=== PATIENT | male | born 1945 | race Caucasian/White ===

== ENCOUNTER 2023-02-21 06:53 | Day surgery (SDC) | payer MEDICARE, BC, SELFPAY ==
[2023-02-21] MEDS: LIDOCAINE 2% JELLY 10 ML UR (07:57)
--- NOTE | 2023-02-21 08:12 | PM.URSON ---
Urology Surgery Operative Note Operative Note Procedure Date: 02/21/23 Time Out Performed: yes Pre-op Diagnosis: history of superficial TCC of the bladder. Post-op Diagnosis: same plus no recurrence Procedures performed: #1. Cystoscopy. Anesthesia: local Primary Surgeon: Ariel Smallwood Complications: none Estimated blood loss (mL): 5 Findings: #1. Trilobar obstruction of the prostate. #2. High-grade bladder damage with deep diverticuli. #3. No evidence of recurrent bladder tumors. Specimens: none Indications for Procedures: this gentleman has a history of noniinvasive low-grade TCC of the bladder which was diagnosed about 3 months ago. He now presents for surveillance cystoscopy. He has signed an informed consent after risks were explained. Detailed description of Procedure: patient was kept on his gurney bed and brought to the endoscopy suite. He was in the supine position. His genitals were sterilely prepped and draped in the usual fashion. 2 percent lidocaine gel was passed per urethra. Time out was done by all parties in the room. We all agreed upon the patient's identification of the planned procedures for this patient. At this time I then passed a flexible cystoscope per urethra and into the bladder. The anterior urethra was normal. The prostatic urethra showed trilobar obstruction. He had fairly capacious lateral lobes and a high median lobe. The median lobe did bleed a little simply from the flexible scope resting upon it. Careful panendoscopy in the bladder showed no evidence of any papillary tumors or mucosal lesions. The previous resection site anteriorly was well-healed. The scope was retroverted upon itself and other than the median lobe protruding into the bladder and no new findings were noted. The scope was then removed. he tolerated it well. He was then discharged to home.
== END 2023-02-21 08:12 | disposition home or self-care (01) ==
PROVIDERS: PCP Internal Medicine; Visit Provider Urology
PROC: (CPT 52000; principal; 2023-02-21 07:45)
DX: Z85.51 Personal history of malignant neoplasm of bladder (principal); N40.0 Benign prostatic hyperplasia without lower urinary tract symptoms; N32.3 Diverticulum of bladder; I48.91 Unspecified atrial fibrillation; I10 Essential (primary) hypertension; E78.5 Hyperlipidemia, unspecified; Z79.01 Long term (current) use of anticoagulants; Z79.899 Other long term (current) drug therapy; Z87.891 Personal history of nicotine dependence
CPT/HCPCS: 52000

== ENCOUNTER 2023-06-27 07:35 | Day surgery (SDC) | payer MEDICARE, BC, SELFPAY ==
[2023-06-27 08:45] VITALS: BP 127/82; PULSE 97; RESP 18; O2SAT 96
[2023-06-27] MEDS: LIDOCAINE 2% JELLY 10 ML UR (08:48)
--- NOTE | 2023-06-27 08:52 | PM.URSON ---
Urology Surgery Operative Note Operative Note Procedure Date: 06/27/23 Time Out Performed: yes Pre-op Diagnosis: History of superficial TCC of the bladder Post-op Diagnosis: same as pre-op Procedures performed: 1. Cystoscopy. Anesthesia: local Primary Surgeon: Ariel Smallwood Complications: None Estimated blood loss (mL): 2 Findings: 1. No bladder tumors. Specimens: None Indications for Procedures: This gentleman has a history of low-grade noninvasive TCC of the bladder. He now presents for surveillance cystoscopy. He has signed an informed consent after risks were explained. Detailed description of Procedure: The patient was kept on the rpall mall bed and brought into the endoscopy suite. He was in the supine position. Timeout was done by all parties in the room. We all agreed upon the patient's identification and the planned procedures for this patient. The genitalia was sterilely prepped and draped in the usual fashion. 2% Xylocaine jelly was passed per urethra. I started by passing a flexible cystoscope per urethra and into the bladder. The anterior urethra was normal. The prostatic urethra showed by lobar obstruction with fairly long lateral lobes. There was a enlarged median lobe which did protrude into the bladder somewhat. Careful panendoscopy in the bladder showed thick trabeculation and multiple open diverticuli diffusely. No evidence of bladder tumors were noted. The scope was retroverted upon itself and no new findings were noted. The scope was then removed. He then was discharged to home.
[2023-06-27 08:57] VITALS: BP 140/90; PULSE 108; RESP 18; O2SAT 96
== END 2023-06-27 09:02 | disposition home or self-care (01) ==
PROVIDERS: PCP Internal Medicine; Visit Provider Urology
PROC: (CPT 52000; principal; 2023-06-27 08:15)
DX: Z85.51 Personal history of malignant neoplasm of bladder (principal); I10 Essential (primary) hypertension; E78.5 Hyperlipidemia, unspecified; I48.91 Unspecified atrial fibrillation; Z79.01 Long term (current) use of anticoagulants; N32.89 Other specified disorders of bladder; N32.3 Diverticulum of bladder; Z87.891 Personal history of nicotine dependence; N40.1 Benign prostatic hyperplasia with lower urinary tract symptoms; Z87.440 Personal history of urinary (tract) infections; R35.1 Nocturia; R39.12 Poor urinary stream; R31.0 Gross hematuria; R39.15 Urgency of urination
CPT/HCPCS: 52000

== ENCOUNTER 2023-06-30 07:03 | Outpatient (OUT) | payer MEDICARE, BC, SELFPAY | END 2023-06-30 07:04 | disposition home or self-care (01) | LOC: PST 07:03 | PROVIDERS: PCP Internal Medicine; Visit Provider Urology | DX: Z01.818 Encounter for other preprocedural examination (principal); Z85.51 Personal history of malignant neoplasm of bladder; I10 Essential (primary) hypertension; E78.5 Hyperlipidemia, unspecified; I48.91 Unspecified atrial fibrillation; Z79.01 Long term (current) use of anticoagulants ==

== ENCOUNTER 2023-09-26 07:10 | Day surgery (SDC) | payer MEDICARE, BC, SELFPAY ==
--- OUTSIDE RECORDS SUMMARY | 2023-09-26 07:13 | XMS_ITS | CCD ---
Author Name Unknown Address [address] [place] [address] Organization [facility] Care Team Providers Care Supervisor Hand Workers Name Role Phone SONJA EASTON Primary Care Physician Unavailab Surya Monae Unavailable Yumi Matute Unavailable DO Wilver Easton Primary Care Provider JAYDEN Tatum Attending Provider [phone] SMALLWOOD ., DR NOLASCO Consulting Unavailable SMALLWOOD ., DR NOLASCO Attending Unavailable SMALLWOOD ., DR NOLASCO Admitting Unavailable YUALICIA, DR PETTIT Primary Care Unavailable LIZABETH, DR JUDITH Villanueva Consulting Unavailable ZOEY GUERRA Consulting Unavailable SMALLWOOD ., DR NOLASCO Consulting Unavailable SMALLWOOD ., DR NOLASCO Attending Unavailable SMALLWOOD ., DR NOLASCO Admitting Unavailable JEMMA, DR PETTIT Primary Care Unavailable PRASANNA MACKEY Consulting Unavailable ADAMARIS BARAJAS Consulting Unavailable SMALLWOOD ., DR NOLASCO Consulting Unavailable SMALLWOOD ., DR NOLASCO Attending Unavailable YUALICIA, DR PETTIT Primary Care Unavailable SMALLWOOD ., DR NOLASCO Admitting Unavailable LIZABETH, DR JUDITH Villanueva Consulting Unavailable DO Wilver Easton Primary Care Provider JAYDEN Tatum Attending Provider [phone] Lex Tatumidi Unavailable Yessica Tatum Attending Unavailable Lex Tatumidi Admitting Unavailable Wilver Easton Primary Care Unavailable Wilver Easton DO Primary Care Provider [phone] LATESHA SANDRA Attending Unavailable WILVER EASTON Referring Unavailable WILVER EASTON Primary Care Unavailable Constance SMALLWOOD Attending Unavailable TRACI QUINTERO Admitting Unavailable TRACI QUINTERO Attending Unavailable SMALLWOOD, Constance R Attending Unavailable SMALLWOOD, Constance R Admitting Unavailable SMALLWOOD, Constance R Attending Unavailable SMALLWOOD, Constance R Attending Unavailable SMALLWOOD, Constance R Admitting Unavailable SMALLWOOD, Constance R Attending Unavailable SMALLWOOD, Constance R Attending Unavailable SMALLWOOD, Constance R Admitting Unavailable SMALLWOOD, Constance R Referring Unavailable SMALLWOOD, Constance R Attending Unavailable SMALLWOOD, Constance R Admitting Unavailable SMALLWOOD, Constance R Attending Unavailable SMALLWOOD, Constance R Attending Unavailable SMALLWOOD, Constance R Admitting Unavailable JEMMASONJA Attending Unavailable SMALLWOOD, Constance R Attending Unavailable SMALLWOOD, Constance R Referring Unavailable SMALLWOOD, Constance R Attending Unavailable SMALLWOOD, Constance R Attending Unavailable SMALLWOOD, Constance R Attending Unavailable SMALLWOOD, Constance R Attending Unavailable SMALLWOOD, Constance R Attending Unavailable SMALLWOOD, Constance R Attending Unavailable SMALLWOOD, Constance R Attending Unavailable INGRID, TRACI Alberts Attending Unavailable SMALLWOOD, Constance R Attending Unavailable Allergies Allergy Classification Reported Allergen(s) Allergy Type Date of Onset Reaction(s) Facility (1 source) No Known Medication Allergies; Translations: [No Known Medication Allergies] Propensity to adverse reactions (disorder) [facility] Repository Medications Current Medications Medication Drug Class(es) Dates Sig (Normalized) Sig (Original) apixaban 5 mg oral tablet (20 sources) Factor Xa Inhibitor Start: 05-03-2023 take 1 tablet by mouth twice daily ELIQUIS 5 mg tablet Indications: Paroxysmal atrial fibrillation ([facility]) TAKE 1 TABLET BY MOUTH TWICE DAILY 180 tablet 1 05/03/2023 Active Start: 01-05-2022 take 1 tablet by steve th twice daily Eliquis 2.5 mg oral tablet 2.5 mg = 1 tab(s), Oral, BID, Refills(s) 0 Start Date: 01/05/22 Status: Ordered aspirin 81 mg oral tablet (1 source) Platelet Aggregation Inhibitor, Nonsteroidal Anti-inflammatory Drug Start: 12-31-2019 aspirin 81 mg oral tablet Refills(s) 0 Start Date: 12/31/19 Status: Ordered atorvastatin 40 mg oral tablet (20 sources) HMG-CoA Reductase Inhibitor Start: 12-31-2019 atorvastatin 40 mg Tab Refills(s) 0 Start Date: 12/31/19 Status: Ordered cephalexin 500 mg oral capsule (2 sources) Cephalosporin Antibacterial Start: 05-20-2022 take 1 capsule by mouth twice daily Keflex 500 mg Cap 500 mg = 1 cap(s), Oral, BID, # 14 cap(s), Refills(s) 0, Pharmacy: [facility], 180, cm, 05/20/22 11:15:00 EDT, Height/Length Dosing, 109, kg, 05/20/22 11:15:00 EDT, Weight Dosing Start Date: 05/20/22 Status: Ordered cholecalciferol 0.025 mg oral tablet (3 sources) Vitamin D take 1 tablet by mouth in the morning cholecalciferol (VITAMIN D3) 1,000 units tablet Take 1 tablet (1,000 Units total) by mouth in the morning. 0 Active doxycycline hyclate 100 mg oral capsule (1 source) Tetracycline-class Drug Start: 01-05-2022 take 1 capsule by mouth once daily doxycycline hyclate 100 mg Cap 100 mg = 1 cap(s), Oral, Daily, Take 1 day before procedure and after procedure, # 2 cap(s), Refills(s) 0, Pharmacy: [facility], 180, cm, 01/05/22 8:41:00 EDT, Height/Length Dosing, 109, kg, 01/05/22 8:41:00 EDT, Weight Dosing Start Date: 01/05/22 Status: Ordered dutasteride 0.5 mg oral capsule (12 sources) 5-alpha Reductase Inhibitor Start: 11-05-2022 take 1 capsule by mouth once daily dutasteride 0.5 mg Cap 0.5 mg = 1 cap(s), Oral, Daily, # 90 cap(s), Refills(s) 3, Pharmacy: [facility], 180, cm, 11/01/22 9:50:00 EDT, Height/Length Dosing, 103, kg, 11/01/22 9:50:00 EDT, Weight Dosing Start Date: 11/05/22 Status: Ordered ezetimibe 10 mg oral tablet (20 sources) Dietary Cholesterol Absorption Inhibitor Start: 08-19-2022 End: 07-10-2023 ezetimibe 10 mg Tab Refills(s) 0 Start Date: 08/19/22 Status: Ordered Magnesium Aspartate (5 sources) Start: 12-31-2019 magnesium aspartate Refills(s) 0 Start Date: 12/31/19 Status: Ordered 24 hr metoprolol succinate 50 mg extended release oral tablet (20 sources) beta-Adrenergic Deven Start: 02-22-2023 take 0.5 tablet by mouth once daily in the morning metoprolol succinate XL (TOPROL XL) 50 mg 24 hr tablet Indications: Paroxysmal atrial fibrillation (CMS-HCC) TAKE 1/2 (ONE-HALF) OF A TABLET BY MOUTH EVERY MORNING 90 tablet 1 02/22/2023 Active Start: 08-19-2022 metoprolol suc cinate ER 50 mg tablet,extended release 24 hr metoprolol succinate ER 50 mg tablet,extended release 24 hr Start Date: 08/19/22 Status: Ordered Start: 12-31-2019 metoprolol 50 mg ER Tab Refills(s) 0 Start Date: 12/31/19 Status: Ordered Metoprolol Tartr ate Active min oil-w.ckh-duqmgwxvfr-hdrd ointment (2 sources) Start: 09-05-2023 min oil-w.gez-eqwyamvspm-ptjy ointment Apply to affected area as directed 28 g 0 09/05/2023 Active rivaroxaban 20 mg oral tablet (3 sources) Factor Xa Inhibitor Start: 12-31-2019 Xarelto 20 mg oral tablet Refills(s) 0 Start Date: 12/31/19 Status: Ordered tamsulosin hydrochloride 0.4 mg oral capsule (20 sources) alpha-Adren ergic Deven Start: 08-01-2023 take 1 capsule by mouth twice daily tamsulosin 0.4 mg Cap 0.4 mg = 1 cap(s), Oral, BID, # 180 cap(s), Refills(s) 3, Pharmacy: [facility], 180, cm, 11/29/22 11:36:00 EDT, Height/Length Dosing, 103, kg, 11/29/22 11:36:00 EDT, Weight Dosing Start Date: 08/01/23 Status: Ordered Start: 05-20-2022 End: 02-14-2023 take 1 capsule by mouth at bedtime tamsulosin (FLOMAX) 0.4 mg capsule Indications: Benign prostatic hyperplasia with urinary frequency Take 1 capsule (0.4 mg total) by mouth in the morning and at bedtime. 180 capsule 0 12/28/2022 Active Start: 01-05-2022 take 1 capsule by mo uth twice daily tamsulosin 0.4 mg Cap 0.4 mg = 1 cap(s), Oral, BID, # 60 cap(s), Refills(s) 2, Pharmacy: [facility], 180, cm, 01/05/22 8:41:00 EDT, Height/Length Dosing, 109, kg, 01/05/22 8:41:00 EDT, Weight Dosing Start Date: 01/05/22 Status: Ordered Completed/Discontinued Medications Medication Drug Class(es) Dates Sig (Normalized) Sig (Original) ciprofloxacin 500 mg oral tablet (10 sources) Quinolone Antimicrobial Start: 01-31-2023 take 1 tablet by mouth once daily Cipro 500 mg Tab 500 mg = 1 tab(s), Oral, Daily, Take 1 tablet the day before the procedure and 1 tablet after the procedure, # 6 tab(s), Refills(s) 0, Pharmacy: [facility], 180, cm, 11/29/22 11:36:00 EDT, Height/Length Dosing, 103, kg, 11/29/22 11:36:00 EDT, Weight Dosing Start Date: 01/31/23 Status: Ordered Start: 11-05-2022 take 1 tablet by steve th once daily Cipro 500 mg Tab 500 mg = 1 tab(s), Oral, Daily, Take 1 tablet the day before the procedure and 1 tablet after the procedure, # 2 tab(s), Refills(s) 0, Pharmacy: [facility], 180, cm, 11/01/22 9:50:00 EDT, Height/Length Dosing, 103, kg, 11/01/22 9:50:00... Start Date: 11/05/22 Status: Ordered Start: 02-22-2022 take 1 tablet by steve th every twelve hours Cipro 500 mg Tab 500 mg = 1 tab(s), Oral, q12hr, # 14 tab(s), Refills(s) 0, Pharmacy: [facility], 180, cm, 02/22/22 8:31:00 EDT, Height/Length Dosing, 109, kg, 02/22/22 8:31:00 EDT, Weight Dosing Start Date: 02/22/22 Status: Ordered Problems Active Problems Problem Classification Problem Date Documented Date Episodic/Chronic Cancer of bladder (13 sources) Malignant neoplasm of bladder, unspecified; Translations: [Malignant tumor of urinary bladder] Onset: 11-25-2022 Chronic Cardiac dysrhythmias (20 sources) Atrial fibrillation; Translations: [Paroxysmal atrial fibrillation] Onset: 07-18-2012 12-31-2019 Chronic Disorders of lipid metabolism (20 sources) Hyperlipidemia; Translations: [Hyperlipidemia, unspecified] Onset: 05-26-2022 12-31-2019 Chronic Essential hypertension (20 sources) Hypertensive disorder; Translations: [Essential (primary) hypertension] Onset: 05-26-2022 12-31-2019 Chronic Genitourinary symptoms and ill-defined conditions (20 sources) Poor stream of urine; Translations: [Poor urinary stream] Onset: 01-05-2022 Episodic Hyperplasia of prostate (20 sources) Benign prostatic hypertrophy with outflow obstruction; Translations: [Benign prostatic hyperplasia with lower urinary tract symptoms] Onset: 01-05-2022 Chronic Neoplasms of unspecified nature or uncertain behavior (4 sources) Neoplasm of unspecified behavior of bladder; Translations: [Neoplasm of uncertain behavior of bladder] Onset: 11-15-2022 Episodic Osteoarthritis (6 sources) Arthropathy of right hip joint; Translations: [Unilateral primary osteoarthritis, right hip] Onset: 04-09-2021 Resolved: 06-02-2021 Chronic Other aftercare (4 sources) Long-term current use of anticoagulant; 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] Onset: 02-22-2022 Episodic Other aftercare (1 source) [facility] (current) use of anticoagulants; 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] Onset: 11-25-2022 Episodic Other diseases of bladder and urethra (1 source) Other specified disorders of bladder; Translations: [OTHER SPECIFIED DISORDERS BLADDER] Onset: 11-25-2022 Chronic Other diseases of kidney and ureters (3 sources) Urinary tract obstruction; Translations: [Other obstructive and reflux uropathy] Onset: 01-25-2022 Episodic Other nutritional; endocrine; and metabolic disorders (5 sources) Obese class I; Translations: [Body mass index (BMI) 33.0-33.9, adult] Onset: 01-25-2022 Chronic Other nutritional; endocrine; and metabolic disorders (20 sources) Body mass index 30+ - obesity; Translations: [Body mass index (BMI) 32.0-32.9, adult] 01-25-2022 Chronic Other nutritional; endocrine; and metabolic disorders (1 source) Body mass index (BMI) 32.0-32.9, adult Onset: 05-19-2021 Resolved: 05-19-2021 Chronic Other nutritional; endocrine; and metabolic disorders (3 sources) Obesity; Translations: [Obesity, unspecified] Onset: 06-02-2022 06-02-2022 Chronic Residual codes; unclassified (11 sources) Obstructive sleep apnea syndrome; Translations: [Obstructive sleep apnea (adult) (pediatric)] Onset: 06-02-2022 06-02-2022 Chronic Residual codes; unclassified (2 sources) Obstructive sleep apnea (adult) (pediatric) Onset: 05-19-2021 Resolved: 05-19-2021 Chronic Residual codes; unclassified (1 source) Obstructive sleep apnea (adult)(pediatric); Translations: [Obstructive sleep apnea (adult) (pediatric)] Onset: 06-15-2023 Chronic Screening and history of mental health and substance abuse codes (12 sources) H/O: Disorder; Translations: [Personal history of nicotine dependence] Onset: 11-01-2022 Episodic Skin and subcutaneous tissue infections (2 sources) Pilonidal cyst; Translations: [Pilonidal cyst without abscess] Onset: 09-05-2023 09-05-2023 Episodic Spondylosis; intervertebral disc disorders; other back problems (9 sources) Herniation of nucleus pulposus of lumbar intervertebral disc; Translations: [Other intervertebral disc displacement, lumbar region] Onset: 06-18-2021 08-27-2021 Chronic Unclassified (17 sources) Asymptomatic microscopic hematuria 01-05-2022 Unclassified (15 sources) Drug therapy finding 02-22-2022 Unclassified (1 source) Cyst Onset: 09-05-2023 Urinary tract infections (20 sources) Acute cystitis; Translations: [Acute cystitis without hematuria] Onset: 02-22-2022 Episodic Past or Other Problems Problem Classification Problem Date Documented Date Episodic/Chronic Mood disorders (3 sources) Mood disorders Onset: 06-29-2023 Resolved: 09-05-2023 06-29-2023 Other and unspecified benign neoplasm (3 sources) History of polyp of colon; Translations: [Personal history of colonic polyps] Onset: 09-02-2017 09-02-2017 Episodic Other and unspecified benign neoplasm (3 sources) Polyp of transverse colon; Translations: [Polyp of colon] Onset: 09-14-2017 09-14-2017 Episodic Peripheral and visceral atherosclerosis (3 sources) 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, left leg; Translations: [Atherosclerosis of cantwell arteries of the extremities with intermittent claudication] Onset: 11-16-2022 Resolved: 11-16-2022 11-16-2022 Chronic Spondylosis; intervertebral disc disorders; other back problems (14 sources) Lumbar radiculopathy; Translations: [Radiculopathy, lumbar region] Onset: 05-23-2020 Resolved: 06-02-2021 Episodic Results Test Name Value Interpretation Reference Range Facil ity Reminderson 09-23-2023 Reminders - From: Saida Rodriguez To: EU - Recalls [facility]; Sent: 09/23/2023 15:04:59 EST Show up: 11/16/2023 15:04:00 EDT Subject: cysto/fish/cytol (bt ck) Due Date/Time: 12/05/2023 15:04:00 EDT Reminder/Recall Patient is due in December for 3 month cysto/fish/cytol (bt ck) [facility] Reminders - From: Saida Rodriguez To: EU - Recalls [facility]; Cc: Saida Rodriguez; Sent: 01/31/2023 14:13:50 EDT Show up: 04/17/2023 14:13:00 EDT Subject: Cysto/FISH/cytol Due Date/Time: 05/09/2023 14:13:00 EDT Reminder/Recall Patient is due in May 2023 for 3 month cysto/fish/cytol (bt ck) Patient sched for 05/30/23 at [facility]. patient will be due in October 2023.LG Patient had Cysto 06/27/23. He will be due in September 2023.LG Patient sched for 09/26/23. He will be due in December 2023.[facility] Consent for Procedure/Surger yon 09-08-2023 Consent for Procedure/Surgery [id number]. 00TIFF Normal [facility] Reminderson 08-19-2023 Reminders - From: Saida Rodriguez To: EU - Recalls [facility]; Cc: Saida Rodriguez; Sent: 07/01/2023 10:36:17 EST Show up: 08/18/2023 10:36:00 EST Subject: Cysto/FISH/cytol Due Date/Time: 09/05/2023 10:36:00 EST Reminder/Recall Patient is due in september 2023 for 3 month cysto/fish/cytol (bt ck) Patient sched for 09/26/23. He will be due in December 2023. Normal [facility] Operative Reporton Operative Report [id number] 0TIFF Normal [facility] Urine Cytology ([facility])on 08-23-2022 Urine Cytology Revision Information Invalid Interpretation Code [facility] Comment on above: Result Comment: Enrique ection Reason -[ Saurabh Greene, 06/22/23 - 14:47 ] Corrected report issued to update PMS/PWS. The diagnosis remains unchanged. Correction Notes - Performed By: #### 1 [id number] ####[facility] [id number] [place], [place] [id number] Urine Cytology ([facility])on 07-23-2022 Method of Extraction Voided Normal [facility] Comment on above: Performed By: #### 1 [id number] ####[facility] [address] [place] [address] Number of Jars 1 Invalid Interpretation Code [facility] Comment on above: Performed By: #### 1 [id number] ####[facility] [address] [place] [address] Specimen Urine Normal [facility] Comment on above: Performed By: #### 1 [id number] ####[facility] [address] [place] [address] Type of Service Technical Only Normal [facility] Comment on above: Performed By: #### 1 [id number] ####[facility] [address] [place] [address] Consent for Procedure/Surger yon 05-05-2023 Consent for Procedure/Surgery 104... 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 Adequate cellularity for evaluation. Diagnosis Summary - The UroVysion FISH study detected normal copy numbers for chromosomes 3, 7, 17, and 9p21. 66 cells were analyzed in this evaluation. No evidence of aneuploidy for chromosomes 3, 7, or 17 or deletion of the 9p21 locus was found in cells present in this specimen. This test does not rule out the possibility of a low grade non-invasive papillary urothelial carcinoma. These findings should be correlated with cytology and cystoscopy results.* CPT 55363, 26752 Microscopic Notes - Microscopic Notes - Abnormal cells 9p21 deletions: Abnormal cells aneploid events: Total cells analyzed: 66 Hematuria: Gross Description Site ID:A color Pramod fixative Alcohol Received 80 mls of clear pramod fluid with the patient's name and, Urine on the vial. Electronically signed by : on: 02/23/2023 00:10:34 Performed By: #### 1 [id number] #### [facility] [address] [place] [address] Operative Reporton Operative Report [id number] 0CD:127 Normal [facility] UroVysion Fish and Urine Cyt o ([facility])on 02-14-2023 [facility] Method of Extraction Voided Normal [facility] Comment on above: Performed By: #### 1 [id number] #### [facility] [address] [place] [address] [facility] Number of Jars 1 Invalid Interpretation Code [facility] Comment on above: Performed By: #### 1 [id number] #### [facility] [address] [place] [address] [facility] Specimen Urine Normal [facility] Comment on above: Performed By: #### 1 [id number] #### [facility] [address] [place] [address] [facility] Type of Service Technical Only Normal [facility] Comment on above: Performed By: #### 1 [id number] #### [facility] [address] [place] [address] Consent for Procedure/Surger yon 01-31-2023 Consent for Procedure/Surgery [id number] 0CD:127 Normal [facility] C Urineon 12-11-2022 Bacteria identified Cx Nom (U) Microbiology PROCEDURE: Urine Culture [R1] SOURCE: U Random BODY SITE: COLLECTED DATE/TIME: 12/09/2022 13:38 EDT RECEIVED DATE/TIME: 12/09/2022 18:13 EDT START DATE/TIME: 12/09/2022 18:13 EDT FREE TEXT SOURCE: SANTY LYLES, Constance SMALLWOOD MD, Constance Villanueva FINAL REPORTS Final Report [] Verified Date/Time: 12/11/2022 06:44 EDT No growth at 2 days. Performing Locations R1: This test was performed at: [facility], [address] [place] [address], [id number] , , [facility] Comment on above: Performed By: #### 2 [id number] ####[facility] [address] [place] [address] Ambulatory Visit Summaryon 0 12-09-2022 Ambulatory Visit Summary WILVER BLUE :1945 Visit Date:12/09/2022 Ambulatory Visit Instructions Your Diagnosis Asymptomatic microscopic hematuria Gross hematuria Tests Performed Urnls Dip Stick Auto w/o Microscopy POC 89504 Your Care Team Attending Physician - SANTY LYLES, Constance Villanueva Primary Care Physician - SONJA EASTON DO This Is Your Medications List Misc Prescription (metoprolol succinate ER 50 mg tablet,extended release 24 hr) apixaban (Eliquis 2.5 mg oral tablet) atorvastatin (atorvastatin 40 mg Tab) ciprofloxacin (Cipro 500 mg Tab) dutasteride (dutasteride 0.5 mg Cap) ezetimibe (ezetimibe 10 mg Tab) sulfamethoxazole-trime thoprim (Bactrim D.S. 800 mg-160 mg Tab) tamsulosin (tamsulosin 0.4 mg Cap) Procedures Performed TURBT - Transurethral resection of bladder tumor (11/18/2022), Cystoscopy (11/09/2022), Cystoscopy (01/25/2022), Cystoscopy (06/09/2015), Operative procedure on shoulder, Procedure on back, Tonsillectomy. What to do next Scheduled Follow-Up Appointments Tuesday 8:00 AM EDT With: SANTY LYLES, Constance Villanueva Where: [facility] Patient Educationon 11-30-19 Patient Education Oncology Bladder Cancer Bladder cancer is a condition where abnormal tissue (a tumor) grows in the bladder. The bladder is the organ that holds urine. Two tubes (ureters) carry urine from the kidneys to the bladder. The bladder wall is made of layers of tissue. Cancer that spreads through these layers of the bladder wall becomes more difficult to treat. What increases the risk? The following factors may make you more likely to develop this condition: ? Smoking. ? Working where there are risks (occupational exposures), such as working with rubber, leather, clothing fabric, dyes, chemicals, or paint. ? Being 55 years of age or older. ? Being male. ? Having long-term bladder inflammation. ? Having a history of cancer. This includes: ? A family history of bladder cancer. ? Having had bladder cancer before. ? Having had certain treatments for cancer before, such as: ? Medicines to kill cancer cells (chemotherapy). ? Strong X-ray beams or high-energy capsules to kill cancer cells and shrink tumors (radiation therapy). ? Having been exposed to arsenic. This is a poisonous substance. What are the signs or symptoms? Early symptoms of this condition include: ? Blood in your urine. ? Pain when urinating. ? Infections of your urinary system (urinary tract infections or UTIs) that happen often. ? Having to urinate sooner or more often than normal. Late symptoms of this condition include: ? Not being able to urinate. ? Pain on one side of your lower back. ? Loss of appetite. ? Weight loss. ? Tiredness (fatigue). ? Swelling in your feet. ? Bone pain. How is this diagnosed? This condition is diagnosed based on: ? Your medical history. ? A physical exam. ? Lab tests, such as urine tests. ? Imaging tests. ? Your symptoms. You may also have other tests or procedures, such as: ? A cystoscopy. This involves putting a narrow tube into your urethra. The urethra is the organ that carries urine from your bladder to the outside of your body. This procedure is done to view the lining of your bladder for tumors. ? A biopsy. This involves removing a tissue sample to look at under a microscope to check for cancer. Blood tests or imaging tests may be needed. These show how far into the bladder wall cancer has grown, and if cancer has spread to any other parts of your body. Tests may include: ? CT scan. ? MRI. ? Bone scan. ? X-ray. How is this treated? Your health care provider may recommend one or more types of treatment based on the stage of your cancer. The most common treatments are: ? Surgery to remove the cancer. Types of surgeries include: ? Removing a tumor on the inside wall of the bladder (transurethral resection). ? Removing the bladder (cystectomy). ? Radiation therapy. This is often combined with chemotherapy. ? Chemotherapy. ? Immunotherapy. This uses medicines to help your body's disease-fighting system (immune system) destroy cancer cells. Follow these instructions at home: ? Take igok-dkc-xvkpyvb and prescription medicines only as told by your health care provider. ? If you were prescribed an antibiotic medicine, take it as told by your health care provider. Do not stop using the antibiotic even if you start to feel better. ? Eat a healthy diet. Some treatments might affect your appetite. ? Do not use any products that contain nicotine or tobacco. These products include cigarettes, chewing tobacco, and vaping devices, such as e-cigarettes. If you need help quitting, ask your health care provider. ? Consider joining a support group. This may help you learn to deal with the stress of having bladder cancer. ? Tell your cancer care team if you develop side effects. Your team may be able to recommend ways to get relief. ? Keep all follow-up visits. This is important. Where to find more information ? [place] [employer] (ACS): cancer.org ? [employer] [place] (NCI): cancer.gov Contact a health care provider if: ? You have symptoms of a UTI. These include: ? Fever. ? Chills. ? Weakness. ? Muscle aches. ? Pain in your abdomen. ? Urge to urinate that is stronger and happens more often than normal. ? Burning in the bladder or urethra when you urinate. Get help right away if: ? There is blood in your urine. ? You cannot urinate. ? You have severe pain or other symptoms that do not go away. Summary ? Bladder cancer is a condition where tumors grow in the bladder. ? Diagnosis is based on your medical history, a physical exam, lab tests, imaging tests, and your symptoms. ? Your health care provider may recommend one or more types of treatment based on the stage of your cancer. ? Consider joining a support group. This may help you learn to deal with the stress of having bladder cancer. This information is not intended to replace advice given to you by your health care provider. Make sure you discuss any questions you have wi (more content not included)... Normal [facility] Urology Office/Clinic Noteon 11-29-2022 Urology Office/Clinic Note Chief Complaint PO TURBT HPI Staff S/P TURBT done 11/18/22 due to Bladder Tumor that was found during Cysto done 11/09/22. Cysto had been scheduled due to results of Renal US done 11/03/22. Pt is here today to review pathology report. Post Op catheter was removed in our office on 11/24/22. Additional DX: BPH *Flomax 0.4mg BID therapy. Started on Dutasteride 0.5mg QD therapy at last encounter. Dysuria: mild burning at the start of urination Incomplete bladder emptying:no Hematuria: mild red blood when he starts urinating Frequency: no Urgency: severe Nocturia: 3x Stream: weak stream Leaking: mild dribbling if he holds to long Post void dripping: no Wearing pads/ Depends: no Urge incontinence: mild Stress incontinence: no Incontinence without Sensory Awareness: no Abdominal pain: no Flank pain: no Sexual complaints: no History of Present Illness Tests Reviewed: Reviewed Pathology report I have reviewed and verified the staff HPI to be accurate for this encounter. I have reviewed the previous health record information and history for this patient from Dr. Smallwood There have been no associated fever, chills, flank pain, or blood in the urine. Denies any urinary infections since last encounter. Review of Systems PHQ Score Initial Depression Screen Score: 0 ROS - Provider Constitutional: denies weight loss, denies hot flashes. Eyes: denies eye problems. Gastrointestinal: denies nausea, denies vomiting. Cardiovascular: denies chest pain or angina. Integumentary: no dryness Musculoskeletal: denies musculoskeletal symptoms. ENMT: denies otolaryngeal symptoms. Respiratory: no shortness of breath. Heme/Lymph: denies easy bleeding tendency, denies easy bruising tendency. Psychiatric: no confusion, no anxiety. Genitourinary: denies dysuria, denies hematuria, denies discharge, denies urinary frequency, denies urinary hesitancy, denies nocturia, denies incontinence, denies genital sores, denies decreased libido, and denies erectile dysfunction. Physical Exam Vitals & Measurements HR: 96(Peripheral) BP: 134/93 HT: 71 in HT: 180 cm WT: 103 kg WT: 226.6 lb BMI: 31.79 General Appearance: alert, no distress, well nourished, well developed male. Flank Pain: none. Bladder: nonpalpable. Assessment/Plan 1. BPH with urinary obstruction (N40.1: Benign prostatic hyperplasia with lower urinary tract symptoms) UA done today shows LARGE blood, small leuks, and protein 30mg/dl. PSA 11/25/21- 3.06. Taking Flomax 0.4 mg bid, and Dutasteride 0.5mg therapy. Doing well on this med. Decent stream. No start/stop. Feels he empties completely, gets up 3 times per night, having urgency. Not currently interested in outlet obstruction procedures. 2. 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 The pathology report was reviewed with the patient in detail today. The report confirms evidence of malignancy. This was discussed with the patient and all questions were answered in terms the patient could understand completely, along with the implications. We will be making plans for further treatment and evaluation as the results demand. The patient understands and agrees with this plan. Plan Cystoscopy q 3 months for 2 years. I have reviewed the previous health history and record for this patient with Dr. Smallwood. Plan q 3 month cystos Follow-up With When Contact Information SANTY LYLES, Constance Villanueva, URL [facility] [address], [place] [address] [phone] Additional Instructions: Patient Education Bladder Cancer ISaida, personally scribed for Dr. Smallwood on 11/29/2022 13:03:07. . Documentation recorded by the scribegunner, accurately reflects the services(s) I performed and decisions made by me. Authenticated by Dr. Smallwood on 11/29/2022 13:04:17. Problem List/Past Medical History Ongoing Anticoagulated Asymptomatic microscopic hematuria Atrial fibrillation BMI 33.0-33.9,adult BPH with urinary obstruction Former smoker Gross hematuria Hyperlipidemia Hypertension Nocturia Urinary tract infection Urinary tract infection Weak urinary stream Historical No qualifying data Procedure/Surgical History TURBT - Transurethral resection of bladder tumor (11/18/2022), Cystoscopy (11/09/2022), Cystoscopy (01/25/2022), Cystoscopy (06/09/2015), Operative procedure on shoulder, Procedure on back, Tonsillectomy. Medications atorvastatin 40 mg Tab Cipro 500 mg Tab, 500 mg= 1 tab(s), Oral, Daily, Not taking dutasteride 0.5 mg Cap, 0.5 mg= 1 cap(s), Oral, Daily, 3 refills Eliquis 2.5 mg oral tablet, 2.5 mg= 1 tab(s), Oral, BID ezetimibe 10 mg Tab metoprolol succinate ER 50 mg tablet,extended release 24 hr, 0 tamsulosin 0.4 mg Cap, 0.4 mg= 1 c (more content not included)... Normal [facility] Comment on above: Result Comment: Elec tronically Signed By: Constance SMALLWOOD MD\.br\Date and Time Signed: 11/29/22 13:04 EDT\.br\Electronically Co-Signed By: Saida Rodriguez\.br\Date and Time Co-Signed: 11/29/22 13:03 EDT Pathology Noteon 11-28-2022 Pathology Note [id number] 0CD:127 Normal [facility] Ambulatory Visit Summaryon 0 11-24-2022 Ambulatory Visit Summary WILVER BLUE :1945 Visit Date:11/24/2022 Ambulatory Visit Instructions Your Diagnosis Gross hematuria Your Care Team Attending Physician - Constance SMALLWOOD MD Primary Care Physician - SONJA EASTON DO This Is Your Medications List [facility] [place] (metoprolol succinate ER 50 mg tablet,extended release 24 hr) apixaban (Eliquis 2.5 mg oral tablet) atorvastatin (atorvastatin 40 mg Tab) ciprofloxacin (Cipro 500 mg Tab) dutasteride (dutasteride 0.5 mg Cap) ezetimibe (ezetimibe 10 mg Tab) tamsulosin (tamsulosin 0.4 mg Cap) Procedures Performed TURBT - Transurethral resection of bladder tumor (11/18/2022), Cystoscopy (01/25/2022), Cystoscopy (06/09/2015), Operative procedure on shoulder, Procedure on back, Tonsillectomy. What to do next Scheduled Follow-Up Appointments Tuesday 9:30 AM EDT With: Constance SMALLWOOD MD Where: [facility] Normal [address] [place] [address] [place] [address]- \.br\ Medications\.br \ What How Much When Instructions\.b r\ Unchanged apixaban (Eliquis 2.5 mg oral tablet) 1 Tablets By Mouth 2 times a day\.br\ Unchanged atorvastatin (atorvastatin 40 mg Tab)\.br\ Unchanged ciprofloxacin (Cipro 500 mg Tab) 1 Tablets By Mouth Every day Take 1 tablet the day before the procedure and 1 tablet after the procedure \.br\ Unchanged dutasteride (dutasteride 0.5 mg Cap) 1 Capsules By Mouth Every day\.br\ Unchanged ezetimibe (ezetimibe 10 mg Tab)\.br\ Unchanged Misc Prescription (metoprolol succinate ER 50 mg tablet,extended release 24 hr) 0\.br\ Unchanged tamsulosin (tamsulosin 0.4 mg Cap) 1 Capsules By Mouth Every day Duration: 90 Days\.br\ Allergies\.br\ No Known Allergies\.br\ No Known Medication Allergies\.br\ Problems\.br\ Ongoing - Any problem that you are currently receiving treatment for.\.br\ Anticoagulated\ .br\ Asymptomatic microscopic hematuria\.br\ Atrial fibrillation\.b r\ BMI 33.0-33.9,adult \.br\ BPH with urinary obstruction\.br \ Former smoker\.br\ Gross hematuria\.br\ Hyperlipidemia\ .br\ Hypertension\.b r\ Nocturia\.br\ Urinary tract infection\.br\ Urinary tract infection\.br\ Weak urinary stream\.br\ \.br\ [facility] Nurse Consultation Noteon Nurse Consultation Note Reason for Visit Post Op Catheter Removal Assessment/Plan 1. Gross hematuria (R31.0: Gross hematuria) S/P Cysto/TURBT done 11/18/22 Pt?s catheter has been removed in office today with no complications. They have been advised to drink plenty of fluids. Pt has been instructed to call the office in the event that they are not able to void in the next 4-6 hours, or go the ER. Advised Pt if they experience any severe bleeding, fever over 101 and/ or shaking chills to go to the ER. Normal [facility] Consultation Noteon 11-20-19 Consultation Note [id number] 0CD:127 Normal [facility] Operative Reporton Operative Report [id number] 0CD:127 Normal [facility] RAD - MISCon 11-16-2022 RAD - MISC [id number] 0CD:127 Normal [facility] ECG 12-Leadon 11-15-2022 ECG 12-Lead [id number] 0CD:127 Normal [facility] Lab Reportson 11-15-2022 Lab Reports [id number] 0CD:127 Normal [facility] CBC AUTO DIFFon 11-11-2022 BASO # 0.1 103/ul Normal 0.0-0.1 [facility] Comment on above: Performed By: #### C BC #### [facility] [address] [place] [address] Dr. Valencia Lucas Basophils/100 WBC (Bld) 0.7 % Normal 0.2-2.0 [facility] Comment on above: Performed By: #### C BC #### [facility] [address] [place] [address] Dr. Valencia Lucas EO # 0.2 103/ul Normal 0.0-0.7 [facility] Comment on above: Performed By: #### C BC #### [facility] [address] [place] [address] Dr. Valencia Lucas Eosinophils/100 WBC (Bld) 3.1 % Normal 0.9-7.0 [facility] Comment on above: Performed By: #### C BC #### [facility] [address] [place] [address] Dr. Valencia Lucas Erythrocyte distribution width (RBC) [Ratio] 13.7 % Normal 11.0-15.0 [facility] Comment on above: Performed By: #### C BC #### [facility] [address] [place] [address] Dr. Valencia Lucas Hematocrit (Bld) [Volume fraction] 46.6 % Normal 42.0-54.0 [facility] Comment on above: Performed By: #### C BC #### [facility] [address] [address] [address] Valencia Lucas Hemoglobin (Bld) [Mass/Vol] 15.0 g/dL Normal 14.0-18.0 [facility] Comment on above: Performed By: #### C BC #### [facility] [address] [address] [address] Valencia Lucas IG # 0.02 10e3/ul Normal 0.00-0.03 [facility] Comment on above: Performed By: #### C BC #### [facility] [address] [place] [address] Dr. Valencia Lucas IG % 0.3 % Normal 0.0-0.5 [facility] Comment on above: Performed By: #### C BC #### [facility] [address] [place] [address] Dr. Valencia Lucas LYMPH # 1.5 103/ul Normal 1.2-3.8 [facility] Comment on above: Performed By: #### C BC #### [facility] [address] [place] [address] Dr. Valencia Lucas Lymphocytes/100 WBC (Bld) 20.6 % Normal 20.5-60.0 [facility] Comment on above: Performed By: #### C BC #### [facility] [address] [place] [address] Dr. Valencia Lucas MANUAL DIFF REQ NO Normal [facility] Comment on above: Performed By: #### C BC #### [facility] [address] [place] [address] Dr. Valencia Lucas MCH (RBC) [Entitic mass] 29.5 pg Normal 25.9-34.0 [facility] Comment on above: Performed By: #### C BC #### [facility] [address] [place] [address] Dr. Valencia Lucas MCHC (RBC) [Mass/Vol] 32.2 g/dL Normal 29.9-35.2 [facility] Comment on above: Performed By: #### C BC #### [facility] [address] [address] [address] Valencia Lucas MCV (RBC) [Entitic vol] 91.6 fL Normal 80.0-94.0 [facility] Comment on above: Performed By: #### C BC #### [facility] [address] [address] [address] Valencia Lucas MONO # 0.6 103/ul Normal 0.3-0.8 [facility] Comment on above: Performed By: #### C BC #### [facility] [address] [address] [address] Valencia Lucas Monocytes/100 WBC (Bld) 8.1 % Normal 1.7-12.0 [facility] Comment on above: Performed By: #### C BC #### [facility] [address] [place] [address] Dr. Valencia Lucas NEUT # 4.8 103/ul Normal 1.4-6.5 [facility] Comment on above: Performed By: #### C BC #### [facility] [address] [place] [address] Dr. Valencia Lucas Neutrophils/100 WBC (Bld) 67.2 % Normal 43.0-75.0 [facility] Comment on above: Performed By: #### C BC #### [facility] [address] [place] [address] Dr. Valencia Lucas Platelet mean volume (Bld) [Entitic vol] 10.2 fL Normal 9.5-13.5 [facility] Comment on above: Performed By: #### C BC #### [facility] [address] [place] [address] Dr. Valencia Lucas PLT 196 103/ul Normal 150-450 [facility] Comment on above: Performed By: #### C BC #### [facility] [address] [place] [address] Dr. Valencia Lucas RBC 5.09 106/ul Normal 4.70-6.10 [facility] Comment on above: Performed By: #### C BC #### [facility] [address] [place] [address] Dr. Valencia Lucas WBC 7.1 103/ul Normal 4.0-11.0 [facility] Comment on above: Performed By: #### C BC #### [facility] [address] [place] [address] Dr. Valencia Lucas Formsnadira 11-11-2022 Forms [id number] CD:127 Normal [facility] PROF CHEM 8 (BAS METB)on Anion gap [Moles/Vol] 10.8 mmol/L Normal [facility] Comment on above: Performed By: #### B MP #### [facility] [address] [place] [address] Dr. Valencia Lucas Calcium [Mass/Vol] 9.6 mg/dL Normal 8.5-10.1 [facility] Comment on above: Performed By: #### B MP #### [facility] [address] [place] [address] Dr. Valencia Lucas Chloride [Moles/Vol] 105 mmol/L Normal 98-107 [facility] Comment on above: Performed By: #### B MP #### [facility] [address] [place] [address] Dr. Valencia Lucas CO2 [Moles/Vol] 29.4 mmol/L Normal 21.0-32.0 [facility] Comment on above: Performed By: #### B MP #### [facility] [address] [place] [address] Dr. Valencia Lucas Creatinine [Mass/Vol] 1.29 mg/dL Normal 0.70-1.30 [facility] Comment on above: Performed By: #### B MP #### [facility] [address] [place] [address] Dr. Valencia Lucas EGFR-AF [place] >60 Normal >=60 [facility] Comment on above: Performed By: #### B MP #### [facility] [address] [place] [address] Dr. Valencia Lucas EGFR-NON AF [place] 54 mL/min/1.73m2 Critically low >=60 [facility] Comment on above: Performed By: #### B MP #### [facility] [address] [address] [address] Valencia Lucas Glucose [Mass/Vol] 97 mg/dL Normal 74-106 [facility] Comment on above: Performed By: #### B MP #### [facility] [address] [address] [address] Valencia Lucas Potassium [Moles/Vol] 5.2 mmol/L Critically high 3.5-5.1 [facility] Comment on above: Performed By: #### B MP #### [facility] [address] [address] [address] Valencia Lucas Sodium [Moles/Vol] 140 mmol/L Normal 136-145 [facility] Comment on above: Performed By: #### B MP #### [facility] [address] [address] [address] Valencia Lucas Urea nitrogen [Mass/Vol] 16.0 mg/dL Normal 7.0-18.0 [facility] Comment on above: Performed By: #### B MP #### [facility] [address] [address] [address] Valencia Lucas Urea nitrogen/Creatinin e [Mass ratio] 12.4 mg/mg Normal [facility] Comment on above: Performed By: #### B MP #### [facility] [address] [address] [address] Valencia Lucas PROTIMEon 11-11-2022 INR Coag (PPP) [Relative time] 1.05 {INR} Normal [facility] Comment on above: Performed By: #### P TT, PT #### [facility] [address] [address] [address] Valencia Lucas INR GUIDELINES SEE BELOW Normal [facility] Comment on above: Result Comment: ARLEEN RED INR: 2.0 - 3.0 CONDITIONS NOT LISTED BELOW 2.5 - 3.5 FOR PROSTHETIC HEART VALVE REPLACEMENT 2.5 - 3.5 RECURRENT THROMBOSIS Performed By: #### P TT, PT #### [facility] [address] [place], [place] [address] Dr. Valencia Lucas PT Coag (PPP) [Time] 11.1 s Normal 9.0-11.6 [facility] Comment on above: Performed By: #### P TT, PT #### [facility] [address] [place], [place] [address] Dr. Valencia Lucas PTTon 11-11-2022 aPTT Coag (Bld) [Time] 33.0 s Normal 22.3-36.2 [facility] Comment on above: Performed By: #### P TT, PT #### [facility] [address] [place], [place] [address] Dr. Valencia Lucas Coding Summary.on 11-10-2022 Coding Summary. CD:[id number] Ww +PGhlYWQ+XG4VTEMgN97wk VJrbP7tO2IIPUrJUqliUSG FFNgJOdOdtpKdMG7qfFGaK XJu IC8+LW6yZXQuLzkusVBlo9 V4wHS3V80uhr4jCMpovAM8 MJAlWnQgvmnow1accAv0XC cuNmluOyBt MNAtsM41YCH3mM97Ih96wF QlyFSkw7msyIk8LyDwFUIs QTM7eRanMIccm9BfLEYbB8 6muBNod9L2 MDSznEinfRSbLoGiaPS1wW 4fUOshnfagr3tdbaovPic5 qo60iLWth6Q1qHG7X8Qkmm K8SSTadWFc EekuvYKKlB6xdmrro9zfej ubBbYsREOzFNv0PBt5VOFj xRxrOnRkWT50ETG7EAHuqu FnJ9RnWFYq kFcvOhV6f3I7Zo2LI6DWYq uiP4KKKDSMRFwawTJ+PC90 mm44X2HnSepmAgl2HYJgUY V6dQG3nY9v OMYmVHatd8H9hVX5U3Fmdr Uggp2jn2qjJHWaGScuL36w jTSjq2A6RHLonHL6FSQqoB tnSbTuxD46 Oyc+RSFgyEhbh5ItKhltp9 xhj6cmiDs7SotdMITtalZo nAaaRET0b3SbVt2pCGBjkH T8vXH7aM4e ZeJpVaY1EDzgD410NaKxeM VhYubsO59kB9SuyGR+PHRy Vsv1SIAllRcrCO5wE5LbKA RpbmctbGVm zIytOO5kWZDxrxtnKAFpsM 7xEIGsZ9d4BmOgVcR2FDyl V5UkFHGlunweRc18oA4fIk OjEzQ5YSmk Q7SmnkC5ZXRgqSZtZOfdKE D1T55ru8S6TJZbMZBtOHO9 hOG4cS5ubHgdibqloYRvpO sgdmVydGlj NJabLDwfY222PBTvoRfuGn NvZGluZyBEYXRlOiAgMDQv MjYvMjAyMzwvdGQ+PHRkIH D6yNbjGUKo sKPfNDblFi0uaMidwZomSU 0mWBOlftakYEFonN5kROYk dIGvaEkeRR4nPGFigpopu2 37WgNdVVI6 HALejKSzH0YhuH7yJqMxLS HyGUGcA8ZchNVyQKznV487 LUtxPaI8NVDsqjBhY6MiYV FsaWduOiB0 f9A4Bg6Lj6ClhvvwT2FlfX DhQgXbTwvfJXd0K7NbHnrg dHI+PK21VDFsNA37ZUo0AN R0nMovGMmg TOSiX4JkxQ2gIlIkPBHcSC RkOyc+PHRhYmxlIHdpZHRo BIfaNFUjZrKpbXfsEM7tRk 9yZGVyLWNv lDdsvUIxZiEgq4ufSGYqPD fiVR8jmXxtZ8CulMH8KXMu f7n3Ur23O37qQ4FfbUK+PG UppWK8kOX9 hF4sFaXlZhW7XXlhO140Jy ArkZJkNxhez3dtt2sflCl6 DnQ4YYZaxzUqyFppFVE0p8 DiJc21D65m IHdpZHRoPSIxNSUiIHZhbG imko0oxN3nQv4+PGNvbCB3 dSY3lO0vLaJvWkW9SApmW7 49InRvcCIv Myhzd5cmv2ezxHd3HaVmMN DfexPpwBkgGVL1a2XgXl76 Z3WhvIptz3ZmTok1ao62qB Jod1N5tHV2 F1HtBWBqegcyjJDzkBxrKY 3yPYXzslckCWQqvH7tJNYi U1y3OzHaZhM1LVftA7Nlns J0SXSamMCg DEZywOKVmF1kudpqs4achp nfKrZuVZOdBZo2FLt3UIGg nTkfCwVeEMQ7PaS1FMN0pC KydA1tkQee ulvaxJ8hYrl+OZU3aIMlaB GWHO2eUbrrkGL+PHRkIHN0 sHahLDepBFJkjT5sQHBeJ4 c7LxPuUjM4 DRwfT4SxcrY3MHVvnVFsSC KffANOrF6olpgca6pcmnri EiKaPLMiLSh7DDf8CHQpiG duOiBsZWZ0 ZdO8IVK9nILmiT8svJvrdy ixxN4rNgm+QmlydGggRGF0 ZIt4D9ZeKgk7UXDxgMukXQ 0ncGFkZGlu Pr7saCjrxNdgCN4aGFCfaw cem471OlBfs8neBGJgqTEe UKgxAPZ2U15ai6T4UCQaCK ZqGJH2mFP4 gQ8ciEpcwpgroWXznKilnq UrfWnzHDnuATcrX191YPLb mAraYdAvRBv4D1HfTxv2MC JzcVfhGJ8n jAOhJLgmKf9fkRrohOmeXO 8fLHNyixucd668AeWug2do GMElsTVyAVcnSOO2C27qy6 B3NJLkLUKl VQH0xAX4oT9tdLbbnhurgP VmdDsgdmVydGljYWwtYWxp I632WBGfuEnlVbNalNd8N3 FzZqy1MKGh hZuuIL7nmWBvZPgiNs3vrV puvRxgNY0aBIJyhvuko570 BvCzl4jhOSRceOTzDGqbKC H7M07hm3V1 SMUkBIEvZXB5dJV7eF3jdL lnbjogbGVmdDsgdmVydGlj LQggXCipH612MBZtuMpjQp BhdGllbnQg PVqqJKl3H9NcNjmufZD+PC 84RKFpWI14bJIryIHdn9jp yEz7FjGyXZRwXFT9xLlyXT nly1HqRRQn Z73yiLYfd7Y1EIUisDsfzG MeFiFdrCS7xJ7uGAtccooo k9xyqtejLvtvd7isea57mL 77G80zMQfo ZHRoPSIzMCUiIHZhbGlnbj 1hbO5hEt3+XEVcuIH7cDL5 iQ1sEMAoYlZ9XPxhY489Hd RvcCIvPjxj b9epq8swnCu0JcW7NDNcaz KnhElrROF1e5JuIo38Z90q IHdpZHRoPSIyMCUiIHZhbG pnkk5eqN1f Ii8+LSZskKW3fEH6cG8hNs OyLeA4GVelX339RfBzfWAu OlkqL34sA4LwgQX+PHRyPj u9ZUHfsOmg YS0zuYLiBGiwTy3bVWV7Sm JyTaEgNVpnB8RfXEBlgyei nybqsWW8OTTeIKHlaD99Ma 9udDogMTBw tUFWfG8bvxsds0qsajqiYd HxKANyWKp6NHg4NYVbzJgr JeByBSD9IyU2EYR0wUPhtN 1hbGlnbjog lA9aF0BbKUNhecmhUb69eP 3mYkIkZzH4UFqbPgd+Qk9X JEDgZHhODK38Y2SsHkc8BX LioYhaVA5g cNYdZBpsBz9uuOkxsLksMZ 3oIAYgvmivRLChsU3wVBQq bJHfiQczOD6pRIThwevvm4 15WjIgAOJ3 ZSEbfUEdL2DobJ3yPfGaSL GbAWIuK0XrpBLcXIikT808 UNwdAoT0SRCjceYmZ4QfZR FsaWduOiB0 v9N4Id5cJm5wQG9fGBQ7AS 66MN31yMZzw9P7jJV4Y3Bj OIFvqjswcgvsrUS1PCFlRL TsdD40eVWd TFdrGs4dy8H1w809MROnYY XxxE20Xi6izRepDSWprTZZ bN5jbbmlj3bycneaBvKaOB GmVNo0BCn8 EMIjwIkfLqBfXUT6UqH6DY G7dEUavK5zdFfdfcolaX9q Oyc+IafuLCTywuR4Y1LmRl c5HUApfJus JB2dbXEqAKxdAv3omHjraG jbVQ6xOPSxxqxnBVSmiY8s SVSkyUHrrKjfVX8pSKOtfk wgd399WmQo OLG6SFLooNEpZ7TsoR6qYl PlVTMgHQMiY5FzxFStFZha X928JLedIdU3CLPblhXaF7 FsLWFsaWdu ZdO5j2H2Zn4ATQxjLI96AN 86lDLlz1F3yQC9H4AqVPWz bopcicanmZD7OEJtIBAnmD 47cGFkZGlu Mm3rd1P8j338PLNoBAJmeP 65Bv7qdWorWBKdgHOVmH2w kifzt5lpypzdCgQnRLIwZT u2ZLn3TDPr lLrfPbKxOKH7NbH4WUE5pL QlpL8cvHalddvfyK1lEay+ E0M9uPQ1hMQlaMmdmXL+PC 67bw31K7Ym VzhhZgm0MAOfTCB2qCT0aY 8mBQPtCByda8T9iBX0U6Bv xxNtbx4oj6pfMGGxYLppM0 8olLIpb9C2 TWItrVA3NGFujUboToZokT 93Oyc+JKPpcQaxt0TlSsvl u5bhz4czyIk4FpTqXNCngj FsaWduPSJ0 q2FhRi28P37hZQhjLCXbUR PfSABeLWVvhHgofp5uyX2u Ii8+DDNzdSR9tCL8sP2wXb UwLsM8AFlt U161DyBpuHCcFmbmr8koa1 ylqWs1LeVvSUKohkZkuLhm ROL0y0DlOz88L1SeeTasw7 HuRmj0cp89 cAEws5G5mKB6K1CuQAXmop bwyFQuoJopBU4eHVNjjpoh JJFpkL8qLGEqD3p2PnQuNv X0BOyyI9Al fwY3UXLxxNWvPNRueAYDbM 9kxvwmj4bgnlygAnVkEVYm DNh6NDg1TOQjmPawRdBpEW P4UeR4OOT9 yNVrbC0mmWewjzdocE6yZs c+KSr8h1dqsOVgYZ3nyJX9 YT09WJ05zQLfn5C7eLF4Z1 BhZGRpbmct glpldSJ7DVYfUEHfkP27Bz 7tcXkrKl0xMLAiDUR0BXBe oEXvI0GbcL4sPeKjMLKzJN QdU0NuwCPr PPpbL655CDikOdT1AJAhyw IqZ0NkEEZycXrfXfZ1p5A2 Ra4SCH94BO13HS70gNGni8 F0uRZ6H2Mu IQRzijqgeiwocQL7IUSyGC KkoF33Vd3fdQfsBi1sRGHn LLU8OHGmsQGbB3MnjJ3mIe AjMDAwMDAw A1QyhMWhZPynN167WHpsQt J1LUMxgoJhW1ZkZLHnhFaq NmC7m3L6Am7VIi97YY79ID 40fFAhp3E3 sIA8S2TuUJZcvfrpbrckzY M7SCDtEKXcmE07Uw2qbRji Am5bXPIxBHW4BBLvoCNhA8 JxhM5iChWr DEOrLUJmL9OpfSKuZEvmK4 78KRoaPpU2UDOlogPxC4Rg XPNlrGfeQuE3g2E3Iq4GEM [id number] [id number] (more content not included)... [facility] Consent for Procedure/Surger yon 11-09-2022 Consent for Procedure/Surgery [id number] 0CD:127 [facility] Consent for Procedure/Surgery [id number] 0CD:127 [facility] Consent for Treatmenton -2 Consent for Treatment [id number] 0CD:127 [facility] IntraOperative Documentson 0 11-09-2022 IntraOperative Documents [id number] 0CD:127 [facility] Main OR Intraoperative Recor don 11-09-2022 Main OR Intraoperative Record IntraOp Document Type FTURO Summary Primary Physician: Constance SMALLWOOD MD Finalized Date/Time: 11/09/22 09:01:48 Pt. Name: WILVER BLUE.O.B./Sex: 1945 Male Med Rec #: [id number] Physician: Constance SMALLWOOD MD Financial #: [id number] Pt. Type: O Room/Bed: / Admit/Disch: 11/09/22 07:36:25 - Institution: Case Times FTURO Entry 1 Patient Times In Room 11/09/22 08:46:00 Out Room 11/09/22 09:00:00 Procedure Times Start 11/09/22 08:50:00 Stop 11/09/22 08:56:00 Anesthesia Times Last Modified By: Johnson LUCAS, DEVINOR, Lauren 11/09/22 09:01:11 Case Attendance FTURO Entry 1 Entry 2 Entry 3 Case Attendee SANTY LYLES, Constance Ornelas RN, CNOR, Scott VÁSQUEZ, Ronda Aguilar Role Performed Surgeon - Primary [employer] Teller - Primary Scrub - Primary Time In 11/09/22 08:46:00 11/09/22 08:46:00 11/09/22 08:46:00 Time Out 11/09/22 09:00:00 11/09/22 09:00:00 11/09/22 09:00:00 Procedure CYSTOSCOPY LOCAL(.) CYSTOSCOPY LOCAL(.) CYSTOSCOPY LOCAL(.) Payam murray rn orienting Last Modified By: Johnson RN, CNOR, Johnson RN, CNOR, Johnson RN, DEVINOR, Lauren 11/09/22 Lauren 11/09/22 Lauren 11/09/22 09:01:14 09:01:14 09:01:14 Surgical Procedures FTURO Entry 1 Procedure Description Procedure CYSTOSCOPY LOCAL Modifiers . Surgeon Description CYSTOSCOPY Primary Procedure Yes Primary Surgeon Constance SMALLWOOD MD Start 11/09/22 08:50:00 Stop 11/09/22 08:56:00 Anesthesia Type Local Surgical Service Urology Wound Class 2 - Clean-Contaminated Last Modified By: Johnson LUCAS, DEVINOR, Lauren 11/09/22 09:01:15 General Case Data FTURO Pre-Care Text: Classifies surgical wound, implements aseptic technique, initiates traffic control Entry 1 Case Information OR URO 1 FT Case Level None Wound Class 2 - Clean-Contaminated Specialty Urology Preop Diagnosis BLADDER MASS BPH WITH Postop Same As Preop Yes OBSTRUCTION Postop Diagnosis BLADDER MASS BPH WITH Outcomes Met? Yes OBSTRUCTION Last Modified By: YULI Ornelas RN, Ruthann 11/09/22 08:54:56 Post-Care Text: The patient is free from signs and symptoms of infection EU IntraOp - FTURO Pre-Care Text: Implements protective measures prior to operative or invasive procedure, confirms identity before the operative or invasive procedure, verifies operative procedure, surgical site, and laterality Entry 1 EU Perioperative Protocols Procedure(s) CYSTOSCOPY LOCAL(.) Patient Identity Birthday, ID Band Verified (select at Check, Patient least 2): Participation Consents / H and P HandP Operative Site N/A Verified Marking Verified Surgical Site Yes Laterality Verified n/a Verified Procedure Verified Yes Correct Patient Yes Position Verified Availability Equipment, Medication Time Out SANTY LYLES, Constance Villanueva, Verified (If Participants YULI Ornelas RN, Applicable) Scott Aguilar CST, Kimberly A Time Out Complete 11/09/22 08:51:00 Allergies Reviewed? Yes Allergies Reviewed Self/Patient With Body Position Supine Prep Area penis Prep Agents Betadine Solution Skin. Condition Unable to Visualize Additional None Specimens Collected Vitals - EU Blood Pressure Pulse Respirations SPO2 EBL 0 IandO - EU Total Intake 0 mL Total Output 0 mL Outcomes Met? Yes Last Modified By: YULI Ornelas RN, Ruthann 11/09/22 08:55:38 Post-Care Text: The patient is free from signs and symptoms of injury caused by extraneous objects Sign Out FTURO Entry 1 Before Patient Leaves OR Nurse verbally Yes Nurse verbally n/a confirms with the confirms with the team the name of team that the procedure(s) instrument, sponge, recorded and needle counts are correct (or N/A) Nurse verbally n/a Nurse verbally n/a confirms with the confirms with the team how the team whether there specimen is labeled are any equipment (including patient problems to be name), if applicable addressed Sign Out Complete 11/09/22 08:58:00 Last Modified By: YULI Ornelas RN, Ruthann 11/09/22 09:01:22 Case Comments Finalized By: YULI Ornelas RN, Ruthann Document Signatures Signed By: YULI Ornelas RN, Ruthann 11/09/22 09:01 YULI Ornelas RN, Ruthann 11/09/22 09:01 Normal [facility] Main OR Preoperative Recordo n 11-09-2022 Main OR Preoperative Record Holding Area Document Type FTURO Summary Primary Physician: Constance SMALLWOOD MD Finalized Date/Time: 11/09/22 08:53:33 Pt. Name: WILVER BLUE /Sex: 1945 Male Med Rec #: [id number] Physician: Constance SMALLWOOD MD Financial #: [id number] Pt. Type: O Room/Bed: / Admit/Disch: 11/09/22 07:36:25 - Institution: Case Times Holding FTURO Pre-Care Text: Verifies consent for planned procedure, identifies individual values and wishes concerning care, includes family members in perioperative teaching Secures patient's records' belongings, and valuables, maintains patient's dignity and privacy, and maintains patient confidentiality Entry 1 In Holding 11/09/22 07:43:00 Outcomes Met? Yes Last Modified By: Hilary Hager LPN 11/09/22 07:43:39 Post-Care Text: The patient participates in decisions affecting his or her perioperative plan of care The patient's right to privacy is maintained Surgery Checklist FTURO Entry 1 Patient Patient Participation Procedure Surgical Consent, With Identification: Verification: Patient NPO after Midnight: No Date/Time: 11/09/22 07:43:00 Personal Items: Cataract Lens Implant, Personal Items clothes,hat,coat Dentures, Jewelry Comment: Limitations: na Complaints of Pain: No Pain Comment: na Skin Integrity Intact, [place], Warm, & Dry Vitals - EU Blood Pressure 123/89 Pulse 98 bpm Respirations 18 br/min SPO2 94 % RN Reviewed Yes Last Modified By: YULI Ornelas RN, Ruthann 11/09/22 08:53:30 Finalized By: YULI Ornelas RN, Ruthann Document Signatures Signed By: Hilary Hager LPN 11/09/22 07:50 YULI Ornelas RN, Ruthann 11/09/22 08:53 Normal [facility] Operative Reporton Operative Report Patient: WILVER BLUE Age: 77 years Sex: Male : 1945 Associated Diagnoses: None Author: Constance SMALLWOOD MD Procedure Operative Information Details: Date/ Time: 11/09/2022 08:58:00. Pre-Op Dx: Bladder Mass - D41.4, Micro Hematuria - Asymptomatic - R31.21, BPH w/ LUTS - N40.1. Post-Op Dx: Same. Anesthesia Type: Local. Procedure: Local Cystoscopy. Complications: None. Risks/Benefits/Informe d Consent: Surgical risks, benefits, details of the procedure have been explained to the patient, Full informed consent has been obtained. Intraoperative Information Prepped: Patient is brought back to the endoscopy suite, Patient is placed in supine position, Patient prepped in the usual fashion with Betadine solution, 2% Xylocaine Jelly is placed per Urethra, After waiting several minutes the Cystoscope is introduced. The Urethra is: Normal. The Prostatic Urethra is: Obstructed, Median Lobe, Long lateral lobes obstructing. Moderate median lobe.. 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 There is a satellite lesion approximately 1 cm just adjacent to it on the anterior surface.. The ureteral orifices: Show efflux of clear urine. Devices Implanted: None. Removal: Cystoscope is removed, The patient tolerated it well. Postoperative Information Discharge: Patient is discharged home with antibiotic coverage, Follow up arranged. We will get him scheduled for TURBT under anesthesia.. Normal [facility] Comment on above: Result Comment: Elec tronically Signed By: Constance SMALLWOOD MD\.br\Date and Time Signed: 11/09/22 09:01 EDT Outpatient Surgery Discharge Instructionon 11-09-2022 Outpatient Surgery Discharge Instruction [id number] 0CD:127 Normal [facility] Progress Note-Physicianon Progress Note-Physician Patient: WILVER BLUE Age: 77 years Sex: Male : 1945 Associated Diagnoses: None Author: SMALLWOOD MD, Constance Moya X this gentleman has bladder outlet obstructive symptoms. He was recently started on dutasteride. He was found to have microhematuria. Cystoscopy and renal ultrasound were ordered. A bladder mass was found on renal ultrasound. Cystoscopy today confirmed that the bladder mass and showed long obstructing lateral lobes and high-grade bladder damage. Review of Systems ROS reviewed as documented in chart Health Status Allergies: Allergic Reactions (Selected) No Known Allergies No Known Medication Allergies Current medications: Home Medications (7) Active atorvastatin 40 mg Tab Cipro 500 mg Tab 500 mg = 1 tab(s), Oral, Daily dutasteride 0.5 mg Cap 0.5 mg = 1 cap(s), Oral, Daily Eliquis 2.5 mg oral tablet 2.5 mg = 1 tab(s), Oral, BID ezetimibe 10 mg Tab metoprolol succinate ER 50 mg tablet,extended release 24 hr 0 tamsulosin 0.4 mg Cap 0.4 mg = 1 cap(s), Oral, Daily Problem list: All Problems Atrial fibrillation / SNOMED CT 40316806 / Confirmed BPH with urinary obstruction / SNOMED CT 4524565563 / Confirmed Hypertension / SNOMED CT 1334965446 / Confirmed Hyperlipidemia / SNOMED CT 80632389 / Confirmed Nocturia / SNOMED CT 098424498 / Confirmed Weak urinary stream / SNOMED CT 234553991 / Confirmed Asymptomatic microscopic hematuria / SNOMED CT 8013112916 / Confirmed BMI 33.0-33.9,adult / SNOMED CT 190930582 / Confirmed Anticoagulated / SNOMED CT 092873874 / Confirmed Urinary tract infection / SNOMED CT 152031045 / Confirmed Gross hematuria / SNOMED CT 433931036 / Confirmed Urinary tract infection / SNOMED CT 031062158 / Confirmed Former smoker / SNOMED CT 50725339 / Confirmed Histories Past Medical History: No active or resolved past medical history items have been selected or recorded. Family History: Heart disease Father Mother Procedure history: Cystoscopy ([id number]) on 01/25/2022 at 76 Years. Cystoscopy ([id number]) on 06/09/2015 at 69 Years. Procedure on back ([id number]). Operative procedure on shoulder (539358848). Tonsillectomy (684743913). Social History Social & Psychosocial Habits Tobacco 11/01/2022 Tobacco Use: Former smoker, quit more Smokeless tobacco use: Never Stopped at age: 52 Years Comment: Quit smoking in 1997 - 12/31/2019 08:16 - Danielito Mcpherson MA Objective He is resting comfortably in bed. He is in no acute distress. Abdomen is soft and nontender. External genitalia are normal. Impression and Plan Impression: #1. His microhematuria seems to be from a bladder tumor. This needs to get resected. 2. BPH with LUTS; he is on Flomax and recently started on dutasteride. He seems to be happy with this regimen. Plan: #1. He will continue his prostate meds. 2. We are getting him scheduled for cystoscopy and transurethral resection of bladder tumor under anesthesia. Normal [facility] Comment on above: Result Comment: Elec tronically Signed By: SANTY LYLES, Constance Beck\Date and Time Signed: 11/09/22 09:05 EDT RAD - Ultrasound Reporton RAD - Ultrasound Report [id number] 0CD:127 Normal [facility] US KIDNEYSon 11-03-2022 US KIDNEYS EXAMINATION: US KIDNEYS HISTORY: Microscopic hematuria COMPARISON: No relevant comparison available. TECHNIQUE: Ultrasound examination was performed of the kidneys and urinary bladder. FINDINGS: RIGHT KIDNEY: No evidence of pelvocaliectasis, mass, or calculi. Normal renal cortical parenchymal echogenicity. Color Doppler demonstrates blood flow within the kidney. Kidney: 11.0 x 5.9 x 5.1 cm LEFT KIDNEY: Contain several benign-appearing cysts, largest is 3.0 cm. Kidney: 10.4 x 4.7 x 5.1 cm BLADDER: Round vascular mass projecting from right wall into the bladder, 1.5 x 1.5 x 1.3 cm. Prominent prostate protruding into base of bladder. IMPRESSION: 1. Suspicious appearing nodule/mass protruding into bladder from right wall, 1.5 cm in diameter. Cystoscopy and tissue sampling should be considered. 2. No suspicious abnormality of the kidneys. Electronically authenticated by: JUDITH BARONE Date: 2022-11-03 11:18 Normal [facility] Ambulatory Visit Summaryon 0 11-01-2022 Ambulatory Visit Summary WILVER BLUE :1945 Visit Date:11/01/2022 Ambulatory Visit Instructions Your Diagnosis BPH with urinary obstruction Asymptomatic microscopic hematuria Former smoker Anticoagulated Tests Performed Urnls Dip Stick Auto w/o Microscopy POC 98276 Renal -- Results Pending -- Please visit your patient portal for your results or contact your primary care physician. Your Care Team Attending Physician - Constance SMALLWOOD MD Primary Care Physician - SONJA EASTON DO This Is Your Medications List Misc Prescription (metoprolol succinate ER 50 mg tablet,extended release 24 hr) apixaban (Eliquis 2.5 mg oral tablet) atorvastatin (atorvastatin 40 mg Tab) ezetimibe (ezetimibe 10 mg Tab) tamsulosin (tamsulosin 0.4 mg Cap) Procedures Performed Cystoscopy (01/25/2022), Cystoscopy (06/09/2015), Operative procedure on shoulder, Procedure on back, Tonsillectomy. Discharge Vitals Heart Rate (Peripheral) 95 Respiratory Rate 16 Blood Pressure 115/75 Height 180 cm Height 71 in Weight 103 kg Weight 226.6 lb BMI 31.79 What to do next You Need to Schedule the Following Appointments Follow Up with SANTY LYLES, Constance Villanueva, EDDIE When: Where: [facility] [address] , [place] [address]- Medications What How Much When Instructions Unchanged apixaban (Eliquis 2.5 mg oral tablet) 1 Tablets By Mouth 2 times a day Unchanged atorvastatin (atorvastatin 40 mg Tab) Unchanged ezetimibe (ezetimibe 10 mg Tab) Unchanged Misc Prescription (metoprolol succinate ER 50 mg tablet,extended release 24 hr) 0 Unchanged tamsulosin (tamsulosin 0.4 mg Cap) 1 Capsules By Mouth Every day Duration: 90 Days Test Results Urnls Dip Stick Auto w/o Microscopy POC 84429 (11/01/2022) Bilirubin Urine Dipstick - Negative Blood Urine Dipstick - 3+ Large Glucose Urine Dipstick - Negative Ketones Urine Dipstick - Negative Leukocytes Urine Dipstick - Negative Nitrite Urine Dipstick - Negative Protein Urine Dipstick - 1+ (30 mg/dl) Specific Supai Urine Dipstick - 1.025 Urine Appearance Urine Dipstick - Clear Urine Color Urine Dipstick - Yellow Urobilinogen Urine Dipstick - Normal 0.2-1 EU/dl pH Urine Dipstick - 5.5 Allergies No Known Allergies No Known Medication Allergies Problems Ongoing - Any problem that you are currently receiving treatment for. Anticoagulated Asymptomatic microscopic hematuria Atrial fibrillation BMI 33.0-33.9,adult BPH with urinary obstruction Former smoker Gross hematuria Hyperlipidemia Hypertension Nocturia Urinary tract infection Urinary tract infection Weak urinary stream [employer] Benign Prostatic Hyperplasia Benign prostatic hyperplasia (BPH) is an enlarged prostate gland that is caused by the normal aging process and not by cancer. The prostate is a walnut-sized gland that is involved in the production of semen. It is located in front of the rectum and below the bladder. The bladder stores urine and the urethra is the tube that carries the urine out of the body. The prostate may get bigger as a man gets older. An enlarged prostate can press on the urethra. This can make it harder to pass urine. The build-up of urine in the bladder can cause infection. Back pressure and infection may progress to bladder damage and kidney (renal) failure. What are the causes? This condition is part of a normal aging process. However, not all men develop problems from this condition. If the prostate enlarges away from the urethra, urine flow will not be blocked. If it enlarges toward the urethra and compresses it, there will be problems passing urine. What increases the risk? This condition is more likely to develop in men over the age of 50 years. What are the signs or symptoms? Symptoms of this condition include: ? Getting up often during the night to urinate. ? Needing to urinate frequently during the day. ? Difficulty starting urine flow. ? Decrease in size and strength of your urine stream. ? Leaking (dribbling) after urinating. ? Inability to pass urine. This needs immediate treatment. ? Inability to completely empty your bladder. ? Pain when you pass urine. This is more common if there is also an infection. ? Urinary tract infection (UTI). How is this diagnosed? This condition is diagnosed based on your medical history, a physical exam, and your symptoms. Tests will also be done, such as: ? A post-void bladder scan. This measures any amount of urine that may remain in your bladder after you finish urinating. ? A digital rectal exam. In a rectal exam, your health care provider checks your prostate by putting a lubricated, gloved finger into your rectum to feel the back of your prostate gland. This exam detects the size of your gland and any abnormal lumps or growths. ? An exam of your urine (urinalysis). ? A prostate specific antigen (P (more content not included)... Normal [facility] Patient Educationon 11-02-19 Patient Education Urology Benign Prostatic Hyperplasia Benign prostatic hyperplasia (BPH) is an enlarged prostate gland that is caused by the normal aging process and not by cancer. The prostate is a walnut-sized gland that is involved in the production of semen. It is located in front of the rectum and below the bladder. The bladder stores urine and the urethra is the tube that carries the urine out of the body. The prostate may get bigger as a man gets older. An enlarged prostate can press on the urethra. This can make it harder to pass urine. The build-up of urine in the bladder can cause infection. Back pressure and infection may progress to bladder damage and kidney (renal) failure. What are the causes? This condition is part of a normal aging process. However, not all men develop problems from this condition. If the prostate enlarges away from the urethra, urine flow will not be blocked. If it enlarges toward the urethra and compresses it, there will be problems passing urine. What increases the risk? This condition is more likely to develop in men over the age of 50 years. What are the signs or symptoms? Symptoms of this condition include: ? Getting up often during the night to urinate. ? Needing to urinate frequently during the day. ? Difficulty starting urine flow. ? Decrease in size and strength of your urine stream. ? Leaking (dribbling) after urinating. ? Inability to pass urine. This needs immediate treatment. ? Inability to completely empty your bladder. ? Pain when you pass urine. This is more common if there is also an infection. ? Urinary tract infection (UTI). How is this diagnosed? This condition is diagnosed based on your medical history, a physical exam, and your symptoms. Tests will also be done, such as: ? A post-void bladder scan. This measures any amount of urine that may remain in your bladder after you finish urinating. ? A digital rectal exam. In a rectal exam, your health care provider checks your prostate by putting a lubricated, gloved finger into your rectum to feel the back of your prostate gland. This exam detects the size of your gland and any abnormal lumps or growths. ? An exam of your urine (urinalysis). ? A prostate specific antigen (PSA) screening. This is a blood test used to screen for prostate cancer. ? An ultrasound. This test uses sound waves to electronically produce a picture of your prostate gland. Your health care provider may refer you to a specialist in kidney and prostate diseases (urologist). How is this treated? Once symptoms begin, your health care provider will monitor your condition (active surveillance or watchful waiting). Treatment for this condition will depend on the severity of your condition. Treatment may include: ? Observation and yearly exams. This may be the only treatment needed if your condition and symptoms are mild. ? Medicines to relieve your symptoms, including: ? Medicines to shrink the prostate. ? Medicines to relax the muscle of the prostate. ? Surgery in severe cases. Surgery may include: ? Prostatectomy. In this procedure, the prostate tissue is removed completely through an open incision or with a laparoscope or robotics. ? Transurethral resection of the prostate (TURP). In this procedure, a tool is inserted through the opening at the tip of the penis (urethra). It is used to cut away tissue of the inner core of the prostate. The pieces are removed through the same opening of the penis. This removes the blockage. ? Transurethral incision (TUIP). In this procedure, small cuts are made in the prostate. This lessens the prostate's pressure on the urethra. ? Transurethral microwave thermotherapy (TUMT). This procedure uses microwaves to create heat. The heat destroys and removes a small amount of prostate tissue. ? Transurethral needle ablation (TUNA). This procedure uses radio frequencies to destroy and remove a small amount of prostate tissue. ? Interstitial laser coagulation (ILC). This procedure uses a laser to destroy and remove a small amount of prostate tissue. ? Transurethral electrovaporization (TUVP). This procedure uses electrodes to destroy and remove a small amount of prostate tissue. ? Prostatic urethral lift. This procedure inserts an implant to push the lobes of the prostate away from the urethra. Follow these instructions at home: ? Take sprb-htg-hzwbkos and prescription medicines only as told by your health care provider. ? Monitor your symptoms for any changes. Contact your health care provider with any changes. ? Avoid drinking large amounts of liquid before going to bed or out in public. ? Avoid or reduce how much caffeine or alcohol you drink. ? Give yourself time when you urinate. ? Keep all follow-up visits as told by your health care provider. This is important. Contact a health care provider if: ? You have unexplained back pain. ? Your symptoms do not get better with treatment. ? You d (more content not included)... 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 Last seen in our office by Yvette Quintero on 10/19/22 due to BPH, gross hematuria & UTI. Treated for UTI at that time. *Tamsulosin 0.4mg QD therapy. Per last encounter, pt taking QD due to dizziness with BID. Per pt, taking the Tamsulosin BID, the dizziness is caused from another medication. S/P Cysto by [facility] 01/25/22. Last FISH/Cytology done 05/21/15. Denies Hx of Bladder Cancer. UA today shows LARGE blood. PT does take Eliquis therapy. Former Smoker. Quit in 1997. Last PSA done 11/25/21- 3.060 Pt was given booklets on Rezum & Urolift at last encounter. Pt did not look through them. Prefers the quicker recovery. Biggest concerns urinating: Weak Stream. Ongoing for yrs. Denies pain/burning and visible blood. Getting up 1x/night. Denies leaking. History of Present Illness Tests reviewed: reviewed UA. I have reviewed the previous health record information and history for this patient from Dr. Smallwood. I have reviewed and verified the staff HPI to be accurate for this encounter. There have been no associated fever, chills, flank pain, or blood in the urine. Denies any urinary infections since last encounter. Review of Systems PHQ Score Initial Depression Screen Score: 0 ROS - Provider Constitutional: denies weight loss, denies hot flashes. Eyes: denies eye problems. Gastrointestinal: denies nausea, denies vomiting. Cardiovascular: denies chest pain or angina. Integumentary: no dryness Musculoskeletal: denies musculoskeletal symptoms. ENMT: denies otolaryngeal symptoms. Respiratory: no shortness of breath. Heme/Lymph: denies easy bleeding tendency, denies easy bruising tendency. Psychiatric: no confusion, no anxiety. Genitourinary: See HPI. Physical Exam Vitals & Measurements HR: 95(Peripheral) RR: 16 BP: 115/75 HT: 71 in HT: 180 cm WT: 103 kg WT: 226.6 lb BMI: 31.79 General Appearance: alert, no distress, well nourished, well developed male. Genitourinary: normal scrotum, normal testes, normal urethra, normal epididymis, normal vas deferens/spermatic cord. Flank Pain: none. Bladder: nonpalpable. 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 1. BPH with urinary obstruction (N40.1: Benign prostatic hyperplasia with lower urinary tract symptoms) Cysto 01/25/22 by DLS - Obstructed prostate, marked enlargement of the lateral lobes and some enlargement of the middle lobe of the prostate. Mild trabec. PSA 11/25/21- 3.06. Taking Flomax 0.4 mg bid. Doing well on this med. Decent stream. No start/stop. Feels he empties completely. Not currently interested in outlet obstruction procedures. Discussed adding different prostate med class instead. Does not have accidents. Follow up 6 mos with LAINEY or sooner if needed. Pt understands and agrees with plan. -Start Dutasteride 0.5 mg qd. SEs discussed. Rx sent to [facility]. 2. Asymptomatic microscopic hematuria (R31.21: Asymptomatic microscopic hematuria) FISH /cytol 05/21/15 - Cytol atypical urothelial cells. FISH neg. UA today shows large blood. Denies gross blood. Explained LAINEY to eval upper urinary tract since cysto by DLS was neg for bts. -LAINEY 3. Former smoker (Z87.891: Personal history of nicotine dependence) Quit in 1997. 4. Anticoagulated (Z79.01: MCFP (current) use of anticoagulants) Eliquis. Follow-up With When Contact Information SANTY LYLES, Constance Villanueva, URL [facility] [address], [place] [address]- Additional Instructions: 6 mos with LAINEY Patient Education Benign Prostatic Hyperplasia I, Leeanna Ramirez, personally scribed for Dr. Smallwood on 11/01/2022 10:31:12. . Documentation recorded by the bayleeibban, Leeanna Ramirez, accurately reflects the services(s) I performed and decisions made by me. Authenticated by Dr. Smallwood on 11/01/2022 10:33:16. Problem List/Past Medical History Ongoing Anticoagulated Asymptomatic microscopic hematuria Atrial fibrillation BMI 33.0-33.9,adult BPH with urinary obstruction Former smoker Gross hematuria Hyperlipidemia Hypertension Nocturia Urinary tract infection Urinary tract infection Weak urinary stream Historical No qualifying data Procedure/Surgical History Cystoscopy (01/25/2022), Cystoscopy (06/09/2015), Operative procedure on shoulder, Procedure on back, Tonsillectomy. Medications atorvastatin 40 mg Tab Eliquis 2.5 mg oral tablet, 2.5 mg= 1 tab(s), Oral, BID ezetimibe 10 mg Tab metoprolol succinate ER 50 mg tablet,extended release 24 hr, 0 tamsulosin 0.4 mg Cap, 0.4 mg= 1 cap(s), Oral, Daily, 3 refills, Still taking, not as prescribed: Taking BID Allergies No Known Allergies No Known Medication Allergies Social History Tobacco Former smoker, quit more than 30 days ago Tobacco Use:. Never Smokeless Tobacco Use:. Stopped age (more content not included)... Normal [facility] Comment on above: Result Comment: Elec tronically Signed By: Constance SMALLWOOD MD\.br\Date and Time Signed: 11/01/22 10:33 EDT\.br\Electronically Co-Signed By: Leeanna Ramirez\.br\Date and Time Co-Signed: 11/01/22 10:32 EDT Coding Summary.on 10-28-2022 Coding Summary. CD:[id number] Ww +PGhlYWQ+VC3UCYVlZ17wi VTidB7mL3CZXLfRAcdcWHC YXVuVZrFwpfFlEQ5fnBReF XJu IC8+NP2lUZLoTrhueLCnk5 J9wWA1G27jwz1eXImvrKX4 INIiPlJhgpqom6cohZc2UE cuNmluOyBt RAObmV42NAE9zT84Zx41bY EzrYSko4jfmAj3DbPiCDWo EHK3kWtlSXtxq2BpIJOgE7 8aqZLsr7I9 JCEvzDvlzZQoXwApkGO4wS 5uFStpyteox0zupnrkSft7 vn86bGKvz0K8lLE3W3Tcgk B6ZIMvvPZk AyzjpMVAxF1xqxhwo0bnck ikMhJmDXRrZZs7HUq4HQIm eJgtDlGlBI93VRD7VYFxtc CxE6CoVDTz iKuqDsS7t1S9Li9JF1LUIh qmU5ECQWLYVVgkrPK+PC90 ip07X1ZbRhbuExm5VUMhED W8pPN2eC6s HTNgYVpva5S2xGE3D6Zdwv Bohs2cp9daTQTmEPekD24j hTPwi1U1TZCsiHM3XPOiyW tyZrFnsM10 Oyc+LFRhuOfze2WwWaneh8 kph9lphAm2FzrrQIZoddGk wImvFKZ0j8QhDn9vIAIrxG N7uXZ1oW6o WsGiPaB4TSynE235QyTcsL SsQkcbK11aP0IhhZU+PHRy Iyy8FLHhyIvjYI0dS7YwIM RpbmctbGVm cWvuZF2vSQXmivpaRQFfeP 4kJTJjQ7z6UuHcRiL0GArv N7YwFAOzqqskWc03xA9tDa PjDlN2WPec K8AacaX0EAZruWTzORsdQU N8Y05ti8W3YWQaVIVjQAY4 cON8zW7lkXbzkbcydMGhyD sgdmVydGlj CHayGCefM422ETBzhTtrVr NvZGluZyBEYXRlOiAgMDQv MTMvMjAyMzwvdGQ+PHRkIH B3cUknKEAz tMDpCGzdDe5emQhhcNodDI 3dYLTosgmuLISezY2pEOIa fAVpyVhnZP2uPWDddbrzq0 95NgZcKJX1 WNAbcHNpU6LfkR7hCqWpFH HeUIQxF0LixYVuCKiaI056 RJdvYeQ4IUXbvsXnZ9HrFE FsaWduOiB0 b4G8Uk1Ov8SszmxcS4VhnA HnVpBzSjkaTAl9U5FkPtgg dHI+IX67ATJtWE78HYq4SH F6wExnXLuv LKPoS1UnwO8iSbIeBGAbGV RkOyc+PHRhYmxlIHdpZHRo FMtkNIAwZjHomNqlLB2pGp 9yZGVyLWNv oHnpkGWiLpRkm8liUZRiPG cpCK1xjSnmI9LjbRA0ORMu h9g6Og52E33fP2ByoVB+PG YnsVW4yCO0 eJ1lUsRcPwO0TIphY091Fo CybHYhCpsqe5uuv8ulgQf0 MeB6AIJatxPknTqaYAK5m5 GrPd79G23t IHdpZHRoPSIxNSUiIHZhbG kvya8nrP3qWc8+PGNvbCB3 pJL3hK9uOsWmBnN7GMyvL4 49InRvcCIv Chxmc1nyv6snrQp9DdKyEJ BmthGjvQtkJIV1o6PjDt87 V7XuwWcxo6FsYko9cr93oW Ghw7X1rZU5 K1YnDLZqihlpkEZsxBatRO 9dDINizbbsTSXslM6yUHEb Z7d5GlCsBbY5CHttV4Dorg Z2QICifXKj KLPglEUEbT7ehbaue5zaqd bjSkDvXTQiTCt1AWq1JDXw cVjsCkQjZAQ3FcI0MVC9tF DbfK8poAgy icuxqT9vFhm+HMK1oJYacG AHJW2bKdkipAL+PHRkIHN0 yDcpADuiZBXjcM6qNZZxR4 l3QtItIeG2 GSnwI8WhboG3AKUqaCYjGZ WmzJADpT8gnobgq8jnfjha WoFpDVBxXIv3GDo3GFUdvR duOiBsZWZ0 FeM6MHO7yFUujA2efMovrx uoyC4jJov+QmlydGggRGF0 GKf9E3YkUeo3EVQmfErxVO 0ncGFkZGlu Ja0atNjwhRjtBR3sPMPdzo jex752JdJeu5yyPNNodPLz HMwxDQW2K12yz4G5WFOcNZ HgXDO0iVF4 jH0gtAjiowdrpKYhdYvgrw YyuBikPOtxFQfxG264UKEa lYdhKyPyKGa0T7AnGuo6KX ZtoAsmVQ7u fAHvOKznGb9cjKhneMenWQ 6bUXUdcrtwj482CbHjp5ip UXHavMSbJLsvXIY3Y74xo1 C9DNIqSYWw CEC0dWL2eN3odHelnebqiN VmdDsgdmVydGljYWwtYWxp T438UAAplRvlArOjnCh8E9 WnEtv8MLRv vAfiLS4qdYCoPEsaVa2kmZ crkZoaSP2lYIIcanytv274 TyVkj0acOIBiiWFjYQzeUN H8T43zv2F4 VQUuFVWiZWM0fIC0hK3duE lnbjogbGVmdDsgdmVydGlj XTyoTTlgN930RPOosUrmBs BhdGllbnQg HRewRIc5I1XzMcjywBZ+PC 99CDQqSZ61aRSpnMXiq0dq oTn8ZjYrAIHyAJN2nYzmBI ule2IuCUPf K14hgVSdh4R2VIHxyDqljH WwKvAsaPN0yU5wOVhtxous c2zwlwynEicar6sfzf07tV 01Z29vGUvk ZHRoPSIzMCUiIHZhbGlnbj 8ndA4iHe2+XIScuLH5vYV5 eO6fTCAfIhO0QDpqO573Ru RvcCIvPjxj j2xjf5dlkWz4YpN7ALRcei DcsKjdNJZ6s6YeXa48X45h IHdpZHRoPSIyMCUiIHZhbG qxct0lzB2d Ii8+KZGhmPC1mJM8pI3uOy MpHdT9WRpiN902CcXxpLRs LkecV98jI7DehQP+PHRyPj w2YDUpwTzr EV8hjLYeSNydMx4jBOG4Fo GtCyPzBKnbL8FnMVFirecl hmmjuEN8WMWeBAUuaU89Ki 9udDogMTBw nIATlA3gqjdna7vruefaQf MtVLBlEKq0IYh3MOOhsSov HkJcTOK6PzG2RXE4iBTiyA 1hbGlnbjog sA8lL2AtLPTolkxgNz56tA 4pJmSkIhN2SPczZmv+Qk9X OKCoRUiFQN64Q7YuIhj3MW QvvHaiYU8a bQEoOMaaCv1iqWpllZclUR 7wLWHertiyGGUvaC7uGBAv mQSzlWfxJP1tCEUggqkfn9 99EaOvHRC6 VMBclSStB6SddH7nYlSfFL ElIRXlP3RrjBBqPDzfE651 ZRlaGwX5QVPgfkCfR0PhKJ FsaWduOiB0 h2O0Tf9jBf4kDC6vFLV2WR 97OR58yFVru5C4xSJ8C6Tj SOCtcladnwnmcCW9QCGoDX YyvF08hFTs NHgbZw1hi3F7c383FWCjHF MsbZ21Qz7rmCslYCJjqEPD mI4jwjjtz8juhivcYfYpKB ZlEVz9LYy4 KBMyiObdHmTkPLZ7NcO2CQ F9cBNviP9syTuiucwacV6v Oyc+AncmBCPfrgZ8F3DcAy q6GTTttCas GW9mrDRhSBvmDm1grAxfpE rsDB8sUEOyomraKDQcbH8x IMNxeXSnxDdyBT0lMMEnee bbx138IsOh FTH9XWDrwIQeI0HjjI2fXz JlMLHnDXPqJ2BytLYsEPhf K287SJdpSjF0CLYcvgKzC5 FsLWFsaWdu UiX5h3J8To2XMGhrHC56ZP 86hJNlh6U0wDE2N1OiGNPs qmkctudcpJU2BYZjNIWufV 47cGFkZGlu Nw7qx7W7t530FFLdPGYcbV 90Gw1uqEjqEMWyfYYOiX9m xyswm2zctdbzSjXdODXcVJ u2JYu1OUHk jSlaYcEdWLW7JeN0LKM4cQ BwlP5xoVlomyfikP0rFoh+ EPTaWOZds6Ost4BpFW13IN 43F1SpNxzb dGFibGU+PHRhYmxlIHdpZH CtRHnxDRRhJyVwgGegVV0i Ai6dSWPdYIFcrRqxhWNvBk Bxu0hsMKMf XMplGX4onHjlO3CwpSZ0PX Vdr0d0Is73I97yI7SohIF+ RGJcxFT0sIZ5iF5qJjTcBa O3RYefN768 DgSwoRTgVxwfq9hph2xekL k3TgCiHPIegcWsbAgqSVN1 q4NsJu84X14rPQteOCYgCR IyMCUiIHZh jCbovc3zbZ0lDl6+PGNvbC L5rYB3sT3pRjJaQeH1MQbo W168HdNtgEMqBvazX35pB3 JvdXA+PHRy Zzf2IHCmnRnrFG4gwDEqIR ajKx2rZKA3VcErRuIvVNrc K5HyKRMcjosbynzaxXT0ZZ YpRBYvxI97 Sg9tiSthEd6eJWRwRDK5DC JfoXGwQ6UipL5qQyLnYGWj DJJsS8BeeCKtXFvlF907RU siBoJ0NGRk keStM8HrPLKpyWlrMyO2k2 S6Cm8ItJwhgJZkWK7nFvGg VNo7J5MmKmo7GRRfhIluPV 0ncGFkZGlu Xc4fdEuxiWajAQ0gRSNeld cga870HbBcj2hlFDRorIOb IAmuOIE0Z85ph7X7NWStUJ NmXMB8bNU9 kV0vuPyyfjfwuCUyrPezvc OfvEqnZYloNQonT517DIZa sAbmEjLENmz1F3XdRus3OJ SeoDxkJU5t sDJrPWhgMg3bdNuppJcsXP 2bYSRquqggf075WiFaw9ud JGQxoTUlCPmoXYT5C52na4 C9WTNhJDPq KJH9xVH8hV6ohOtyhyshuO VmdDsgdmVydGljYWwtYWxp V230PMAofRiiLs3WRlw5E7 SsPwl3YYTs uCpqBD2bgXYmWFyfLt7spT kjpFobAM1pEYKlngmej197 NbWnx7apCSTccSEoGZqyFY D1M40sh2I0 KJGpVTFgDXO7fWW5oG1ilL lnbjogbGVmdDsgdmVydGlj UNwcDBddL706PBAqiUosYo BheWVyOjwv dGQ+RD12es16A3ZcDcqsTo d0NBJhQMM5hUM4fD6fYXMe TYysx9X0zHH8F5UfqdIdak 2cx0qvYTOk WCvcU95v (more content not included)... Normal [facility] C Urineon 10-22-2022 Bacteria identified Cx Nom (U) Microbiology PROCEDURE: Urine Culture [R1] SOURCE: U Random BODY SITE: COLLECTED DATE/TIME: 10/19/2022 14:13 EDT RECEIVED DATE/TIME: 10/19/2022 17:59 EDT START DATE/TIME: 10/19/2022 17:59 EDT FREE TEXT SOURCE: INGRID GONZALEZ, TRACI QUINTERO PA-C, TRACI Alberts FINAL REPORTS Final Report [] Verified Date/Time: 10/22/2022 11:54 EDT 75,000 cfu/ml Staphylococcus epidermidis SUSCEPTIBILITY RESULTS __ LEGEND: S=Susceptible, N/R=Not Reported, Blank=Data not available, or drug not advisable or tested, I=Intermediate, ESBL=Extended spectrum beta-lactamase, R=Resistant, TFG=Thymidine-dependen t strain, CLARISSA=Beta-lactamase positive, JOHN=mcg/m;(mg/L), S*=Predicted susceptible interp, R*=Predicted resistant interp Staepi Antibiotic JOHN Dilutn JOHN Interp Amoxicillin/ <=4/2 S Clavulanate Ampicillin <=2 N/R Ampicillin/ <=8/4 S Sulbactam Cefazolin <=8 S Ciprofloxacin <=1 S Daptomycin <=1 S Gentamicin <=4 S Levofloxacin <=1 S Linezolid <=2 S Nitrofurantoin <=32 S Oxacillin <=0.25 S Penicillin <=0.03 S Rifampin <=1 S Tetracycline <=4 S Trimethoprim/ <=0.5/9.5 S Sulfa Vancomycin <=0.5 S Performing Locations R1: This test was performed at: [facility], [address] [place] [address], [id number]- , [place], Normal [facility] Comment on above: Performed By: #### [id number] #### [facility] [address] [place] [id number] [place] 10-22-2022 Screens [id number] 0CD:127 Normal [facility] Patient Educationon 10-20-19 23 Patient Education Urology Benign Prostatic Hyperplasia Benign prostatic hyperplasia (BPH) is an enlarged prostate gland that is caused by the normal aging process and not by cancer. The prostate is a walnut-sized gland that is involved in the production of semen. It is located in front of the rectum and below the bladder. The bladder stores urine and the urethra is the tube that carries the urine out of the body. The prostate may get bigger as a man gets older. An enlarged prostate can press on the urethra. This can make it harder to pass urine. The build-up of urine in the bladder can cause infection. Back pressure and infection may progress to bladder damage and kidney (renal) failure. What are the causes? This condition is part of a normal aging process. However, not all men develop problems from this condition. If the prostate enlarges away from the urethra, urine flow will not be blocked. If it enlarges toward the urethra and compresses it, there will be problems passing urine. What increases the risk? This condition is more likely to develop in men over the age of 50 years. What are the signs or symptoms? Symptoms of this condition include: ? Getting up often during the night to urinate. ? Needing to urinate frequently during the day. ? Difficulty starting urine flow. ? Decrease in size and strength of your urine stream. ? Leaking (dribbling) after urinating. ? Inability to pass urine. This needs immediate treatment. ? Inability to completely empty your bladder. ? Pain when you pass urine. This is more common if there is also an infection. ? Urinary tract infection (UTI). How is this diagnosed? This condition is diagnosed based on your medical history, a physical exam, and your symptoms. Tests will also be done, such as: ? A post-void bladder scan. This measures any amount of urine that may remain in your bladder after you finish urinating. ? A digital rectal exam. In a rectal exam, your health care provider checks your prostate by putting a lubricated, gloved finger into your rectum to feel the back of your prostate gland. This exam detects the size of your gland and any abnormal lumps or growths. ? An exam of your urine (urinalysis). ? A prostate specific antigen (PSA) screening. This is a blood test used to screen for prostate cancer. ? An ultrasound. This test uses sound waves to electronically produce a picture of your prostate gland. Your health care provider may refer you to a specialist in kidney and prostate diseases (urologist). How is this treated? Once symptoms begin, your health care provider will monitor your condition (active surveillance or watchful waiting). Treatment for this condition will depend on the severity of your condition. Treatment may include: ? Observation and yearly exams. This may be the only treatment needed if your condition and symptoms are mild. ? Medicines to relieve your symptoms, including: ? Medicines to shrink the prostate. ? Medicines to relax the muscle of the prostate. ? Surgery in severe cases. Surgery may include: ? Prostatectomy. In this procedure, the prostate tissue is removed completely through an open incision or with a laparoscope or robotics. ? Transurethral resection of the prostate (TURP). In this procedure, a tool is inserted through the opening at the tip of the penis (urethra). It is used to cut away tissue of the inner core of the prostate. The pieces are removed through the same opening of the penis. This removes the blockage. ? Transurethral incision (TUIP). In this procedure, small cuts are made in the prostate. This lessens the prostate's pressure on the urethra. ? Transurethral microwave thermotherapy (TUMT). This procedure uses microwaves to create heat. The heat destroys and removes a small amount of prostate tissue. ? Transurethral needle ablation (TUNA). This procedure uses radio frequencies to destroy and remove a small amount of prostate tissue. ? Interstitial laser coagulation (ILC). This procedure uses a laser to destroy and remove a small amount of prostate tissue. ? Transurethral electrovaporization (TUVP). This procedure uses electrodes to destroy and remove a small amount of prostate tissue. ? Prostatic urethral lift. This procedure inserts an implant to push the lobes of the prostate away from the urethra. Follow these instructions at home: ? Take kjer-vnr-hnvutzq and prescription medicines only as told by your health care provider. ? Monitor your symptoms for any changes. Contact your health care provider with any changes. ? Avoid drinking large amounts of liquid before going to bed or out in public. ? Avoid or reduce how much caffeine or alcohol you drink. ? Give yourself time when you urinate. ? Keep all follow-up visits as told by your health care provider. This is important. Contact a health care provider if: ? You have unexplained back pain. ? Your symptoms do not get better with treatment. ? You d (more content not included)... Normal [facility] Urology Office/Clinic Noteon 10-19-2022 Urology Office/Clinic Note Chief Complaint 3m PVR HPI Staff DLS pt 3m to Gross hematuria & BPH. + C&S 05/20/22- Tx'd w/Keflex *Flomax 0.4mg QD therapy On Eliquis therapy. Last PSA done 11/25/21- 3.06 Last seen by DLS on 02/22/22 due to Cystitis, BPH & Microscopic Hematuria. PVR 12ml Denies pain/burning and visible blood since last encounter. Stream starts good, then slows down towards the end. 1x/night, Occasional frequency in the morning only, attributes to coffee intake. IPSS 7 History of Present Illness staff HPI reviewed and agree. Review of Systems PHQ Score Initial Depression Screen Score: 0 no fever, chills, malaise, myalgia. no rash/lesions. no chest pain, palpitations, or SOB. no abdominal pain, nausea, vomiting. no unilateral calf swelling, redness, pain Physical Exam Vitals & Measurements HR: 72(Peripheral) RR: 16 BP: 132/76 HT: 71 in HT: 180 cm WT: 103 kg WT: 226.6 lb BMI: 31.79 General: nontoxic, NAD Mouth: moist mucosa Lungs: normal respiratory effort Cardio: regular rate, good distal perfusion Abdomen: nondistended, no suprapubic distention or tenderness, no CVA tenderness Neurologic: Grossly normal Skin: No rashes or suspicious lesions Assessment/Plan former DLS pt. PSA 11/25/21 - 3.06 1. BPH with urinary obstruction (N40.1: Benign prostatic hyperplasia with lower urinary tract symptoms) S/p Cysto 01/25/22 w DLS - prostate obstructed, marked enlargement of the lateral lobes and some enlargement of the middle lobe of the prostate. IPSS 7, QOL 1. PVR 12 cc Continues Tamsulosin daily. Has trialed BID but went back to QD due to dizzy spells & low BP. Explained to patient that even though his sx are mild/he's satisfied, his bladder is showing damage (mild trabec) and he's had at least 1 (likely 2) UTIs in the past 6 mos - therefore he will most likely need outlet procedure sooner rather than later. The UroLift and REZUM procedures have been discussed in detail, including the risks and benefits of both procedures. We have compared these procedures to the more invasive TURP procedure. 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 Pt was given brochures on Urolift/Rezum to review at home. Pt understands he will have to be seen by a physician prior to choosing outlet procedure. He understands further testing may be require (cysto, TRUS, uros). Pt prefers Dr. Smallwood. Pt to be called w/ appointment. 2. Gross hematuria (R31.0: Gross hematuria) Cysto due to microscopic hematuria 01/25/22 neg for b.t. or lesions. Initial episode of gross blood 05/20/22, painless, but urine cx+, tx w keflex. UA today shows moderate blood. See #3. 3. Urinary tract infection (N39.0: Urinary tract infection, site not specified) gross hematuria. culture 05/20/22, 50k Staphylococcus epidermidis. Tx'd w/ Keflex. UA today moderate blood and positive nitrites. Asx but will send for culture, pt to be called w/ results. will hold off on empiric abx since he's asx at this time. 4. Anticoagulated (Z79.01: MCFP (current) use of anticoagulants) Eliquis Follow-up With When Contact Information INGRID GONZALEZ, TRACI Alberts, URL [address] [place] [address] Additional Instructions: call w/ C&S results and appointment Patient Education Benign Prostatic Hyperplasia Documentation recorded by the asher Parra accurately reflects the services(s) I performed and decisions made by me. Authenticated by Traci Quintero PA-C on 10/19/2022 13:20:51. ICindi, personally scribed for Traci Quintero PA-C on 10/19/2022 13:07:00. . Problem List/Past Medical History Ongoing Anticoagulated Asymptomatic microscopic hematuria Atrial fibrillation BMI 33.0-33.9,adult BPH with urinary obstruction Gross hematuria Hyperlipidemia Hypertension Nocturia Urinary tract infection Urinary tract infection Weak urinary stream Historical No qualifying data Procedure/Surgical History Cystoscopy (01/25/2022), Cystoscopy (06/09/2015), Operative procedure on shoulder, Procedure on back, Tonsillectomy. Medications atorvastatin 40 mg Tab Eliquis 2.5 mg oral tablet, 2.5 mg= 1 tab(s), Oral, BID ezetimibe 10 mg Tab metoprolol succinate ER 50 mg tablet,extended release 24 hr, 0 tamsulosin 0.4 mg Cap, 0.4 mg= 1 cap(s), Oral, Daily, 3 refills Allergies No Known Allergies No Known Medication Allergies Social History Tobacco Former smoker, quit more than 30 days ago Tobacco Use:. Never Smokeless Tobacco Use:., 10/19/2022 Family History Heart disease: Mother and Father. Immunizations Vaccine Date Status influenza virus vaccine, inactivated 06/15/2022 Recorded influenza virus vaccine, inactivated 05/13/2021 Recorded SARS-CoV-2 (COVID-19) mRNA BNT-162b2 vax 05/13/2021 Recorded influenza virus vaccine, inactivated 05/04/2021 Recorded SARS-CoV-2 (COVID-19) mRNA BNT-162b2 vax 05/04/2021 Johnathan (more content not included)... Normal [facility] Comment on above: Result Comment: Elec tronically Signed By: TRACI QUINTERO PA-C\.br\Date and Time Signed: 10/19/22 13:21 EDT\.br\Electronically Co-Signed By: Cindi Parra\.br\Date and Time Co-Signed: 10/19/22 13:08 EDT BASIC METABOLIC PANELon 11-15 BUN/CREATININE RATIO NOT APPLICABLE Normal 6-22 [facility] Comment on above: Performed By: #### 1 005, 5363, 75969, 905 #### [facility] [address], [address] [place] [address] [employer] Cutter: Alejandro Washburn MD Calcium [Mass/Vol] 10.0 mg/dL Normal 8.6-10.3 [facility] Comment on above: Result Comment: NO C OLLECTION DATE RECEIVED. WE HAVE USED THE DATE THE SPECIMEN WAS RECEIVED BY THIS LABORATORY THE COLLECTION DATE. IF THIS IS INCORRECT, PLEASE CONTACT CLIENT SERVICES. PHONE NUMBER: [phone] Performed By: #### 1 005, 5363, 00492, 905 #### [facility] [place] [address] [employer]: Alejandro Washburn MD Chloride [Moles/Vol] 105 mmol/L Normal 98-110 [facility] Comment on above: Performed By: #### 1 005, 5363, 44181, 905 #### [facility] [address], [address] [place] [address] [employer]: Alejandro Washburn MD CO2 [Moles/Vol] 26 mmol/L Normal 20-32 [facility] Comment on above: Performed By: #### 1 005, 5363, 18862, 905 #### [facility] [place] [address] [employer]: Alejandro Washburn MD Creatinine [Mass/Vol] 1.12 mg/dL Normal 0.70-1.18 [facility] Comment on above: Result Comment: For patients >49 years of age, the reference limit for Creatinine is approximately 13% higher for people identified as -[place]. Performed By: #### 1 005, 5363, 19409, 905 #### [facility] [place] [address] [employer]: Alejandro Washburn MD eGFR NON-AFR. [place] 63 mL/min/1.73m2 Normal > OR = 60 [facility] Comment on above: Performed By: #### 1 005, 5363, 18520, 905 #### [facility] [place] [address] [employer]: Alejandro Washburn MD GFR/1.73 sq M.predicted among blacks MDRD (S/P/Bld) [Vol rate/Area] 73 mL/min/{1.73_m2} Normal > OR = 60 [facility] Comment on above: Performed By: #### 1 005, 5363, 44390, 905 #### [facility] [place] [address] [employer]: Alejandro Washburn MD Glucose [Mass/Vol] 82 mg/dL Normal 65-99 [facility] Comment on above: Result Comment: Fasting reference interval Performed By: #### 1 005, 5363, 66429, 905 #### [facility] [place] [address] [employer]: Alejandro Washburn MD Potassium [Moles/Vol] 4.9 mmol/L Normal 3.5-5.3 [facility] Comment on above: Performed By: #### 1 005, 5363, 78648, 905 #### [facility] [place] [address] [employer]: Alejandro Washburn MD Sodium [Moles/Vol] 140 mmol/L Normal 135-146 [facility] Comment on above: Performed By: #### 1 005, 5363, 24377, 905 #### [facility] [place] [address] [employer]: Alejandro Washburn MD Urea nitrogen [Mass/Vol] 16 mg/dL Normal 7-25 [facility] Comment on above: Performed By: #### 1 005, 5363, 11865, 905 #### [facility] [address], [address] [place] [address] [employer]: Alejandro Washburn MD PSA, TOTALon 11-25-2021 PSA, TOTAL 3.06 ng/mL Normal < OR = 4.00 [facility] Comment on above: Result Comment: The total PSA value from this assay system is standardized against the WHO standard. The test result will be approximately 20% lower when compared to the equimolar-standardized total PSA (Rufus Metaline). Comparison of serial PSA results should be interpreted with this fact in mind. This test was performed using the Siemens chemiluminescent method. Values obtained from different assay methods cannot be used interchangeably. PSA levels, regardless of value, should not be interpreted as absolute evidence of the presence or absence of disease. NO COLLECTION DATE RECEIVED. WE HAVE USED THE DATE THE SPECIMEN WAS RECEIVED BY THIS LABORATORY THE COLLECTION DATE. IF THIS IS INCORRECT, PLEASE CONTACT CLIENT SERVICES. PHONE NUMBER: [phone] Performed By: #### 1 005, 5363, 58756, 905 #### [facility] [address], [address] [place] [address] Firebreak Cutter: Alejandro Washburn MD TEST AUTHORIZATIONon CLIENT CONTACT: KASEY Luna Normal [facility] Comment on above: Performed By: #### 1 005, 5363, 24193, 905 #### [facility] [place] [address] Firebreak Cutter: Alejandro Washburn MD COMMENT Normal [facility] Comment on above: Result Comment: Plea se have the ordering physician or his or her authorized service liaison representative sign a copy of this report and promptly return it by faxing it to: [phone] or by returning the form to your certified nuclear medicine technologist. Performed By: #### 1 005, 5363, 71603, 905 #### [facility] [address], [address] [place] [address] Firebreak Cutter: Alejandro Washburn MD REPORT ALWAYS MESSAGE SIGNATURE Normal [facility] Comment on above: Result Comment: The laboratory testing on this patient was verbally requested or confirmed by the ordering physician or his or her authorized service liaison representative after contact with an employee of [employer]. Federal regulations require that we maintain on file written authorization for all laboratory testing. Accordingly we are asking that the ordering physician or his or her authorized service liaison representative sign a copy of this report and promptly return it to the customer success representative. Signature: Performed By: #### 1 005, 5363, 10404, 905 #### [facility] [place] [address] Firebreak Cutter: Alejandro Washburn MD TEST CODE: [id number] Normal [facility] Comment on above: Performed By: #### 1 005, 5363, 27067, 905 #### [facility] [place] [address] Firebreak Cutter: Alejandro Washburn MD TEST NAME: PSA, TOTAL Normal [facility] Comment on above: Performed By: #### 1 005, 5363, 27627, 905 #### [facility] [place] [address] Firebreak Cutter: Alejandro Washburn MD URIC ACIDon 11-25-2021 Urate [Mass/Vol] 6.6 mg/dL Normal 4.0-8.0 [facility] Comment on above: Result Comment: Ther apeutic target for gout patients: <6.0 mg/dL Performed By: #### 1 005, 5363, 20983, 905 #### [facility] [place] [address] Firebreak Cutter: Alejandro Washburn MD COMPREHENSIVE METABOLIC PANE [facility] 05-19-2021 Albumin [Mass/Vol] 4.2 g/dL Normal 3.6-5.1 [facility] Comment on above: Performed By: #### 7 600, 79646 #### [facility] [place] [address] Firebreak Cutter: Alejandro Washburn MD Albumin/Globulin [Mass ratio] 1.5 {ratio} Normal 1.0-2.5 [facility] Comment on above: Performed By: #### 7 600, 36383 #### [facility] [place] [address] Firebreak Cutter: Alejandro Washburn MD ALP [Catalytic activity/Vol] 124 U/L Normal 35-144 [facility] Comment on above: Performed By: #### 7 600, 54711 #### [facility] [place] [address] Firebreak Cutter: Alejandro Washburn MD ALT [Catalytic activity/Vol] 25 U/L Normal 9-46 [facility] Comment on above: Performed By: #### 7 600, 12308 #### [facility] [place] [address] Firebreak Cutter: Alejandro Washburn MD AST [Catalytic activity/Vol] 21 U/L Normal 10-35 [facility] Comment on above: Performed By: #### 7 600, 65740 #### [facility] [place] [address] Firebreak Cutter: Alejandro Washburn MD Bilirubin [Mass/Vol] 1.3 mg/dL High 0.2-1.2 [facility] Comment on above: Performed By: #### 7 600, 16131 #### [facility] [place] [address] Firebreak Cutter: Alejandro Washburn MD Calcium [Mass/Vol] 9.6 mg/dL Normal 8.6-10.3 [facility] Comment on above: Performed By: #### 7 600, 31481 #### [facility] [place] [address] Firebreak Cutter: Alejandro Washburn MD Chloride [Moles/Vol] 102 mmol/L Normal 98-110 [facility] Comment on above: Performed By: #### 7 600, 23493 #### [facility] [address], [address] [place] [address] Firebreak Cutter: Alejandro Washburn MD CO2 [Moles/Vol] 29 mmol/L Normal 20-32 [facility] Comment on above: Performed By: #### 7 600, 34017 #### [facility] [place] [address] Firebreak Cutter: Alejandro Washburn MD Creatinine [Mass/Vol] 1.26 mg/dL High 0.70-1.18 [facility] Comment on above: Result Comment: For patients >49 years of age, the reference limit for Creatinine is approximately 13% higher for people identified as -Bahamian. Performed By: #### 7 600, 11499 #### [facility] [address], [address] [place] [address] Firebreak Cutter: Alejandro Washburn MD eGFR NON-AFR. [place] 55 mL/min/1.73m2 Low > OR = 60 [facility] Comment on above: Performed By: #### 7 600, 83742 #### [facility] [place] [address] Firebreak Cutter: Alejandro Washburn MD GFR/1.73 sq M.predicted among blacks MDRD (S/P/Bld) [Vol rate/Area] 63 mL/min/{1.73_m2} Normal > OR = 60 [facility] Comment on above: Performed By: #### 7 600, 04391 #### [facility] [place] [address] Firebreak Cutter: Alejandro Washburn MD Globulin (S) [Mass/Vol] 2.8 g/dL Normal 1.9-3.7 [facility] Comment on above: Performed By: #### 7 600, 25884 #### [facility] [place] [address] Firebreak Cutter: Alejandro Washburn MD Glucose [Mass/Vol] 85 mg/dL Normal 65-99 [facility] Comment on above: Result Comment: Fasting reference interval Performed By: #### 7 600, 13197 #### [facility] of [address], [address] [place] [address] Firebreak Cutter: Alejandro Washburn MD Potassium [Moles/Vol] 5.1 mmol/L Normal 3.5-5.3 [facility] Comment on above: Performed By: #### 7 600, 91035 #### [facility] of [address], [address] [place] [address] Firebreak Cutter: Alejandro Washburn MD Protein [Mass/Vol] 7.0 g/dL Normal 6.1-8.1 [facility] Comment on above: Performed By: #### 7 600, 02725 #### [facility] of [address], [address] [place] [address] Firebreak Cutter: Alejandro Washburn MD Sodium [Moles/Vol] 138 mmol/L Normal 135-146 [facility] Comment on above: Performed By: #### 7 600, 36329 #### [facility] of [address], [address] [place] [address] Firebreak Cutter: Alejandro Washburn MD Urea nitrogen [Mass/Vol] 20 mg/dL Normal 7-25 [facility] Comment on above: Performed By: #### 7 600, 92678 #### [facility] of [address], [address] [place] [address] Firebreak Cutter: Alejandro Washburn MD Urea nitrogen/Creatinin e [Mass ratio] 16 mg/mg Normal 6-22 [facility] Comment on above: Performed By: #### 7 600, 65199 #### [facility] of [address], [address] [place] [address] Firebreak Cutter: Alejandro Washburn MD LIPID PANEL, [facility] 11-0 Cholesterol [Mass/Vol] 155 mg/dL Normal <200 [facility] Comment on above: Order Comment: FASTI NG:YES FASTING: YES Performed By: #### 7 600, 33651 #### [facility] of [address], [address] [place] [address] Firebreak Cutter: Alejandro Washburn MD Cholesterol in HDL [Mass/Vol] 46 mg/dL Normal > OR = 40 [facility] Comment on above: Order Comment: FASTI NG:YES FASTING: YES Performed By: #### 7 600, 77329 #### [facility] [address], [address] [place] [address] Firebreak Cutter: Alejandro Washburn MD Cholesterol in LDL [Mass/Vol] 90 mg/dL Normal [facility] Comment on above: Order Comment: FASTI NG:YES FASTING: YES Result Comment: Refe rence range: <100 Desirable range <100 mg/dL for primary prevention; <70 mg/dL for patients with CHD or diabetic patients with > or = 2 CHD risk factors. LDL-C is now calculated using the Nan calculation, which is a validated novel method providing better accuracy than the Friedewald equation in the estimation of LDL-C. Yusef ARMENTA et al. GEOVANNI. 2013;310(19): 4745-7140 (http://education.Netskope.EditGrid/faq/QDY007) Performed By: #### 7 600, 70754 #### [facility] [address], [address] [place] [address] Firebreak Cutter: Alejandro Washburn MD Cholesterol.total/ Cholesterol in HDL [Mass ratio] 3.4 {ratio} Normal <5.0 [facility] Comment on above: Order Comment: FASTI NG:YES FASTING: YES Performed By: #### 7 600, 12822 #### [facility] [address], [address] [place] [address] Firebreak Cutter: Alejandro Washburn MD NON HDL CHOLESTEROL 109 mg/dL (calc) Normal <130 [facility] Comment on above: Order Comment: FASTI NG:YES FASTING: YES Result Comment: For patients with diabetes plus 1 major ASCVD risk factor, treating to a non-HDL-C goal of <100 mg/dL (LDL-C of <70 mg/dL) is considered a therapeutic option. Performed By: #### 7 600, 62525 #### [facility] [address], [address] [place] [address] Firebreak Cutter: Alejandro Washburn MD Triglyceride [Mass/Vol] 92 mg/dL Normal <150 [facility] Comment on above: Order Comment: FASTI NG:YES FASTING: YES Performed By: #### 7 558, 19501 #### [facility] [address], [address] [place] [address] Firebreak Cutter: Alejandro Washburn MD Vital Signs Date Time Vital Sign Value Performing Clinician Facility 09-05-2023 14:50-0500 Body height 180.3 cm Latesha Sandra APRN-PRESSURE SUPERVISOR Work Phone: [facility] 09-05-2023 14:50-0500 Body mass index (BMI) [Ratio] 32.52 kg/m2 Latesha Sandra APRN-PRESSURE SUPERVISOR Work Phone: [facility] 09-05-2023 14:50-0500 Body temperature 98.1 [degF] Latesha Sandra APRN-PRESSURE SUPERVISOR Work Phone: [facility] 09-05-2023 14:50-0500 Body weight 105.78 kg Latesha Sandra APRN-PRESSURE SUPERVISOR Work Phone: [facility] 09-05-2023 14:50-0500 Diastolic blood pressure 70 mm[Hg] Latesha Sandra APRN-PRESSURE SUPERVISOR Work Phone: [facility] 09-05-2023 14:50-0500 Heart rate 96 /min Latesha MONTELONGOPRESSURE SUPERVISOR Work Phone: [facility] 09-05-2023 14:50-0500 SaO2% (BldA) [Mass fraction] 95 % Latesha Sandra APRN-PRESSURE SUPERVISOR Work Phone: [facility] 09-05-2023 14:50-0500 Systolic blood pressure 112 mm[Hg] Latesha Sandra APRN-PRESSURE SUPERVISOR Work Phone: [facility] [employer] [facility] 06-15-2023 14:15-0500 Body height 180.[address] [facility] Other [employer] Other 06-15-2023 14:15-0500 Body mass index (BMI) [Ratio] 32.91 kg/m2 Yessica Deepti Other [employer] Other 06-15-2023 14:15-0500 Body weight 107.05 kg Yessica Deepti Other [employer] Other 06-15-2023 14:15-0500 Diastolic blood pressure 89 mm[Hg] Yessica Deepti Other [employer] Other 06-15-2023 14:15-0500 SaO2% (BldA) [Mass fraction] 95 % Yessica Deepti Other [employer] Other 06-15-2023 14:15-0500 Systolic blood pressure 132 mm[Hg] Yessica Deepti Other [employer] Other 11-29-2022 11:36-0400 Diastolic blood pressure 93 mm[Hg] Constance SMALLWOOD [facility] 11-29-2022 11:36-0400 Mean blood pressure 107 mm[Hg] Constance SMALLWOOD [facility] 11-29-2022 11:36-0400 Systolic blood pressure 134 mm[Hg] Constance SMALLWOOD [facility] 11-29-2022 11:35-0400 Blood Pressure Location Constance SMALLWOOD [facility] 11-29-2022 11:35-0400 Diastolic blood pressure 113 mm[Hg] Constance SMALLWOOD [facility] 11-29-2022 11:35-0400 Heart rate 96 /min Constance SMALLWOOD [facility] 11-29-2022 11:35-0400 Systolic blood pressure 140 mm[Hg] Constance SMALLWOOD [facility] 11-01-2022 09:48-0400 Blood Pressure Location Constance SMALLWOOD [facility] 11-01-2022 09:48-0400 Diastolic blood pressure 75 mm[Hg] Constance SMALLWOOD [facility] 11-01-2022 09:48-0400 Heart rate 95 /min Constance SMALLWOOD [facility] 11-01-2022 09:48-0400 Respiratory rate 16 /min Constance SMALLWOOD [facility] 11-01-2022 09:48-0400 Systolic blood pressure 115 mm[Hg] Constance SMALLWOOD [facility] 10-19-2022 12:38-0400 Blood Pressure Location TRACI INGRID [facility] 10-19-2022 12:38-0400 Diastolic blood pressure 76 mm[Hg] TRACI INGRID [facility] 10-19-2022 12:38-0400 Heart rate 72 /min TRACI INGRID [facility] 10-19-2022 12:38-0400 Respiratory rate 16 /min TRACI INGRID [facility] 10-19-2022 12:38-0400 Systolic blood pressure 132 mm[Hg] TRACI INGRID [facility] 05-20-2022 11:12-0400 Blood Pressure Location TRACI INGRID [facility] 05-20-2022 11:12-0400 Diastolic blood pressure 86 mm[Hg] TRACI INGRID [facility] 05-20-2022 11:12-0400 Heart rate 71 /min TRACI INGRID [facility] 05-20-2022 11:12-0400 Respiratory rate 16 /min TRACI INGRID [facility] 05-20-2022 11:12-0400 Systolic blood pressure 127 mm[Hg] TRACI INGRID [facility] 02-22-2022 08:23-0400 Blood Pressure Location Justin Piña Jr. [facility] 02-22-2022 08:23-0400 Diastolic blood pressure 75 mm[Hg] Justin Piña Jr. [facility] 02-22-2022 08:23-0400 Heart rate 68 /min Justin Piña Jr. [facility] 02-22-2022 08:23-0400 Systolic blood pressure 128 mm[Hg] Justin Piña Jr. [facility] 01-25-2022 14:52-0400 Blood Pressure Location Justin Piña Jr. [facility] 01-25-2022 14:52-0400 Diastolic blood pressure 95 mm[Hg] Justin Piña Jr. [facility] 01-25-2022 14:52-0400 Heart rate 100 /min Justin Piña Jr. [facility] 01-25-2022 14:52-0400 Systolic blood pressure 113 mm[Hg] Justin Piña Jr. [facility] 01-05-2022 08:26-0400 Blood Pressure Location Justin Piña Jr. [facility] 01-05-2022 08:26-0400 Diastolic blood pressure 85 mm[Hg] Justin Piña Jr. [facility] 01-05-2022 08:26-0400 Heart rate 87 /min Justin Piña Jr. [facility] 01-05-2022 08:26-0400 Systolic blood pressure 122 mm[Hg] Justin Piña Jr. [facility] 06-02-2021 10:00-0500 Body height 180.34 cm Surya Rodríguez Other [employer] Other 06-02-2021 10:00-0500 Body mass index (BMI) [Ratio] 32.77 kg/m2 Surya Rodríguez Other [employer] Other 06-02-2021 10:00-0500 Body weight 106.6 kg Surya Rodríguez Other [employer] Other 06-02-2021 10:00-0500 Diastolic blood pressure 75 mm[Hg] Surya Rodríguez Other [employer] Other 06-02-2021 10:00-0500 Systolic blood pressure 116 mm[Hg] Surya Rodríguez Other [employer] Other 05-19-2021 12:45-0400 Body height 180.34 cm Yumi Juju Other [employer] Other 05-19-2021 12:45-0400 Body mass index (BMI) [Ratio] 32.77 kg/m2 Yumi Juju Other [employer] Other 05-19-2021 12:45-0400 Body temperature 98.9 [degF] Yumi Juju Other [employer] Other 05-19-2021 12:45-0400 Body weight 106.6 kg Yumi Juju Other [employer] Other 05-19-2021 12:45-0400 Diastolic blood pressure 46 mm[Hg] Yumi Juju Other [employer] Other 05-19-2021 12:45-0400 SaO2% (BldA) [Mass fraction] 93 % Yumi Juju Other [employer] Other 05-19-2021 12:45-0400 Systolic blood pressure 98 mm[Hg] Yumi Matute Other [employer] Other 04-09-2021 17:00-0400 Body height 180.34 cm Surya Rodríguez Other [employer] Other 04-09-2021 17:00-0400 Body mass index (BMI) [Ratio] 32.49 kg/m2 Surya Rodríguez Other [employer] Other 04-09-2021 17:00-0400 Body weight 105.69 kg Surya Rodríguez Other [employer] Other 04-09-2021 17:00-0400 Diastolic blood pressure 75 mm[Hg] Suryaban Rodríguez Other [employer] Other 04-09-2021 17:00-0400 Systolic blood pressure 128 mm[Hg] Surya Rodríguez Other [employer] Other Encounters Encounter Date Encounter Type Care Provider Facility Start: 09-26-2023 ambulatory Constance Christiansoni ty:CD:[id number] Start: 09-19-2023 End: 2023 ambulatory Constance SMALLWOOD Facility:[facility] Start: 09-19-2023 End: 2023 ambulatory Constance SMALLWOOD Facility:[facility] Start: 09-19-2023 End: 09-19-2023 Lab Drop off Constance SMALLWOOD [facility] Start: 09-19-2023 End: 09-19-2023 Patient encounter procedure Constance SMALLWOOD [facility] Start: 09-05-2023 End: 09-05-2023 ambulatory LATESHA SANDRA [facility] Start: 09-05-2023 End: 09-05-2023 Office outpatient visit 15 minutes Latesha Sandra BRIDGE PAINTER HELPER-PRESSURE SUPERVISOR Work Phone: [facility] - [facility] Comment on above: Pilonidal cyst witho ut infection (Primary Dx) Start: 09-05-2023 Telephone encounter Latesha Sandra BRIDGE PAINTER HELPER-PRESSURE SUPERVISOR Work Phone: [facility] Start: 07-10-2023 Refill Wilver Cuellar O Work Phone: [facility] - [facility] Comment on above: Hyperlipidemia, unsp ecified Start: 06-27-2023 End: 06-28-2023 ambulatory Constance SMALLWOOD Facility:CD:[id number] Start: 06-15-2023 End: 06-15-2023 ambulatory Yessica Deepti Facility:[facility] Start: 06-15-2023 Office outpatient vi sit 10 minutes Yessica Deepti [facility] Start: 06-15-2023 End: 06-15-2023 ambulatory DO Wilver Easton Work Phone: [facility] Work Phone: Start: 06-15-2023 End: 06-15-2023 Patient encounter procedure DO Wilver Easton Work Phone: [facility] Work Phone: Start: 05-30-2023 ambulatory Constance Finley ty:CD:[id number] Start: 05-23-2023 End: 05-24-2023 ambulatory Constance SMALLWOOD Facility:[facility] Start: 05-23-2023 End: 05-23-2023 Patient encounter procedure Constance SMALLWOOD [facility] Start: 04-29-2023 ambulatory Constance Christiansoni ty: [facility] Start: 02-21-2023 End: 02-22-2023 ambulatory Constance R SMALLWOOD Facility:CD:[id number] Start: 02-14-2023 End: 02-15-2023 ambulatory Constance R SANTY Facility:[facility] Start: 02-14-2023 End: 02-14-2023 Lab Drop off Constance SMALLWOOD [facility] Start: 02-14-2023 End: 02-14-2023 Patient encounter procedure Constance Villanueva SANTY [facility] Start: 12-09-2022 End: 12-10-2022 ambulatory Constance Kay SANTY Facility:[facility] Start: 12-09-2022 End: 12-10-2022 ambulatory Constance SMALLWOOD Facility:[facility] Start: 11-29-2022 End: 11-30-2022 ambulatory Constance Kay SANTY Facility:[facility] Start: 11-29-2022 End: 11-29-2022 Patient encounter procedure Constance R SANTY [facility] Start: 11-24-2022 End: 11-25-2022 ambulatory Constance R SANTY Facility:[facility] Start: 11-24-2022 End: 11-24-2022 Patient encounter procedure Constance Kay SMALLWOOD [facility] Start: 11-22-2022 End: 11-23-2022 ambulatory SONJA EASTON Facility:[facility] Start: 11-22-2022 End: 11-22-2022 Patient encounter procedure SONJA EASTON [facility] Start: 11-18-2022 End: 11-19-[address] CONSTANCE SMALLWOOD . Facility: Start: 11-15-2022 Encounter for preprocedural cardiovascular examination DR CONSTANCE SMALLWOOD . [facility] Start: 11-15-2022 Encounter for preprocedural laboratory examination DR CONSTANCE SMALLWOOD . [facility] Start: 11-15-2022 Encounter for preprocedural respiratory examination DR CONSTANCE SMALLWOOD . [facility] Start: 11-11-2022 End: 11-12-[address] CONSTANCE SMALLWOOD . Facility: Start: 11-11-2022 End: 11-12-2022 Encounter for preprocedural laboratory examination DR CONSTANCE SMALLWOOD . Facility: Start: 11-09-2022 End: 11-10-2022 ambulatory Constance SMALLWOOD Facility:[facility] Start: 11-09-2022 End: 11-09-2022 Patient encounter procedure Constance SMALLWOOD [facility] Start: 11-03-2022 End: 11-04-[address] CONSTANCE SMALLWOOD . Facility: Start: 11-01-2022 End: 11-02-2022 ambulatory Constance SMALLWOOD Facility:[facility] Start: 11-01-2022 End: 11-01-2022 Patient encounter procedure Constance SMALLWOOD [facility] Start: 10-19-2022 End: 10-20-2022 ambulatory TRACI QUINTERO Facility:[facility] Start: 10-19-2022 End: 10-20-2022 ambulatory TRACI QUINTERO Facility:[facility] Start: 10-19-2022 End: 10-19-2022 Lab Drop off TRACI QUINTERO [facility] Start: 10-19-2022 End: 10-19-2022 Patient encounter procedure TRACI QUINTERO [facility] Start: 06-16-2022 End: 06-16-2022 ambulatory DO Wilver Easton Work Phone: [facility] Work Phone: Start: 06-16-2022 End: 06-16-2022 Patient encounter procedure DO Wilver Easton Work Phone: [facility] Start: 05-20-2022 End: 05-20-2022 Lab Drop off TRACI QUINTERO [facility] Start: 05-20-2022 End: 05-20-2022 Patient encounter procedure TRACI QUINTERO [facility] Start: 02-22-2022 End: 02-22-2022 Patient encounter procedure Justin Piña Jr. [facility] Start: 01-25-2022 End: 01-25-2022 Patient encounter procedure Justin Piña Jr. [facility] Start: 01-05-2022 End: 01-05-2022 Patient encounter procedure Justin Piña Jr. [facility] Start: 06-02-2021 End: 06-02-2021 ambulatory Surya Rodríguez Other [facility] [employer] Other Start: 06-02-2021 Office outpatient vi sit 15 minutes Surya Rodríguez [facility] Start: 05-19-2021 End: 05-19-2021 ambulatory Yumi Matute Other [facility] [employer] Other Start: 05-19-2021 Office outpatient vi sit 15 minutes Yumi Matute [facility] Start: 04-09-2021 Office outpatient ne w 30 minutes Surya Rodríguez [facility] Procedures Date Procedure Procedure Detail Performing Clinician Start: 09-05-2023 Adult depression scr eening assessment Latesha Sandra BRIDGE PAINTER HELPER-PRESSURE SUPERVISOR Work Phone: Start: 06-29-2023 Adult depression scr eening assessment Wilver Easton DO Work Phone: Start: 11-18-2022 Transurethral resect ion of bladder neoplasm Constance SMALLWOOD Start: 11-09-2022 Cystoscopy Constance AGUILAR Start: 01-25-2022 Cystoscopy Justin tavarez JrJoseluis Start: 06-09-2015 Cystoscopy Justin tavarez Jr. Operative procedure on shoulder Justin Wang Barney Procedure on back Justin tavarez JrJoseluis Tonsillectomy Justin owusu Plan of Treatment Date Care Activity Detail Author Start: 01-05-2026 DTaP,Tdap and Td Vaccines (2 - Td or Tdap) DTaP,Tdap and Td Vaccines (2 - Td or Tdap) [facility] Start: 09-05-2024 Tobacco Screening Tobacco Screening [facility] Start: 06-29-2024 Adult BMI Screening Adult BMI Screening [facility] Start: 06-29-2024 Depression Screening Depression Screening [facility] Start: 06-29-2024 Fall Risk Screening Fall Risk Screening [facility] Start: 06-29-2024 Tobacco Screening Tobacco Screening [facility] Start: 01-10-2024 End: 01-10-2024 Patient encounter procedure 01/10/2024 10:50 AM EDT Office Visit [facility] - [facility] [address] [place] [address] [facility] Start: 12-29-2023 Medicare Annual Wellness Visit Medicare Annual Wellness Visit [facility] Start: 02-06-2024 Administration of varicella zoster vaccine Zoster (Shingles) Vaccine (2 of 2) [facility] Start: 03-18-2023 COVID-19 Vaccine ( season) COVID-19 Vaccine ( season) [facility] Start: [birth year]-19-1963 Adult BMI Follow Up Plan Adult BMI Follow Up Plan [facility] Immunizations Immunization Date Immunization Notes Care Provider Fa cili 06-28-2023 zoster vaccine, unspecified formulation Wilver Maddens DO Work Phone: [facility] 04-09-2023 Influenza Vaccine, Quadrivalent, Adjuvanted Wilver Méndezhas DO Work Phone: [facility] 06-15-2022 influenza virus vacc ine, unspecified formulation TRACI INGRID [facility] 06-15-2022 Influenza, High-dose , Quadrivalent Wilver Yuhas DO Work Phone: [facility] 05-13-2021 influenza virus vacc ine, unspecified formulation TARCI INGRID [facility] 05-13-2021 influenza, injectabl e, quadrivalent, contains preservative Wilver Maryannes DO Work Phone: [facility] 05-13-2021 SARS-CoV-2 (COVID-19 ) mRNA BNT-162b2 vax TRACI INGRID [facility] 05-04-2021 influenza virus vacc ine, unspecified formulation TRACI INGRID [facility] 05-04-2021 Influenza, High-dose , Quadrivalent Wilver Yuhas DO Work Phone: [facility] 05-04-2021 SARS-CoV-2 (COVID-19 ) mRNA BNT-162b2 vax TRACI INGRID [facility] 11-06-2020 SARS-CoV-2 (COVID-19 ) mRNA-1273 vaccine Justin Piña Jr. [facility] 10-09-2020 SARS-CoV-2 (COVID-19 ) mRNA-1273 vaccine Justin Piña Jr. [facility] 10-08-2020 SARS-CoV-2 (COVID-19 ) mRNA BNT-162b2 vax TRACI QUINTERO [facility] 09-19-2020 SARS-CoV-2 (COVID-19 ) mRNA BNT-162k1 vax TRACI QUINTERO [facility] 05-18-2020 influenza virus vacc ine, unspecified formulation Justin Wang Barney [facility] 05-17-2020 influenza virus vacc ine, unspecified formulation TRACI INGRID [facility] 05-17-2020 influenza, high dose seasonal, preservative-free Wilver Easton DO Work Phone: [facility] [employer] 05-08-2019 influenza virus vacc ine, unspecified formulation TRACI QUINTERO [facility] 05-08-2019 influenza, injectabl e, quadrivalent, contains preservative Wilver Yuhas DO Work Phone: [facility] 04-24-2018 influenza virus vacc ine, unspecified formulation TRACITAWANNA QUINTERO [facility] 04-24-2018 influenza, high dose seasonal, preservative-free Wilver Easton DO Work Phone: [facility] 06-01-2017 influenza virus vacc ine, unspecified formulation TRACI QUINTERO [facility] 06-01-2017 influenza, injectabl e, quadrivalent, contains preservative Wilver Maddens DO Work Phone: [facility] 07-18-2016 influenza virus vacc ine, unspecified formulation TRACI QUINTERO [facility] 07-18-2016 influenza, injectabl e, quadrivalent, contains preservative Wilver Maddens DO Work Phone: [facility] 01-06-2016 tetanus toxoid, redu romy diphtheria toxoid, and acellular pertussis vaccine, adsorbed Wilver Maddens DO Work Phone: [facility] 07-03-2015 pneumococcal conjuga te vaccine, 13 valent Wilver Maddens DO Work Phone: [facility] 05-08-2015 influenza, seasonal, injectable, preservative free Wilver Easton DO Work Phone: [facility] 04-20-2010 pneumococcal polysaccharide vaccine, 23 valent Wilver Maddens DO Work Phone: [facility] Payers Date Payer Category Payer Self-pay [id number] 2016 Unknown [employer] [id number] 2016-Present [phone] [address] [place] [address] [id number] 2008 Medicare MEDICARE MEDICAR E PART A & B [id number] 2008-Present [phone] [address] [place] [address] [id number] [id number] 1959 Blue Cross Blue Shield [id number] [id number] 1959 Medicare [id number] 2.16.840.1.264811.19 1943 Unknown [id number] 2.16.840.1.773659.3.579. 2.593 1943 Unknown [id number] 2.16.840.1.208651.3.579. 2.593 1943 Unknown [id number] 2.16.840.1.093262.3.579. 2.593 1943 Unknown [id number] 2.16.840.1.645211.3.579. 2.1286 1943 Unknown [id number] 2.16.840.1.939750.3.579. 2.727 1943 Unknown [id number] 2.16.840.1.170722.3.579. 2.727 1943 Unknown [id number] 2.16.840.1.169126.3.579. 2.727 1943 Unknown [id number] 2.16.840.1.484484.3.579. 2.727 1943 Unknown [id number] 2.16.840.1.938092.3.579. 2.727 1943 Unknown [id number] 2.16.840.1.804776.3.579. 2.727 1943 Unknown [id number] 2.16.840.1.891657.3.579. 2.727 1943 Unknown [id number] 2.16.840.1.886602.3.579. 2.727 1943 Unknown [id number] 2.16.840.1.543328.3.579. 2.727 1943 Unknown [id number] 2.16.840.1.906495.3.579. 2.727 1943 Unknown [id number] 2.16.840.1.932058.3.579. 2.727 1943 Unknown [id number] 2.16.840.1.822961.3.579. 2.727 1943 Unknown [id number] 2.16.840.1.885691.3.579. 2.727 1943 Unknown [id number] 2.16.840.1.468580.3.579. 2.727 1943 Unknown [id number] 2.16.840.1.003874.3.579. 2.727 1943 Unknown [id number] 2.16.840.1.455394.3.579. 2.727 1943 Unknown [id number] 2.16.840.1.941713.3.579. 2.727 1943 Unknown [id number] 2.16.840.1.186063.3.579. 2.727 1943 Unknown [id number] 2.16.840.1.901975.3.579. 2.727 1943 Unknown [id number] 2.16.840.1.808679.3.579. 2.72 Unknown [id number] 2.16.840.1.744730.3.579. 2.531 Social History Date Type Detail Facility Start: 01-05-2022 End: 11-29-2022 Tobacco smoking status Ex-smoker (finding) [facility] Other Comment on above: Quit smoking in 1997 Tobacco smoking status Never [facility] Comment on above: Quit smoking in 1997 Start: 12-28-2022 End: 09-05-2023 Sex Assigned At Male [facility] [employer] Other Start: 1945 Sex Assigned At Male [facility] End: 07-04-1998 History of tobacco use Current smoker [facility] End: 07-04-1998 History of tobacco use Cigarette Smoker [facility] [employer] [facility] Start: 06-02-2022 End: 12-28-2022 Cigarettes smoked current (pack per day) - Reported 1 [facility] [employer] [facility] Start: 06-02-2022 Tobacco use and exposure Smoke less tobacco non-user [facility] Start: 06-29-2023 End: 09-05-2023 Alcohol intake Current drinker of alcohol (finding) [facility] Do you belong to any clubs or organizations such as taoist groups, unions, fraternal or athletic groups, or school groups? No [facility] Are you now , , , , never or living with a partner? [facility] How often to you hav e a drink containing alcohol? 2-3 time sa week [facility] How many standard dr inks containing alcohol do you have on a typical day? 1 or 2 [facility] How often do you hav e 6 or more drinks on 1 occasion? Never [facility] Do you feel stress - tense, restless, nervous, or anxious, or unable to sleep at night because your mind is troubled all the time - these days [OSQ] Not at all [facility] Start: 1945 Sex Assigned At Not on file [facility] Functional Status Date Assessment Result Facility 11-29-2022 Functional Status N/A [facility] 11-01-2022 Functional Status N/A [facility] 10-19-2022 Functional Status N/A [facility] 05-20-2022 Functional Status N/A [facility] 02-22-2022 Functional Status N/A [facility] 01-25-2022 Functional Status N/A [facility] 01-05-2022 Functional Status N/A [facility] Clinical Notes 04-09-2021 to 09-19-2023 Telephone Encounter - Zahida Hill - 09/05/2023 4:08 PM ESTTelephone Encounter - LARY rAgueta - 09/05/2023 4:08 PM ESTTelephone Encounter - Zahida Hill - 09/05/2023 4:08 PM EST Note Date & Type Note Facility 09-19-2023 Evaluation + Plan note Diagnostic Tests [facility] 09/19/23 [facility] 09-05-2023 Miscellaneous Notes Pharmacy called to share they are unable to fill the following: min oil-w.cze-wbpmrwnpff-sqxp ointment 28 g They were unaware of any substitutions. Please advise. It is an otc drawing moriah, I was hoping they could point the patient in the right direction documented in this encounter [facility] 09-05-2023 Telephone encounter Note Pharmacy called to share they are unable to fill the following: min oil-w.zaz-tfftlxnlya-ufxe ointment 28 g They were unaware of any substitutions. Please advise. [facility] 09-05-2023 Telephone encounter Note It is an otc drawing moriah, I was hoping they could point the patient in the right direction [facility] 09-05-2023 History of Presen t illness Narrative Images from the original note were not included. Subjective Patient ID: Wilver Blue is a 77 y.o. male. When he woke up on Tuesday morning he noted pain at the base of his tail bone and then bleeding and drainage It has alternately been draining and bleeding since He does at times strain to have a bowel movement It does feel much better today than it has in the past several days He has been treating it with warm compresses No fever or chills The following portions of the patient's history were reviewed and updated as appropriate: allergies, current medications, past family history, past medical history, past social history, past surgical history, problem list, and medication reconciliation was completed including current medication and post discharge medication. Review of Systems Constitutional: Negative for chills and fever. HENT: Negative. Eyes: Negative. Respiratory: Negative. Cardiovascular: Negative. Gastrointestinal: Negative. Endocrine: Negative. Genitourinary: Negative. Musculoskeletal: Negative. Skin: Positive for wound. Allergic/Immunologic: Negative. Neurological: Negative. Hematological: Negative. Psychiatric/Behavioral: Negative. Objective Physical Exam Vitals and nursing note reviewed. HENT: Head: Normocephalic. Pulmonary: Effort: Pulmonary effort is normal. Genitourinary: Comments: The area just superior to the rectum is not erythematous but remains somewhat firm and to the touch and the right side is somewhat indurated and tender, there is a 2-3 mm opening just above the rectum that is gently massaged but is no longer draining - there are no other signs of inflammation or swelling Skin: General: Skin is warm and dry. Neurological: Mental Status: He is alert. Psychiatric: Thought Content: Thought content normal. Judgment: Judgment normal. Assessment/Plan Wilver was seen today for cyst. Diagnoses and all orders for this visit: Pilonidal cyst without infection Other orders - min oil-w.pmy-djzxtgsufk-dqcl ointment; Apply to affected area as directed Wilver has a healing pilonidal cyst I has almost completely drained Recommended he try a drawing salve to see if he can completely express the indurated area on the right side but also he should continue to use warm compresses until completely healed, there are no signs of secondary infection and no other treatment is recommended at this time LARY Argueta 09/05/23 1804 documented in this encounter [employer] 06-15-2023 Evaluation note Encounter Date Diagnosis Assessment Notes May, Obstructive sleep apnea (ICD-10 - G47.33) [facility] Other 05-15-2023 Hospital Discharge instructions Patient Education 11/29/2022 13:02:51 Bladder Cancer Bladder Cancer Bladder cancer is a condition where abnormal tissue (a tumor) grows in the bladder. The bladder is the organ that holds urine. Two tubes (ureters) carry urine from the kidneys to the bladder. The bladder wall is made of layers of tissue. Cancer that spreads through these layers of the bladder wall becomes more difficult to treat. What increases the risk? The following factors may make you more likely to develop this condition: Smoking. Working where there are risks (occupational exposures), such as working with rubber, leather, clothing fabric, dyes, chemicals, or paint. Being 55 years of age or older. Being male. Having long-term bladder inflammation. Having a history of cancer. This includes: ?A family history of bladder cancer. ?Having had bladder cancer before. ?Having had certain treatments for cancer before, such as: ?Medicines to kill cancer cells (chemotherapy). ?Strong X-ray beams or high-energy capsules to kill cancer cells and shrink tumors (radiation therapy). Having been exposed to arsenic. This is a poisonous substance. What are the signs or symptoms? Early symptoms of this condition include: Blood in your urine. Pain when urinating. Infections of your urinary system (urinary tract infections or UTIs) that happen often. Having to urinate sooner or more often than normal. Late symptoms of this condition include: Not being able to urinate. Pain on one side of your lower back. Loss of appetite. Weight loss. Tiredness (fatigue). Swelling in your feet. Bone pain. How is this diagnosed? This condition is diagnosed based on: Your medical history. A physical exam. Lab tests, such as urine tests. Imaging tests. Your symptoms. You may also have other tests or procedures, such as: A cystoscopy. This involves putting a narrow tube into your urethra. The urethra is the organ that carries urine from your bladder to the outside of your body. This procedure is done to view the lining of your bladder for tumors. A biopsy. This involves removing a tissue sample to look at under a microscope to check for cancer. Blood tests or imaging tests may be needed. These show how far into the bladder wall cancer has grown, and if cancer has spread to any other parts of your body. Tests may include: CT scan. MRI. Bone scan. X-ray. How is this treated? Your health care provider may recommend one or more types of treatment based on the stage of your cancer. The most common treatments are: Surgery to remove the cancer. Types of surgeries include: ?Removing a tumor on the inside wall of the bladder (transurethral resection). ?Removing the bladder (cystectomy). Radiation therapy. This is often combined with chemotherapy. Chemotherapy. Immunotherapy. This uses medicines to help your body's disease-fighting system (immune system) destroy cancer cells. Follow these instructions at home: Take gtfj-fol-doyuljq and prescription medicines only as told by your health care provider. If you were prescribed an antibiotic medicine, take it as told by your health care provider. Do notstop using the antibiotic even if you start to feel better. Eat a healthy diet. Some treatments might affect your appetite. Do not use any products that contain nicotine or tobacco. These products include cigarettes, chewing tobacco, and vaping devices, such as e-cigarettes. If you need help quitting, ask your health careprovider. Consider joining a support group. This may help you learn to deal with the stress of having bladdercancer. Tell your cancer care team if you develop side effects. Your team may be able to recommend ways to get relief. Keep all follow-up visits. This is important. Where to find more information [place] [employer] (ACS): cancer.org National Cancer [place] (NCI): cancer.gov Contact a health care provider if: You have symptoms of a UTI. These include: ?Fever. ?Chills. ?Weakness. ?Muscle aches. ?Pain in your abdomen. ?Urge to urinate that is stronger and happens more often than normal. ?Burning in the bladder or urethra when you urinate. Get help right away if: There is blood in your urine. You cannot urinate. You have severe pain or other symptoms that do not go away. Summary Bladder cancer is a condition where tumors grow in the bladder. Diagnosis is based on your medical history, a physical exam, lab tests, imaging tests, and your symptoms. Your health care provider may recommend one or more types of treatment based on the stage of your cancer. Consider joining a support group. This may help you learn to deal with the stress of having bladdercancer. This information is not intended to replace advice given to you by your health care provider. Make sure you discuss any questions you have with your health care provider. Document Revised: 06/14/2022 Document Reviewed: 06/14/2022 [employer] Patient Education 2022 [place]. Follow Up Care 11/09/2022 09:22:18 With:SANTY LYLES, Constance Villanueva, URL Address: [facility] [address], [place] [address]- [phone] When: Unknown [facility] 04-27-2023 NoteEXAMINATION: XR CHEST 2 V HISTORY: Pre-surgery evaluation COMPARISON: XR chest 06/20/2013 FINDINGS: LUNGS: No significant pulmonary parenchymal abnormalities. VASCULATURE: No increased pulmonary vasculature. PLEURA: No pneumothorax, effusion, or pleural thickening. CARDIAC: No cardiomegaly or cardiac silhouette abnormality. MEDIASTINUM: No visible mass or adenopathy. BONES: No fracture or visible bone lesion. Prior left rotator cuff repair. OTHER: Negative. IMPRESSION: 1. No acute cardiopulmonary process. 2. Slightly hyperexpanded lungs suggestive of COPD. Electronically authenticated by: JUDITH BARONE Date: 2022-11-11 11:30[facility]04-25-2023 Evaluation + Plan noteExtracted from: Title:Urology Progress Note Author:Bebeto SMALLWOOD MD Date:11/09/22 Impression and Plan Impression: #1. His microhematuria seems to be from a bladder tumor. This needs to get resected. 2. BPH with LUTS; he is on Flomax and recently started on dutasteride. He seems to be happy with this regimen. Plan: #1. He will continue his prostate meds. 2. We are getting him scheduled for cystoscopy and transurethral resection of bladder tumor under anesthesia. Future Appointments Appointment Date:11/24/2022 08:00:00 AM Scheduled Provider: Location:[facility] Appointment Type:URO Nurse Visit Appointment Date:11/29/2022 09:30:00 AM Scheduled Provider:Constance SMALLWOOD MD [facility] Office Visit Appointment Date:04/29/2023 08:00:00 AM Scheduled Provider:Constance SMALLWOOD MD Location:[facility] Appointment Type:URO Office Visit [facility]04-25-2023 Note [id number]:[id number] 11-09-2022 Hospital Discharge instructions Patient Education 11/09/2022 08:57:31 [facility] - Cystoscopy Discharge Instructions (CUSTOM) Cystoscopy Voiding after the procedure: there may be some pain, burning, urgency, frequency and blood tinged urine following the procedure. These symptoms usually resolve within 2-5 days. Drink the amount of fluid it takes to keep the urine pink to yellow or clear in color. Drinking enough water and fluids will help to ease any discomfort after your procedure. If you are having problems that seem out of the ordinary, please call. If unable to contact your physician and you feel it is an emergency, go to the nearest emergency room or call 911 Diet you may resume your normal diet. Activity you may resume your normal activities Call if you have a fever over 100 degrees. Follow Up Care 11/05/2022 15:49:25 With:Constance SMALLWOOD Address: [facility] [address] [place] [address]- [facility] (1) When: Unknown Comments:Office will call to schedule follow up [facility]04-25-2023 NoteCustom Cystoscopy ? Voiding after the procedure: there may be some pain, burning, urgency, frequency and blood tingedurine following the procedure. These symptoms usually resolve within 2-5 days. Drink the amount of fluid it takes to keep the urine pink to yellow or clear in color. Drinking enough water and fluids will help to ease any discomfort after your procedure. ? If you are having problems that seem out of the ordinary, please call. ? If unable to contact your physician and you feel it is an emergency, go to the nearest emergency room or call 911 ? Diet ? you may resume your normal diet. ? Activity ? you may resume your normal activities ? Call if you have a fever over 100 degrees.[facility] 11-01-2022 Hospital Discharge instructions Patient Education 11/01/2022 08:17:55 Benign Prostatic Hyperplasia Benign Prostatic Hyperplasia Benign prostatic hyperplasia (BPH) is an enlarged prostate gland that is caused by the normal agingprocess and not by cancer. The prostate is a walnut-sized gland that is involved in the production of semen. It is located in front of the rectum and below the bladder. The bladder stores urine and the urethra is the tube that carries the urine out of the body. The prostate may get bigger as a man gets older. An enlarged prostate can press on the urethra. This can make it harder to pass urine. The build-up of urine in the bladder can cause infection. Back pressure and infection may progress to bladder damage and kidney (renal) failure. What are the causes? This condition is part of a normal aging process. However, not all men develop problems from this condition. If the prostate enlarges away from the urethra, urine flow will not be blocked. If it enlarges toward the urethra and compresses it, there will be problems passing urine. What increases the risk? This condition is more likely to develop in men over the age of 50 years. What are the signs or symptoms? Symptoms of this condition include: Getting up often during the night to urinate. Needing to urinate frequently during the day. Difficulty starting urine flow. Decrease in size and strength of your urine stream. Leaking (dribbling) after urinating. Inability to pass urine. This needs immediate treatment. Inability to completely empty your bladder. Pain when you pass urine. This is more common if there is also an infection. Urinary tract infection (UTI). How is this diagnosed? This condition is diagnosed based on your medical history, a physical exam, and your symptoms. Tests will also be done, such as: A post-void bladder scan. This measures any amount of urine that may remain in your bladder after you finish urinating. A digital rectal exam. In a rectal exam, your health care provider checks your prostate by putting a lubricated, gloved finger into your rectum to feel the back of your prostate gland. This exam detects the size of your gland and any abnormal lumps or growths. An exam of your urine (urinalysis). A prostate specific antigen (PSA) screening. This is a blood test used to screen for prostate cancer. An ultrasound. This test uses sound waves to electronically produce a picture of your prostate gland. Your health care provider may refer you to a specialist in kidney and prostate diseases (urologist). How is this treated? Once symptoms begin, your health care provider will monitor your condition (active surveillance or watchful waiting). Treatment for this condition will depend on the severity of your condition. Treatment may include: Observation and yearly exams. This may be the only treatment needed if your condition and symptoms are mild. Medicines to relieve your symptoms, including: ?Medicines to shrink the prostate. ?Medicines to relax the muscle of the prostate. Surgery in severe cases. Surgery may include: ?Prostatectomy. In this procedure, the prostate tissue is removed completely through an open incision or with a laparoscope or robotics. ?Transurethral resection of the prostate (TURP). In this procedure, a tool is inserted through the opening at the tip of the penis (urethra). It is used to cut away tissue of the inner core of the prostate. The pieces are removed through the same opening of the penis. This removes the blockage. ?Transurethral incision (TUIP). In this procedure, small cuts are made in the prostate. This lessens the prostate's pressure on the urethra. ?Transurethral microwave thermotherapy (TUMT). This procedure uses microwaves to create heat. The heat destroys and removes a small amount of prostate tissue. ?Transurethral needle ablation (TUNA). This procedure uses radio frequencies to destroy and remove a small amount of prostate tissue. ?Interstitial laser coagulation (ILC). This procedure uses a laser to destroy and remove a small amount of prostate tissue. ?Transurethral electrovaporization (TUVP). This procedure uses electrodes to destroy and remove a small amount of prostate tissue. ?Prostatic urethral lift. This procedure inserts an implant to push the lobes of the prostate away from the urethra. Follow these instructions at home: Take stwg-lgx-binkhii and prescription medicines only as told by your health care provider. Monitor your symptoms for any changes. Contact your health care provider with any changes. Avoid drinking large amounts of liquid before going to bed or out in public. Avoid or reduce how much caffeine or alcohol you drink. Give yourself time when you urinate. Keep all follow-up visits as told by your health care provider. This is important. Contact a health care provider if: You have unexplained back pain. Your symptoms do not get better with treatment. You develop side effects from the medicine you are taking. Your urine becomes very dark or has a bad smell. Your lower abdomen becomes distended and you have trouble passing your urine. Get help right away if: You have a fever or chills. You suddenly cannot urinate. You feel lightheaded, or very dizzy, or you faint. There are large amounts of blood or clots in the urine. Your urinary problems become hard to manage. You develop moderate to severe low back or flank pain. The flank is the side of your body between the ribs and the hip. These symptoms may represent a serious problem that is an emergency. Do not wait to see if the symptoms will go away. Get medical help right away. Call your local emergency services (911 in the [place] Do not drive yourself to the hospital. Summary Benign prostatic hyperplasia (BPH) is an enlarged prostate that is caused by the normal aging process and not by cancer. An enlarged prostate can press on the urethra. This can make it hard to pass urine. This condition is part of a normal aging process and is more likely to develop in men over the age of 50 years. Get help right away if you suddenly cannot urinate. This information is not intended to replace advice given to you by your health care provider. Make sure you discuss any questions you have with your health care provider. Document Released: 07/04/2006 Document Revised: 05/29/2019 Document Reviewed: 08/08/2017 [employer] Patient Education 2020 [employer]. Follow Up Care 10/22/2022 12:18:44 With:SANTY LYLES, Constance Villanueva, URL Address: [facility] [address] , [place] [address]- When: Unknown [facility] 04-04-2023 Hospital Discharge instructions Patient Education 10/19/2022 13:02:57 Benign Prostatic Hyperplasia Benign Prostatic Hyperplasia Benign prostatic hyperplasia (BPH) is an enlarged prostate gland that is caused by the normal agingprocess and not by cancer. The prostate is a walnut-sized gland that is involved in the production of semen. It is located in front of the rectum and below the bladder. The bladder stores urine and the urethra is the tube that carries the urine out of the body. The prostate may get bigger as a man gets older. An enlarged prostate can press on the urethra. This can make it harder to pass urine. The build-up of urine in the bladder can cause infection. Back pressure and infection may progress to bladder damage and kidney (renal) failure. What are the causes? This condition is part of a normal aging process. However, not all men develop problems from this condition. If the prostate enlarges away from the urethra, urine flow will not be blocked. If it enlarges toward the urethra and compresses it, there will be problems passing urine. What increases the risk? This condition is more likely to develop in men over the age of 50 years. What are the signs or symptoms? Symptoms of this condition include: Getting up often during the night to urinate. Needing to urinate frequently during the day. Difficulty starting urine flow. Decrease in size and strength of your urine stream. Leaking (dribbling) after urinating. Inability to pass urine. This needs immediate treatment. Inability to completely empty your bladder. Pain when you pass urine. This is more common if there is also an infection. Urinary tract infection (UTI). How is this diagnosed? This condition is diagnosed based on your medical history, a physical exam, and your symptoms. Tests will also be done, such as: A post-void bladder scan. This measures any amount of urine that may remain in your bladder after you finish urinating. A digital rectal exam. In a rectal exam, your health care provider checks your prostate by putting a lubricated, gloved finger into your rectum to feel the back of your prostate gland. This exam detects the size of your gland and any abnormal lumps or growths. An exam of your urine (urinalysis). A prostate specific antigen (PSA) screening. This is a blood test used to screen for prostate cancer. An ultrasound. This test uses sound waves to electronically produce a picture of your prostate gland. Your health care provider may refer you to a specialist in kidney and prostate diseases (urologist). How is this treated? Once symptoms begin, your health care provider will monitor your condition (active surveillance or watchful waiting). Treatment for this condition will depend on the severity of your condition. Treatment may include: Observation and yearly exams. This may be the only treatment needed if your condition and symptoms are mild. Medicines to relieve your symptoms, including: ?Medicines to shrink the prostate. ?Medicines to relax the muscle of the prostate. Surgery in severe cases. Surgery may include: ?Prostatectomy. In this procedure, the prostate tissue is removed completely through an open incision or with a laparoscope or robotics. ?Transurethral resection of the prostate (TURP). In this procedure, a tool is inserted through the opening at the tip of the penis (urethra). It is used to cut away tissue of the inner core of the prostate. The pieces are removed through the same opening of the penis. This removes the blockage. ?Transurethral incision (TUIP). In this procedure, small cuts are made in the prostate. This lessens the prostate's pressure on the urethra. ?Transurethral microwave thermotherapy (TUMT). This procedure uses microwaves to create heat. The heat destroys and removes a small amount of prostate tissue. ?Transurethral needle ablation (TUNA). This procedure uses radio frequencies to destroy and remove a small amount of prostate tissue. ?Interstitial laser coagulation (ILC). This procedure uses a laser to destroy and remove a small amount of prostate tissue. ?Transurethral electrovaporization (TUVP). This procedure uses electrodes to destroy and remove a small amount of prostate tissue. ?Prostatic urethral lift. This procedure inserts an implant to push the lobes of the prostate away from the urethra. Follow these instructions at home: Take nqgm-wqs-fhgqocg and prescription medicines only as told by your health care provider. Monitor your symptoms for any changes. Contact your health care provider with any changes. Avoid drinking large amounts of liquid before going to bed or out in public. Avoid or reduce how much caffeine or alcohol you drink. Give yourself time when you urinate. Keep all follow-up visits as told by your health care provider. This is important. Contact a health care provider if: You have unexplained back pain. Your symptoms do not get better with treatment. You develop side effects from the medicine you are taking. Your urine becomes very dark or has a bad smell. Your lower abdomen becomes distended and you have trouble passing your urine. Get help right away if: You have a fever or chills. You suddenly cannot urinate. You feel lightheaded, or very dizzy, or you faint. There are large amounts of blood or clots in the urine. Your urinary problems become hard to manage. You develop moderate to severe low back or flank pain. The flank is the side of your body between the ribs and the hip. These symptoms may represent a serious problem that is an emergency. Do not wait to see if the symptoms will go away. Get medical help right away. Call your local emergency services (911 in the [place] Do not drive yourself to the hospital. Summary Benign prostatic hyperplasia (BPH) is an enlarged prostate that is caused by the normal aging process and not by cancer. An enlarged prostate can press on the urethra. This can make it hard to pass urine. This condition is part of a normal aging process and is more likely to develop in men over the age of 50 years. Get help right away if you suddenly cannot urinate. This information is not intended to replace advice given to you by your health care provider. Make sure you discuss any questions you have with your health care provider. Document Released: 07/04/2006 Document Revised: 05/29/2019 Document Reviewed: 08/08/2017 [employer] Patient Education 2020 [employer]. Follow Up Care 05/17/2022 11:04:11 With:TRACI QUINTERO PA-C, URL Address: [address] [facility] [place] [address] When: Unknown [facility] 04-04-2023 Evaluation + Plan note Diagnostic Tests Pending * Urine Culture 10/19/22 [facility]11-[facility]2022 Hospital Discharge instructions Patient Education 05/20/2022 11:50:20 Hematuria, Adult Hematuria, Adult Hematuria is blood in the urine. Blood may be visible in the urine, or it may be identified with a test. This condition can be caused by infections of the bladder, urethra, kidney, or prostate. Otherpossible causes include: Kidney stones. Cancer of the urinary tract. Too much calcium in the urine. Conditions that are passed from parent to child (inherited conditions). Exercise that requires a lot of energy. Infections can usually be treated with medicine, and a kidney stone usually will pass through your urine. If neither of these is the cause of your hematuria, more tests may be needed to identify the cause of your symptoms. It is very important to tell your health care provider about any blood in your urine, even if it ispainless or the blood stops without treatment. Blood in the urine, when it happens and then stops and then happens again, can be a symptom of a very serious condition, including cancer. There is no pain in the initial stages of many urinary cancers. Follow these instructions at home: Medicines Take rjyz-zhz-tjxbvfz and prescription medicines only as told by your health care provider. If you were prescribed an antibiotic medicine, take it as told by your health care provider. Do notstop taking the antibiotic even if you start to feel better. Eating and drinking Drink enough fluid to keep your urine clear or pale yellow. It is recommended that you drink 3 4 quarts (2.8 3.8 L) a day. If you have been diagnosed with an infection, it is recommended that you drink cranberry juice in addition to large amounts of water. Avoid caffeine, tea, and carbonated beverages. These tend to irritate the bladder. Avoid alcohol because it may irritate the prostate (men). General instructions If you have been diagnosed with a kidney stone, follow your health care provider's instructions about straining your urine to catch the stone. Empty your bladder often. Avoid holding urine for long periods of time. If you are female: ?After a bowel movement, wipe from front to back and use each piece of toilet paper only once. ?Empty your bladder before and after sex. Pay attention to any changes in your symptoms. Tell your health care provider about any changes or any new symptoms. It is your responsibility to get your test results. Ask your health care provider, or the department performing the test, when your results will be ready. Keep all follow-up visits as told by your health care provider. This is important. Contact a health care provider if: You develop back pain. You have a fever. You have nausea or vomiting. Your symptoms do not improve after 3 days. Your symptoms get worse. Get help right away if: You develop severe vomiting and are unable take medicine without vomiting. You develop severe pain in your back or abdomen even though you are taking medicine. You pass a large amount of blood in your urine. You pass blood clots in your urine. You feel very weak or like you might faint. You faint. Summary Hematuria is blood in the urine. It has many possible causes. It is very important that you tell your health care provider about any blood in your urine, even ifit is painless or the blood stops without treatment. Take nukb-uxl-uhgkcxy and prescription medicines only as told by your health care provider. Drink enough fluid to keep your urine clear or pale yellow. This information is not intended to replace advice given to you by your health care provider. Make sure you discuss any questions you have with your health care provider. Document Released: 07/04/2006 Document Revised: 11/28/2019 Document Reviewed: 08/06/2017 [employer] Patient Education 2019 [employer]. Follow Up Care 05/20/2022 08:09:37 With:TRACI QUINTERO PA-C, EDDIE Address: [address] [place] [address] When: Unknown [facility] 08-08-2022 Hospital Discharge instructions Patient Education 02/22/2022 08:53:34 Benign Prostatic Hyperplasia Benign Prostatic Hyperplasia Benign prostatic hyperplasia (BPH) is an enlarged prostate gland that is caused by the normal agingprocess and not by cancer. The prostate is a walnut-sized gland that is involved in the production of semen. It is located in front of the rectum and below the bladder. The bladder stores urine and the urethra is the tube that carries the urine out of the body. The prostate may get bigger as a man gets older. An enlarged prostate can press on the urethra. This can make it harder to pass urine. The build-up of urine in the bladder can cause infection. Back pressure and infection may progress to bladder damage and kidney (renal) failure. What are the causes? This condition is part of a normal aging process. However, not all men develop problems from this condition. If the prostate enlarges away from the urethra, urine flow will not be blocked. If it enlarges toward the urethra and compresses it, there will be problems passing urine. What increases the risk? This condition is more likely to develop in men over the age of 50 years. What are the signs or symptoms? Symptoms of this condition include: Getting up often during the night to urinate. Needing to urinate frequently during the day. Difficulty starting urine flow. Decrease in size and strength of your urine stream. Leaking (dribbling) after urinating. Inability to pass urine. This needs immediate treatment. Inability to completely empty your bladder. Pain when you pass urine. This is more common if there is also an infection. Urinary tract infection (UTI). How is this diagnosed? This condition is diagnosed based on your medical history, a physical exam, and your symptoms. Tests will also be done, such as: A post-void bladder scan. This measures any amount of urine that may remain in your bladder after you finish urinating. A digital rectal exam. In a rectal exam, your health care provider checks your prostate by putting a lubricated, gloved finger into your rectum to feel the back of your prostate gland. This exam detects the size of your gland and any abnormal lumps or growths. An exam of your urine (urinalysis). A prostate specific antigen (PSA) screening. This is a blood test used to screen for prostate cancer. An ultrasound. This test uses sound waves to electronically produce a picture of your prostate gland. Your health care provider may refer you to a specialist in kidney and prostate diseases (urologist). How is this treated? Once symptoms begin, your health care provider will monitor your condition (active surveillance or watchful waiting). Treatment for this condition will depend on the severity of your condition. Treatment may include: Observation and yearly exams. This may be the only treatment needed if your condition and symptoms are mild. Medicines to relieve your symptoms, including: ?Medicines to shrink the prostate. ?Medicines to relax the muscle of the prostate. Surgery in severe cases. Surgery may include: ?Prostatectomy. In this procedure, the prostate tissue is removed completely through an open incision or with a laparoscope or robotics. ?Transurethral resection of the prostate (TURP). In this procedure, a tool is inserted through the opening at the tip of the penis (urethra). It is used to cut away tissue of the inner core of the prostate. The pieces are removed through the same opening of the penis. This removes the blockage. ?Transurethral incision (TUIP). In this procedure, small cuts are made in the prostate. This lessens the prostate's pressure on the urethra. ?Transurethral microwave thermotherapy (TUMT). This procedure uses microwaves to create heat. The heat destroys and removes a small amount of prostate tissue. ?Transurethral needle ablation (TUNA). This procedure uses radio frequencies to destroy and remove a small amount of prostate tissue. ?Interstitial laser coagulation (ILC). This procedure uses a laser to destroy and remove a small amount of prostate tissue. ?Transurethral electrovaporization (TUVP). This procedure uses electrodes to destroy and remove a small amount of prostate tissue. ?Prostatic urethral lift. This procedure inserts an implant to push the lobes of the prostate away from the urethra. Follow these instructions at home: Take ugyl-bhs-pkszkzg and prescription medicines only as told by your health care provider. Monitor your symptoms for any changes. Contact your health care provider with any changes. Avoid drinking large amounts of liquid before going to bed or out in public. Avoid or reduce how much caffeine or alcohol you drink. Give yourself time when you urinate. Keep all follow-up visits as told by your health care provider. This is important. Contact a health care provider if: You have unexplained back pain. Your symptoms do not get better with treatment. You develop side effects from the medicine you are taking. Your urine becomes very dark or has a bad smell. Your lower abdomen becomes distended and you have trouble passing your urine. Get help right away if: You have a fever or chills. You suddenly cannot urinate. You feel lightheaded, or very dizzy, or you faint. There are large amounts of blood or clots in the urine. Your urinary problems become hard to manage. You develop moderate to severe low back or flank pain. The flank is the side of your body between the ribs and the hip. These symptoms may represent a serious problem that is an emergency. Do not wait to see if the symptoms will go away. Get medical help right away. Call your local emergency services (911 in the [place] Do not drive yourself to the hospital. Summary Benign prostatic hyperplasia (BPH) is an enlarged prostate that is caused by the normal aging process and not by cancer. An enlarged prostate can press on the urethra. This can make it hard to pass urine. This condition is part of a normal aging process and is more likely to develop in men over the age of 50 years. Get help right away if you suddenly cannot urinate. This information is not intended to replace advice given to you by your health care provider. Make sure you discuss any questions you have with your health care provider. Document Released: 07/04/2006 Document Revised: 05/29/2019 Document Reviewed: 08/08/2017 [employer] Patient Education 2020 [employer]. Follow Up Care 01/25/2022 15:19:30 With:Wang Barney MD, Justin Elizondo, URO Address: [facility] [address] [place] [address]- When:Within 3 Month(s) Comments:w/ PVR [facility] 07-11-2022 Hospital Discharge instructions Patient Education 01/25/2022 15:02:40 Calorie Counting for Weight Loss Calorie Counting for Weight Loss Calories are units of energy. Your body needs a certain amount of calories from food to keep you going throughout the day. When you eat more calories than your body needs, your body stores the extra calories as fat. When you eat fewer calories than your body needs, your body jones fat to get the energy it needs. Calorie counting means keeping track of how many calories you eat and drink each day. Calorie counting can be helpful if you need to lose weight. If you make sure to eat fewer calories than your bodyneeds, you should lose weight. Ask your health care provider what a healthy weight is for you. For calorie counting to work, you will need to eat the right number of calories in a day in order to lose a healthy amount of weight per week. A dietitian can help you determine how many calories youneed in a day and will give you suggestions on how to reach your calorie goal. A healthy amount of weight to lose per week is usually 1 2 lb (0.5 0.9 kg). This usually means thatyour daily calorie intake should be reduced by 500 750 calories. Eating 1,200 1,500 calories per day can help most women lose weight. Eating 1,500 1,800 calories per day can help most men lose weight. What is my plan? My goal is to have calories per day. If I have this many calories per day, I should lose around pounds per week. What do I need to know about calorie counting? In order to meet your daily calorie goal, you will need to: Find out how many calories are in each food you would like to eat. Try to do this before you eat. Decide how much of the food you plan to eat. Write down what you ate and how many calories it had. Doing this is called keeping a food log. To successfully lose weight, it is important to balance calorie counting with a healthy lifestyle that includes regular activity. Aim for 150 minutes of moderate exercise (such as walking) or 75 minutes of vigorous exercise (such as running) each week. Where do I find calorie information? The number of calories in a food can be found on a Nutrition Facts label. If a food does not have aNutrition Facts label, try to look up the calories online or ask your dietitian for help. Remember that calories are listed per serving. If you choose to have more than one serving of a food, you will have to multiply the calories per serving by the amount of servings you plan to eat. Forexample, the label on a package of bread might say that a serving size is 1 slice and that there are 90 calories in a serving. If you eat 1 slice, you will have eaten 90 calories. If you eat 2 slices, you will have eaten 180 calories. How do I keep a food log? Immediately after each meal, record the following information in your food log: What you ate. Don't forget to include toppings, sauces, and other extras on the food. How much you ate. This can be measured in cups, ounces, or number of items. How many calories each food and drink had. The total number of calories in the meal. Keep your food log near you, such as in a small notebook in your pocket, or use a mobile dipika or website. Some programs will calculate calories for you and show you how many calories you have left forthe day to meet your goal. What are some calorie counting tips? Use your calories on foods and drinks that will fill you up and not leave you hungry: ?Some examples of foods that fill you up are nuts and nut butters, vegetables, lean proteins, and high-fiber foods like whole grains. High-fiber foods are foods with more than 5 g fiber per serving. ?Drinks such as sodas, specialty coffee drinks, alcohol, and juices have a lot of calories, yet do not fill you up. Eat nutritious foods and avoid empty calories. Empty calories are calories you get from foods or beverages that do not have many vitamins or protein, such as candy, sweets, and soda. It is better to have a nutritious high-calorie food (such as an avocado) than a food with few nutrients (such as a bag of chips). Know how many calories are in the foods you eat most often. This will help you calculate calorie counts faster. Pay attention to calories in drinks. Low-calorie drinks include water and unsweetened drinks. Pay attention to nutrition labels for low fat or fat free foods. These foods sometimes have thesame amount of calories or more calories than the full fat versions. They also often have added sugar, starch, or salt, to make up for flavor that was removed with the fat. Find a way of tracking calories that works for you. Get creative. Try different apps or programs ifwriting down calories does not work for you. What are some portion control tips? Know how many calories are in a serving. This will help you know how many servings of a certain food you can have. Use a measuring cup to measure serving sizes. You could also try weighing out portions on a kitchenscale. With time, you will be able to estimate serving sizes for some foods. Take some time to put servings of different foods on your favorite plates, bowls, and cups so you know what a serving looks like. Try not to eat straight from a bag or box. Doing this can lead to overeating. Put the amount you would like to eat in a cup or on a plate to make sure you are eating the right portion. Use smaller plates, glasses, and bowls to prevent overeating. Try not to multitask (for example, watch TV or use your computer) while eating. If it is time to eat, sit down at a table and enjoy your food. This will help you to know when you are full. It will also help you to be aware of what you are eating and how much you are eating. What are tips for following this plan? Reading food labels Check the calorie count compared to the serving size. The serving size may be smaller than what youare used to eating. Check the source of the calories. Make sure the food you are eating is high in vitamins and proteinand low in saturated and trans fats. Shopping Read nutrition labels while you shop. This will help you make healthy decisions before you decide to purchase your food. Make a grocery list and stick to it. Cooking Try to cook your favorite foods in a healthier way. For example, try baking instead of frying. Use low-fat dairy products. Meal planning Use more fruits and vegetables. Half of your plate should be fruits and vegetables. Include lean proteins like poultry and fish. How do I count calories when eating out? Ask for smaller portion sizes. Consider sharing an entree and sides instead of getting your own entree. If you get your own entree, eat only half. Ask for a box at the beginning of your meal and put the rest of your entree in it so you are not tempted to eat it. If calories are listed on the menu, choose the lower calorie options. Choose dishes that include vegetables, fruits, whole grains, low-fat dairy products, and lean protein. Choose items that are boiled, broiled, grilled, or steamed. Stay away from items that are buttered,battered, fried, or served with cream sauce. Items labeled crispy are usually fried, unless stated otherwise. Choose water, low-fat milk, unsweetened iced tea, or other drinks without added sugar. If you want an alcoholic beverage, choose a lower calorie option such as a glass of wine or light beer. Ask for dressings, sauces, and syrups on the side. These are usually high in calories, so you should limit the amount you eat. If you want a salad, choose a garden salad and ask for grilled meats. Avoid extra toppings like amador, cheese, or fried items. Ask for the dressing on the side, or ask for olive oil and vinegar or lemon to use as dressing. Estimate how many servings of a food you are given. For example, a serving of cooked rice is cup orabout the size of half a baseball. Knowing serving sizes will help you be aware of how much food you are eating at restaurants. The list below tells you how big or small some common portion sizes arebased on everyday objects: ?1 oz 4 stacked dice. ?3 oz 1 deck of cards. ?1 tsp 1 . ?1 Tbsp a ping-pong ball. ?2 Tbsp 1 ping-pong ball. ? cup baseball. ?1 cup 1 baseball. Summary Calorie counting means keeping track of how many calories you eat and drink each day. If you eat fewer calories than your body needs, you should lose weight. A healthy amount of weight to lose per week is usually 1 2 lb (0.5 0.9 kg). This usually means reducing your daily calorie intake by 500 750 calories. The number of calories in a food can be found on a Nutrition Facts label. If a food does not have aNutrition Facts label, try to look up the calories online or ask your dietitian for help. Use your calories on foods and drinks that will fill you up, and not on foods and drinks that will leave you hungry. Use smaller plates, glasses, and bowls to prevent overeating. This information is not intended to replace advice given to you by your health care provider. Make sure you discuss any questions you have with your health care provider. Document Released: 07/04/2006 Document Revised: 03/23/2019 Document Reviewed: 06/03/2017 [employer] Patient Education 2020 [employer]. 01/25/2022 15:02:39 Benign Prostatic Hyperplasia Benign Prostatic Hyperplasia Benign prostatic hyperplasia (BPH) is an enlarged prostate gland that is caused by the normal agingprocess and not by cancer. The prostate is a walnut-sized gland that is involved in the production of semen. It is located in front of the rectum and below the bladder. The bladder stores urine and the urethra is the tube that carries the urine out of the body. The prostate may get bigger as a man gets older. An enlarged prostate can press on the urethra. This can make it harder to pass urine. The build-up of urine in the bladder can cause infection. Back pressure and infection may progress to bladder damage and kidney (renal) failure. What are the causes? This condition is part of a normal aging process. However, not all men develop problems from this condition. If the prostate enlarges away from the urethra, urine flow will not be blocked. If it enlarges toward the urethra and compresses it, there will be problems passing urine. What increases the risk? This condition is more likely to develop in men over the age of 50 years. What are the signs or symptoms? Symptoms of this condition include: Getting up often during the night to urinate. Needing to urinate frequently during the day. Difficulty starting urine flow. Decrease in size and strength of your urine stream. Leaking (dribbling) after urinating. Inability to pass urine. This needs immediate treatment. Inability to completely empty your bladder. Pain when you pass urine. This is more common if there is also an infection. Urinary tract infection (UTI). How is this diagnosed? This condition is diagnosed based on your medical history, a physical exam, and your symptoms. Tests will also be done, such as: A post-void bladder scan. This measures any amount of urine that may remain in your bladder after you finish urinating. A digital rectal exam. In a rectal exam, your health care provider checks your prostate by putting a lubricated, gloved finger into your rectum to feel the back of your prostate gland. This exam detects the size of your gland and any abnormal lumps or growths. An exam of your urine (urinalysis). A prostate specific antigen (PSA) screening. This is a blood test used to screen for prostate cancer. An ultrasound. This test uses sound waves to electronically produce a picture of your prostate gland. Your health care provider may refer you to a specialist in kidney and prostate diseases (urologist). How is this treated? Once symptoms begin, your health care provider will monitor your condition (active surveillance or watchful waiting). Treatment for this condition will depend on the severity of your condition. Treatment may include: Observation and yearly exams. This may be the only treatment needed if your condition and symptoms are mild. Medicines to relieve your symptoms, including: ?Medicines to shrink the prostate. ?Medicines to relax the muscle of the prostate. Surgery in severe cases. Surgery may include: ?Prostatectomy. In this procedure, the prostate tissue is removed completely through an open incision or with a laparoscope or robotics. ?Transurethral resection of the prostate (TURP). In this procedure, a tool is inserted through the opening at the tip of the penis (urethra). It is used to cut away tissue of the inner core of the prostate. The pieces are removed through the same opening of the penis. This removes the blockage. ?Transurethral incision (TUIP). In this procedure, small cuts are made in the prostate. This lessens the prostate's pressure on the urethra. ?Transurethral microwave thermotherapy (TUMT). This procedure uses microwaves to create heat. The heat destroys and removes a small amount of prostate tissue. ?Transurethral needle ablation (TUNA). This procedure uses radio frequencies to destroy and remove a small amount of prostate tissue. ?Interstitial laser coagulation (ILC). This procedure uses a laser to destroy and remove a small amount of prostate tissue. ?Transurethral electrovaporization (TUVP). This procedure uses electrodes to destroy and remove a small amount of prostate tissue. ?Prostatic urethral lift. This procedure inserts an implant to push the lobes of the prostate away from the urethra. Follow these instructions at home: Take ihri-viv-lihlrkc and prescription medicines only as told by your health care provider. Monitor your symptoms for any changes. Contact your health care provider with any changes. Avoid drinking large amounts of liquid before going to bed or out in public. Avoid or reduce how much caffeine or alcohol you drink. Give yourself time when you urinate. Keep all follow-up visits as told by your health care provider. This is important. Contact a health care provider if: You have unexplained back pain. Your symptoms do not get better with treatment. You develop side effects from the medicine you are taking. Your urine becomes very dark or has a bad smell. Your lower abdomen becomes distended and you have trouble passing your urine. Get help right away if: You have a fever or chills. You suddenly cannot urinate. You feel lightheaded, or very dizzy, or you faint. There are large amounts of blood or clots in the urine. Your urinary problems become hard to manage. You develop moderate to severe low back or flank pain. The flank is the side of your body between the ribs and the hip. These symptoms may represent a serious problem that is an emergency. Do not wait to see if the symptoms will go away. Get medical help right away. Call your local emergency services (911 in the [place] Do not drive yourself to the hospital. Summary Benign prostatic hyperplasia (BPH) is an enlarged prostate that is caused by the normal aging process and not by cancer. An enlarged prostate can press on the urethra. This can make it hard to pass urine. This condition is part of a normal aging process and is more likely to develop in men over the age of 50 years. Get help right away if you suddenly cannot urinate. This information is not intended to replace advice given to you by your health care provider. Make sure you discuss any questions you have with your health care provider. Document Released: 07/04/2006 Document Revised: 05/29/2019 Document Reviewed: 08/08/2017 [employer] Patient Education 2020 [employer]. Follow Up Care 01/06/2022 13:38:25 With:Wang Barney MD, Justin Elizondo, URO Address: [phone] When:Within 3 Week(s) Comments:w/JOVANNA [facility] 06-21-2022 Hospital Discharge instructions Patient Education 01/05/2022 09:30:02 Benign Prostatic Hyperplasia Benign Prostatic Hyperplasia Benign prostatic hyperplasia (BPH) is an enlarged prostate gland that is caused by the normal agingprocess and not by cancer. The prostate is a walnut-sized gland that is involved in the production of semen. It is located in front of the rectum and below the bladder. The bladder stores urine and the urethra is the tube that carries the urine out of the body. The prostate may get bigger as a man gets older. An enlarged prostate can press on the urethra. This can make it harder to pass urine. The build-up of urine in the bladder can cause infection. Back pressure and infection may progress to bladder damage and kidney (renal) failure. What are the causes? This condition is part of a normal aging process. However, not all men develop problems from this condition. If the prostate enlarges away from the urethra, urine flow will not be blocked. If it enlarges toward the urethra and compresses it, there will be problems passing urine. What increases the risk? This condition is more likely to develop in men over the age of 50 years. What are the signs or symptoms? Symptoms of this condition include: Getting up often during the night to urinate. Needing to urinate frequently during the day. Difficulty starting urine flow. Decrease in size and strength of your urine stream. Leaking (dribbling) after urinating. Inability to pass urine. This needs immediate treatment. Inability to completely empty your bladder. Pain when you pass urine. This is more common if there is also an infection. Urinary tract infection (UTI). How is this diagnosed? This condition is diagnosed based on your medical history, a physical exam, and your symptoms. Tests will also be done, such as: A post-void bladder scan. This measures any amount of urine that may remain in your bladder after you finish urinating. A digital rectal exam. In a rectal exam, your health care provider checks your prostate by putting a lubricated, gloved finger into your rectum to feel the back of your prostate gland. This exam detects the size of your gland and any abnormal lumps or growths. An exam of your urine (urinalysis). A prostate specific antigen (PSA) screening. This is a blood test used to screen for prostate cancer. An ultrasound. This test uses sound waves to electronically produce a picture of your prostate gland. Your health care provider may refer you to a specialist in kidney and prostate diseases (urologist). How is this treated? Once symptoms begin, your health care provider will monitor your condition (active surveillance or watchful waiting). Treatment for this condition will depend on the severity of your condition. Treatment may include: Observation and yearly exams. This may be the only treatment needed if your condition and symptoms are mild. Medicines to relieve your symptoms, including: ?Medicines to shrink the prostate. ?Medicines to relax the muscle of the prostate. Surgery in severe cases. Surgery may include: ?Prostatectomy. In this procedure, the prostate tissue is removed completely through an open incision or with a laparoscope or robotics. ?Transurethral resection of the prostate (TURP). In this procedure, a tool is inserted through the opening at the tip of the penis (urethra). It is used to cut away tissue of the inner core of the prostate. The pieces are removed through the same opening of the penis. This removes the blockage. ?Transurethral incision (TUIP). In this procedure, small cuts are made in the prostate. This lessens the prostate's pressure on the urethra. ?Transurethral microwave thermotherapy (TUMT). This procedure uses microwaves to create heat. The heat destroys and removes a small amount of prostate tissue. ?Transurethral needle ablation (TUNA). This procedure uses radio frequencies to destroy and remove a small amount of prostate tissue. ?Interstitial laser coagulation (ILC). This procedure uses a laser to destroy and remove a small amount of prostate tissue. ?Transurethral electrovaporization (TUVP). This procedure uses electrodes to destroy and remove a small amount of prostate tissue. ?Prostatic urethral lift. This procedure inserts an implant to push the lobes of the prostate away from the urethra. Follow these instructions at home: Take aosq-uap-[id number] and prescription medicines only as told by your health care provider. Monitor your symptoms for any changes. Contact your health care provider with any changes. Avoid drinking large amounts of liquid before going to bed or out in public. Avoid or reduce how much caffeine or alcohol you drink. Give yourself time when you urinate. Keep all follow-up visits as told by your health care provider. This is important. Contact a health care provider if: You have unexplained back pain. Your symptoms do not get better with treatment. You develop side effects from the medicine you are taking. Your urine becomes very dark or has a bad smell. Your lower abdomen becomes distended and you have trouble passing your urine. Get help right away if: You have a fever or chills. You suddenly cannot urinate. You feel lightheaded, or very dizzy, or you faint. There are large amounts of blood or clots in the urine. Your urinary problems become hard to manage. You develop moderate to severe low back or flank pain. The flank is the side of your body between the ribs and the hip. These symptoms may represent a serious problem that is an emergency. Do not wait to see if the symptoms will go away. Get medical help right away. Call your local emergency services (911 in the [place] Do not drive yourself to the hospital. Summary Benign prostatic hyperplasia (BPH) is an enlarged prostate that is caused by the normal aging process and not by cancer. An enlarged prostate can press on the urethra. This can make it hard to pass urine. This condition is part of a normal aging process and is more likely to develop in men over the age of 50 years. Get help right away if you suddenly cannot urinate. This information is not intended to replace advice given to you by your health care provider. Make sure you discuss any questions you have with your health care provider. Document Released: 07/04/2006 Document Revised: 05/29/2019 Document Reviewed: 08/08/2017 [employer] Patient Education 2020 [employer]. Follow Up Care 01/01/2021 08:41:05 With:Wang Barney MD, Justin Elizondo, URO Address: [facility] [address] , [place] [phone] When: Unknown [facility] 11-16-2021 Evaluation note* Encounter Date Diagnosis Assessment Notes Treatment Notes Treatment Clinical Notes May, Radiculopathy, lumbar region (ICD-10 - M54.16) This patient's pain does not extend beyond the left hip region. This to me is not radicular pain. I independently evaluated the plain x-ray of the lumbar spine which shows a malalignment of L5-S1, L4-5, no malalignment of L3-4 or L2-3. There is no instability on flexion-extension views. Patient's bone quality appears overall acceptable. If surgery is needed he would need fusion from L2-S1. Given his present symptoms not certain if this is appropriate. I will await for pain management evaluation and probable injection. I gave the patient some maneuvers to try to see if his hip pain is relieved when standing. 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 He is due to see pain management in the near future. May, Spinal stenosis, lumbar region without neurogenic claudication (ICD-10 - M48.061) I see no obvious signs of neurogenic claudication at present [facility] Other 11-02-2021 Evaluation note* Encounter Date Diagnosis Assessment Notes Treatment Notes Treatment Clinical Notes May, Obstructive sleep apnea (ICD-10 - G47.33) Download was reviewed with patient, current pressures are controlling apnea well and we will make no change at this time. He was encouraged to continue to use his machine nightly throughout the entire night as this does provide clinical benefit. A prescription was sent to the [employer] [facility] for new supplies throughout the year. He will follow-up in 1 year or sooner if problems. May, BMI 32.0-32.9,adult (ICD-10 - Z68.32) Patient is obese, positive effects of weight loss on ZANE were reviewed. It was advised to follow diet modification and increase activity Patient is obese, positive effects of weight loss on ZANE were reviewed. It was advised to follow diet modification and increase activity May, Other Call if any questions or problems. For Sleep Apnea: Patient is advised to work on healthy diet choices and appropriate servings, weight control, regular exercise as directed, and reduce fat intake. Use machine regularly, and keep up with mask changes as needed. Call if problems with mask toleration, increased sleepiness, or poor response to treatment. Take medication as prescribed, keep follow up appointments, get any testing that's been ordered in a timely fashion. Do not smoke [facility] Other 09-23-2021 Evaluation note* Encounter Date Diagnosis Assessment Notes Treatment Notes Treatment Clinical Notes Mar, Spinal stenosis, lumbar region without neurogenic claudication (ICD-10 - M48.061) This patient only has pain in the posterior portion of his hip that does not particularly radiate down the leg as a normal radicular pattern would. During the examination he had a positive Constance sign indicating this may be hip pathology but I am just not certain. His MRI was reviewed independently as well as the plain x-ray and reports. He has significant pathology at multiple levels L2-5. At this point I do not think he is in good candidate for surgical intervention. Age, potential hip problems, multiple back problems where only a small area is involved with pain make it difficult to proceed with surgical intervention. I would recommend the patient see pain management for evaluation and treatment.We will send a referral. I would also like a 6 view back to be done and see him back in follow-up in the office in about 2 months. 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) [facility] Other evaluation + Plan note No data available for this section [facility] evaluation + Plan note Future Appointments Appointment Date:02/22/2022 08:00:00 AM Scheduled Provider:Justin Piña Jr., MD Location[facility] hospital Appointment Type:URO Office Visit [facility] Evaluation + Plan note Future Appointments Appointment Date:06/07/2022 08:45:00 AM Scheduled Provider:Justin Piña Jr., MD Location:Critical access hospital Appointment Type:URO Office Visit [facility] Evaluation + Plan note Future Appointments Appointment Date:08/24/2022 08:30:00 AM Scheduled Provider:TRACI QUINTERO PA-C Location:[facility] Appointment Type:URO Office Visit [facility] Evaluation + Plan note Future Appointments Appointment Date:08/24/2022 08:30:00 AM Scheduled Provider:TRACI QUINTERO PA-C Location:[facility] Appointment Type:URO Office Visit Diagnostic Tests Pending * [facility] Future Appointments Appointment Date:04/29/2023 08:00:00 AM Scheduled Provider:Constance SMALLWOOD MD Location:[facility] Appointment Type:URO Office Visit [facility] evaluation + Plan note Future Appointments Appointment Date:11/24/2022 08:00:00 AM Scheduled Provider: Location:[facility] Appointment Type:URO Nurse Visit Appointment Date:11/29/2022 09:30:00 AM Scheduled Provider:Constance [facility]WOOD MD [facility] App[facility] Type:URO Office Visit Appointment Date:04/29/2023 08:00:00 AM Scheduled Provider:Constance SMALLWOOD MD [facility] Type:[facility]O Office Visit [facility] Evaluation + Plan note Future Appointments Appointment Date:11/29/2022 09:30:00 AM Scheduled Provider:Constance SMALLWOOD MD [facility] Appointment Type:URO Office Visit Appointment Date:04/29/2023 08:00:00 AM Scheduled Provider:Constance SMALLWOOD MD [facility] Appointment Type:URO Office Visit [facility] evaluation + Plan note Future Appointments Appointment Date:04/29/2023 08:00:00 AM Scheduled Provider:Constance SMALLWOOD MD Location:[facility] Appointment Type:URO Office Visit Diagnostic Tests Pending * [facility]ro[facility] Fish and Urine Cyto ([facility]) [facility]14/23 [facility] information [facility] Work Phone: Evaluation note* Diagnosis Hyperlipidemia, unspecified [facility] Pilonidal cyst without infection- Primary [facility] - Reported* Type Description Date Medical History ZANE (obstructive sleep apnea) Medical History Afib Medical History Hyperlipemia Medical History BPH (benign prostatic hyperplasi a) Surgical History shoulder surgery Surgical History back surgery Hospitalization History See Above [facility] Discharge instructions No data available for this section [facility] filedocumented in this [facility] filedocumented in this encounter [facility] filedocumented in this [facility] No data available for this section [facility] Summary Purpose Family History No Family History Records FoundNo Family History Records Found No data available for this section No Family History Records FoundNo Family History Records Found No data available for this section No data available for this section No Family History Records Found Advance Directives No Advanced Directives Records Found Advance Directive Response Recorded Date/ Time Advance Directives No February 06 7:06am Reason for Referral Reason Evaluate and Tr eat Diagnosis 1 Radiculopathy, lumba r region (M54.16) Referral Organization [facility] Referring Provider First Name Surya Referring Provider Last Name Marcos Referring Provider Specialty Neurologica l Surgery Referred Organization [facility] Referred Provider Jr. Frankel William Referred Address [address],[place], [place],[address] Referred Provider Specialty Pain Medicin e Referral Priority Routine General Notes Fany Bryant 021 11:43:37 AM >Received today and waiting for office notes to be locked before sending referral Chief Complaint and Reason for Visit Chief Complaint Sleep apnea annual f ollow up Additional Source Comments (unrecognized sect ion and content) No Status Records FoundNo Status Records FoundNo Status Records FoundNo Status Records FoundNo Status Records Found INFORMATION SOURCE (unrecogn ized section and content) DATE CREATED AUTHOR 11/25/2021 [facility] DATE CREATED AUTHOR AUTHOR'S ORGANIZ ATION 11/26/2022 [facility] DATE CREATED AUTHOR AUTHOR'S ORGANIZ ATION 06/18/2023 [facility] DATE CREATED AUTHOR AUTHOR'S ORGANIZ ATION 09/07/2023 [facility] DATE CREATED AUTHOR AUTHOR'S ORGANIZ ATION 09/25/2023 [facility] Care Team (unrecognized sect ion and content) Team Status: Active Member Role Status Dates Wilver Easton DO Primary Care Provider Active Team Status: Inactive Member Role Status Dates Wilver Easton DO Primary Care Provider Active Yessica Tatum APRN [facility] Attending Provider Active Supervisor [employer] Workers Relationship Specialty Start Date End Date Wilver Easton DO [address] [place] [address] PCP - General Internal Medicine 09/14/17 [employer] Relationship Specialty Start Date End Date Wilver Easton DO [address] [place] [address] PCP - General Internal Medicine 09/14/17 REASON FOR VISIT (unrecogniz ed section and content) Reason Comments Med Refill Reason Comments Cyst Possibly a cyst on t ailbone Goals (unrecognized section and content) Goals may be documented in a n alternate section FOR RECORDS PERTAINING TO PATIENTS WHO ARE OR HAVE BEEN ENROLLED IN A CHEMICAL DEPENDENCY/SUBSTANCEABUSE PROGRAM, SOME INFORMATION MAY BE OMITTED. This clinical summary was aggregated from multiple sources. Caution should be exercised in using it in the provision of clinical care. This summary normalizes information from multiple sources, and as a consequence, information in this document may materially change the coding, format and clinical context of patient data. In addition, data may be omitted in some cases. CLINICAL DECISIONS SHOULD BE BASED ON THE PRIMARY CLINICAL RECORDS. [employer] [facility]. provides no warranty or guarantee of the accuracy or completeness of information in this document.
--- NOTE | 2023-09-26 08:44 | PM.URSON ---
Urology Surgery Operative Note Operative Note Procedure Date: 09/26/23 Time Out Performed: yes Pre-op Diagnosis: History of TCC of the bladder Post-op Diagnosis: same as pre-op Procedures performed: 1. Cystoscopy. Anesthesia: local Primary Surgeon: Ariel Smallwood Complications: None Estimated blood loss (mL): 0 Findings: 1. Trilobar obstruction of the prostate. 2. High-grade bladder damage with multiple deep thick diverticuli. 3. 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 He now presents for 3-month surveillance cystoscopy. He has signed an informed consent after risks were explained. Detailed description of Procedure: The patient was kept on his gurney bed and brought into the endoscopy suite in the supine position. Genitalia were sterilely prepped and draped in the usual fashion. 2% lidocaine gel was passed per urethra. Timeout was done by all parties in the room. We all agreed upon the patient's identification and the planned procedure for this patient. I started by passing a flexible cystoscope per urethra and into the bladder. The prostate was large with long lateral lobes which were friable. He also had a large median lobe which protruded into the bladder somewhat. Careful panendoscopy in the bladder showed that he had very thick high-grade trabeculation with open deep diverticuli diffusely. No evidence of any bladder tumors was noted. The scope was retroverted upon itself and no new findings were noted. The scope was then removed. He was then discharged to home. The plan is that we will now do a surveillance cystoscopy in 6 months.
[2023-09-26 08:46] VITALS: BP 124/80; PULSE 109; RESP 16; O2SAT 93
[2023-09-26 08:51] VITALS: BP 123/85; PULSE 92; RESP 20; O2SAT 92
[2023-09-26] MEDS: LIDOCAINE 2% JELLY 10 ML UR (08:55)
== END 2023-09-26 08:52 | disposition home or self-care (01) ==
PROVIDERS: PCP Internal Medicine; Visit Provider Urology
PROC: (CPT 52000; principal; 2023-09-26 08:00)
DX: Z85.51 Personal history of malignant neoplasm of bladder (principal); I48.91 Unspecified atrial fibrillation; I10 Essential (primary) hypertension; E78.5 Hyperlipidemia, unspecified; N40.1 Benign prostatic hyperplasia with lower urinary tract symptoms; N32.3 Diverticulum of bladder; N32.89 Other specified disorders of bladder; R31.9 Hematuria, unspecified; Z87.891 Personal history of nicotine dependence; Z79.01 Long term (current) use of anticoagulants
CPT/HCPCS: 52000

== ENCOUNTER 2024-03-26 07:23 | Day surgery (SDC) | payer MEDICARE, BC, SELFPAY ==
--- OUTSIDE RECORDS SUMMARY | 2024-03-26 07:29 | XMS_ITS | CCD ---
Author Organization [facility] Care Team Providers Care Bell Spinner Name Role Phone SONJA EASTON Primary Care Physician Unavailab Surya Monae Unavailable Juju Yumi Unavailable DO Wilver Easton Primary Care Provider JAYDEN Tatum Attending Provider SMALLWOOD ., DR NOLASCO Consulting Unavailable SMALLWOOD ., DR NOLASCO Attending Unavailable SMALLWOOD ., DR NOLASCO Admitting Unavailable YUHAS, DR PETTIT Primary Care Unavailable LIZABETH, DR JUDITH Villanueva Consulting Unavailable ZOEY GUERRA Consulting Unavailable SMALLWOOD ., DR NOLASCO Consulting Unavailable SMALLWOOD ., DR NOLASCO Attending Unavailable SMALLWOOD ., DR NOLASCO Admitting Unavailable YUROGERIOS, DR PETTIT Primary Care Unavailable PRASANNA MACKEY Consulting Unavailable ADAMARIS BARAJAS Consulting Unavailable SMALLWOOD ., DR NOLASCO Consulting Unavailable SMALLWOOD ., DR NOLASCO Attending Unavailable YUHAS, DR PETTIT Primary Care Unavailable SMALLWOOD ., DR NOLASCO Admitting Unavailable LIZABETH, DR JUDITH Villanueva Consulting Unavailable DO Wilver Easton Primary Care Provider JAYDEN Tatum Attending Provider [phone] Lex Tatumidi Unavailable Yessica Tatum Attending Unavailable Yessica Tatum Admitting Unavailable Wilver Easton Primary Care Unavailable Wilver Easton DO Primary Care Provider WILVER EASTON Referring Unavailable WILVER EASTON Primary Care Unavailable LATESHA SANDRA Attending Unavailable WILVER EASTON Referring Unavailable WILVER EASTON Primary Care Unavailable Ariel SAMLLWOOD Attending Unavailable Ariel SMALLWOOD Attending Unavailable Ariel SMALLWOOD Attending Unavailable Ariel SMALLWOOD Attending Unavailable SMALLWOOD, Ariel R Admitting Unavailable SMALLWOOD, Ariel R Admitting Unavailable SMALLWOOD, Airel R Attending Unavailable SMALLWOOD, Ariel R Admitting Unavailable SMALLWOOD, Ariel R Attending Unavailable SMALLWOOD, Ariel R Attending Unavailable SMALLWOOD, Ariel R Attending Unavailable SMALLWOOD, Ariel R Referring Unavailable SMALLWOOD, Ariel R Attending Unavailable SMALLWOOD, Ariel R Attending Unavailable SMALLWOOD, Ariel R Attending Unavailable Allergies Allergy Classification Reported Allergen(s) Allergy Type Date of Onset Reaction(s) Facility (1 source) No Known Medication Allergies; Translations: [No Known Medication Allergies] Propensity to adverse reactions (disorder) [facility] Repository Medications Current Medications Medication Drug Class(es) Dates Sig (Normalized) Sig (Original) apixaban 5 mg oral tablet (20 sources) Factor Xa Inhibitor Start: 05-03-2023 take 1 tablet by mouth twice daily ELIQUIS 5 mg tablet Indications: Paroxysmal atrial fibrillation ([facility]) TAKE 1 TABLET BY MOUTH TWICE DAILY [...] BID, # 14 cap(s), Refills(s) 0, Pharmacy: [facility], 180, cm, 05/20/22 11:15:00 EDT, Height/Length [...] procedure, # 2 cap(s), Refills(s) 0, Pharmacy: [facility], 180, cm, 01/05/22 8:41:00 EDT, Height/Length Dosing, 109, kg, 01/05/22 8:41:00 EDT, Weight Dosing Start Date: 01/05/22 Status: Ordered dutasteride 0.5 mg oral capsule (14 sources) 5-alpha Reductase Inhibitor Start: 11-04-2023 take 1 capsule by mouth once daily dutasteride 0.5 mg Cap 0.5 mg = 1 cap(s), Oral, Daily, # 90 cap(s), Refills(s) 3, Pharmacy: [facility], 180, cm, 11/29/22 11:36:00 EDT, Height/Length Dosing, 103, kg, 11/29/22 11:36:00 EDT, Weight Dosing Start Date: 11/04/23 Status: Ordered Start: 11-05-2022 take 1 capsule by [facility] once daily dutasteride 0.5 mg Cap 0.5 mg = 1 cap(s), Oral, Daily, # 90 cap(s), Refills(s) 3, Pharmacy: [facility], 180, cm, 11/01/22 9:50:00 EDT, Height/Length Dosing, 103, kg, 11/01/22 9:50:00 EDT, Weight Dosing Start Date: 11/05/22 Status: Ordered ezetimibe 10 mg oral tablet (20 sources) Dietary Cholesterol Absorption Inhibitor Start: 08-19-2022 End: 07-10-2023 ezetimibe 10 mg Tab Refills(s) 0 Start Date: 08/19/22 Status: Ordered Magnesium Aspartate (5 sources) Start: 12-31-2019 magnesium aspa rtate Refills(s) 0 Start Date: 12/31/19 Status: Ordered [...] Status: Ordered Metoprolol Tartr ate Active min oil-w.ugk-dqcvhblujd-bnth ointment (2 sources) Start: 09-05-2023 min oil-w.kwa-ninswqwtnc-ufvf ointment Apply to affected area as directed [...] BID, # 180 cap(s), Refills(s) 3, Pharmacy: [facility], 180, cm, 11/29/22 11:36:00 EDT, Height/Length [...] Start: 01-05-2022 take 1 capsule by mo [facility] twice daily tamsulosin 0.4 mg Cap 0.4 mg = 1 cap(s), Oral, BID, # 60 cap(s), Refills(s) 2, Pharmacy: [facility], 180, cm, 01/05/22 8:41:00 EDT, Height/Length Dosing, 109, kg, 01/05/22 8:41:00 EDT, Weight Dosing Start Date: 01/05/22 Status: Ordered Completed/Discontinued Medications Medication Drug Class(es) Dates Sig (Normalized) Sig (Original) ciprofloxacin 500 mg oral tablet (12 sources) Quinolone Antimicrobial Start: 01-31-2023 take 1 tablet by mouth once daily Cipro 500 mg Tab 500 mg = 1 tab(s), Oral, Daily, Take 1 tablet the day before the procedure and 1 tablet after the procedure, # 6 tab(s), Refills(s) 0, Pharmacy: [facility], 180, cm, 11/29/22 11:36:00 EDT, Height/Length Dosing, 103, kg, 11/29/22 11:36:00 EDT, Weight Dosing Start Date: 01/31/23 Status: Ordered Start: 11-05-2022 [facility] tablet [facility] Cipro 500 mg Tab 500 mg = 1 tab(s), Oral, Daily, Take 1 tablet the day before the procedure and 1 tablet after the procedure, # 2 tab(s), Refills(s) 0, Pharmacy: [facility], 180, cm, 11/01/22 9:50:00 EDT, Height/Length Dosing, 103, kg, 11/01/22 9:50:00... Start Date: 11/05/22 Status: Ordered Start: 02-22-2022 take 1 tablet by steve every twelve hours Cipro 500 mg Tab 500 mg = 1 tab(s), Oral, q12hr, # 14 tab(s), Refills(s) 0, Pharmacy: [facility], 180, cm, 02/22/22 8:31:00 EDT, Height/Length Dosing, 109, kg, 02/22/22 8:31:00 EDT, Weight Dosing Start Date: 02/22/22 Status: Ordered Problems Active Problems Problem Classification Problem Date Documented Date Episodic/Chronic Cancer of bladder (16 sources) Malignant neoplasm of bladder, unspecified; Translations: [...] sources) Long-term current use of anticoagulant; Translations: [assisted (current) use of anticoagulants] Onset: 02-22-2022 Episodic Other aftercare (1 source) medical terminologist (current) use of anticoagulants; Translations: [SNF CURRNT USE ANTICOAGULANTS] Onset: 11-25-2022 Episodic Other diseases of bladder and urethra (1 source) Other specified disorders of bladder; Translations: [OTHER SPECIFIED DISORDERS BLADDER] Onset: 11-25-2022 Chronic Other diseases of kidney and ureters (4 sources) Urinary tract obstruction; Translations: [Other obstructive [...] of mental health and substance abuse codes (14 sources) H/O: Disorder; Translations: [Personal history of nicotine dependence] Onset: 11-01-2022 Episodic Spondylosis; intervertebral disc disorders; other back problems (9 sources) Herniation of nucleus pulposus of lumbar intervertebral disc; Translations: [Other intervertebral disc displacement, lumbar region] Onset: 06-18-2021 08-27-2021 Chronic Unclassified (19 sources) Asymptomatic microscopic hematuria 01-05-2022 Unclassified (17 sources) Drug therapy finding 02-22-2022 Unclassified (1 source) MAW Onset: 01-10-2024 Unclassified (1 source) Cyst Onset: 09-05-2023 Urinary [...] and visceral atherosclerosis (3 sources) Atherosclerosis of [place] arteries of extremities with intermittent claudication, left leg; Translations: [Atherosclerosis of [place] arteries of the extremities with intermittent claudication] Onset: 11-16-2022 Resolved: 11-16-2022 11-16-2022 Chronic Skin and subcutaneous tissue infections (2 sources) Pilonidal cyst; Translations: [Pilonidal cyst without abscess] Onset: 09-05-2023 09-05-2023 Episodic Spondylosis; intervertebral disc disorders; other back problems (14 sources) Lumbar radiculopathy; Translations: [Radiculopathy, lumbar region] Onset: 05-23-2020 Resolved: 06-02-2021 Episodic Results Test Name Value Interpretation Reference Range Facility Reminderson 01-31-2024 Reminders Reminders -- From: Saida Rodriguez To: [facility] - Recalls [facility]; Sent: 01/31/2024 12:43:15 EDT Show up: 07/18/2024 12:43:00 EST Subject: cysto/fish/cytol Due Date/Time: 08/06/2024 12:43:00 EST Reminder/Recall Patient si due in september 2024 for 6 month cysto/fish/cytol (bt ck) [facility] Reminders Reminders -- From: Saida Rodriguez To: EU - Recalls [place]; Sent: 09/23/2023 15:04:59 EST Show up: 11/16/2023 15:04:00 EDT Subject: cysto/fish/cytol (bt ck) Due Date/Time: 12/05/2023 15:04:00 EDT Reminder/Recall Patient is due in December for 3 month cysto/fish/cytol (bt ck) Patient is due in Mar 2024 for 6 month cysto/fish/cytol Spoke to pttriston for 03/26/24. He will be due in September 2024.LG [facility] Reminderson 11-23-2023 Reminders -- From: Saida Rodriguez To: EU - Recallleena [facility]; Cc: Saida Rodriguez; Sent: 07/01/2023 10:36:17 EST Show up: 08/18/2023 10:36:00 EST Subject: Cysto/FISH/cytol Due Date/Time: 09/05/2023 10:36:00 EST Reminder/Recall Patient is due in september 2023 for 3 month cysto/fish/cytol (bt ck) Patient sched for 09/26/23. He will be due in December 2023.LG Patient now at 6 months. Due in Mar.LG Normal [facility] Patient Educationon 10-31-19 Patient Education Urology Transurethral Resection of the Prostate Transurethral resection of the prostate (TURP) is the removal, or resection, of part of the prostate tissue. This procedure is done to treat an enlarged prostate gland (benign prostatic hyperplasia). The goal of TURP is to remove enough prostate tissue to allow for a normal flow of urine. The procedure will allow you to empty your bladder more completely when you urinate so that you can urinate less often. In a transurethral resection, a thin telescope with a light, a camera, and an electric cutting edge (resectoscope) is passed through the urethra and into the prostate. The opening of the urethra is at the end of the penis. Tell a health care provider about: ? Any allergies you have. ? All medicines you are taking, including vitamins, herbs, eye drops, creams, and amme-jgt-gjadpjv medicines. ? Any problems you or family members have had with anesthetic medicines. ? Any bleeding problems you have. ? Any surgeries you have had. ? Any medical conditions you have. ? Any prostate infections you have had. What are the risks? Generally, this is a safe procedure. However, problems may occur, including: ? Infection. ? Bleeding. ? Allergic reactions to medicines. ? Blood in the urine (hematuria). ? Damage to nearby structures or organs. Other problems may occur, but they are rare. They include: ? Dry ejaculation, or having no semen come out during orgasm. ? Erectile dysfunction, or being unable to have or keep an erection. ? Scarring that leads to narrowing of the urethra. This narrowing may block the flow of urine. ? Inability to control when you urinate (incontinence). ? Deep vein thrombosis. This is a blood clot that can develop in your leg. ? TURP syndrome. This can happen when you lose too much sodium during or after the procedure. Some signs and symptoms of this condition include: ? Weakness. ? Headaches. ? Nausea or vomiting. ? Muscle cramping. What happens before the procedure? When to stop eating and drinking Follow instructions from your health care provider about what you may eat and drink before your procedure. These may include: ? 8 hours before your procedure ? Stop eating most foods. Do not eat meat, fried foods, or fatty foods. ? Eat only light foods, such as toast or crackers. ? All liquids are okay except energy drinks and alcohol. ? 6 hours before your procedure ? Stop eating. ? Drink only clear liquids, such as water, clear fruit juice, black coffee, plain tea, and sports drinks. ? Do not drink energy drinks or alcohol. ? 2 hours before your procedure ? Stop drinking all liquids. ? You may be allowed to take medicines with small sips of water. If you do not follow your health care provider's instructions, your procedure may be delayed or canceled. Medicines Ask your health care provider about: ? Changing or stopping your regular medicines. This is especially important if you are taking diabetes medicines or blood thinners. ? Taking medicines such as aspirin and ibuprofen. These medicines can thin your blood. Do not take these medicines unless your health care provider tells you to take them. ? Taking waqm-umh-vksivac medicines, vitamins, herbs, and supplements. Surgery safety Ask your health care provider what steps will be taken to help prevent infection. These steps may include: ? Removing hair at the surgery site. ? Washing skin with a germ-killing soap. ? Taking antibiotic medicine. General instructions ? Do not use any products that contain nicotine or tobacco for at least 4 weeks before the procedure. These products include cigarettes, chewing tobacco, and vaping devices, such as e-cigarettes. If you need help quitting, ask your health care provider. ? If you will be going home right after the procedure, plan to have a responsible adult: ? Take you home from the hospital or clinic. You will not be allowed to drive. ? Care for you for the time you are told. What happens during the procedure? ? An IV will be inserted into one of your veins. ? You will be given one or more of the following: ? A medicine to help you relax (sedative). ? A medicine to make you fall asleep (general anesthetic). ? A medicine that is injected into your spine to numb the area below and slightly above the injection site (spinal anesthetic). ? Your legs will be placed in foot rests (stirrups) so that your legs are apart and your knees are bent. ? The resectoscope will be passed through your urethra to your prostate. ? Parts of your prostate will be resected using the cutting edge of the resectoscope. ? Fluid will be passed to rinse out the cut tissues (irrigation). ? The resectoscope will be removed. ? A small, thin tube (catheter) will be passed through your urethra and into your bladder. The catheter will drain urine into a bag outside of your body. The procedure may vary among health care (more content not included)... Normal [facility] Operative Reporton Operative Report [id number] Normal [facility] UroVysion Fish and Urine Cyt o ([facility])on 09-26-2023 UVFISH & UC Diagnosis Info Invalid Interpretation Code [facility] Comment on above: Result Comment: A:Ur ine,Urine:Voided Diagnosis Summary - Rare singled atypical urothelial cells with degenerative changes, favor reactive changes. Adequate cellularity for evaluation. Diagnosis Summary - The Uro[facility]ion FISH study detected normal copy numbers for chromosomes 3, 7, 17, and 9p21. 62 cells were analyzed in this evaluation. No evidence of aneuploidy for chromosomes 3, 7, or 17 or deletion of the 9p21 locus was found in cells present in this specimen. This test does not rule out the possibility of a low grade non-invasive papillary urothelial carcinoma. These findings should be correlated with cytology and cystoscopy results.* CPT 73314, 40521 Microscopic Notes - Microscopic Notes - Abnormal cells 9p21 deletions: Abnormal cells aneploid events: Total cells analyzed: 62 Hematuria: Gross Description Site ID:A color Dark Yellow fixative Alcohol Received 50 mls of slightly cloudy dark yellow fluid with the patient's name and, Urine on the vial. Electronically signed by : on: 09/26/2023 08:16:06 Performed By: #### 1 [id number] #### [facility] [address] [place] [id number] UroVysion Fish and Urine Cyt o ([facility])on 09-19-2023 [facility] Method of Extraction Voided Normal [facility] Comment on above: Performed By: #### 1 [id number] #### [facility] [address] [place] [address] [facility] Number of Jars 1 Invalid Interpretation Code [facility] Comment on above: Performed By: #### 1 [id number] #### [facility] [address] [place] [id number] [facility] Specimen Urine Normal [facility] Comment on above: Performed By: #### 1 [id number] #### [facility] [address] [place] [address] [facility] Type of Service Technical Only Normal [facility] Comment on above: Performed By: #### 1 [id number] #### [facility] [address] [place], [place] [id number] Consent for Procedure/Surger yon 09-08-2023 Consent for Procedure/Surgery [id number] Normal [facility] Operative Reporton Operative Report [id number] Normal [facility] Urine Cytology ([facility])on 08-23-2022 Urine Cytology Revision Information Invalid Interpretation Code [facility] Comment on above: Result Comment: Enrique ection Reason -[ Saurabh Greene, 06/22/23 - 14:47 ] Corrected report issued to update PMS/PWS. The diagnosis remains unchanged. Correction Notes - Performed By: #### 1 [id number] #### [facility] [address] [place] [address] Urine Cytology ([facility])on 07-23-2022 Method of Extraction Voided Normal [facility] Comment on above: Performed By: #### 1 [id number] #### [facility] [address] [place] [address] Number of Jars 1 Invalid Interpretation Code [facility] Comment on above: Performed By: #### 1 [id number] #### [facility] [address] [id number] Specimen Urine Normal [facility] Comment on above: Performed By: #### 1 [id number] #### [facility] [address] [place] [address] Type of Service Technical Only Normal [facility] Comment on above: Performed By: #### 1 [id number] #### [facility] [address] [place] [address] Consent for Procedure/Surger yon 05-05-2023 Consent for Procedure/Surgery [id number] Normal [facility] CBC AUTO DIFFon 11-11-2022 BASO # 0.1 103/ul Normal 0.0-0.1 [facility] Comment on above: Performed By: #### C BC #### [facility] [address] [place] [address] Dr. Valencia Lucas Basophils/100 WBC (Bld) 0.7 % Normal 0.2-2.0 [facility] Comment on above: Performed By: #### C BC #### [facility] [address] [address] [address] Valencia Lucas EO # 0.2 103/ul Normal 0.0-0.7 [facility] Comment on above: Performed By: #### C BC #### [facility] [address] [place] [address] Dr. Valencia Lucas Eosinophils/100 WBC (Bld) 3.1 % Normal 0.9-7.0 [facility] Comment on above: Performed By: #### C BC #### [facility] [address] [place] [address] Dr. Valencia Lucas Erythrocyte distribution width (RBC) [Ratio] 13.7 % Normal 11.0-15.0 [facility] Comment on above: Performed By: #### C BC #### [facility] [address] [place] [address] Dr. Valencia Lucas Hematocrit (Bld) [Volume fraction] 46.6 % Normal 42.0-54.0 [facility] Comment on above: Performed By: #### C BC #### [facility] [address] [place] [address] Dr. Valencia Lucas Hemoglobin (Bld) [Mass/Vol] 15.0 g/dL Normal 14.0-18.0 [facility] Comment on above: Performed By: #### C BC #### [facility] [address] [place] [address] Dr. Valencia Lucas IG # 0.02 10e3/ul Normal 0.00-0.03 [facility] Comment on above: Performed By: #### C BC #### [facility] [address] [place] [address] Dr. Valencia Lucas IG % 0.3 % Normal 0.0-0.5 [facility] Comment on above: Performed By: #### C BC #### [facility] [address] [place] [address] Dr. Valencia Lucas LYMPH # 1.5 103/ul Normal 1.2-3.8 [facility] Comment on above: Performed By: #### C BC #### [facility] [address] [place] [address] Dr. Valencia Lucas Lymphocytes/100 WBC (Bld) 20.6 % Normal 20.5-60.0 [facility] Comment on above: Performed By: #### C BC #### [facility] [address] [place] [address] Dr. Valencia Lucas MANUAL DIFF REQ NO Normal [facility] Comment on above: Performed By: #### C BC #### [facility] [address] [place] [address] Dr. Valencia Lucas MCH (RBC) [Entitic mass] 29.5 pg Normal 25.9-34.0 [facility] Comment on above: Performed By: #### C BC #### [facility] [address] [place] [address] Dr. Valencia Lucas MCHC (RBC) [Mass/Vol] 32.2 g/dL Normal 29.9-35.2 [facility] Comment on above: Performed By: #### C BC #### [facility] [address] [place] [address] Dr. Valencia Lucas MCV (RBC) [Entitic vol] 91.6 fL Normal 80.0-94.0 [facility] Comment on above: Performed By: #### C BC #### [facility] [address] [place] [address] Dr. Valencia Lucas MONO # 0.6 103/ul Normal 0.3-0.8 [facility] Comment on above: Performed By: #### C BC #### [facility] [address] [place] [address] Dr. Valencia Lucas Monocytes/100 WBC (Bld) 8.1 % Normal 1.7-12.0 [facility] Comment on above: Performed By: #### C BC #### [facility] [address] [place] [address] Dr. Valencia Lucas NEUT # 4.8 103/ul Normal 1.4-6.5 [facility] Comment on above: Performed By: #### C BC #### [facility] [address] [place] [address] Dr. Valencia Lucas Neutrophils/100 WBC (Bld) 67.2 % Normal 43.0-75.0 [facility] Comment on above: Performed By: #### C BC #### [facility] [address] [place] [address] Dr. Valencia Lucas Platelet mean volume (Bld) [Entitic vol] 10.2 fL Normal 9.5-13.5 [facility] Comment on above: Performed By: #### C BC #### [facility] [address] [address] [address] Valencia Lucas PLT 196 103/ul Normal 150-450 [facility] Comment on above: Performed By: #### C BC #### [facility] [address] [place] [address] Dr. Valencia Lucas RBC 5.09 106/ul Normal 4.70-6.10 [facility] Comment on above: Performed By: #### C BC #### [facility] [address] [place] [address] Dr. Valencia Lucas WBC 7.1 103/ul Normal 4.0-11.0 [facility] Comment on above: Performed By: #### C BC #### [facility] [address] [place] [address] Dr. Valencia Lucas PROF CHEM 8 (BAS METB)on Anion gap [Moles/Vol] 10.8 mmol/L Normal [facility] Comment on above: Performed By: #### B MP #### [facility] [address] [place] [address] Dr. Valencia Lucas Calcium [Mass/Vol] 9.6 mg/dL Normal 8.5-10.1 [facility] Comment on above: Performed By: #### B MP #### [facility] [address] [place] [address] Dr. Valencia Lucas Chloride [Moles/Vol] 105 mmol/L Normal 98-107 [facility] Comment on above: Performed By: #### B MP #### [facility] [address] [place] [address] Dr. Valencia Lucas CO2 [Moles/Vol] 29.4 mmol/L Normal 21.0-32.0 [facility] Comment on above: Performed By: #### B MP #### [facility] [address] [place] [address] Dr. Valencia Lucas Creatinine [Mass/Vol] 1.29 mg/dL Normal 0.70-1.30 [facility] Comment on above: Performed By: #### B MP #### [facility] [address] [place] [address] Dr. Valencia Lucas EGFR-AF IRISH >60 Normal >=60 [facility] Comment on above: Performed By: #### B MP #### [facility] [address] [address] [address] Valencia Lucas EGFR-NON AF IRISH 54 mL/min/1.73m2 Critically low >=60 [facility] Comment on above: Performed By: #### B MP #### [facility] [address] [address] [address] Valencia Lucas Glucose [Mass/Vol] 97 mg/dL Normal 74-106 [facility] Comment on above: Performed By: #### B MP #### [facility] [address] [address] [address] Valencia Lucas Potassium [Moles/Vol] 5.2 mmol/L Critically high 3.5-5.1 [facility] Comment on above: Performed By: #### B MP #### [facility] [address] [address] [address] Valencia Lcuas Sodium [Moles/Vol] 140 mmol/L Normal 136-145 [facility] Comment on above: Performed By: #### B MP #### [facility] [address] [address] [address] Valencia Lucas Urea nitrogen [Mass/Vol] 16.0 mg/dL Normal 7.0-18.0 [facility] Comment on above: Performed By: #### B MP #### [facility] [address] [address] [address] Valencia Lucas Urea nitrogen/Creatinine [Mass ratio] 12.4 mg/mg Normal [facility] Comment on above: Performed By: #### B MP #### [facility] [address] [address] [address] Valencia Lucas PROTIMEon 11-11-2022 INR Coag (PPP) [Relative time] 1.05 {INR} Normal [facility] Comment on above: Performed By: #### P TT, PT #### [facility] [address] [address] [address] Valencia Lucas INR GUIDELINES SEE BELOW Normal [facility] Comment on above: Result Comment: ARLEEN RED INR: 2.0 - 3.0 CONDITIONS NOT LISTED BELOW 2.5 - 3.5 FOR PROSTHETIC HEART VALVE REPLACEMENT 2.5 - 3.5 RECURRENT THROMBOSIS Performed By: #### P TT, PT #### [facility] [address] [address] [address] Valencia Lucas PT Coag (PPP) [Time] 11.1 s Normal 9.0-11.6 [facility] Comment on above: Performed By: #### P TT, PT #### [facility] [address], [place] [address] Dr. Valencia Lucas PTTon 11-11-2022 aPTT Coag (Bld) [Time] 33.0 s Normal 22.3-36.2 [facility] Comment on above: Performed By: #### P TT, PT #### [facility] [address], [place] [address] Dr. Valencia Lucas US KIDNEYSon 11-03-2022 US KIDNEYS EXAMINATION: US [...] by: JUDITH BARONE Date: 2022-11-03 11:18 Normal [facility] BASIC METABOLIC PANELon 05-1 BUN/CREATININE RATIO NOT APPLICABLE Normal 6-22 [facility] Comment on above: Performed By: #### 1 005, 5363, 63966, 905 #### [facility] [address], [address] [place] [address] Service Administrator: Alejandro Washburn MD Calcium [Mass/Vol] 10.0 mg/dL Normal 8.6-10.3 [facility] Comment on above: Result Comment: NO C OLLECTION DATE RECEIVED. WE HAVE USED THE DATE THE SPECIMEN WAS RECEIVED BY THIS LABORATORY THE COLLECTION DATE. IF THIS IS INCORRECT, PLEASE CONTACT CLIENT SERVICES. PHONE NUMBER: [phone] Performed By: #### 1 005, 5363, 60800, 905 #### [facility] [address], [address] [place] [address] Service Administrator: Alejandro Washburn MD Chloride [Moles/Vol] 105 mmol/L Normal 98-110 [facility] Comment on above: Performed By: #### 1 005, 5363, 87767, 905 #### [facility] [place] [address] Service Administrator: Alejandro Washburn MD CO2 [Moles/Vol] 26 mmol/L Normal 20-32 [facility] Comment on above: Performed By: #### 1 005, 5363, 71812, 905 #### [facility] [place] [address] Service Administrator: Alejandro Washburn MD Creatinine [Mass/Vol] 1.12 mg/dL Normal 0.70-1.18 [facility] Comment on above: Result Comment: For patients >49 years of age, the reference limit for Creatinine is approximately 13% higher for people identified as -Malagasy. Performed By: #### 1 005, 5363, 63889, 905 #### [facility] [place] [address] Service Administrator: Alejandro Washburn MD eGFR NON-AFR. IRISH 63 mL/min/1.73m2 Normal > OR = 60 [facility] Comment on above: Performed By: #### 1 005, 5363, 41389, 905 #### [facility] [address], [address] [place], [place] [address] Service Administrator: Alejandro Washburn MD GFR/1.73 sq M.predicted among blacks MDRD (S/P/Bld) [Vol rate/Area] 73 mL/min/{1.73_m2} Normal > OR = 60 [facility] Comment on above: Performed By: #### 1 005, 5363, 04123, 905 #### [facility] [place] [address] Service Administrator: Alejandro Washburn MD Glucose [Mass/Vol] 82 mg/dL Normal 65-99 [facility] Comment on above: Result Comment: Fasting reference interval Performed By: #### 1 005, 5363, 40789, 905 #### [facility] [place] [address] Service Administrator: Alejandro Washburn MD Potassium [Moles/Vol] 4.9 mmol/L Normal 3.5-5.3 [facility] Comment on above: Performed By: #### 1 005, 5363, 65618, 905 #### [facility] [place] [address] Service Administrator: Alejandro Washburn MD Sodium [Moles/Vol] 140 mmol/L Normal 135-146 [facility] Comment on above: Performed By: #### 1 005, 5363, 31273, 905 #### [facility] [place] [address] Service Administrator: Alejandro Washburn MD Urea nitrogen [Mass/Vol] 16 mg/dL Normal 7-25 [facility] Comment on above: Performed By: #### 1 005, 5363, 48958, 905 #### [facility] [place] [address] Service Administrator: lAejandro Washburn MD PSA, TOTALon 11-25-2021 PSA, TOTAL 3.06 ng/mL Normal < OR = 4.00 [facility] Comment on above: Result Comment: The total PSA value from this assay system is standardized against the WHO standard. The test result will be approximately 20% lower when compared to the equimolar-standardized total PSA (Rufus Francisco). Comparison of serial PSA results should be [...] INCORRECT, PLEASE CONTACT CLIENT SERVICES. PHONE NUMBER: [phone] Performed By: #### 1 005, 5363, 74423, 905 #### [facility] [address], [address] [place] [address] Service Administrator: Alejandro Washburn MD TEST AUTHORIZATIONon CLIENT CONTACT: KASEY Ballard [email or web address] Comment on above: Performed By: #### 1 005, 5363, 54460, 905 #### [facility] [address], [address] [place] [address] Service Administrator: Alejandro Washburn MD COMMENT Normal [email or web address] Comment on above: Result Comment: Plea se have the ordering physician or his or her authorized technical services representative sign a copy of this report and promptly return it by faxing it to: [phone] or by returning the form to your wood pile driver operator. Performed By: #### 1 005, 5363, 95540, 905 #### [facility] [address], [address] [place] [address] Service Administrator: Alejandro Washburn MD REPORT ALWAYS MESSAGE SIGNATURE Normal [facility] Comment on above: Result Comment: The laboratory testing on this patient was verbally requested or confirmed by the ordering physician or his or her authorized technical services representative after contact with an employee of [email or web address]. Federal regulations require that we maintain on file written authorization for all laboratory testing. Accordingly we are asking that the ordering physician or his or her authorized technical services representative sign a copy of this report and promptly return it to the client service supervisor. Signature: Performed By: #### 1 005, 5363, 24167, 905 #### [facility] [place] [address] Service Administrator: Alejandro Washburn MD TEST CODE: [id number] Normal [facility] Comment on above: Performed By: #### 1 005, 5363, 67497, 905 #### [facility] [place] [address] Service Administrator: Alejandro Washburn MD TEST NAME: PSA, TOTAL Normal [facility] Comment on above: Performed By: #### 1 005, 5363, 45333, 905 #### [facility] [place] [address] Service Administrator: Alejandro Washburn MD URIC ACIDon 11-25-2021 Urate [Mass/Vol] 6.6 mg/dL Normal 4.0-8.0 [facility] Comment on above: Result Comment: Ther apeutic target for gout patients: <6.0 mg/dL Performed By: #### 1 005, 5363, 01297, 905 #### [facility] [place] [address] Service Administrator: Alejandro Washburn MD [facility]OL[facility] 05-19-2021 Albumin [Mass/Vol] 4.2 g/dL Normal 3.6-5.1 [facility] Comment on above: Performed By: #### 7 600, 33153 #### [facility] [place] [address] Service Administrator: Alejandro Washburn MD Albumin/Globulin [Mass ratio] 1.5 {ratio} Normal 1.0-2.5 [facility] Comment on above: Performed By: #### 7 600, 76757 #### [facility] [place] [address] Service Administrator: Alejandro Washburn MD ALP [Catalytic activity/Vol] 124 U/L Normal 35-144 [facility] Comment on above: Performed By: #### 7 600, 65463 #### [facility] of [address], [address] [place] [address] Service Administrator: Alejandro Washburn MD ALT [Catalytic activity/Vol] 25 U/L Normal 9-46 [facility] Comment on above: Performed By: #### 7 600, 95280 #### [facility] of [address], [address] [place] [address] Service Administrator: Alejandro Washbunr MD AST [Catalytic activity/Vol] 21 U/L Normal 10-35 [facility] Comment on above: Performed By: #### 7 600, 03196 #### [facility] [place] [address] Service Administrator: Alejandro Washburn MD Bilirubin [Mass/Vol] 1.3 mg/dL High 0.2-1.2 [facility] Comment on above: Performed By: #### 7 600, 26923 #### [facility] of [address], [address] [place] [address] Service Administrator: Alejandro Washburn MD Calcium [Mass/Vol] 9.6 mg/dL Normal 8.6-10.3 [facility] Comment on above: Performed By: #### 7 600, 46268 #### [facility] [place] [address] Service Administrator: Alejandro Washburn MD Chloride [Moles/Vol] 102 mmol/L Normal 98-110 [facility] Comment on above: Performed By: #### 7 600, 48673 #### [facility] of [address], [address] [place] [address] Service Administrator: Alejandro Washburn MD CO2 [Moles/Vol] 29 mmol/L Normal 20-32 [facility] Comment on above: Performed By: #### 7 600, 92304 #### [facility] of [address], [address] [place] [address] Service Administrator: Alejandro Washburn MD Creatinine [Mass/Vol] 1.26 mg/dL High 0.70-1.18 [facility] Comment on above: Result Comment: For patients >49 years of age, the reference limit for Creatinine is approximately 13% higher for people identified as -Malagasy. Performed By: #### 7 600, 04397 #### [facility] [address], [address] [place] [address] Service Administrator: Alejandro Washburn MD eGFR NON-AFR. IRISH 55 mL/min/1.73m2 Low > OR = 60 [facility] Comment on above: Performed By: #### 7 600, 76271 #### [facility] of [address], [address] [place] [address] Service Administrator: Alejandro Washburn MD GFR/1.73 sq M.predicted among blacks MDRD (S/P/Bld) [Vol rate/Area] 63 mL/min/{1.73_m2} Normal > OR = 60 [facility] Comment on above: Performed By: #### 7 600, 52987 #### [facility] of [address], [address] [place] [address] Service Administrator: Alejandro Washburn MD Globulin (S) [Mass/Vol] 2.8 g/dL Normal 1.9-3.7 [facility] Comment on above: Performed By: #### 7 600, 32441 #### [facility] [place] [address] Service Administrator: Alejandro Washburn MD Glucose [Mass/Vol] 85 mg/dL Normal 65-99 [facility] Comment on above: Result Comment: Fasting reference interval Performed By: #### 7 600, 07062 #### [facility] of [address], [address] [place] [address] Service Administrator: Alejandro Washburn MD Potassium [Moles/Vol] 5.1 mmol/L Normal 3.5-5.3 [facility] Comment on above: Performed By: #### 7 600, 72065 #### [facility] [address], [address] [place] [address] Service Administrator: Alejandro Washburn MD Protein [Mass/Vol] 7.0 g/dL Normal 6.1-8.1 [facility] Comment on above: Performed By: #### 7 600, 95095 #### [facility] [place] [address] Service Administrator: Alejandro Washburn MD Sodium [Moles/Vol] 138 mmol/L Normal 135-146 [facility] Comment on above: Performed By: #### 7 600, 83572 #### [facility] of [address], [address] [place] [address] Service Administrator: Alejandro Washburn MD Urea nitrogen [Mass/Vol] 20 mg/dL Normal 7-25 [facility] Comment on above: Performed By: #### 7 600, 41669 #### [facility] [place] [address] Service Administrator: Alejandro Washburn MD Urea nitrogen/Creatinine [Mass ratio] 16 mg/mg Normal 6-22 [facility] Comment on above: Performed By: #### 7 600, 33600 #### [facility] [place] [address] Service Administrator: Alejandro Washburn MD LIPID PANEL, [facility] 11-0 Cholesterol [Mass/Vol] 155 mg/dL Normal <200 [facility] Comment on above: Order Comment: FASTI NG:YES FASTING: YES Performed By: #### 7 600, 64972 #### [facility] [place] [address] Service Administrator: Alejandro Washburn MD Cholesterol in HDL [Mass/Vol] 46 mg/dL Normal > OR = 40 [facility] Comment on above: Order Comment: FASTI NG:YES FASTING: YES Performed By: #### 7 600, 79419 #### [facility] [place] [address] Service Administrator: Alejandro Washburn MD Cholesterol in LDL [Mass/Vol] [...] of LDL-C. Yusef ARMENTA et al. GEOVANNI. 2013;310(71): 4109-0649 (http://education.WomStreet/faq/CVE972) Performed By: #### 7 600, 84093 #### [facility] [address], [address] [place] [address] Service Administrator: Alejandro Washburn MD Cholesterol.total/Ch olesterol in HDL [Mass ratio] 3.4 {ratio} Normal <5.0 [facility] Comment on above: Order Comment: FASTI NG:YES FASTING: YES Performed By: #### 7 600, 90302 #### [facility] [address], [address] [place] [address] Service Administrator: Alejandro Washburn MD NON HDL CHOLESTEROL 109 mg/dL (calc) Normal <130 [facility] Comment on above: Order Comment: FASTI NG:YES FASTING: YES Result Comment: For patients with diabetes plus 1 major ASCVD risk factor, treating to a non-HDL-C goal of <100 mg/dL (LDL-C of <70 mg/dL) is considered a therapeutic option. Performed By: #### 7 600, 27149 #### [facility] [address], [address] [place] [address] Service Administrator: Alejandro Washburn MD Triglyceride [Mass/Vol] 92 mg/dL Normal <150 [facility] Comment on above: Order Comment: FASTI NG:YES FASTING: YES Performed By: #### 7 600, 12397 #### [facility] [address], [address] [place] [address] Service Administrator: Alejandro Washburn MD Vital Signs Date Time Vital Sign Value Performing Clinician Facility 09-05-2023 14:50-0500 Body height 180.3 cm Latesha Sandra APRN-ZIPPER TRIMMER HAND [facility] 09-05-2023 14:50-0500 Body mass index (BMI) [Ratio] 32.52 kg/m2 Latesha MONTELONGOZIPPER TRIMMER HAND [facility] 09-05-2023 14:50-0500 Body temperature 98.1 [degF] Latesha MONTELONGOZIPPER TRIMMER HAND [facility] 09-05-2023 14:50-0500 Body weight 105.78 kg Latesha MONTELONGOZIPPER TRIMMER HAND [facility] 09-05-2023 14:50-0500 Diastolic blood pressure 70 mm[Hg] Latesha MONTELONGOZIPPER TRIMMER HAND [facility] 09-05-2023 14:50-0500 Heart rate 96 /min Latesha BARTH [facility] 09-05-2023 14:50-0500 SaO2% (BldA) [Mass fraction] 95 % Latesha BARTH [facility] 09-05-2023 14:50-0500 Systolic blood pressure 112 mm[Hg] Latesha MONTELONGOZIPPER TRIMMER HAND [facility] 06-15-2023 14:15-0500 Body height 180.34 cm Yessica Deepti Other [facility] Other 06-15-2023 14:15-0500 Body mass index (BMI) [Ratio] 32.91 kg/m2 Yessica Deepti Other [facility] Other 06-15-2023 14:15-0500 Body weight 107.05 kg Yessica Deepti Other [facility] Other 06-15-2023 14:15-0500 Diastolic blood pressure 89 mm[Hg] Yessica Deepti Other [facility] Other 06-15-2023 14:15-0500 SaO2% (BldA) [Mass fraction] 95 % Yessica Deepti Other [facility] Other 06-15-2023 14:15-0500 Systolic blood pressure 132 mm[Hg] Yessica Deepti Other [facility] Other 11-29-2022 11:36-0400 Diastolic blood pressure 93 mm[Hg] Ariel SMALLWOOD [facility] 11-29-2022 11:36-0400 Mean blood pressure 107 mm[Hg] Ariel SMALLWOOD [facility] 11-29-2022 11:36-0400 Systolic blood pressure 134 mm[Hg] Ariel SMALLWOOD [facility] 11-29-2022 11:35-0400 Blood Pressure Location Ariel SMALLWOOD [facility] 11-29-2022 11:35-0400 Diastolic blood pressure 113 mm[Hg] Ariel SMALLWOOD [facility] 11-29-2022 11:35-0400 Heart rate 96 /min Ariel SMALLWOOD [facility] 11-29-2022 11:35-0400 Systolic blood pressure 140 mm[Hg] Ariel SMALLWOOD [facility] 11-01-2022 09:48-0400 Blood Pressure Location Areil SMALLWOOD [facility] 11-01-2022 09:48-0400 Diastolic blood pressure 75 mm[Hg] Ariel SMALLWOOD [facility] 11-01-2022 09:48-0400 Heart rate 95 /min Ariel SMALLWOOD [facility] 11-01-2022 09:48-0400 Respiratory rate 16 /min Ariel SMALLWOOD [facility] 11-01-2022 09:48-0400 Systolic blood pressure 115 mm[Hg] Ariel SMALLWOOD [facility] 10-19-2022 12:38-0400 Blood Pressure Location SHANEL INGRID [facility] 10-19-2022 12:38-0400 Diastolic blood pressure 76 mm[Hg] SHANEL INGRID [facility] 10-19-2022 12:38-0400 Heart rate 72 /min SHANEL INGRID [facility] 10-19-2022 12:38-0400 Respiratory rate 16 /min SHANEL INGRID [facility] 10-19-2022 12:38-0400 Systolic blood pressure 132 mm[Hg] SHANEL INGRID [facility] 05-20-2022 11:12-0400 Blood Pressure Location SHANEL INGRID [facility] 05-20-2022 11:12-0400 Diastolic blood pressure 86 mm[Hg] SHANEL INGRID [facility] 05-20-2022 11:12-0400 Heart rate 71 /min SHANEL QUINTERO [facility] 05-20-2022 11:12-0400 Respiratory rate 16 /min SHANEL QUINTERO [facility] 05-20-2022 11:12-0400 Systolic blood pressure 127 mm[Hg] SHANEL QUINTERO [facility] 02-22-2022 08:23-0400 Blood Pressure Location Justin Piña Jr. [facility] 02-22-2022 08:23-0400 Diastolic blood pressure 75 mm[Hg] Justin Piña Jr. [facility] 02-22-2022 08:23-0400 Heart rate 68 /min Justin Piña Jr. [facility] 02-22-2022 08:23-0400 Systolic blood pressure 128 mm[Hg] Justin Piña Jr. [facility] 01-25-2022 14:52-0400 Blood Pressure Location Justin Piña Jr. [facility] 01-25-2022 14:52-0400 Diastolic blood pressure 95 mm[Hg] Justin Piña Jr. [facility] 01-25-2022 14:52-0400 Heart rate 100 /min Justin Piña Jr. [facility] 01-25-2022 14:52-0400 Systolic blood pressure 113 mm[Hg] Justin Piña Jr. [facility] 01-05-2022 08:26-0400 Blood Pressure Location Justin Piña Jr. [facility] [place] [facility] 01-05-2022 08:26-0400 Diastolic blood pressure 85 mm[Hg] Justin Piña Jr. [facility] [place] [facility] 01-05-2022 08:26-0400 Heart rate 87 /min Justin Piña Jr. [facility] [place] [facility] 01-05-2022 08:26-0400 Systolic blood pressure 122 mm[Hg] Justin Piña Jr. [facility] [place] [facility] 06-02-2021 10:00-0500 Body height 180.34 cm Surya Rodríguez Other [facility] Other 06-02-2021 10:00-0500 Body mass index (BMI) [Ratio] 32.77 kg/m2 Surya Rodríguez Other [facility] Other 06-02-2021 10:00-0500 Body weight 106.6 kg Surya Rodríguez Other [facility] Other 06-02-2021 10:00-0500 Diastolic blood pressure 75 mm[Hg] Surya Rodríguez Other [facility] Other 06-02-2021 10:00-0500 Systolic blood pressure 116 mm[Hg] Surya Rodríguez Other [facility] Other 05-19-2021 12:45-0400 Body height 180.34 cm Yumi Juju Other [facility] Other 05-19-2021 12:45-0400 Body mass index (BMI) [Ratio] 32.77 kg/m2 Yumi Juju Other [facility] Other 05-19-2021 12:45-0400 Body temperature 98.9 [degF] Yumi Juju Other [facility] Other 05-19-2021 12:45-0400 Body weight 106.6 kg Yumi Juju Other [facility] Other 05-19-2021 12:45-0400 Diastolic blood pressure 46 mm[Hg] Yumi Juju Other [facility] Other 05-19-2021 12:45-0400 SaO2% (BldA) [Mass fraction] 93 % Yumi Juju Other [facility] Other 05-19-2021 12:45-0400 Systolic blood pressure 98 mm[Hg] Yumi Juju Other [facility] Other 04-09-2021 17:00-0400 Body height 180.34 cm Surya Rodríguez Other [facility] Other 04-09-2021 17:00-0400 Body mass index (BMI) [Ratio] 32.49 kg/m2 Surya Rodríguez Other [facility] Other 04-09-2021 17:00-0400 Body weight 105.69 kg Surya Rodríguez Other [facility] Other 04-09-2021 17:00-0400 Diastolic blood pressure 75 mm[Hg] Surya Rodríguez Other [facility] Other 04-09-2021 17:00-0400 Systolic blood pressure 128 mm[Hg] Surya Rodríguez Other [facility] Other Encounters Encounter Date Encounter Type Care Provider Facility Start: 03-26-2024 ambulatory Ariel Christiansoni ty:CD:[id number] Start: 03-20-2024 End: 03-20-2024 ambulatory Ariel SMALLWOOD Facility[facility] Start: 03-20-2024 End: 03-20-2024 Lab Drop off Ariel SMALLWOOD [facility] Start: 03-20-2024 End: 03-20-2024 ambulatory Ariel SMALLWOOD Facility:[facility] Start: 03-20-2024 End: 03-20-2024 Patient encounter procedure Ariel SMALLWOOD [facility] Start: 01-10-2024 End: 01-10-2024 ambulatory [facility] Start: 09-26-2023 End: 09-26-2023 ambulatory Ariel SMALLWOOD Facility:[id number] Start: 09-19-2023 End: 09-19-2023 ambulatory Ariel SMALLWOOD Facility:[facility] Start: 09-19-2023 End: 09-19-2023 Lab Drop off Ariel SMALLWOOD [facility] Start: 09-19-2023 End: 09-19-2023 ambulatory Ariel SMALLWOOD Facility:[facility] Start: 09-19-2023 End: 09-19-2023 Patient encounter procedure Ariel SMALLWOOD [facility] Start: 09-05-2023 End: 09-05-2023 Office outpatient visit 15 minutes Latesha Sandra BROWNFIELD REDEVELOPMENT SPECIALIST-ZIPPER TRIMMER HAND Work Phone: [facility] Comment on above: Pilonidal cyst witho ut infection (Primary Dx) Start: 09-05-2023 End: 09-05-2023 ambulatory [facility] Start: 09-05-2023 Telephone encounter Latesha Sandra BROWNFIELD REDEVELOPMENT SPECIALIST-ZIPPER TRIMMER HAND Work Phone: [facility] Start: 07-10-2023 Refill Wilver Cuellar O Work Phone: [facility] Comment on above: Hyperlipidemia, unsp ecified Start: 06-27-2023 End: 06-27-2023 ambulatory Ariel SMALLWOOD Facility:CD:[id number] Start: 06-15-2023 End: 06-15-2023 ambulatory Yessica Deepti Facility: Start: 06-15-2023 Office outpatient vi sit 10 minutes Yessica Deepti [facility] Start: 06-15-2023 End: 06-15-2023 ambulatory DO Wilver Easton Work Phone: [facility] Work Phone: Start: 06-15-2023 End: 06-15-2023 Patient encounter procedure DO Wilver Easton Work Phone: [facility] Work Phone: Start: 05-30-2023 ambulatory Ariel SMALLWOOD Facili ty:[id number] Start: 05-23-2023 End: 05-23-2023 ambulatory Ariel SMALLWOOD Facility[facility] Start: 05-23-2023 End: 05-23-2023 Patient encounter procedure Ariel SMALLWOOD [facility] Start: 04-29-2023 ambulatory Ariel SMALLWOOD Facili ty:[facility] Start: 02-14-2023 End: 02-14-2023 Lab Drop off Ariel SMALLWOOD [facility] Start: 02-14-2023 End: 02-14-2023 Patient encounter procedure Ariel SMALLWOOD [facility] Start: 11-29-2022 End: 11-29-2022 Patient encounter procedure Ariel SMALLWOOD [facility] Start: 11-24-2022 End: 11-24-2022 Patient encounter procedure Ariel SMALLWOOD [facility] Start: 11-22-2022 End: 11-22-2022 Patient encounter procedure SONJA EASTON [facility] [place] Start: 11-18-2022 End: 11-18-[address] ARIEL SMALLWOOD . Facility:[facility] Start: 11-15-2022 Encounter for preprocedural cardiovascular examination DR ARIEL SMALLWOOD . [facility] Start: 11-15-2022 Encounter for preprocedural laboratory examination DR ARIEL SMALLWOOD . [facility] Start: 11-15-2022 Encounter for preprocedural respiratory examination DR ARIEL SMALLWOOD . [facility] Start: 11-11-2022 End: 11-12-[address] ARIEL SMALLWOOD . Facility:[facility] Start: 11-11-2022 End: 11-12-2022 Encounter for preprocedural laboratory examination DR ARIEL SMALLWOOD . Facility:[facility] Start: 11-09-2022 End: 11-09-2022 Patient encounter procedure Ariel SMALLWOOD [facility] Start: 11-03-2022 End: 11-04-[address] ARIEL SMALLWOOD . Facility:[facility] Start: 11-01-2022 End: 11-01-2022 Patient encounter procedure Ariel SMALLWOOD [facility] Start: 10-19-2022 End: 10-19-2022 Lab Drop off SHANEL QUINTERO [facility] Start: 10-19-2022 End: 10-19-2022 Patient encounter procedure SHANEL QUINTERO [facility] Start: 06-16-2022 End: 06-16-2022 ambulatory DO Wilver Easton Work Phone: [facility] Work Phone: Start: 06-16-2022 End: 06-16-2022 Patient encounter procedure DO Wilver Easton Work Phone: [facility] Start: 05-20-2022 End: 05-20-2022 Lab Drop off SHANEL QUINTERO [facility] Start: 05-20-2022 End: 05-20-2022 Patient encounter procedure SHANEL QUINTERO [facility] Start: 02-22-2022 End: 02-22-2022 Patient encounter procedure Justin Piña Jr. [facility] [place] Start: 01-25-2022 End: 01-25-2022 Patient encounter procedure Justin Piña Jr. [facility] [place] Start: 01-05-2022 End: 01-05-2022 Patient encounter procedure Justin Piña Jr. [facility] [place] Start: 06-02-2021 End: 06-02-2021 ambulatory Surya Rodríguez Other [facility] Other Start: 06-02-2021 Office outpatient vi sit 15 minutes Surya Rodríguez [facility] Start: 05-19-2021 End: 05-19-2021 ambulatory Yumi Matute Other [facility] Other Start: 05-19-2021 Office outpatient vi sit [address] [facility] Start: 04-09-2021 Office outpatient ne w 30 minutes Surya Rodríguez [facility] Procedures Date Procedure Procedure Detail Performing Clinician Start: 09-05-2023 Adult depression scr eening assessment Latesha Sandra BROWNFIELD REDEVELOPMENT SPECIALIST-[employer] TR[employer]MER [employer] Work Phone: Start: 06-29-2023 Adult depression scr eening assessment Wilver Easton Work Phone: Start: 11-18-2022 Transurethral resect ion of bladder neoplasm Ariel SMALLWOOD Start: 11-09-2022 Cystoscopy Ariel AGUILAR Start: 01-25-2022 Cystoscopy Justin tavarez Jr. Start: 06-09-2015 Cystoscopy Justin tavarez Jr. Operative procedure on shoulder Justin Piña Jr. Procedure on back Justin tavarez JrJoseluis Tonsillectomy Justin Piña Gideon owusu Plan of Treatment Date Care Activity Detail Author Start: 01-05-2026 DTaP,Tdap and Td Vaccines (2 - Td or Tdap) DTaP,Tdap and Td Vaccines (2 - Td or Tdap) [facility] Start: 09-05-2024 Tobacco Screening Tobacco Screening [facility] Start: 06-29-2024 Adult BMI Screening Adult BMI Screening [facility] Start: 06-29-2024 Depression Screening Depression Screening [facility] Start: 06-29-2024 Fall Risk Screening Fall Risk Screening [facility] Start: 06-29-2024 Tobacco Screening Tobacco Screening [facility] Start: 01-10-2024 End: 01-10-2024 Patient encounter procedure 01/10/2024 10:50 AM EDT Office Visit [facility] [address] [place] [address] [facility] Start: 12-29-2023 Medicare Annual Wellness Visit Medicare Annual Wellness Visit [facility] Start: 08-23-2023 Administration of varicella zoster vaccine Zoster (Shingles) Vaccine (2 of 2) [facility] Start: 03-18-2023 COVID-19 Vaccine ( season) COVID-19 Vaccine ( season) [facility] Start: [birth year]-19-1961 Adult BMI Follow Up Plan Adult BMI Follow Up Plan [facility] Immunizations Immunization Date Immunization Notes Care Provider Cally post 06-28-2023 zoster vaccine, unspecified formulation Wilver Easton DO Work Phone: [facility] 04-09-2023 Influenza Vaccine, Quadrivalent, Adjuvanted Wilver Easton DO Work Phone: [facility] 06-15-2022 influenza virus vacc ine, unspecified formulation SHANEL QUINTERO [facility] [place] [address]-29-2022 Influenza, High-dose , Quadrivalent Wilver Easton DO Work Phone: [facility] 05-13-2021 influenza virus vacc ine, unspecified formulation SHANEL QUINTERO [facility] 05-13-2021 influenza, injectabl e, quadrivalent, contains preservative Wilver Easton DO Work Phone: [facility] 05-13-2021 SARS-CoV-2 (COVID-19 ) mRNA BNT-162b2 vax SHANEL QUINTERO [facility] 05-04-2021 influenza virus vacc ine, unspecified formulation SHANEL QUINTERO [facility] 05-04-2021 Influenza, High-dose , Quadrivalent Wilver Easton DO Work Phone: [facility] 05-04-2021 SARS-CoV-2 (COVID-19 ) mRNA BNT-162b2 vax SHANELGENARO QUINTERO [facility] 11-06-2020 SARS-CoV-2 (COVID-19 ) mRNA-1273 vaccine Justin Wang Weston. [facility] 10-09-2020 SARS-CoV-2 (COVID-19 ) mRNA-1273 vaccine Justin Piña Jr. [facility] 10-08-2020 SARS-CoV-2 (COVID-19 ) mRNA BNT-162b2 vax SHANEL INGRID [facility] 09-19-2020 SARS-CoV-2 (COVID-19 ) mRNA BNT-162b2 vax SHANEL QUINTERO [facility] 05-18-2020 influenza virus vacc ine, unspecified formulation Justin Piña Jr. [facility] 05-17-2020 influenza virus vacc ine, unspecified formulation SHANEL INGRID [facility] 05-17-2020 influenza, high dose seasonal, preservative-free Wilver Yuhas DO Work Phone: [facility] 05-08-2019 influenza virus vacc ine, unspecified formulation SHANEL INGRID [facility] 05-08-2019 influenza, injectabl e, quadrivalent, contains preservative Wilver Yuhas DO Work Phone: [facility] 04-24-2018 influenza virus vacc ine, unspecified formulation SHANEL INGRID [facility] 04-24-2018 influenza, high dose seasonal, preservative-free Wilver Yuhas DO Work Phone: [facility] 06-01-2017 influenza virus vacc ine, unspecified formulation SHANEL INGRID [facility] 06-01-2017 influenza, injectabl e, quadrivalent, contains preservative Wilver Yuhas DO Work Phone: [facility] 07-18-2016 influenza virus vacc ine, unspecified formulation SHANEL INGRID [facility] 07-18-2016 influenza, injectabl e, quadrivalent, contains preservative Wilver Yuhas DO Work Phone: [facility] 06-21-2016 tetanus toxoid, redu romy diphtheria toxoid, and acellular pertussis vaccine, adsorbed Wilver Easton DO Work Phone: [facility] 07-03-2015 pneumococcal conjuga te vaccine, 13 valent Wilver Easton DO Work Phone: [facility] 05-08-2015 influenza, seasonal, injectable, preservative free Wilver Easton DO Work Phone: [facility] 04-20-2010 pneumococcal polysaccharide vaccine, 23 valent Wilver Easton DO Work Phone: [facility] Payers Date Payer Category Payer Self-pay [id number] 2016 Unknown ALEX ANDERSEN [id number] 2016-Present [phone] [address] [place] [address] [id number] 2008 Medicare MEDICARE MEDICAR E PART A & B [id number] 2008-Present [phone] [address] [place] [address] [id number] 1959 Blue Cross Blue Shield [id number] 1959 Medicare [id number] 1943 Unknown [id number] [id number]. 2.593 1943 Unknown [id number] 2.840.1.456780.3.579. 2.593 1943 Unknown [id number] 2.16840.1.366185.3.579. 2.593 1943 Unknown [id number] 2.16.840.1.980298.3.579. 2.1286 1943 Unknown [id number] 2.16.840.1.920091.3.579. 2.1286 1943 Unknown [id number] 2.16.840.1.169722.3.579. 2.727 1943 Unknown [id number] 2.16.840.1.654674.3.579. 2.727 1943 Unknown [id number] 2.16.840.1.751860.3.579. 2.727 1943 Unknown [id number] 2.16.840.1.125864.3.579. 2.727 1943 Unknown [id number] 2.16.840.1.297903.3.579. 2.727 1943 Unknown [id number] 2.16.840.1.111629.3.579. 2.727 1943 Unknown [id number] 2.16.840.1.450397.3.579. 2.727 1943 Unknown [id number] 2.16.840.1.769761.3.579. 2.727 1943 Unknown [id number] 2.16.840.1.371958.3.579. 2.727 Unknown [id number] 2.16.840.1.252585.3.579. 2.531 Social History Date Type Detail Facility Start: 01-05-2022 End: 11-29-2022 Tobacco smoking status Ex-smoker (finding) [facility] Other Comment on above: Quit smoking in 1997 Tobacco smoking status Never [facility] Comment on above: Quit smoking in 1997 Start: 12-28-2022 End: 09-05-2023 Sex Assigned At Male [facility] Other Start: 1945 Sex Assigned At Male F [facility] End: 07-04-1998 History of tobacco use Current smoker [facility] End: 07-04-1998 History of tobacco use [facility] Start: 06-02-2022 End: 12-28-2022 Cigarettes smoked current (pack per day) - Reported 1 [facility] Start: 06-02-2022 Tobacco use and exposure Smoke less tobacco non-user [facility] Start: 06-29-2023 End: 09-05-2023 Alcohol intake Current drinker of alcohol (finding) [facility] Do you belong to any clubs or organizations such as episcopal groups, unions, fraternal or athletic groups, or school groups? No [facility] Are you now , , , , never or living with a partner? [facility] How often to you hav e a drink containing alcohol? 2-3 time sa week [facility] How many standard dr inks containing alcohol do you have on a typical day? 1 or [address] [facility] How often do you hav e 6 or more drinks on 1 occasion? Never [facility] Do you feel stress - tense, restless, nervous, or anxious, or unable to sleep at night because your mind is troubled all the time - these days [OSQ] Not at all [facility] Start: 1945 Sex Assigned At Not on file P [facility] Functional Status Date Assessment Result Facility 11-29-2022 Functional Status N/A [facility] 11-01-2022 Functional Status N/A [facility] 10-19-2022 Functional Status N/A [facility] 05-20-2022 Functional Status N/A [facility] 02-22-2022 Functional Status N/A [facility] 01-25-2022 Functional Status N/A [facility] 01-05-2022 Functional Status N/A [facility] [place] Clinical Notes 04-09-2021 to 03-20-2024 Telephone Encounter - Zahida Hill - 09/05/2023 4:08 PM ESTTelephone Encounter - LARY Argueta - 09/05/2023 4:08 PM ESTTelephone Encounter - Zahida Hill - 09/05/2023 4:08 PM EST Note Date & Type Note Facility 03-20-2024 Evaluation + Plan note Diagnostic Tests [facility]) 03/20/24 [facility] 09-19-2023 Evaluation + Plan note Diagnostic Tests PendingUroVysion Fish and Urine Cyto ([facility]) 09/19/23 [facility] 09-05-2023 Miscellaneous Notes Pharmacy called to share they are unable to fill the following: min oil-w.shn-mscdxgvmbp-djoi ointment 28 g They were unaware of any substitutions. Please advise. It is an otc drawing moriah, I was hoping they could point the patient in the right direction documented in this encounter [facility] 09-05-2023 Telephone encounter Note Pharmacy called to share they are unable to fill the following: min oil-w.dtp-fapcgflugz-stkp ointment 28 g They were unaware of any substitutions. Please advise. [facility] 09-05-2023 Telephone encounter Note It is an otc drawing moriah, I was hoping they could point the patient in the right direction [facility] 09-05-2023 History of Presen t illness Narrative [...] cyst without infection Other orders - min oil-w.izr-txnbtatpuk-mrny ointment; Apply to affected area as directed [...] recommended at this time LARY Argueta 09/05/23 1805 documented in this encounter [facility] 06-15-2023 Evaluation note Encounter Date Diagnosis Assessment Notes May, Obstructive sleep apnea (ICD-10 - G47.33) [facility] Other 05-15-2023 Hospital Discharge instructions Patient Education [...] cells. Follow these instructions at home: Take vney-kus-hjcmndu and prescription medicines only as told by [...] is important. Where to find more information [employer] [employer] (ACS): cancer.org National Cancer [place] (NCI): cancer.gov Contact a health care provider [...] provider. Document Revised: 06/14/2022 Document Reviewed: 06/14/2022 [employer] Patient Education 2022 Cardiovascular Systems. Follow Up Care 11/09/2022 09:22:18 With:SANTY LYLES, Ariel Villanueva, URL Address: [facility] [address], [place] [address]- [phone] When: Unknown [facility] 04-27-2023 NoteEXAMINATION: XR CHEST 2 V HISTORY: [...] Electronically authenticated by: JUDITH BARONE Date: 2022-11-11 11:30[facility]04-25-2023 Evaluation + Plan noteExtracted from: Title:Urology Progress [...] Appointments Appointment Date:11/24/2022 08:00:00 AM Scheduled Provider: Location:[facility] [place] Appointment Type:URO Nurse Visit Appointment Date:11/29/2022 09:30:00 AM Scheduled Provider:[facility]riel SMALLWOOD MD [facility] Office Visit Appointment Date:04/29/2023 08:00:00 AM Scheduled Provider:Ariel SMALLWOOD MD [facility] Office Visit [facility]04-25-2023 Hospital Discharge instructions Patient Education 11/09/2022 08:57:31 [...] 100 degrees. Follow Up Care 11/05/2022 15:49:25 With:Ariel SMALLWOOD Address: [facility] [address] [place] [address]- Business (1) When: Unknown Comments:Office will call to schedule follow up [facility]04-17-2023 Hospital Discharge instructions Patient Education 11/01/2022 08:17:55 [...] urethra. Follow these instructions at home: Take jyqn-fal-kuljinv and prescription medicines only as told by [...] 07/04/2006 Document Revised: 05/29/2019 Document Reviewed: 08/08/2017 [employer] Patient Education 2020 Cardiovascular Systems. Follow Up Care 10/22/2022 12:18:44 With:SANTY LYLES, Ariel Villanueva, URL Address: [facility] [address] [place] [address]- When: Unknown [facility] 04-04-2023 Hospital Discharge instructions Patient Education 10/19/2022 [...] urethra. Follow these instructions at home: Take ujho-fyt-tdzefxh and prescription medicines only as told by [...] 07/04/2006 Document Revised: 05/29/2019 Document Reviewed: 08/08/2017 [employer] Patient Education 2020 Cardiovascular Systems. Follow Up Care 05/17/2022 11:04:11 With:SHANEL QUINTERO PA-C, URL Address: [address] [place] [address] When: Unknown [facility] 04-04-2023 Evaluation + Plan note Diagnostic Tests Pending * Urine Culture 10/19/22 [facility]11-03-2022 Hospital Discharge instructions Patient Education 05/20/2022 11:50:20 [...] Follow these instructions at home: Medicines Take wlam-vjg-zrsxyyc and prescription medicines only as told by [...] or the blood stops without treatment. Take jyrn-kuq-uusdpgr and prescription medicines only as told by your health care provider. Drink enough fluid to keep your urine clear or pale yellow. This information is not intended to replace advice given to you by your health care provider. Make sure you discuss any questions you have with your health care provider. Document Released: 07/04/2006 Document Revised: 11/28/2019 Document Reviewed: 08/06/2017 [employer] Patient Education 2019 Cardiovascular Systems. Follow Up Care 05/20/2022 08:09:37 With:INGRID GONZALEZ, SHANEL Alberts, URL Address: [address] [place] [address] When: Unknown [facility] [place] 08-08-2022 Hospital Discharge instructions Patient Education 02/22/2022 [...] urethra. Follow these instructions at home: Take sujb-iha-biolwkt and prescription medicines only as told by [...] 07/04/2006 Document Revised: 05/29/2019 Document Reviewed: 08/08/2017 [employer] Patient Education 2020 Cardiovascular Systems. Follow Up Care 01/25/2022 15:19:30 With:Wang Barney MD, Justin Elizondo URO Address: [facility] [address], [place] [address]- When:Within 3 Month(s) Comments:w/ JOVANNA [facility] 07-11-2022 Hospital Discharge instructions Patient Education 01/25/2022 [...] 07/04/2006 Document Revised: 03/23/2019 Document Reviewed: 06/03/2017 [employer] Patient Education 2020 Cardiovascular Systems. 01/25/2022 15:02:39 Benign Prostatic Hyperplasia Benign Prostatic [...] urethra. Follow these instructions at home: Take abwd-rsm-ihokseu and prescription medicines only as told by [...] 07/04/2006 Document Revised: 05/29/2019 Document Reviewed: 08/08/2017 [employer] Patient Education 2019 Cardiovascular Systems. Follow Up Care 01/06/2022 13:38:25 With:Wang Barney MD, Justin Elizondo, URO Address: [phone] When:Within 3 Week(s) Comments:w/JOVANNA [facility] 06-21-2022 Hospital Discharge instructions Patient Education 01/05/2022 [...] urethra. Follow these instructions at home: Take wcak-nsz-rhzxidd and prescription medicines only as told by [...] 07/04/2006 Document Revised: 05/29/2019 Document Reviewed: 08/08/2017 [employer] Patient Education [facility] Follow Up Care 01/01/2021 08:41:05 With:Wang Barney MD, Justin Elizondo URO Address: [facility] [address], [place] [phone] When: Unknown [facility] 11-16-2021 Evaluation note* Encounter Date Diagnosis Assessment [...] obvious signs of neurogenic claudication at present [facility] Other 11-02-2021 Evaluation note* Encounter Date Diagnosis [...] benefit. A prescription was sent to the [employer] for new supplies throughout the year. He [...] in a timely fashion. Do not smoke Cards [facility] Other 09-23-2021 Evaluation note* Encounter Date Diagnosis Assessment Notes Treatment Notes Treatment Clinical Notes Mar, Spinal stenosis, lumbar region without neurogenic claudication (ICD-10 - M48.061) This patient only has pain in the posterior portion of his hip that does not particularly radiate down the leg as a normal radicular pattern would. 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) Cards Off Other evaluation + Plan note No data available for this section [facility] evaluation + Plan note Future Appointments Appointment Date:02/22/2022 08:00:00 AM Scheduled Provider:Justin Piña Jr., MD Location:[facility] Appointment Type:URO Office Visit [facility] Evaluation + Plan note Future Appointments Appointment Date:06/07/2022 08:45:00 AM Scheduled Provider:Justin Piña Jr., MD Location:[facility] Appointment Type:URO Office Visit [facility] Evaluation + Plan note Future Appointments Appointment Date:08/24/2022 08:30:00 AM Scheduled Provider:SHANEL QUINTERO PA-C Location:[facility] Appointment Type:URO Office Visit [facility] evaluation + Plan note Future Appointments Appointment Date:08/24/2022 08:30:00 AM Scheduled Provider:SHANEL QUINTERO PA-C Location:[facility] Appointment Type:URO Office Visit Diagnostic Tests Pending * Urine Culture [facility] Future Appointments Appointment Date:04/29/2023 08:00:00 AM Scheduled Provider:Ariel SMALLWOOD MD Location:[facility] Appointment Type:URO Office Visit [facility] evaluation + Plan note Future Appointments Appointment Date:11/24/2022 08:00:00 AM Scheduled Provider: Location:[facility] Appointment Type:URO Nurse Visit Appointment Date:11/29/2022 09:30:00 AM Scheduled Provider:Ariel SMALLWOOD MD Location:[facility] Appointment Type:URO Office Visit Appointment Date:04/29/2023 08:00:00 AM Scheduled Provider:Ariel SMALLWOOD MD Location:[facility] Appointment Type:URO Office Visit [facility] Evaluation + Plan note Future Appointments Appointment Date:11/29/2022 09:30:00 AM Scheduled Provider:Ariel SMALLWOOD MD Location:[facility] Appointment Type:URO Office Visit Appointment Date:04/29/2023 08:00:00 AM Scheduled Provider:Ariel SMALLWOOD MD Location:[facility] Appointment Type:URO Office Visit [facility] evaluation + Plan note Future Appointments Appointment Date:04/29/2023 08:00:00 AM Scheduled Provider:Ariel SMALLWOOD MD Location:[facility] Appointment Type:URO Office Visit Diagnostic Tests Pending * [facility] Work Phone: evaluation note* Diagnosis Hyperlipidemia, unspecified [facility] Pilonidal [facility] without infection- Primary [facility] - Reported* Type Description Date Medical History ZANE (obstructive sleep apnea) Medical History Afib Medical History Hyperlipemia Medical History BPH (benign prostatic hyperplasi a) Surgical History shoulder surgery Surgical History back surgery Hospitalization History See Above [facility] Other Hospital Discharge instructions No data available for this section [facility] filedocumented in [facility] encounter [facility] filedocumented in this [facility] filedocumented in this [facility] No data available for this section [facility] Summary Purpose Family History No Family History Records FoundNo Family History Records Found No data available for this section No Family History Records Found No data available for this section No data available for this section No Family History Records Found No data available for this section No data available for this section No Family History Records Found Advance Directives No Advanced Directives Records Found Advance Directive Response Recorded Date/ Time Advance Directives No February 06 7:06am Reason for Referral Reason Evaluate and Tr eat Diagnosis 1 Radiculopathy, lumba r region (M54.16) Referral Organization [facility] Referring Provider First Name Surya Referring Provider Last Name Marcos Referring Provider Specialty Neurologica l Surgery Referred Organization [facility] Referred Provider Jr. Frankel William Referred Address [address],[place], [place],[address] Referred Provider Specialty Pain Medicin e Referral Priority Routine General Notes Fore, Fany M 021 11:43:37 AM >Received today and waiting [...] CREATED AUTHOR AUTHOR'S ORGANIZ ATION 11/26/2022 [facility] DATE CREATED AUTHOR AUTHOR'S ORGANIZ ATION 06/18/2023 [facility] DATE CREATED AUTHOR AUTHOR'S ORGANIZ ATION 01/12/2024 [facility] DATE CREATED AUTHOR AUTHOR'S ORGANIZ ATION 03/26/2024 [facility] (unrecognized sect ion and content) Team Status: Active Member Role Status Dates Wilver Easton DO Primary Care Provider Active Team Status: Inactive Member Role Status Dates Wilver Easton DO Primary Care Provider Active [facility]atum [facility]N [facility] Attending Provider Active Bell Spinner Relationship Specialty Start Date End Date Wilver Easton DO [address] [place] [address] PCP - General Internal Medicine 09/14/17 Bell Spinner Relationship Specialty Start Date End Date Ezra Wilver Elizondo DO [address] [place] [address] PCP - General Internal Medicine 09/14/17 REASON [...] BE BASED ON THE PRIMARY CLINICAL RECORDS. [facility]. provides no warranty or guarantee of the accuracy or completeness of information in this document.
[2024-03-26 07:30] VITALS: BP 136/98; PULSE 105; O2SAT 96
[2024-03-26] MEDS: LIDOCAINE 2% JELLY 10 ML UR (08:45)
--- NOTE | 2024-03-26 08:58 | PM.URSON ---
Urology Surgery Operative Note Operative Note Procedure Date: 03/26/24 Time Out Performed: yes Pre-op Diagnosis: History of low-grade TCC of the bladder Post-op Diagnosis: same as pre-op Procedures performed: 1. Cystoscopy. Anesthesia: local Primary Surgeon: Ariel Smallwood Complications: None Estimated blood loss (mL): 5 Findings: 1. Long bilobar obstruction of the prostate. 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 He now presents for a 6-month surveillance cystoscopy. He has signed an informed consent. Detailed description of Procedure: The patient was kept on the rslaughter bed and brought into the endoscopy suite. He was in the supine position. Timeout was done by all parties in the room. We all agreed upon the patient's identification and the planned procedures for this patient. 2% lidocaine gel was passed per urethra after the genitalia were sterilely prepped and draped in the usual fashion. I started by passing a flexible cystoscope per urethra and into the bladder. The anterior urethra was normal. Prostatic urethra revealed long obstructing lateral lobes. They were somewhat friable. Part of the median lobe protruded into the bladder. Panendoscopy in the bladder showed high-grade trabeculation with some open diverticuli. No evidence of tumors were noted. The scope was retroverted upon itself and no new findings were noted. The scope was then removed. The prostate was oozing. He was then discharged to home. Plan. We discussed proceeding with a TURP and he will think about this. We will plan to do another surveillance cystoscopy in 6 months.
[2024-03-26 09:10] VITALS: BP 133/78; BP 142/92; PULSE 106; PULSE 94; O2SAT 95
== END 2024-03-26 09:10 | disposition home or self-care (01) ==
PROVIDERS: PCP Internal Medicine; Visit Provider Urology
PROC: (CPT 52000; principal; 2024-03-26 08:15)
DX: Z85.51 Personal history of malignant neoplasm of bladder (principal); I48.91 Unspecified atrial fibrillation; I10 Essential (primary) hypertension; E78.5 Hyperlipidemia, unspecified; N40.0 Benign prostatic hyperplasia without lower urinary tract symptoms; N32.89 Other specified disorders of bladder; R31.9 Hematuria, unspecified; Z79.01 Long term (current) use of anticoagulants; Z87.891 Personal history of nicotine dependence
CPT/HCPCS: 52000

== ENCOUNTER 2024-03-26 07:33 | Outpatient (OUT) | payer MEDICARE, BC, SELFPAY ==
--- OUTSIDE RECORDS SUMMARY | 2024-03-26 07:36 | XMS_ITS | CCD ---
Author Organization [facility] Care Team Providers Care Orthotic Fitter Name Role Phone SONJA EASTON Primary Care Physician Unavailab Surya Monae Unavailable Juju Yumi Unavailable DO Wilver Easton Primary Care Provider JAYDEN Tatum Attending Provider SMALLWOOD ., DR NOLASCO Consulting Unavailable SMALLWOOD ., DR NOLASCO Attending Unavailable SMALLWOOD ., DR NOLASCO Admitting Unavailable YUHAS, DR PETTIT Primary Care Unavailable LIZABETH, DR JUDITH Villanueva Consulting Unavailable ZOEY GUERRA Consulting Unavailable SAMLLWOOD ., DR NOLASCO Consulting Unavailable SMALLWOOD ., [...] Primary Care Provider JAYDEN Tatum Attending Provider [phone] Lex Tatumidi Unavailable Yessica Tatum Attending Unavailable Yessica Tatum Admitting Unavailable Wilver Easton Primary Care Unavailable Wilver Easton DO Primary Care Provider WILVER EASTON Referring Unavailable WILVER EASTON Primary Care Unavailable LATESHA SANDRA Attending Unavailable WILVER EASTON Referring Unavailable WILVER EASTON Primary Care Unavailable Ariel SMALLWOOD Attending Unavailable Ariel SMALLWOOD Attending Unavailable Ariel SMALLWOOD Attending Unavailable Ariel SMALLWOOD Attending Unavailable SMALLWOOD, Ariel R Admitting Unavailable SMALLWOOD, Ariel R Admitting Unavailable SMALLWOOD, Ariel R Attending Unavailable SMALLWOOD, Ariel R Admitting [...] Medication Allergies] Propensity to adverse reactions (disorder) [facility] Repository Medications Current Medications Medication Drug Class(es) Dates Sig (Normalized) Sig (Original) apixaban 5 mg oral tablet (20 sources) Factor Xa Inhibitor Start: 05-03-2023 take 1 tablet by mouth twice daily ELIQUIS 5 mg tablet Indications: Paroxysmal atrial fibrillation ([facility]) TAKE 1 TABLET BY MOUTH TWICE DAILY 180 tablet 1 05/03/2023 Active Start: 01-05-2022 take 1 tablet by setve th twice daily Eliquis 2.5 mg oral [...] BID, # 14 cap(s), Refills(s) 0, Pharmacy: [facility], 180, cm, 05/20/22 11:15:00 EDT, Height/Length [...] procedure, # 2 cap(s), Refills(s) 0, Pharmacy: [facility], 180, cm, 01/05/22 8:41:00 EDT, Height/Length Dosing, 109, kg, 01/05/22 8:41:00 EDT, Weight Dosing Start Date: 01/05/22 Status: Ordered dutasteride 0.5 mg oral capsule (14 sources) 5-alpha Reductase Inhibitor Start: 11-04-2023 take 1 capsule by mouth once daily dutasteride 0.5 mg Cap 0.5 mg = 1 cap(s), Oral, Daily, # 90 cap(s), Refills(s) 3, Pharmacy: [facility], 180, cm, 11/29/22 11:36:00 EDT, Height/Length Dosing, 103, kg, 11/29/22 11:36:00 EDT, Weight Dosing Start Date: 11/04/23 Status: Ordered Start: 11-05-2022 take 1 capsule by [facility] once daily dutasteride 0.5 mg Cap 0.5 mg = 1 cap(s), Oral, Daily, # 90 cap(s), Refills(s) 3, Pharmacy: [facility], 180, cm, 11/01/22 9:50:00 EDT, Height/Length [...] Status: Ordered Metoprolol Tartr ate Active min oil-w.jco-opopalbtma-xgdj ointment (2 sources) Start: 09-05-2023 min oil-w.nyf-ixttyxusdw-ogku ointment Apply to affected area as directed [...] BID, # 180 cap(s), Refills(s) 3, Pharmacy: [facility], 180, cm, 11/29/22 11:36:00 EDT, Height/Length [...] Start: 01-05-2022 take 1 capsule by [facility] twice daily tamsulosin 0.4 mg Cap 0.4 mg = 1 cap(s), Oral, BID, # 60 cap(s), Refills(s) 2, Pharmacy: [facility], 180, cm, 01/05/22 8:41:00 EDT, Height/Length [...] procedure, # 6 tab(s), Refills(s) 0, Pharmacy: [facility], 180, cm, 11/29/22 11:36:00 EDT, Height/Length Dosing, 103, kg, 11/29/22 11:36:00 EDT, Weight Dosing Start Date: 01/31/23 Status: Ordered Start: 11-05-2022 [facility] Cipro 500 mg Tab 500 mg = 1 tab(s), Oral, Daily, Take 1 tablet the day before the procedure and 1 tablet after the procedure, # 2 tab(s), Refills(s) 0, Pharmacy: [facility], 180, cm, 11/01/22 9:50:00 EDT, Height/Length Dosing, 103, kg, 11/01/22 9:50:00... 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; Translations: [LONGTERM CURRNT USE ANTICOAGULANTS] Onset: 11-25-2022 Episodic Other [...] and visceral atherosclerosis (3 sources) Atherosclerosis of [place] arteries of extremities with intermittent claudication, left leg; Translations: [Atherosclerosis of [place] arteries of the extremities with intermittent claudication] [...] 2024 for 6 month cysto/fish/cytol (bt ck) [facility] Reminders Reminders -- From: Saida [...] He will be due in September 2024.LG [facility] Reminderson 11-23-2023 Reminders -- From: Siada Rodriguez To: EU - Recallleena Smallwood; Cc: Saida Rodriguez; Sent: 07/01/2023 10:36:17 EST Show up: 08/18/2023 10:36:00 EST Subject: Cysto/FISH/cytol Due Date/Time: 09/05/2023 10:36:00 EST Reminder/Recall Patient is due in september 2023 for 3 month cysto/fish/cytol (bt ck) Patient sched for 09/26/23. He will be due in December 2023.LG Patient now at 6 months. Due in Mar.LG Normal [facility] Patient Educationon 10-31-19 Patient Education Urology Transurethral [...] including vitamins, herbs, eye drops, creams, and pfyb-nlr-uxnfply medicines. ? Any problems you or family [...] tells you to take them. ? Taking eahs-ipl-hesdwjm medicines, vitamins, herbs, and supplements. Surgery safety [...] health care (more content not included)... Normal [facility] Operative Reporton Operative Report [id number] Normal [facility] UroVysion Fish and Urine Cyt o ([facility])on 09-26-2023 UVFISH & UC Diagnosis Info Invalid Interpretation Code [facility] Comment on above: Result Comment: A:Ur ine,Urine:Voided [...] correlated with cytology and cystoscopy results.* CPT 08944, 08863 Microscopic Notes - Microscopic Notes - Abnormal cells 9p21 deletions: Abnormal cells aneploid events: Total cells analyzed: 62 Hematuria: Gross Description Site ID:A color Dark Yellow fixative Alcohol Received 50 mls of slightly cloudy dark yellow fluid with the patient's name and, Urine on the vial. Electronically signed by : on: 09/26/2023 08:16:06 Performed By: #### 1 [id number] #### [facility] [address] [place] [address] UroVysion Fish and Urine Cyt o ([facility])on 09-19-2023 UVUC Method of Extraction Voided Normal [facility] Comment on above: Performed By: #### 1 [id number] #### [facility] [address] [place] [address] [facility] Number of Jars 1 Invalid Interpretation Code [facility] Comment on above: Performed By: #### 1 [id number] #### [facility] [address] [place] [address] [facility] Specimen Urine Normal [facility] Comment on above: Performed By: #### 1 [id number] #### [facility] [address] [place] [address] [facility] Type of Service Technical Only Normal [facility] Comment on above: Performed By: #### 1 [id number] #### [facility] [address] [place], [place] [id number] Consent for Procedure/Surger yon 09-08-2023 Consent for Procedure/Surgery [id number] 172#1.00TIFF Normal [facility] Operative Reporton Operative Report [id number]#1.00TIFF Normal [facility] Urine Cytology ([facility])on 08-23-2022 Urine Cytology Revision Information Invalid Interpretation Code [facility] Comment on above: Result Comment: Enrique ection Reason -[ Saurabh Greene, 06/22/23 - 14:47 ] Corrected report issued to update PMS/PWS. The diagnosis remains unchanged. Correction Notes - Performed By: #### 1 [id number] #### [facility] [address] [place] [address] Urine Cytology ([facility])on 07-23-2022 Method of Extraction Voided Normal [facility] Comment on above: Performed By: #### 1 [id number] #### [facility] [address] [place] [address] Number of Jars 1 Invalid Interpretation Code [facility] Comment on above: Performed By: #### 1 [id number] #### [facility] [address] [id number] Specimen Urine Normal [facility] Comment on above: Performed By: #### 1 [id number] #### [facility] [address] [place] [address] Type of Service Technical Only Normal [facility] Comment on above: Performed By: #### 1 [id number] #### [facility] [address] [place] [address] Consent for Procedure/Surger yon 05-05-2023 Consent for Procedure/Surgery [id number]#1.00TIFF Normal [facility] CBC AUTO DIFFon 11-11-2022 BASO # 0.1 103/ul Normal 0.0-0.1 [facility] Comment on above: Performed By: #### C BC #### [facility] [address] [place] [address] Dr. Valencia Lucas Basophils/100 WBC (Bld) 0.7 % Normal 0.2-2.0 [facility] Comment on above: Performed By: #### C BC #### [facility] [address] [address] [address] Valencia Lucas EO # 0.2 103/ul Normal 0.0-0.7 [facility] Comment on above: Performed By: #### C BC #### [facility] [address] [place] [address] Dr. Valencia Lucas Eosinophils/100 WBC (Bld) 3.1 % Normal 0.9-7.0 [facility] Comment on above: Performed By: #### C BC #### [facility] [address] [place] [address] Dr. Valencia Lucas Erythrocyte distribution width (RBC) [Ratio] 13.7 % Normal 11.0-15.0 [facility] Comment on above: Performed By: #### C BC #### [facility] [address] [place] [address] Dr. Valencia Lucas Hematocrit (Bld) [Volume fraction] 46.6 % Normal 42.0-54.0 [facility] Comment on above: Performed By: #### C BC #### [facility] [address] [place] [address] Dr. Valencia Lucas Hemoglobin (Bld) [Mass/Vol] 15.0 g/dL Normal 14.0-18.0 [facility] Comment on above: Performed By: #### C BC #### [facility] [address] [place] [address] Dr. Valencia Lucas IG # 0.02 10e3/ul Normal 0.00-0.03 [facility] Comment on above: Performed By: #### C BC #### [facility] [address] [place] [address] Dr. Valencia Lucas IG % 0.3 % Normal 0.0-0.5 [facility] Comment on above: Performed By: #### C BC #### [facility] [address] [place] [address] Dr. Valencia Lucas LYMPH # 1.5 103/ul Normal 1.2-3.8 [facility] Comment on above: Performed By: #### C BC #### [facility] [address] [place] [address] Dr. Valencia Lucas Lymphocytes/100 WBC (Bld) 20.6 % Normal 20.5-60.0 [facility] Comment on above: Performed By: #### C BC #### [facility] [address] [place] [address] Dr. Valencia Lucas MANUAL DIFF REQ NO Normal [facility] Comment on above: Performed By: #### C BC #### [facility] [address] [place] [address] Dr. Valencia Lucas MCH (RBC) [Entitic mass] 29.5 pg Normal 25.9-34.0 [facility] Comment on above: Performed By: #### C BC #### [facility] [address] [place] [address] Dr. Valencia Lucas MCHC (RBC) [Mass/Vol] 32.2 g/dL Normal 29.9-35.2 [facility] Comment on above: Performed By: #### C BC #### [facility] [address] [place] [address] Dr. Valencia Lucas MCV (RBC) [Entitic vol] 91.6 fL Normal 80.0-94.0 [facility] Comment on above: Performed By: #### C BC #### [facility] [address] [place] [address] Dr. Valencia Lucas MONO # 0.6 103/ul Normal 0.3-0.8 [facility] Comment on above: Performed By: #### C BC #### [facility] [address] [place] [address] Dr. Valencia Lucas Monocytes/100 WBC (Bld) 8.1 % Normal 1.7-12.0 [facility] Comment on above: Performed By: #### C BC #### [facility] [address] [place] [address] Dr. Valencia Lucas NEUT # 4.8 103/ul Normal 1.4-6.5 [facility] Comment on above: Performed By: #### C BC #### [facility] [address] [place] [address] Dr. Valencia Lucas Neutrophils/100 WBC (Bld) 67.2 % Normal 43.0-75.0 [facility] Comment on above: Performed By: #### C BC #### [facility] [address] [place] [address] Dr. Valencia Lucas Platelet mean volume (Bld) [Entitic vol] 10.2 fL Normal 9.5-13.5 [facility] Comment on above: Performed By: #### C BC #### [facility] [address] [address] [address] Valencia Lucas PLT 196 103/ul Normal 150-450 [facility] Comment on above: Performed By: #### C BC #### [facility] [address] [place] [address] Dr. Valencia Lucas RBC 5.09 106/ul Normal 4.70-6.10 [facility] Comment on above: Performed By: #### C BC #### [facility] [address] [place] [address] Dr. Valencia Lucas WBC 7.1 103/ul Normal 4.0-11.0 [facility] Comment on above: Performed By: #### C BC #### [facility] [address] [place] [address] Dr. Valencia Lucas PROF CHEM 8 (BAS METB)on Anion gap [Moles/Vol] 10.8 mmol/L Normal [facility] Comment on above: Performed By: #### B MP #### [facility] [address] [place] [address] Dr. Valencia Lucas Calcium [Mass/Vol] 9.6 mg/dL Normal 8.5-10.[address] [facility] Comment on above: Performed By: #### B MP #### [facility] [address] [place] [address] Dr. Valencia Lucas Chloride [Moles/Vol] 105 mmol/L Normal 98-107 [facility] Comment on above: Performed By: #### B MP #### [facility] [address] [place] [address] Dr. Valencia Lucas CO2 [Moles/Vol] 29.4 mmol/L Normal 21.0-32.[address] [facility] Comment on above: Performed By: #### B MP #### [facility] [address] [place] [address] Dr. Valencia Lucas Creatinine [Mass/Vol] 1.29 mg/dL Normal 0.70-1.30 [facility] Comment on above: Performed By: #### B MP #### [facility] [address] [place] [address] Dr. Valencia Lucas EGFR-AF TANZANIAN >60 Normal >=60 [facility] Comment on above: Performed By: #### B MP #### [facility] [address] [address] [address] Valencia Lucas EGFR-NON AF TANZANIAN 54 mL/min/1.73m2 Critically low >=60 [facility] Comment on above: Performed By: #### B MP #### [facility] [address] [address] [address] aVlencia Lucas Glucose [Mass/Vol] 97 mg/dL Normal 74-[address] [facility] Comment on above: Performed By: #### B MP #### [facility] [address] [address] [address] Valencia Lucas Potassium [Moles/Vol] 5.2 mmol/L Critically high 3.5-5.1 [facility] Comment on above: Performed By: #### B MP #### [facility] [address] [address] [address] Valencia Lucas Sodium [Moles/Vol] 140 mmol/L Normal 136-[address] [facility] Comment on above: Performed By: #### B MP #### [facility] [address] [address] [address] Valencia Lucas Urea nitrogen [Mass/Vol] 16.0 mg/dL Normal 7.0-18.0 [facility] Comment on above: Performed By: #### B MP #### [facility] [address] [address] [address] Valencia Lucas Urea nitrogen/Creatinine [Mass ratio] 12.4 mg/mg Normal [facility] Comment on above: Performed By: #### B MP #### [facility] [address] [address] [address] Valencia Lucas PROTIMEon 11-11-2022 INR Coag (PPP) [Relative time] 1.05 {INR} Normal [facility] Comment on above: Performed By: #### P TT, PT #### [facility] [address] [address] [address] Valencia Lucas INR GUIDELINES SEE BELOW Normal [facility] Comment on above: Result Comment: ARLEEN RED INR: 2.0 - 3.0 CONDITIONS NOT LISTED BELOW 2.5 - 3.5 FOR PROSTHETIC HEART VALVE REPLACEMENT 2.5 - 3.5 RECURRENT THROMBOSIS Performed By: #### P TT, PT #### [facility] [address] [address] [address] Valencia Lucas PT Coag (PPP) [Time] 11.1 s Normal 9.0-11.6 [facility] Comment on above: Performed By: #### P TT, PT #### [facility] [address] [place], [place] [address] Dr. Valencia Lucas PTTon 11-11-2022 aPTT Coag (Bld) [Time] 33.0 s Normal 22.3-36.2 [facility] Comment on above: Performed By: #### P TT, PT #### [facility] [address] [place], [place] [address] Dr. Valencia Lucas US KIDNEYSon 11-03-2022 US [...] by: JUDITH BARONE Date: 2022-11-03 11:18 Normal [facility] BASIC METABOLIC PANELon 05-1 BUN/CREATININE RATIO NOT APPLICABLE Normal 6-22 [facility] Comment on above: Performed By: #### 1 005, 5363, 08950, 905 #### [facility] [address], [address] [place] [address] Events Director: Alejandro Washburn MD Calcium [Mass/Vol] 10.0 mg/dL Normal 8.6-10.3 [facility] Comment on above: Result Comment: NO C OLLECTION DATE RECEIVED. WE HAVE USED THE DATE THE SPECIMEN WAS RECEIVED BY THIS LABORATORY THE COLLECTION DATE. IF THIS IS INCORRECT, PLEASE CONTACT CLIENT SERVICES. PHONE NUMBER: [phone] Performed By: #### 1 005, 5363, 95895, 905 #### [facility] [address], [address] [place] [address] Events Director: Alejandro Washburn MD Chloride [Moles/Vol] 105 mmol/L Normal 98-110 [facility] Comment on above: Performed By: #### 1 005, 5363, 44975, 905 #### [facility] [place] [address] Events Director: Alejandro Washburn MD CO2 [Moles/Vol] 26 mmol/L Normal 20-32 [facility] Comment on above: Performed By: #### 1 005, 5363, 10680, 905 #### [facility] [place] [address] Events Director: Alejandro Washburn MD Creatinine [Mass/Vol] 1.12 mg/dL Normal 0.70-1.18 [facility] Comment on above: Result Comment: For patients >49 years of age, the reference limit for Creatinine is approximately 13% higher for people identified as -Citizen Of [place]. Performed By: #### 1 005, 5363, 66805, 905 #### [facility] [place] [address] Events Director: Alejandro Washburn MD eGFR NON-AFR. TANZANIAN 63 mL/min/1.73m2 Normal > OR = 60 [facility] Comment on above: Performed By: #### 1 005, 5363, 14221, 905 #### [facility] [address], [address] [place], [place] [address] Events Director: Alejandro Washburn MD GFR/1.73 sq M.predicted among blacks MDRD (S/P/Bld) [Vol rate/Area] 73 mL/min/{1.73_m2} Normal > OR = 60 [facility] Comment on above: Performed By: #### 1 005, 5363, 62464, 905 #### [facility] [place] [address] Events Director: Alejandro Washburn MD Glucose [Mass/Vol] 82 mg/dL Normal 65-99 [facility] Comment on above: Result Comment: Fasting reference interval Performed By: #### 1 005, 5363, 52054, 905 #### [facility] [place] [address] Events Director: Alejandro Washburn MD Potassium [Moles/Vol] 4.9 mmol/L Normal 3.5-5.3 [facility] Comment on above: Performed By: #### 1 005, 5363, 20450, 905 #### [facility] [place] [address] Events Director: Alejnadro Washburn MD Sodium [Moles/Vol] 140 mmol/L Normal 135-146 [facility] Comment on above: Performed By: #### 1 005, 5363, 77147, 905 #### [facility] [place] [address] Events Director: Alejandro Washburn MD Urea nitrogen [Mass/Vol] 16 mg/dL Normal 7-25 [facility] Comment on above: Performed By: #### 1 005, 5363, 95915, 905 #### [facility] [place] [address] Events Director: Alejandro Washburn MD PSA, TOTALon 11-25-2021 PSA, [...] INCORRECT, PLEASE CONTACT CLIENT SERVICES. PHONE NUMBER: [phone] Performed By: #### 1 005, 5363, 45587, 905 #### [facility] [address], [address] [place] [address] Events Director: Alejandro Washburn MD TEST AUTHORIZATIONon CLIENT CONTACT: KASEY Ballard [facility] Comment on above: Performed By: #### 1 005, 5363, 59386, 905 #### [facility] [address], [address] [place] [address] Events Director: Alejandro Washburn MD COMMENT Normal [facility] Comment on above: Result Comment: Plea se have the ordering physician or his or her authorized patient registration representative sign a copy of this report and promptly return it by faxing it to: [phone] or by returning the form to your communications tower technician. Performed By: #### 1 005, 5363, 48978, 905 #### [facility] [address], [address] [place] [address] Events Director: Alejandro Washburn MD REPORT ALWAYS MESSAGE SIGNATURE Normal [facility] Comment on above: Result Comment: The laboratory testing on this patient was verbally requested or confirmed by the ordering physician or his or her authorized patient registration representative after contact with an employee of [facility]. Federal regulations require that we maintain on file written authorization for all laboratory testing. Accordingly we are asking that the ordering physician or his or her authorized patient registration representative sign a copy of this report and promptly return it to the client relation specialist. Signature: Performed By: #### 1 005, 5363, 30274, 905 #### [facility] [place] [address] Events Director: Alejandro Washburn MD TEST CODE: 5363SB Normal [facility] Comment on above: Performed By: #### 1 005, 5363, 93160, 905 #### [facility] [place] [address] Events Director: Alejandro Washburn MD TEST NAME: PSA, TOTAL Normal [facility] Comment on above: Performed By: #### 1 005, 5363, 53222, 905 #### [facility] [place] [address] Events Director: Alejandro Washburn MD URIC ACIDon 11-25-2021 Urate [Mass/Vol] 6.6 mg/dL Normal 4.0-8.0 [facility] Comment on above: Result Comment: Ther apeutic target for gout patients: <6.0 mg/dL Performed By: #### 1 005, 5363, 86609, 905 #### [facility] [place] [address] Events Director: Alejandro Washburn MD [facility] 05-19-2021 Albumin [Mass/Vol] 4.2 g/dL Normal 3.6-5.1 [facility] Comment on above: Performed By: #### 7 600, 95677 #### [facility] [place] [address] Events Director: Alejandro Washburn MD Albumin/Globulin [Mass ratio] 1.5 {ratio} Normal 1.0-2.5 [facility] Comment on above: Performed By: #### 7 600, 50097 #### [facility] [place] [address] Events Director: Alejandro Washburn MD ALP [Catalytic activity/Vol] 124 U/L Normal 35-144 [facility] Comment on above: Performed By: #### 7 600, 60366 #### [facility] of [address], [address] [place] [address] Events Director: Alejandro Washburn MD ALT [Catalytic activity/Vol] 25 U/L Normal 9-46 [facility] Comment on above: Performed By: #### 7 600, 88926 #### [facility] of [address], [address] [place] [address] Events Director: Alejandro Washburn MD AST [Catalytic activity/Vol] 21 U/L Normal 10-35 [facility] Comment on above: Performed By: #### 7 600, [id number] #### [facility] of [place] [address] Events Director: Alejandro Washburn MD Bilirubin [Mass/Vol] 1.3 mg/dL High 0.2-1.2 [facility] Comment on above: Performed By: #### 7 600, [id number] #### [facility] of [address], [address] [place] [address] Events Director: Alejandro Washburn MD Calcium [Mass/Vol] 9.6 mg/dL Normal 8.6-10.3 [facility] Comment on above: Performed By: #### 7 600, [id number] #### [facility] [place] [address] Events Director: Alejandro Washburn MD Chloride [Moles/Vol] 102 mmol/L Normal 98-110 [facility] Comment on above: Performed By: #### 7 600, [id number] #### [facility] of [address], [address] [place] [address] Events Director: Alejandro Washburn MD CO2 [Moles/Vol] 29 mmol/L Normal 20-32 [facility] Comment on above: Performed By: #### 7 600, [id number] #### [facility] of [address], [address] [place] [address] Events Director: Alejandro Washburn MD Creatinine [Mass/Vol] 1.26 mg/dL High 0.70-1.18 [facility] Comment on above: Result Comment: For patients >49 years of age, the reference limit for Creatinine is approximately 13% higher for people identified as -Citizen Of [place]. Performed By: #### 7 600, [id number] #### [facility] [address], [address] [place] [address] Events Director: Alejandro Washburn MD eGFR NON-AFR. TANZANIAN 55 mL/min/1.73m2 Low > OR = 60 [facility] Comment on above: Performed By: #### 7 600, [id number] #### [facility] of [address], [address] [place] [address] Events Director: Alejandro Washburn MD GFR/1.73 sq M.predicted among blacks MDRD (S/P/Bld) [Vol rate/Area] 63 mL/min/{1.73_m2} Normal > OR = 60 [facility] Comment on above: Performed By: #### 7 600, [id number] #### [facility] of [address], [address] [place] [address] Events Director: Alejandro Washburn MD Globulin (S) [Mass/Vol] 2.8 g/dL Normal 1.9-3.7 [facility] Comment on above: Performed By: #### 7 600, [id number] #### [facility] [place] [address] Events Director: Alejandro Washburn MD Glucose [Mass/Vol] 85 mg/dL Normal 65-99 [facility] Comment on above: Result Comment: Fasting reference interval Performed By: #### 7 600, [id number] #### [facility] of [address], [address] [place] [address] Events Director: Alejandro Washburn MD Potassium [Moles/Vol] 5.1 mmol/L Normal 3.5-5.3 [facility] Comment on above: Performed By: #### 7 600, [id number] #### [facility] [address], [address] [place] [address] Events Director: Alejandro Washburn MD Protein [Mass/Vol] 7.0 g/dL Normal 6.1-8.1 [facility] Comment on above: Performed By: #### 7 600, [id number] #### [facility] [place] [address] Events Director: Alejandro Washburn MD Sodium [Moles/Vol] 138 mmol/L Normal 135-146 [facility] Comment on above: Performed By: #### 7 600, [id number] #### [facility] of [address], [address] [place] [address] Events Director: Alejandro Washburn MD Urea nitrogen [Mass/Vol] 20 mg/dL Normal 7-25 [facility] Comment on above: Performed By: #### 7 600, [id number] #### [facility] [place] [address] Events Director: Alejandro Washburn MD Urea nitrogen/Creatinine [Mass ratio] 16 mg/mg Normal 6-22 [facility] Comment on above: Performed By: #### 7 600, [id number] #### [facility] [place] [address] Events Director: Alejandro Washburn MD LIPID PANEL, [facility] [place] 11-0 Cholesterol [Mass/Vol] 155 mg/dL Normal <200 [facility] Comment on above: Order Comment: FASTI NG:YES FASTING: YES Performed By: #### 7 600, 15766 #### [facility] [place] [address] Events Director: Alejandro Washburn MD Cholesterol in HDL [Mass/Vol] 46 mg/dL Normal > OR = 40 [facility] Comment on above: Order Comment: FASTI NG:YES FASTING: YES Performed By: #### 7 600, [id number] #### [facility] [place] [address] Events Director: Alejandro Washburn MD Cholesterol in LDL [Mass/Vol] [...] of LDL-C. Yusef ARMENTA et al. GEOVANNI. 2013;310(88): 3023-5069 (http://education.[employer]/faq/WDG704) Performed By: #### 7 600, 61050 #### [facility] [address], [address] [place] [address] Events Director: Alejandro Washburn MD Cholesterol.total/Ch olesterol in HDL [Mass ratio] 3.4 {ratio} Normal <5.0 [facility] Comment on above: Order Comment: FASTI NG:YES FASTING: YES Performed By: #### 7 600, 70250 #### [facility] [address], [address] [place] [address] Events Director: Alejandro Washburn MD NON HDL CHOLESTEROL 109 mg/dL (calc) Normal <130 [facility] Comment on above: Order Comment: FASTI NG:YES FASTING: YES Result Comment: For patients with diabetes plus 1 major ASCVD risk factor, treating to a non-HDL-C goal of <100 mg/dL (LDL-C of <70 mg/dL) is considered a therapeutic option. Performed By: #### 7 600, 22726 #### [facility] [address], [address] [place] [address] Events Director: Alejandro Washburn MD Triglyceride [Mass/Vol] 92 mg/dL Normal <150 [facility] Comment on above: Order Comment: FASTI NG:YES FASTING: YES Performed By: #### 7 600, 48893 #### [facility] [address], [address] [place] [address] Events Director: Alejandro Washburn MD Vital Signs Date Time Vital Sign Value Performing Clinician Facility 09-05-2023 14:50-0500 Body height 180.3 cm Latesha Sandra APRN-JUKE BOX SERVICER [facility] 09-05-2023 14:50-0500 Body mass index (BMI) [Ratio] 32.52 kg/m2 Latesha MONTELONGOJUKE BOX SERVICER [facility] 09-05-2023 14:50-0500 Body temperature 98.1 [degF] Latesha MONTELONGOJUKE BOX SERVICER [facility] 09-05-2023 14:50-0500 Body weight 105.78 kg Latesha MONTELONGOJUKE BOX SERVICER [facility] 09-05-2023 14:50-0500 Diastolic blood pressure 70 mm[Hg] Latesha MONTELONGOJUKE BOX SERVICER [facility] 09-05-2023 14:50-0500 Heart rate 96 /min Latesha BARTH [facility] 09-05-2023 14:50-0500 SaO2% (BldA) [Mass fraction] 95 % Latesha BARTH [facility] 09-05-2023 14:50-0500 Systolic blood pressure 112 mm[Hg] Latesha MONTELONGOJUKE BOX SERVICER [facility] 06-15-2023 14:15-0500 Body height 180.34 cm Yessica Deepti Other [employer] Other 06-15-2023 14:15-0500 Body mass index (BMI) [Ratio] 32.91 kg/m2 Yessica Deepti Other [employer] Other 06-15-2023 14:15-0500 Body weight 107.05 kg Yessica Deepti Other [employer] Other 06-15-2023 14:15-0500 Diastolic blood pressure 89 mm[Hg] Yessica Deepti Other [employer] Other 06-15-2023 14:15-0500 SaO2% (BldA) [Mass fraction] 95 % Yessica Deepti Other [employer] Other 06-15-2023 14:15-0500 Systolic blood pressure 132 mm[Hg] Yessica Deepti Other [facility] [employer] Other 11-29-2022 11:36-0400 Diastolic blood pressure 93 mm[Hg] Ariel SMALLWOOD [facility] 11-29-2022 11:36-0400 Mean blood pressure 107 mm[Hg] Ariel SMALLWOOD [facility] 11-29-2022 11:36-0400 Systolic blood pressure 134 mm[Hg] Ariel SMALLWOOD [facility] 11-29-2022 11:35-0400 Blood Pressure Location Ariel SMALLWOOD [facility] 11-29-2022 11:35-0400 Diastolic blood pressure 113 mm[Hg] Ariel SMALLWOOD [facility] 11-29-2022 11:35-0400 Heart rate 96 /min Ariel SMALLWOOD [facility] 11-29-2022 11:35-0400 Systolic blood pressure 140 mm[Hg] Ariel SMALLWOOD [facility] 11-01-2022 09:48-0400 Blood Pressure Location Ariel SMALLWOOD [facility] 11-01-2022 09:48-0400 Diastolic blood pressure 75 mm[Hg] Ariel SMALLWOOD [facility] 11-01-2022 09:48-0400 Heart rate 95 /min Ariel SMALLWOOD [facility] 11-01-2022 09:48-0400 Respiratory rate 16 /min Ariel SMALLWOOD [facility] 11-01-2022 09:48-0400 Systolic blood pressure 115 mm[Hg] Ariel SMALLWOOD [facility] 10-19-2022 12:38-0400 Blood Pressure Location SHANEL INGRID [facility] 10-19-2022 12:38-0400 Diastolic blood pressure 76 mm[Hg] SHANEL INGRID [facility] 10-19-2022 12:38-0400 Heart rate 72 /min SHANEL INGRID [facility] 10-19-2022 12:38-0400 Respiratory rate 16 /min SHANEL INGRID [facility] 10-19-2022 12:38-0400 Systolic blood pressure 132 mm[Hg] SHANEL INGRID [facility] 05-20-2022 11:12-0400 Blood Pressure Location SHANEL INGRID [facility] 05-20-2022 11:12-0400 Diastolic blood pressure 86 mm[Hg] SHANEL INGRID [facility] 05-20-2022 11:12-0400 Heart rate 71 /min SHANEL QUINTERO [facility] 05-20-2022 11:12-0400 Respiratory rate 16 /min SHANEL QUINTERO [facility] 05-20-2022 11:12-0400 Systolic blood pressure 127 mm[Hg] SHANEL QUINTERO [facility] 02-22-2022 08:23-0400 Blood Pressure Location Justin Piña Jr. [facility] 02-22-2022 08:23-0400 Diastolic blood pressure 75 mm[Hg] Justin Piña Jr. [facility] 02-22-2022 08:23-0400 Heart rate 68 /min Justin Piña Jr. [facility] 02-22-2022 08:23-0400 Systolic blood pressure 128 mm[Hg] Justin Piña Jr. [facility] 01-25-2022 14:52-0400 Blood Pressure Location Justin Piña Jr. [facility] 01-25-2022 14:52-0400 Diastolic blood pressure 95 mm[Hg] Justin Piña Jr. [facility] 01-25-2022 14:52-0400 Heart rate 100 /min Justin Piña Jr. [facility] 01-25-2022 14:52-0400 Systolic blood pressure 113 mm[Hg] Justin Piña Jr. [facility] 01-05-2022 08:26-0400 Blood Pressure Location Justin Piña Jr. [facility] 01-05-2022 08:26-0400 Diastolic blood pressure 85 mm[Hg] Justin Piña Jr. [facility] 01-05-2022 08:26-0400 Heart rate 87 /min Justin Piña Jr. [facility] 01-05-2022 08:26-0400 Systolic blood pressure 122 mm[Hg] Justin Piña Jr. [facility] 06-02-2021 10:00-0500 Body height 180.34 cm Surya Rodríguez Other [employer] Other 06-02-2021 10:00-0500 Body mass index (BMI) [Ratio] 32.77 kg/m2 Surya Rodríguez Other [employer] Other 06-02-2021 10:00-0500 Body weight 106.6 kg Surya Rodríguez Other [employer] Other 06-02-2021 10:00-0500 Diastolic blood pressure 75 mm[Hg] Surya Rodríguez Other [employer] Other 06-02-2021 10:00-0500 Systolic blood pressure 116 mm[Hg] Surya Rodríguez Other [employer] Other 05-19-2021 12:45-0400 Body height 180.34 cm Yumi Juju Other [employer] Other 05-19-2021 12:45-0400 Body mass index (BMI) [Ratio] 32.77 kg/m2 Yumi Juju Other [employer] Other 05-19-2021 12:45-0400 Body temperature 98.9 [degF] Yumi Juju Other [employer] Other 05-19-2021 12:45-0400 Body weight 106.6 kg Yumi Juju Other [employer] Other 05-19-2021 12:45-0400 Diastolic blood pressure 46 mm[Hg] Yumi Juju Other [employer] Other 05-19-2021 12:45-0400 SaO2% (BldA) [Mass fraction] 93 % Yumi Juju Other [employer] Other 05-19-2021 12:45-0400 Systolic blood pressure 98 mm[Hg] Yumi Juju Other [employer] Other 04-09-2021 17:00-0400 Body height 180.34 cm Surya Rodríguez Other [employer] Other 04-09-2021 17:00-0400 Body mass index (BMI) [Ratio] 32.49 kg/m2 Surya Rodríguez Other [employer] Other 04-09-2021 17:00-0400 Body weight 105.69 kg Surya Rodríguez Other [employer] Other 04-09-2021 17:00-0400 Diastolic blood pressure 75 mm[Hg] Surya Rodríguez Other [employer] Other 04-09-2021 17:00-0400 Systolic blood pressure 128 mm[Hg] Surya Rodríguez Other [employer] Other Encounters Encounter Date Encounter Type Care Provider Facility Start: 03-26-2024 ambulatory Ariel Christiansoni ty:[id number] Start: 03-20-2024 End: 03-20-2024 ambulatory Ariel SMALLWOOD Facility:[facility] Start: 03-20-2024 End: 03-20-2024 Lab Drop off Ariel SMALLWOOD [facility] Start: 03-20-2024 End: 03-20-2024 ambulatory Ariel SMALLWOOD Facility:[facility] Start: 03-20-2024 End: 03-20-2024 Patient encounter procedure Ariel SMALLWOOD [facility] Start: 01-10-2024 End: 01-10-2024 ambulatory [facility] Start: 09-26-2023 End: 09-26-2023 ambulatory Ariel SMALLWOOD Facility:[id number] Start: 09-19-2023 End: 09-19-2023 ambulatory Ariel SMALLWOOD Facility:[facility] Start: 09-19-2023 End: 09-19-2023 Lab Drop off Ariel SMALLWOOD [facility] Start: 09-19-2023 End: 09-19-2023 ambulatory Ariel SMALLWOOD Facility:[facility] Start: 09-19-2023 End: 09-19-2023 Patient encounter procedure Ariel SMALLWOOD [facility] Start: 09-05-2023 End: 09-05-2023 Office outpatient visit 15 minutes Latesha Sandra MIDDLE STITCHER-[employer] SERVICER Work Phone: [facility] Comment on above: Pilonidal cyst witho ut infection (Primary Dx) Start: 09-05-2023 End: 09-05-2023 ambulatory [facility] Start: 09-05-2023 Telephone encounter Latesha Sandra MIDDLE STITCHER[employer] SERVICER Work Phone: [facility] Start: 07-10-2023 Refill Wilver Cuellar O Work Phone: [facility] Comment on above: Hyperlipidemia, unsp ecified Start: 06-27-2023 End: 06-27-2023 ambulatory Ariel SMALLWOOD Facility:[id number] Start: 06-15-2023 End: 06-15-2023 ambulatory Yessica Deepti Facility:[facility] Start: 06-15-2023 Office outpatient vi sit 10 minutes Yessica Deepti [facility] Start: 06-15-2023 End: 06-15-2023 ambulatory DO Wilver Easton Work Phone: [facility] Work Phone: Start: 06-15-2023 End: 06-15-2023 Patient encounter procedure DO Wilver Easton Work Phone: [facility] Work Phone: Start: 05-30-2023 ambulatory Ariel SMALLWOOD Facili ty:[id number] Start: 05-23-2023 End: 05-23-2023 ambulatory Ariel SMALLWOOD Facility:[facility] Start: 05-23-2023 End: 05-23-2023 Patient encounter procedure Ariel SMALLWOOD [facility] Start: 04-29-2023 ambulatory Ariel SMALLWOOD Facili ty:[facility] Start: 02-14-2023 End: 02-14-2023 Lab Drop off Ariel SMALLWOOD [facility] Start: 02-14-2023 End: 02-14-2023 Patient encounter procedure Ariel SMALLWOOD [facility] Start: 11-29-2022 End: 11-29-2022 Patient encounter procedure Ariel SMALLWOOD [facility] Start: 11-24-2022 End: 11-24-2022 Patient encounter procedure Ariel SMALLWOOD [facility] Start: 11-22-2022 End: 11-22-2022 Patient encounter procedure SONJA EASTON [facility] [place] Start: 11-18-2022 End: 11-18-[address] ARIEL SMALLWOOD . Facility:[facility] Start: 11-15-2022 Encounter for preprocedural cardiovascular examination DR ARIEL SMALLWOOD . [facility] Start: 11-15-2022 Encounter for preprocedural laboratory examination DR ARIEL SMALLWOOD . [facility] Start: 11-15-2022 Encounter for preprocedural respiratory examination DR ARIEL SMALLWOOD . [facility] Start: 11-11-2022 End: 11-12-[address] ARIEL SMALLWOOD . Facility:[facility] Start: 11-11-2022 End: 11-12-2022 Encounter for preprocedural laboratory examination DR ARIEL SMALLWOOD . Facility:[facility] Start: 11-09-2022 End: 11-09-2022 Patient encounter procedure Ariel SMALLWOOD [facility] Start: 11-03-2022 End: 11-04-[address] ARIEL SMALLWOOD . Facility:[facility] Start: 11-01-2022 End: 11-01-2022 Patient encounter procedure Ariel SMALLWOOD [facility] Start: 10-19-2022 End: 10-19-2022 Lab Drop off SHANEL QUINTERO [facility] Start: 10-19-2022 End: 10-19-2022 Patient encounter procedure SHANEL QUINTERO [facility] Start: 06-16-2022 End: 06-16-2022 ambulatory DO Wilver Easton Work Phone: [facility] Work Phone: Start: 06-16-2022 End: 06-16-2022 Patient encounter procedure DO Wilver Easton Work Phone: [facility] Start: 05-20-2022 End: 05-20-2022 Lab Drop off SHANEL QUINTERO [facility] Start: 05-20-2022 End: 05-20-2022 Patient encounter procedure SHANEL QUINTERO [facility] Start: 02-22-2022 End: 02-22-2022 Patient encounter procedure Justin Piña Jr. [facility] Start: 01-25-2022 End: 01-25-2022 Patient encounter procedure Justin Piña Jr. [facility] Start: 01-05-2022 End: 01-05-2022 Patient encounter procedure Justin Piña Jr. [facility] Start: 06-02-2021 End: 06-02-2021 ambulatory Surya Rodríguez Other [facility] Other Start: 06-02-2021 Office outpatient vi sit 15 minutes Surya Rodríguez [facility] Start: 05-19-2021 End: 05-19-2021 ambulatory Yumi Matute Other [facility] [employer] Other Start: 05-19-2021 Office outpatient vi sit 15 minutes Yumira Matute [facility] Start: 04-09-2021 Office outpatient ne w 30 minutes Surya Rodríguez [facility] Procedures Date Procedure Procedure Detail Performing Clinician Start: 09-05-2023 Adult depression scr eening assessment Latesha Sandra MIDDLE STITCHER[employer] SERVICER Work Phone: Start: 06-29-2023 Adult depression scr [...] Td Vaccines (2 - Td or Tdap) [facility] Start: 09-05-2024 Tobacco Screening Tobacco Screening [facility] Start: 06-29-2024 Adult BMI Screening Adult BMI Screening [facility] Start: 06-29-2024 Depression Screening Depression Screening [facility] Start: 06-29-2024 Fall Risk Screening Fall Risk Screening [facility] Start: 06-29-2024 Tobacco Screening Tobacco Screening [facility] Start: 01-10-2024 End: 01-10-2024 Patient encounter procedure 01/10/2024 10:50 AM EDT Office Visit [facility] [address] [place] [address] [facility] Start: 12-29-2023 Medicare Annual Wellness Visit Medicare Annual Wellness Visit [facility] Start: 08-23-2023 Administration of varicella zoster vaccine Zoster (Shingles) Vaccine (2 of 2) [facility] Start: 03-18-2023 COVID-19 Vaccine ( season) COVID-19 Vaccine ( season) [facility] Start: 09-19-1963 Adult BMI Follow Up Plan Adult BMI Follow Up Plan [facility] Immunizations Immunization Date Immunization Notes Care Provider Cally post 06-28-2023 zoster vaccine, unspecified formulation Wilver Easton DO Work Phone: [facility] 04-09-2023 Influenza Vaccine, Quadrivalent, Adjuvanted Wilver Easton DO Work Phone: [facility] 06-15-2022 influenza virus vacc ine, unspecified formulation SHANEL QUINTERO [facility] [place] [address]-29-2022 Influenza, High-dose , Quadrivalent Wilver Easton DO Work Phone: [facility] 05-13-2021 influenza virus vacc ine, unspecified formulation SHANEL QUINTERO [facility] 05-13-2021 influenza, injectabl e, quadrivalent, contains preservative Wilver Easton DO Work Phone: [facility] [facility] 05-13-2021 SARS-CoV-2 (COVID-19 ) mRNA BNT-162b2 vax SHANEL QUINTERO [facility] 05-04-2021 influenza virus vacc ine, unspecified formulation SHANEL QUINTERO [facility] 05-04-2021 Influenza, High-dose , Quadrivalent Wilver Easton DO Work Phone: [facility] 05-04-2021 SARS-CoV-2 (COVID-19 ) mRNA BNT-162b2 vax SHANELGENARO QUINTERO [facility] 11-06-2020 SARS-CoV-2 (COVID-19 ) mRNA-1273 vaccine Justin Wang West[place]. [facility] 10-09-2020 SARS-CoV-2 (COVID-19 ) mRNA-1273 vaccine Justin Piña Jr. [facility] 10-08-2020 SARS-CoV-2 (COVID-19 ) mRNA BNT-162b2 vax SHANEL INGRID [facility] 09-19-2020 SARS-CoV-2 (COVID-19 ) mRNA BNT-162b2 vax SHANEL QUINTERO [facility] 05-18-2020 influenza virus vacc ine, unspecified formulation Justin Piña Jr. [facility] 05-17-2020 influenza virus vacc ine, unspecified formulation SHANEL INGRID [facility] 05-17-2020 influenza, high dose seasonal, preservative-free Wilver Yuhas DO Work Phone: [facility] 05-08-2019 influenza virus vacc ine, unspecified formulation SHANEL INGRID [facility] 05-08-2019 influenza, injectabl e, quadrivalent, contains preservative Wilver Yuhas DO Work Phone: [facility] 04-24-2018 influenza virus vacc ine, unspecified formulation SHANEL INGRID [facility] [facility] 04-24-2018 influenza, high dose seasonal, preservative-free Wilver Yuhas DO Work Phone: [facility] 06-01-2017 influenza virus vacc ine, unspecified formulation SHANEL INGRID [facility] 06-01-2017 influenza, injectabl e, quadrivalent, contains preservative Wilver Yuhas DO Work Phone: [facility] 07-18-2016 influenza virus vacc ine, unspecified formulation SHANEL INGRID [facility] 07-18-2016 influenza, injectabl e, quadrivalent, contains preservative Wilver Yuhas DO Work Phone: [facility] 06-21-2016 tetanus toxoid, redu romy diphtheria toxoid, and acellular pertussis vaccine, adsorbed Wilver Easton DO Work Phone: [facility] 07-03-2015 pneumococcal conjuga te vaccine, 13 valent Wilver Easton DO Work Phone: [facility] 05-08-2015 influenza, seasonal, injectable, preservative free Wilver Easton DO Work Phone: [facility] 04-20-2010 pneumococcal polysaccharide vaccine, 23 valent Wilver Easton DO Work Phone: [facility] Payers Date Payer Category Payer Self-pay [id number] 2016 Unknown ALEX ANDERSEN [id number] 2016-Present [phone] [address] [place] [address] [id number] 2008 Medicare MEDICARE MEDICAR E PART A & B [id number] 2008-Present [phone] [address] [place] [address] [id number] 1959 Blue Cross Blue Shield [id number] 1959 Medicare [id number] 1943 Unknown [id number] 2.840.1.139404.3.579. 2.593 1943 Unknown [id number] 2.840.1.392869.3.579. 2.593 1943 Unknown [id number] 2.16840.1.202374.3.579. 2.593 1943 Unknown [id number] 2.16.840.1.209265.3.579. 2.1286 1943 Unknown [id number] 2.16.840.1.365576.3.579. 2.1286 1943 Unknown [id number] 2.16.840.1.025666.3.579. 2.727 1943 Unknown [id number] 2.16.840.1.172976.3.579. 2.727 1943 Unknown [id number] 2.16.840.1.179100.3.579. 2.727 1943 Unknown [id number] 2.16.840.1.831682.3.579. 2.727 1943 Unknown [id number] 2.16.840.1.190283.3.579. 2.727 1943 Unknown [id number] 2.16.840.1.641561.3.579. 2.727 1943 Unknown [id number] 2.16.840.1.305849.3.579. 2.727 1943 Unknown [id number] 2.16.840.1.707060.3.579. 2.727 1943 Unknown [id number] 2.16.840.1.498670.3.579. 2.727 Unknown [id number] 2.16.840.1.360394.3.579. 2.531 Social History Date Type Detail Facility Start: 01-05-2022 End: 11-29-2022 Tobacco smoking status Ex-smoker (finding) [employer] [employer] Other Comment on above: Quit smoking in 1997 Tobacco smoking status Never [facility] Comment on above: Quit smoking in 1997 Start: 12-28-2022 End: 09-05-2023 Sex Assigned At Male [employer] Other Start: 1945 Sex Assigned At Male F [facility] End: 07-04-1998 History of tobacco use Current smoker [facility] End: 07-04-1998 History of tobacco use [facility] Start: 06-02-2022 End: 12-28-2022 Cigarettes smoked current (pack per day) - Reported [facility] Start: 06-02-2022 Tobacco use and exposure Smoke less tobacco non-user [facility] Start: 06-29-2023 End: 09-05-2023 Alcohol intake Current drinker of alcohol (finding) [facility] Do you belong to any clubs or organizations such as rastafarian groups, unions, fraternal or athletic groups, or school groups? No [facility] Are you now , , , , never or living with a partner? [facility] How often to you hav e a drink containing alcohol? 2-3 time sa week [facility] How many standard dr inks containing alcohol do you have on a typical day? 1 or 2 [facility] How often do you hav e 6 or more drinks on 1 occasion? Never [facility] Do you feel stress - tense, restless, nervous, or anxious, or unable to sleep at night because your mind is troubled all the time - these days [OSQ] Not at all [facility] Start: 1945 Sex Assigned At Not on file P [facility] Functional Status Date Assessment Result Facility 11-29-2022 Functional Status N/A [facility] 11-01-2022 Functional Status N/A [facility] 10-19-2022 Functional Status N/A [facility] 05-20-2022 Functional Status N/A [facility] 02-22-2022 Functional Status N/A [facility] 01-25-2022 Functional Status N/A [facility] 01-05-2022 Functional Status N/A [facility] [place] Clinical Notes 04-09-2021 to 03-20-2024 Telephone Encounter - Zahida Hill - 09/05/2023 4:08 PM ESTTelephone Encounter - LARY Argueta - 09/05/2023 4:08 PM ESTTelephone Encounter - Zahida Hill - 09/05/2023 4:08 PM EST Note Date & Type Note Facility 03-20-2024 Evaluation + Plan note Diagnostic Tests PendingUroVysion Fish and Urine Cyto ([facility]) 03/20/24 [facility] 09-19-2023 Evaluation + Plan note Diagnostic Tests PendingUroVysion Fish and Urine Cyto ([facility]) 09/19/23 [facility] 09-05-2023 Miscellaneous Notes Pharmacy called to share they are unable to fill the following: min oil-w.gur-twtptieiph-kaev ointment 28 g They were unaware of any substitutions. Please advise. It is an otc drawing moriah, I was hoping they could point the patient in the right direction documented in this encounter [facility] 09-05-2023 Telephone encounter Note Pharmacy called to share they are unable to fill the following: min oil-w.lqi-xflaorecsf-dvuf ointment 28 g They were unaware of any substitutions. Please advise. [facility] 09-05-2023 Telephone encounter Note It is an otc drawing moriah, I was hoping they could point the patient in the right direction [facility] 09-05-2023 History of Presen t illness Narrative [...] cyst without infection Other orders - min oil-w.hqh-ruliljevmm-wzio ointment; Apply to affected area as directed [...] recommended at this time LARY Argueta 09/05/23 1801 documented in this encounter [facility] 06-15-2023 Evaluation note Encounter Date Diagnosis Assessment Notes May, Obstructive sleep apnea (ICD-10 - G47.33) [employer] Other 05-15-2023 Hospital Discharge instructions Patient Education [...] cells. Follow these instructions at home: Take mheu-etq-aawfdsq and prescription medicines only as told by [...] is important. Where to find more information [place] Cancer Society (ACS): cancer.org National Cancer [place] (NCI): cancer.gov Contact a health care provider [...] provider. Document Revised: 06/14/2022 Document Reviewed: 06/14/2022 [employer] Patient Education 2022 [employer]. Follow Up Care 11/09/2022 09:22:18 With:SANTY LYLES, Ariel Villanueva, URL Address: [facility] [address], [place] [address]- [phone] When: Unknown [facility] 04-27-2023 NoteEXAMINATION: XR CHEST 2 V HISTORY: [...] Electronically authenticated by: JUDITH BARONE Date: 2022-11-11 11:30[facility]04-25-2023 Evaluation + Plan noteExtracted from: Title:Urology [...] Appointments Appointment Date:11/24/2022 08:00:00 AM Scheduled Provider: Location:[facility] [place] Appointment Type:URO Nurse Visit Appointment Date:11/29/2022 09:30:00 AM Scheduled Provider:[facility] Type:[facility]O Office Visit Appointment Date:04/29/2023 08:00:00 AM Scheduled Provider:Ariel SMALLWOOD MD [facility] Type:URO Office Visit [facility]04-25-2023 Hospital Discharge instructions Patient Education 11/09/2022 [...] Address: [facility] [address] [place] [address]- Business (1) When: Unknown Comments:Office will call to schedule follow up [facility]04-17-2023 Hospital Discharge instructions Patient Education 11/01/2022 [...] urethra. Follow these instructions at home: Take kqmz-izi-whxbzcu and prescription medicines only as told by [...] 07/04/2006 Document Revised: 05/29/2019 Document Reviewed: 08/08/2017 [employer] Patient Education 2020 [employer]. Follow Up Care 10/22/2022 12:18:44 With:SANTY LYLES, Ariel Villanueva, URL Address: [facility] [address] [place] [address]- When: Unknown [facility] 04-04-2023 Hospital Discharge instructions Patient Education 10/19/2022 [...] urethra. Follow these instructions at home: Take dmei-dxp-yfethej and prescription medicines only as told by [...] 07/04/2006 Document Revised: 05/29/2019 Document Reviewed: 08/08/2017 [employer] Patient Education 2020 [employer]. Follow Up Care 05/17/2022 11:04:11 With:SHANEL QUINTERO PA-C, URL Address: [address] [place] [address] When: Unknown [facility] 04-04-2023 Evaluation + Plan note Diagnostic Tests Pending * Urine Culture 10/19/22 [facility]11-03[facility]2022 Hospital Discharge instructions Patient Education 05/20/2022 [...] Follow these instructions at home: Medicines Take lufr-sas-mkrvmnt and prescription medicines only as told by [...] or the blood stops without treatment. Take gcnq-bal-ashmwaj and prescription medicines only as told by your health care provider. Drink enough fluid to keep your urine clear or pale yellow. This information is not intended to replace advice given to you by your health care provider. Make sure you discuss any questions you have with your health care provider. Document Released: 07/04/2006 Document Revised: 11/28/2019 Document Reviewed: 08/06/2017 [employer] Patient Education 2019 [employer]. Follow Up Care 05/20/2022 08:09:37 With:INGRID GONZALEZ, SHANEL Alberts, URL Address: [address] [place] [address] When: Unknown [facility] [place] 08-08-2022 Hospital Discharge instructions Patient Education [...] urethra. Follow these instructions at home: Take usjn-vzd-urtigcv and prescription medicines only as told by [...] 07/04/2006 Document Revised: 05/29/2019 Document Reviewed: 08/08/2017 [employer] Patient Education 2020 [employer]. Follow Up Care 01/25/2022 15:19:30 With:Wang Barney MD, Justin Elizondo URO Address: [facility] [address], [place] [address]- When:Within 3 Month(s) Comments:w/ JOVANNA [facility] 07-11-2022 Hospital Discharge instructions Patient Education 01/25/2022 [...] 07/04/2006 Document Revised: 03/23/2019 Document Reviewed: 06/03/2017 [employer] Patient Education 2020 [employer]. 01/25/2022 15:02:39 Benign Prostatic Hyperplasia Benign Prostatic [...] urethra. Follow these instructions at home: Take qzsd-dcj-wnfvykj and prescription medicines only as told by [...] 07/04/2006 Document Revised: 05/29/2019 Document Reviewed: 08/08/2017 [employer] Patient Education 2019 [employer]. Follow Up Care 01/06/2022 13:38:25 With:Wang Barney MD, Justin Elizondo, URO Address: [phone] When:Within 3 Week(s) Comments:w/JOVANNA [facility] 06-21-2022 Hospital Discharge instructions Patient Education 01/05/2022 [...] urethra. Follow these instructions at home: Take tldy-vpm-wgsgzds and prescription medicines only as told by [...] 07/04/2006 Document Revised: 05/29/2019 Document Reviewed: 08/08/2017 [employer] Patient Education [employer] [facility] Follow Up Care 01/01/2021 08:41:05 With:Wang Barney MD, Justin Elizondo URO Address: [facility] [address], [place] [phone] When: Unknown [facility] 11-16-2021 Evaluation note* Encounter Date Diagnosis Assessment [...] obvious signs of neurogenic claudication at present [employer] Other 11-02-2021 Evaluation note* Encounter Date Diagnosis [...] benefit. A prescription was sent to the [facility] for new supplies throughout the year. He [...] in a timely fashion. 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) [employer] Other evaluation + Plan note No data available for this section [facility] evaluation + Plan note Future Appointments Appointment Date:02/22/2022 08:00:00 AM Scheduled Provider:Justin Piña Jr., MD Location:[facility] Appointment Type:URO Office Visit [facility] Evaluation + Plan note Future Appointments Appointment Date:06/07/2022 08:45:00 AM Scheduled Provider:Justin Piña Jr., MD Location:[facility] Appointment Type:URO Office Visit [facility] Evaluation + Plan note Future Appointments Appointment Date:08/24/2022 08:30:00 AM Scheduled Provider:SHANEL QUINTERO PA-C Location:[facility] Appointment Type:URO Office Visit [facility] evaluation + Plan note Future Appointments Appointment Date:08/24/2022 08:30:00 AM Scheduled Provider:SHANEL QUINTERO PA-C Location:[facility] Appointment Type:URO Office Visit Diagnostic Tests Pending * Urine [facility] Future Appointments Appointment Date:04/29/2023 08:00:00 AM Scheduled Provider:Ariel SMALLWOOD MD Location:[facility] Appointment Type:URO Office Visit [facility] evaluation + Plan note Future Appointments Appointment Date:11/24/2022 08:00:00 AM Scheduled Provider: Location:[facility] Appointment Type:URO Nurse Visit Appointment Date:11/29/2022 09:30:00 AM Scheduled Provider:Ariel SMALLWOOD MD Location:[facility] Appointment Type:URO Office Visit Appointment Date:04/29/2023 08:00:00 AM Scheduled Provider:Ariel SMALLWOOD MD Location:[facility] Appointment Type:URO Office Visit [facility] Evaluation + Plan note Future Appointments Appointment Date:11/29/2022 09:30:00 AM Scheduled Provider:Ariel SMALLWOOD MD Location:[facility] Appointment Type:URO Office Visit Appointment Date:04/29/2023 08:00:00 AM Scheduled Provider:Ariel SMALLWOOD MD Location:[facility] Appointment Type:URO Office Visit [facility] evaluation + Plan note Future Appointments Appointment Date:04/29/2023 08:00:00 AM Scheduled Provider:Ariel SMALLWOOD MD Location:[facility] Appointment Type:URO Office Visit Diagnostic Tests Pending * UroVysion Fish and Urine Cyto ([facility]) [facility]14/23 [facility] information available [facility] Work Phone: evaluation note* Diagnosis Hyperlipidemia, unspecified [...] History back surgery Hospitalization History See Above [facility] Other Hospital Discharge instructions No data available for this section [facility] filedocumented in this encounter [facility] filed[facility] in this encounter [facility]Not on filedocumented in this encounter [facility] No data available for this section [facility] Summary Purpose Family History No Family History [...] Radiculopathy, lumba r region (M54.16) Referral Organization [facility] uros[facility]gery Referring Provider First Name Surya Referring Provider Last Name Marcos Referring Provider Specialty Neurologica l Surgery Referred Organization [facility] Referred Provider Jr. Frankel William Referred Address [address],[place],[address] Referred Provider Specialty Pain Medicin e Referral [...] CREATED AUTHOR AUTHOR'S ORGANIZ ATION 11/26/2022 [facility] DATE CREATED AUTHOR AUTHOR'S ORGANIZ ATION 06/18/2023 [facility] DATE CREATED AUTHOR AUTHOR'S ORGANIZ ATION 01/12/2024 [facility] DATE CREATED AUTHOR AUTHOR'S ORGANIZ ATION 03/26/[address] 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 [employer] [facility]. provides no warranty or guarantee of the accuracy or completeness of information in this document.
== END 2024-03-26 07:34 | disposition home or self-care (01) ==
LOC: PST 07:33
PROVIDERS: PCP Internal Medicine; Visit Provider Urology
DX: Z01.818 Encounter for other preprocedural examination (principal); Z85.51 Personal history of malignant neoplasm of bladder; I48.91 Unspecified atrial fibrillation; I10 Essential (primary) hypertension; E78.5 Hyperlipidemia, unspecified

== ENCOUNTER 2024-09-17 07:30 | Day surgery (SDC) | payer MEDICARE, BC, SELFPAY ==
--- OUTSIDE RECORDS SUMMARY | 2024-09-17 07:34 | XMS_ITS | CCD ---
Author Organization [facility] ion [facility] Care Team Providers Care Bioanalyst Name Role Phone SONJA EASTON Primary Care Physician Unavailab Surya Monae Unavailable Yumi Matute Unavailable DO Wilver Easton Primary Care Provider [phone] JAYDEN Tatum Attending Provider SMALLWOOD ., DR NOLASCO Consulting Unavailable SMALLWOOD ., DR NOLASCO Attending Unavailable SMALLWOOD ., DR NOLASCO Admitting Unavailable YUMELVIN, DR PETTIT Primary Care Unavailable LIZABETH, DR JUDITH Villanueva Consulting Unavailable ZOEY GUERRA Consulting Unavailable SMALLWOOD ., DR NOLASCO Consulting Unavailable SMALLWOOD ., DR NOLASCO Attending Unavailable SMALLWOOD ., DR NOLASCO Admitting Unavailable JEMMA, DR PETTIT Primary Care Unavailable PRASANNA MACKEY Consulting Unavailable ADAMARIS BARAJAS Consulting Unavailable SMALLWOOD ., DR NOLASCO Consulting Unavailable SMALLWOOD ., DR NOLASCO Attending Unavailable YUMELVIN, DR PETTIT Primary Care Unavailable SMALLWOOD ., DR NOLASCO Admitting Unavailable LIZABETH, DR JUIDTH Villanueva Consulting Unavailable DO Wilver Easton Primary Care Provider JAYDEN Tatum Attending Provider [phone] Yessica Tatum Unavailable Yessica Tatum Attending Unavailable Yessica Tatum Admitting Unavailable Wilver Easton Primary Care Unavailable Wilver Easton DO Primary Care Provider Constance SMALLWOOD Attending Unavailable SANTY, Constance Villanueva Attending Unavailable SANTY, Constance Villanueva Attending Unavailable SMALLWOOD, Constance Villanueva Attending Unavailable SMALLWOOD, Constance Villanueva Attending Unavailable SMALLWOOD, Constance Villanueva Admitting Unavailable SMALLWOOD, Constance Villanueva Admitting Unavailable Constance SMALLWOOD Attending Unavailable WILVER EASTON Referring Unavailable YUHAS, WILVER Elizondo Primary Care Unavailable YUHAS, WILVER Elizondo Attending Unavailable YUHAS, WILVER L Referring Unavailable YUHAS, WILVER L Primary Care Unavailable YUHAS, WILVER L Attending Unavailable YUHAS, WILVER L Referring Unavailable YUHAS, WILVER L Primary Care Unavailable VERHOFFANDREA Attending Unavailable YUHAS, WILVER L Referring Unavailable YUHAS, WILVER L Primary Care Unavailable VERHOANDREA STRICKLAND Attending Unavailable VERHOANDREA STRICKLAND Referring Unavailable YUHAS, WILVER Elizondo Primary Care Unavailable NIENBERGBUD Attending Unavailable YUHAS, WILVER Elizondo Referring Unavailable YUHAS, WILVER Elizondo Primary Care Unavailable AMAURI FRANKEL Attending Unavailable AMAURI FRANKEL Referring Unavailable YUHAS, WILVER Elizondo Primary Care Unavailable AMAURI FRANKEL Admitting Unavailable AMAURI FRANKEL Attending Unavailable YUHAS, WILVER Elizondo Referring Unavailable YUHAS, WILVER Elizondo Primary Care Unavailable NIENBERGBUD Attending Unavailable YUHAS, WILVER Elizondo Referring Unavailable YUHAS, WILVER Elizondo Primary Care Unavailable Constance SMALLWOOD Attending Unavailable Constance SMALLWOOD Attending Unavailable Constance SMALLWOOD Admitting Unavailable Constance SMALLWOOD Attending Unavailable Allergies Allergy Classification Reported Allergen(s) Allergy Type Date of Onset Reaction(s) Facility (2 sources) No Known Medication Allergies; Translations: [No Known Medication Allergies] Propensity to adverse reactions (disorder) [facility] Repository Medications Current Medications Medication Drug Class(es) Dates Sig (Normalized) Sig (Original) apixaban 5 mg oral tablet (20 sources) Factor Xa Inhibitor Start: 05-03-2023 End: 04-30-2024 take 1 tablet by mouth twice daily ELIQUIS 5 mg tablet Indications: Paroxysmal atrial fibrillation ([facility]) take 1 tablet by mouth twice daily 180 tablet 1 04/30/2024 Active Start: 01-05-2022 take 1 tablet by steve twice daily Eliquis 2.5 mg oral tablet 2.5 mg = 1 tab(s), Oral, BID, Refills(s) 0 Start Date: 01/05/22 Status: Ordered aspirin 81 mg oral tablet (1 source) Platelet Aggregation Inhibitor, Nonsteroidal Anti-inflammatory Drug Start: 12-31-2019 aspirin 81 mg oral tablet Refills(s) 0 Start Date: 12/31/19 Status: Ordered atorvastatin 40 mg oral tablet (20 sources) HMG-CoA Reductase Inhibitor Start: 08-13-2024 take 1 tablet by mouth once daily in the morning atorvastatin (LIPITOR) 40 mg tablet Indications: Hyperlipidemia, unspecified Take 1 tablet (40 mg total) by mouth every morning. 90 tablet 1 08/13/2024 Active Start: 12-31-2019 End: 06-13-2024 take 1 tablet by mouth once daily in the morning atorvastatin (LIPITOR) 40 mg tablet Indications: Hyperlipidemia, unspecified Take 1 tablet (40 mg total) by mouth every morning. 90 tablet 1 08/13/2024 Active cephalexin 500 mg oral capsule (2 sources) Cephalosporin Antibacterial Start: 05-20-2022 take 1 capsule by mouth twice daily Keflex 500 mg Cap 500 mg = 1 cap(s), Oral, BID, # 14 cap(s), Refills(s) 0, Pharmacy: [facility], 180, cm, 05/20/22 11:15:00 EDT, Height/Length Dosing, 109, kg, 05/20/22 11:15:00 EDT, Weight Dosing Start Date: 05/20/22 Status: Ordered cholecalciferol 0.025 mg oral tablet (17 sources) Vitamin D take 1 tablet by mouth in the morning cholecalciferol (VITAMIN D3) 1,000 units tablet Take 1 tablet (1,000 Units total) by mouth in the morning. Active doxycycline hyclate 100 mg oral capsule (1 source) Tetracycline-class Drug Start: 01-05-2022 take 1 capsule by mouth once daily doxycycline hyclate 100 mg Cap 100 mg = 1 cap(s), Oral, Daily, Take 1 day before procedure and after procedure, # 2 cap(s), Refills(s) 0, Pharmacy: [facility], 180, cm, 01/05/22 8:41:00 EDT, Height/Length Dosing, 109, kg, 01/05/22 8:41:00 EDT, Weight Dosing Start Date: 01/05/22 Status: Ordered dutasteride 0.5 mg oral capsule (20 sources) 5-alpha Reductase Inhibitor Start: 11-05-2022 take 1 capsule by mouth once daily dutasteride (AVODART) 0.5 mg capsule TAKE 1 CAPSULE BY MOUTH DAILY 05/03/2023 Active ezetimibe 10 mg oral tablet (20 sources) Dietary Cholesterol Absorption Inhibitor Start: 08-19-2022 End: 07-02-2024 take 1 tablet by mouth once daily ezetimibe (ZETIA) 10 mg tablet Indications: Hyperlipidemia, unspecified TAKE 1 TABLET BY MOUTH DAILY 90 tablet 1 07/02/2024 Active Magnesium Aspartate (5 sources) Start: 12-31-2019 magnesium aspartate Refills(s) 0 Start Date: 12/31/19 Status: Ordered 24 hr metoprolol succinate 50 mg extended release oral tablet (20 sources) beta-Adrenergic Deven Start: 02-22-2023 End: 02-02-2024 take 0.5 tablet by mouth once daily in the morning metoprolol succinate XL (TOPROL XL) 50 mg 24 hr tablet Indications: Paroxysmal atrial fibrillation (CMS-HCC) TAKE 1/2 (ONE-HALF) OF A TABLET BY MOUTH EVERY MORNING 90 tablet 1 02/02/2024 Active Start: 08-19-2022 metoprolol suc cinate ER 50 mg tablet,extended release 24 hr metoprolol succinate ER 50 mg tablet,extended release 24 hr Start Date: 08/19/22 Status: Ordered Start: 12-31-2019 metoprolol 50 mg ER Tab Refills(s) 0 Start Date: 12/31/19 Status: Ordered Metoprolol Tartr ate Active min oil-w.tkv-vyzknbbbaj-kil p ointment (14 sources) Start: 09-05-2023 min oil-w.pet- ichthammol-soap ointment Apply to affected area as directed 28 g 09/05/2023 Active Start: 09-05-2023 min oil-w.pet- ichthammol-soap ointment Apply to affected area as directed 28 g 0 09/05/2023 Active rivaroxaban 20 mg oral tablet (3 sources) Factor Xa Inhibitor Start: 12-31-2019 Xarelto 20 mg oral tablet Refills(s) 0 Start Date: 12/31/19 Status: Ordered tamsulosin hydrochloride 0.4 mg oral capsule (20 sources) alpha-Adrenergic Deven Start: 12-28-2022 take 1 capsule by mouth at bedtime tamsulosin (FLOMAX) 0.4 mg capsule Indications: Benign prostatic hyperplasia with urinary frequency Take 1 capsule (0.4 mg total) by mouth in the morning and at bedtime. 180 capsule 12/28/2022 Active Start: 05-20-2022 End: 02-14-2023 take 1 capsule by mouth once daily tamsulosin 0.4 mg Cap 0.4 mg = 1 cap(s), Oral, Daily, X 90 day(s), # 90 cap(s), Refills(s) 3, Pharmacy: [facility], 180, cm, 05/20/22 11:15:00 EDT, Height/Length Dosing, 109, kg, 05/20/22 11:15:00 EDT, Weight Dosing Start Date: 05/20/22 Stop Date: 02/14/23 Status: Ordered Start: 01-05-2022 take 1 capsule by [facility] twice daily tamsulosin 0.4 mg Cap 0.4 mg = 1 cap(s), Oral, BID, # 60 cap(s), Refills(s) 2, Pharmacy: [facility], 180, cm, 01/05/22 8:41:00 EDT, Height/Length Dosing, 109, kg, 01/05/22 8:41:00 EDT, Weight Dosing Start Date: 01/05/22 Status: Ordered Completed/Discontinued Medications Medication Drug Class(es) Dates Sig (Normalized) Sig (Original) ciprofloxacin 250 mg oral tablet (14 sources) Quinolone Antimicrobial Start: 08-24-2024 take 1 tablet by mouth once daily Cipro 250 mg Tab 250 mg = 1 tab(s), Oral, Daily, Take 1 tablet the day before the procedure and 1 tablet after the procedure, # 2 tab(s), Refills(s) 0, Pharmacy: [facility], 180, cm, 11/29/22 11:36:00 EDT, Height/Length Dosing, 103, kg, 11/29/22 11:36:00 EDT, Weight Dosing Start Date: 08/24/24 Status: Ordered Start: 01-31-2023 take 1 tablet by [facility] once daily Cipro 500 mg Tab 500 mg = 1 tab(s), Oral, Daily, Take 1 tablet the day before the procedure and 1 tablet after the procedure, # 6 tab(s), Refills(s) 0, Pharmacy: [facility], 180, cm, 11/29/22 11:36:00 EDT, Height/Length Dosing, 103, kg, 11/29/22 11:36:00 EDT, Weight Dosing Start Date: 01/31/23 Status: Ordered Start: 11-05-2022 take 1 tablet by steve th once daily Cipro 500 mg Tab 500 mg = 1 tab(s), Oral, Daily, Take 1 tablet the day before the procedure and 1 tablet after the procedure, # 2 tab(s), Refills(s) 0, Pharmacy: [facility], 180, cm, 11/01/22 9:50:00 EDT, Height/Length Dosing, 103, kg, 11/01/22 9:50:00... Start Date: 11/05/22 Status: Ordered Start: 02-22-2022 take 1 tablet by steve th every twelve hours Cipro 500 mg Tab 500 mg = 1 tab(s), Oral, q12hr, # 14 tab(s), Refills(s) 0, Pharmacy: [facility], 180, cm, 02/22/22 8:31:00 EDT, Height/Length Dosing, 109, kg, 02/22/22 8:31:00 EDT, Weight Dosing Start Date: 02/22/22 Status: Ordered Problems Active Problems Problem Classification Problem Date Documented Date Episodic/Chronic Cancer of bladder (20 sources) Malignant neoplasm of bladder, unspecified; Translations: [...] hyperplasia with lower urinary tract symptoms] Onset: 06-21-2022 Chronic Neoplasms of unspecified nature or uncertain behavior (4 sources) Neoplasm of unspecified behavior of bladder; Translations: [Neoplasm of uncertain behavior of bladder] Onset: 11-15-2022 Episodic Osteoarthritis (6 sources) Arthropathy of right hip joint; Translations: [Unilateral primary osteoarthritis, right hip] Onset: 04-09-2021 Resolved: 06-02-2021 Chronic Other aftercare (4 sources) Long-term current use of anticoagulant; Translations: [longterm (current) use of anticoagulants] Onset: 02-22-2022 Episodic Other aftercare (1 source) 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; Translations: [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] Onset: 11-25-2022 Episodic Other [...] Chronic Other nutritional; endocrine; and metabolic disorders (17 sources) Obesity; Translations: [Obesity, unspecified] Onset: 06-02-2022 06-02-2022 Chronic Residual codes; unclassified (20 sources) Obstructive sleep apnea syndrome; Translations: [Obstructive sleep apnea (adult) (pediatric)] Onset: 06-02-2022 06-02-2022 Chronic Residual codes; unclassified (3 sources) Obstructive sleep apnea (adult) (pediatric); Translations: [Obstructive sleep apnea (adult) (pediatric)] Onset: 05-19-2021 Resolved: 05-19-2021 Chronic Residual codes; unclassified (1 source) Obstructive sleep apnea (adult)(pediatric); Translations: [Obstructive sleep apnea (adult) (pediatric)] Onset: 06-15-2023 Chronic Screening and history of mental health and substance abuse codes (16 sources) H/O: Disorder; Translations: [Personal history of nicotine dependence] Onset: 11-01-2022 Episodic Spondylosis; intervertebral disc disorders; other back problems (20 sources) Herniation of nucleus pulposus of lumbar intervertebral disc; Translations: [Other intervertebral disc displacement, lumbar region] Onset: 06-18-2021 08-27-2021 Chronic Spondylosis; intervertebral disc disorders; other back problems (20 sources) Lumbar radiculopathy; Translations: [Radiculopathy, lumbar region] Onset: 05-23-2020 Resolved: 06-02-2021 Episodic Unclassified (20 sources) Asymptomatic microscopic hematuria 01-05-2022 Unclassified (19 sources) Drug therapy finding 02-22-2022 Unclassified (1 source) MAW Onset: 01-10-2024 Unclassified (1 source) Spinal stenosis of lumbar region with neurogenic claudication [M48.062] Onset: 08-24-2024 Urinary tract infections (20 sources) Acute cystitis; Translations: [Acute cystitis without hematuria] Onset: 02-22-2022 Episodic Past or Other Problems Problem Classification Problem Date Documented Date Episodic/Chronic Malaise and fatigue (2 sources) Fatigue; Translations: [Other fatigue] Onset: 02-09-2024 02-09-2024 Episodic Mood disorders (17 sources) Mood disorders Onset: 02-09-2024 Resolved: 09-04-2024 02-09-2024 Other and unspecified benign neoplasm (17 sources) History of polyp of colon; Translations: [Hx of colonic polyp] Onset: 09-02-2017 09-02-2017 Episodic Other and unspecified benign neoplasm (17 sources) Polyp of transverse colon; Translations: [Polyp of colon] Onset: 09-14-2017 09-14-2017 Episodic Peripheral and visceral atherosclerosis (17 sources) Atherosclerosis of [place] arteries of extremities with intermittent claudication, left leg; Translations: [Atherosclerosis of [place] arteries of the extremities with intermittent claudication] Onset: 11-16-2022 Resolved: 11-16-2022 11-16-2022 Chronic Skin and subcutaneous tissue infections (1 source) Pilonidal cyst; Translations: [Pilonidal cyst without abscess] 09-05-2023 Episodic Results Test Name Value Interpretation Reference Range Facility Urine Cytology ([facility])on 09-14-2024 Microscopic exam Cytology (U) [Interp] Diagnosis Info Invalid Interpretation Code [facility] Comment on above: Result Comment: A:Ur ine,Urine:Voided Interpretation - Negative for dysplastic cells or malignancy. Reactive urothelial cells present. Adequate cellularity for evaluation. MicroScopic Description - Adequacy - Adequate Gross Description Site ID:A color Dark Yellow fixative Alcohol Specimen designated Urine received in alcohol preservative and labeled with the patient???s name, consists of 60ml clear dark yellow fluid. Electronically signed by : on: 09/14/2024 10:26:29 Performed By: #### 1 [id number] #### [facility] [address] [place] [address] Urine Cytology ([facility])on 09-10-2024 UC Method of Extraction Voided Normal [facility] Comment on above: Performed By: #### 1 [id number] #### [facility] [address] [place] [address] Number of Jars 1 Invalid Interpretation Code [facility] Comment on above: Performed By: #### 1 [id number] #### [facility] [address] [place] [address] Specimen Urine Normal [facility] Comment on above: Performed By: #### 1 [id number] #### [facility] [address] [place] [address] Type of Service Technical Only Normal Fi [facility] Comment on above: Performed By: #### 1 [id number] #### [facility] [address] [place] [address] Reminderson 08-14-2024 Reminders Reminders - From: Saida Rodriguez To: EU - Recalls Smallwood; Sent: 08/14/2024 11:49:46 EST Show up: 12/16/2024 11:49:00 EDT Subject: cysto/fish/cytol, 6 mo Due Date/Time: 02/11/2025 11:49:00 EDT Reminder/Recall Patient is due in Mar 2025 for 6 month cysto/fish/cytol, bt ck Normal [facility] Reminders Reminders - From: Saida Rodriguez To: EU - Recalls Smallwood; Sent: 01/31/2024 12:43:15 EDT Show up: 07/18/2024 12:43:00 EST Subject: cysto/fish/cytol Due Date/Time: 08/06/2024 12:43:00 EST Reminder/Recall Patient si due in september 2024 for 6 month cysto/fish/cytol (bt ck) Spoke to triston villegas for 09/17/24 at [facility].LG Normal [facility] MR LUMBAR SPINE WO CONTon MR LUMBAR SPINE WO CONT MR LUMBAR SPINE WO CONT EXAM: MRI LUMBAR SPINE WITHOUT CONTRAST CLINICAL HISTORY: Pain and weakness. Low back pain and lumbar radiculopathy. TECHNIQUE: Routine unenhanced MRI of the lumbar spine was obtained. COMPARISONS: None. FINDINGS: The lumbar spine maintains a normal lordotic curvature. There is chronic grade 1 degenerative anterolisthesis of L4 on L5, and chronic mild degenerative retrolisthesis of L3 on L4 and L5 on S1. There is very minimal chronic degenerative retrolisthesis of L1 on L2 and L2 on L3. There is a chronic mild compression deformity involving the T12 vertebral body. The lumbar vertebral body heights are normal. There is localized severe loss of the L4-5 disc space height with degenerative endplate irregularity and fatty marrow replacement. There is a focal degenerative endplate Schmorl's node at the superior endplate of L2. There are no discrete worrisome bone marrow signal abnormalities. There are no signal abnormalities of the visualized distal spinal cord. The conus is normal in appearance and location, terminating at the T12-L1 level. Individual disc space levels: L1-L2: There is a broad-based disc bulge and mild facet osteoarthropathy. L2-L3: There is a broad-based disc bulge with focal moderate spinal canal stenosis. L3-L4: There is a broad-based disc bulge and severe facet osteoarthropathy with focal moderately severe spinal canal stenosis and neural foraminal stenosis for the exiting L3 nerve roots. L4-L5: There are suspected changes of previous right-sided laminectomy. There is severe facet osteoarthropathy with grade 1 degenerative anterolisthesis. There is localized severe loss of the disc space height with unroofing of a broad-based disc bulge. There is severe right and moderately severe left neural foraminal stenosis for the exiting L4 nerve roots. L5-S1: There are changes of previous right-sided laminectomy. There is severe facet osteoarthropathy and a broad-based disc bulge resulting in moderately severe neural foraminal stenosis for the exiting L5 nerve roots. IMPRESSION: 1. 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 2. At L2-L3, there is moderate spinal canal stenosis. 3. At L3-L4, there is moderately severe spinal canal stenosis and neural foraminal stenosis for the exiting L3 nerve roots. 4. At L4-L5, there are changes of right-sided laminectomy. There is severe right and moderately severe left neural foraminal stenosis for the exiting L4 nerve roots. 5. At L5-S1, there is moderately severe neural foraminal stenosis for the exiting L5 nerve roots. Finalized by Nik Nieto MD on 07/12/2024 11:34 AM Normal [facility] UroVysion Fish and Urine Cyt o ([facility])on 04-02-2024 UVFISH & UC Diagnosis Info Invalid Interpretation Code [facility] Comment on above: Result Comment: A:Ur ine,Urine:Bladder Wash Interpretation - Adequate cellularity for evaluation. Interpretation - The UroVysion FISH study detected normal copy numbers for chromosomes 3, 7, 17, and 9p21. 200 cells were analyzed in this evaluation. No evidence of aneuploidy for chromosomes 3, 7, or 17 or deletion of the 9p21 locus was found in cells present in this specimen. This test does not rule out the possibility of a low grade non-invasive papillary urothelial carcinoma. These findings should be correlated with cytology and cystoscopy results.* MicroScopic Description - MicroScopic Description - Electronically signed by : on: 04/02/2024 10:59:58 Performed By: #### 1 [id number] #### [facility] [address] [place] [address] UroVysion Fish and Urine Cyt o ([facility])on 03-20-2024 [facility] Method of Extraction Bladder Urine Normal [facility] Comment on above: Performed By: #### 1 [id number] #### [facility] [address] [place] [address] [facility] Number of Jars 1 Invalid Interpretation Code [facility] Comment on above: Performed By: #### 1 [id number] #### [facility] [address] [place] [address] [facility] Specimen Clean Catch Normal [facility] Comment on above: Performed By: #### 1 [id number] #### [facility] [address] [place] [address] [facility] Type of Service Technical Only Normal [facility] Comment on above: Performed By: #### 1 [id number] #### [facility] [address] [place] [id number] Reminderson 01-31-2024 Reminders Reminders - From: Saida Rodriguez To: EU - Recalls Smallwood; Sent: 09/23/2023 15:04:59 EST Show up: 11/16/2023 15:04:00 EDT Subject: cysto/fish/cytol (bt ck) Due Date/Time: 12/05/2023 15:04:00 EDT Reminder/Recall Patient is due in December for 3 month cysto/fish/cytol (bt ck) Patient is due in Mar 2024 for 6 month cysto/fish/cytol Spoke to pttriston for 03/26/24. He will be due in September 2024.LG Normal [facility] Patient Educationon 10-31-19 Patient Education Urology [...] including vitamins, herbs, eye drops, creams, and ntjd-xni-mzplvgq medicines. ? Any problems you or family [...] tells you to take them. ? Taking kdsh-dys-lzgmndl medicines, vitamins, herbs, and supplements. Surgery safety [...] health care (more content not included)... Normal [facility] Operative Reporton 4 Operative Report [id number] #1.00TIFF Normal [facility] UroVysion Fish and Urine Cyt o ([facility])on 09-26-2023 UVFISH & UC Diagnosis Info Invalid Interpretation Code [facility] Comment on above: Result Comment: A:Ur [...] correlated with cytology and cystoscopy results.* CPT 53740, 68047 Microscopic Notes - Microscopic Notes - Abnormal cells 9p21 deletions: Abnormal cells aneploid events: Total cells analyzed: 62 Hematuria: Gross Description Site ID:A color Dark Yellow fixative Alcohol Received 50 mls of slightly cloudy dark yellow fluid with the patient's name and, Urine on the vial. Electronically signed by : on: 09/26/2023 08:16:06 Performed By: #### 1 [id number] #### [facility] [address] [place] [address] UroVysion Fish and Urine Cyt o ([facility])on 09-19-2023 [facility] Method of Extraction Voided Normal [facility] Comment on above: Performed By: #### 1 [id number] #### [facility] [address] [place] [address] [facility] Number of Jars 1 Invalid Interpretation Code [facility] Comment on above: Performed By: #### 1 [id number] #### [facility] [address] [place] [address] [facility] Specimen Urine Normal [facility] Comment on above: Performed By: #### 1 [id number] #### [facility] [address] [place] [address] [facility] Type of Service Technical Only Normal [facility] Comment on above: Performed By: #### 1 [id number] #### [facility] [address] [place] [address] Consent for Procedure/Surger yon 09-08-2023 Consent for Procedure/Surgery [id number] 2#1.00TIFF Normal [facility] CBC AUTO DIFFon 11-11-2022 BASO # 0.1 103/ul Normal 0.0-0.1 [facility] Comment on above: Performed By: #### C BC #### [facility] [address] [place] [address] Dr. Valencia Lucas Basophils/100 WBC (Bld) 0.7 % Normal 0.2-2.0 [facility] Comment on above: Performed By: #### C BC #### [facility] [address] [place] [address] Dr. Valencia Lucas EO # 0.2 103/ul Normal 0.0-0.7 [facility] Comment on above: Performed By: #### C BC #### [facility] [address] [place] [address] Dr. Valencia Lucas Eosinophils/100 WBC (Bld) 3.1 % Normal 0.9-7.0 [facility] Comment on above: Performed By: #### C BC #### [facility] [address] [place] [address] Dr. Valencia Lucas Erythrocyte distribution width (RBC) [Ratio] 13.7 % Normal 11.0-15.0 [facility] Comment on above: Performed By: #### C BC #### [facility] [address] [place] [address] Dr. Valencia Lucas Hematocrit (Bld) [Volume fraction] 46.6 % Normal 42.0-54.0 [facility] Comment on above: Performed By: #### C BC #### [facility] [address] [place] [address] Dr. Valencia Lucas Hemoglobin (Bld) [Mass/Vol] 15.0 g/dL Normal 14.0-18.0 [facility] Comment on above: Performed By: #### C BC #### [facility] [address] [place] [address] Dr. Valencia Lucas IG # 0.02 10e3/ul Normal 0.00-0.03 [facility] Comment on above: Performed By: #### C BC #### [facility] [address] [place] [address] Dr. Valencia Lucas IG % 0.3 % Normal 0.0-0.5 [facility] Comment on above: Performed By: #### C BC #### [facility] [address] [place] [address] Dr. Valencia Lucas LYMPH # 1.5 103/ul Normal 1.2-3.8 [facility] Comment on above: Performed By: #### C BC #### [facility] [address] [place] [address] Dr. Valencia Lucas Lymphocytes/100 WBC (Bld) 20.6 % Normal 20.5-60.0 [facility] Comment on above: Performed By: #### C BC #### [facility] [address] [place] [address] Dr. Valencia Lucas MANUAL DIFF REQ NO Normal [facility] Comment on above: Performed By: #### C BC #### [facility] [address] [place] [address] Dr. Valencia Lucas MCH (RBC) [Entitic mass] 29.5 pg Normal 25.9-34.0 [facility] Comment on above: Performed By: #### C BC #### [facility] [address] [place] [address] Dr. Valencia Lucas MCHC (RBC) [Mass/Vol] 32.2 g/dL Normal 29.9-35.2 [facility] Comment on above: Performed By: #### C BC #### [facility] [address] [place] [address] Dr. Valencia Lucas MCV (RBC) [Entitic vol] 91.6 fL Normal 80.0-94.0 [facility] Comment on above: Performed By: #### C BC #### [facility] [address] [place] [address] Dr. Valencia Lucas MONO # 0.6 103/ul Normal 0.3-0.8 [facility] Comment on above: Performed By: #### C BC #### [facility] [address] [place] [address] Dr. Valencia Lucas Monocytes/100 WBC (Bld) 8.1 % Normal 1.7-12.0 [facility] Comment on above: Performed By: #### C BC #### [facility] [address] [place] [address] Dr. Valencia Lucas NEUT # 4.8 103/ul Normal 1.4-6.5 [facility] Comment on above: Performed By: #### C BC #### [facility] [address] [place] [address] Dr. Valencia Lucas Neutrophils/100 WBC (Bld) 67.2 % Normal 43.0-75.0 [facility] Comment on above: Performed By: #### C BC #### [facility] [address] [place] [address] Dr. Valencia Lucas Platelet mean volume (Bld) [Entitic vol] 10.2 fL Normal 9.5-13.5 [facility] Comment on above: Performed By: #### C BC #### [facility] [address] [place] [address] Dr. Valencia Lucas PLT 196 103/ul Normal 150-450 [facility] Comment on above: Performed By: #### C BC #### [facility] [address] [place] [address] Dr. Valencia Lucas RBC 5.09 106/ul Normal 4.70-6.10 [facility] Comment on above: Performed By: #### C BC #### [facility] [address] [place] [address] Dr. Valencia Lucas WBC 7.1 103/ul Normal 4.0-11.0 [facility] Comment on above: Performed By: #### C BC #### [facility] [address] [address] [address] Valencia Lucas PROF CHEM 8 (BAS METB)on Anion gap [Moles/Vol] 10.8 mmol/L Normal [facility] Comment on above: Performed By: #### B MP #### [facility] [address] [address] [address] Valencia Lucas Calcium [Mass/Vol] 9.6 mg/dL Normal 8.5-10.1 [facility] Comment on above: Performed By: #### B MP #### [facility] [address] [address] [address] Valencia Lucas Chloride [Moles/Vol] 105 mmol/L Normal 98-107 [facility] Comment on above: Performed By: #### B MP #### [facility] [address] [place] [address] Dr. Valencia Lucas CO2 [Moles/Vol] 29.4 mmol/L Normal 21.0-32.0 [facility] Comment on above: Performed By: #### B MP #### [facility] [address] [address] [address] Valencia Lucas Creatinine [Mass/Vol] 1.29 mg/dL Normal 0.70-1.30 [facility] Comment on above: Performed By: #### B MP #### [facility] [address] [place] [address] Dr. Valencia Lucas EGFR-AF ARGENTINE >60 Normal >=60 [facility] Comment on above: Performed By: #### B MP #### [facility] [address] [place] [address] Dr. Valencia Lucas EGFR-NON AF ARGENTINE 54 mL/min/1.73m2 Critically low >=60 [facility] Comment on above: Performed By: #### B MP #### [facility] [address] [place] [address] Dr. Valencia Lucas Glucose [Mass/Vol] 97 mg/dL Normal 74-106 [facility] Comment on above: Performed By: #### B MP #### [facility] [address] [place] [address] Dr. Valencia Lucas Potassium [Moles/Vol] 5.2 mmol/L Critically high 3.5-5.1 [facility] Comment on above: Performed By: #### B MP #### [facility] [address] [place] [address] Dr. Valencia Lucas Sodium [Moles/Vol] 140 mmol/L Normal 136-145 [facility] Comment on above: Performed By: #### B MP #### [facility] [address] [address] [address] Valencia Lucas Urea nitrogen [Mass/Vol] 16.0 mg/dL Normal 7.0-18.0 [facility] Comment on above: Performed By: #### B MP #### [facility] [address] [place] [address] Dr. Valencia Lucas Urea nitrogen/Creatinine [Mass ratio] 12.4 mg/mg Normal [facility] Comment on above: Performed By: #### B MP #### [facility] [address] [place] [address] Dr. Valencia Lucas PROTIMEon 11-11-2022 INR Coag (PPP) [Relative time] 1.05 {INR} Normal [facility] Comment on above: Performed By: #### P TT, PT #### [facility] [address] [place] [address] Dr. Valencia Lucas INR GUIDELINES SEE BELOW Normal [facility] Comment on above: Result Comment: ARLEEN RED INR: 2.0 - 3.0 CONDITIONS NOT LISTED BELOW 2.5 - 3.5 FOR PROSTHETIC HEART VALVE REPLACEMENT 2.5 - 3.5 RECURRENT THROMBOSIS Performed By: #### P TT, PT #### [facility] [address] [place] [address] Dr. Valencia Lucas PT Coag (PPP) [Time] 11.1 s Normal 9.0-11.6 [facility] Comment on above: Performed By: #### P TT, PT #### [facility] [address] [place] [address] Dr. Valencia Lucas PTTon 11-11-2022 aPTT Coag (Bld) [Time] 33.0 s Normal 22.3-36.2 [facility] Comment on above: Performed By: #### P TT, PT #### [facility] [address] [address] [address] Valencia Lucas US KIDNEYSon 11-03-2022 US [...] by: JUDITH BARONE Date: 2022-11-03 11:18 Normal [facility] BASIC METABOLIC PANELon 11-15 BUN/CREATININE RATIO NOT APPLICABLE Normal 6-22 [facility] Comment on above: Performed By: #### 1 005, 5363, 58253, 905 #### [facility] [address], [address] [place], [place] [id number] Satellite Installer: Alejandro Washburn MD Calcium [Mass/Vol] 10.0 mg/dL Normal 8.6-10.3 [facility] Comment on above: Result Comment: NO C OLLECTION DATE RECEIVED. WE HAVE USED THE DATE THE SPECIMEN WAS RECEIVED BY THIS LABORATORY THE COLLECTION DATE. IF THIS IS INCORRECT, PLEASE CONTACT CLIENT SERVICES. PHONE NUMBER: [phone] Performed By: #### 1 005, 5363, 11686, 905 #### [facility] [address], [address] [place] [address] Satellite Installer: Alejandro Washburn MD Chloride [Moles/Vol] 105 mmol/L Normal 98-110 [facility] Comment on above: Performed By: #### 1 005, 5363, 25965, 905 #### [facility] [address] [address] Satellite Installer: Alejandro Washburn MD CO2 [Moles/Vol] 26 mmol/L Normal 20-32 [facility] Comment on above: Performed By: #### 1 005, 5363, 13452, 905 #### [facility] [address] [address] Satellite Installer: Alejandro Washburn MD Creatinine [Mass/Vol] 1.12 mg/dL Normal 0.70-1.18 [facility] Comment on above: Result Comment: For patients >49 years of age, the reference limit for Creatinine is approximately 13% higher for people identified as -Swiss. Performed By: #### 1 005, 5363, 29203, 905 #### [facility] [place] [address] Satellite Installer: Alejandro Washburn MD eGFR NON-AFR. ARGENTINE 63 mL/min/1.73m2 Normal > OR = 60 [facility] Comment on above: Performed By: #### 1 005, 5363, 50953, 905 #### [facility] [place] [address] Satellite Installer: Alejandro Washburn MD GFR/1.73 sq M.predicted among blacks MDRD (S/P/Bld) [Vol rate/Area] 73 mL/min/{1.73_m2} Normal > OR = 60 [facility] Comment on above: Performed By: #### 1 005, 5363, 78295, 905 #### [facility] [place] [address] Satellite Installer: Alejandro Washburn MD Glucose [Mass/Vol] 82 mg/dL Normal 65-99 [facility] Comment on above: Result Comment: Fasting reference interval Performed By: #### 1 005, 5363, 40352, 905 #### [facility] [address], [address] [place] [address] Satellite Installer: Alejandro Washburn MD Potassium [Moles/Vol] 4.9 mmol/L Normal 3.5-5.3 [facility] Comment on above: Performed By: #### 1 005, 5363, 87360, 905 #### [facility] [address], [address] [place] [address] Satellite Installer: Alejandro Washburn MD Sodium [Moles/Vol] 140 mmol/L Normal 135-146 [facility] Comment on above: Performed By: #### 1 005, 5363, 42349, 905 #### [facility] [address], [address] [place] [address] Satellite Installer: Alejandro Washburn MD Urea nitrogen [Mass/Vol] 16 mg/dL Normal 7-25 [facility] Comment on above: Performed By: #### 1 005, 5363, 00743, 905 #### [facility] [address], [address] [place] [address] Satellite Installer: Alejandro Washburn MD PSA, TOTALon 11-25-2021 PSA, [...] INCORRECT, PLEASE CONTACT CLIENT SERVICES. PHONE NUMBER: [phone] Performed By: #### 1 005, 5363, 83288, 905 #### [facility] [address], [address] [place] [address] Satellite Installer: Alejandro Washburn MD TEST AUTHORIZATIONon 022 CLIENT CONTACT: KASEY Cheryl Normal [facility] Comment on above: Performed By: #### 1 005, 5363, 37162, 905 #### [facility] [place] [address] Satellite Installer: Alejandro Washburn MD COMMENT Normal [facility] Comment on above: Result Comment: Plea se have the ordering physician or his or her authorized sales representative gas service sign a copy of this report and promptly return it by faxing it to: [phone] or by returning the form to your venetian blind worker. Performed By: #### 1 005, 5363, 69475, 905 #### [facility] [place] [address] Satellite Installer: Alejandro Washburn MD REPORT ALWAYS MESSAGE SIGNATURE Normal [facility] Comment on above: Result Comment: The laboratory testing on this patient was verbally requested or confirmed by the ordering physician or his or her authorized sales representative gas service after contact with an employee of [employer]. Federal regulations require that we maintain on file written authorization for all laboratory testing. Accordingly we are asking that the ordering physician or his or her authorized sales representative gas service sign a copy of this report and promptly return it to the practice representative. Signature: Performed By: #### 1 005, 5363, 30402, 905 #### [facility] [address], [address] [place] [address] Satellite Installer: Alejandro Washburn MD TEST CODE: [id number] Normal [facility] Comment on above: Performed By: #### 1 005, 5363, 84911, 905 #### [facility] [address] [address] Satellite Installer: Alejandro Washburn MD TEST NAME: PSA, TOTAL Normal [facility] Comment on above: Performed By: #### 1 005, 5363, 14632, 905 #### [facility] [place] [address] [address] Satellite Installer: Aeljandro Washburn MD URIC ACIDon 11-25-2021 Urate [Mass/Vol] 6.6 mg/dL Normal 4.0-8.0 [facility] Comment on above: Result Comment: Ther apeutic target for gout patients: <6.0 mg/dL Performed By: #### 1 005, 5363, 41125, 905 #### [facility] [place] [address] Satellite Installer: Alejandro Washburn MD [facility] 05-19-2021 Albumin [Mass/Vol] 4.2 g/dL Normal 3.6-5.1 [facility] Comment on above: Performed By: #### 7 600, 19076 #### [facility] [place] [address] Satellite Installer: Alejandro Washburn MD Albumin/Globulin [Mass ratio] 1.5 {ratio} Normal 1.0-2.5 [facility] Comment on above: Performed By: #### 7 600, 86295 #### [facility] [place] [address] Satellite Installer: Alejandro Washburn MD ALP [Catalytic activity/Vol] 124 U/L Normal 35-144 [facility] Comment on above: Performed By: #### 7 600, 53490 #### [facility] [address] [address] Satellite Installer: Alejandro Washburn MD ALT [Catalytic activity/Vol] 25 U/L Normal 9-46 [facility] Comment on above: Performed By: #### 7 600, 84073 #### [facility] [address] [address] Satellite Installer: Alejandro Washburn MD AST [Catalytic activity/Vol] 21 U/L Normal 10-35 [facility] Comment on above: Performed By: #### 7 600, 04275 #### [facility] [address] [address] [place] [address] Satellite Installer: Alejandro Washburn MD Bilirubin [Mass/Vol] 1.3 mg/dL High 0.2-1.2 [facility] Comment on above: Performed By: #### 7 600, 63631 #### [facility] [address], [address] [place] [address] Satellite Installer: Alejandro Washburn MD Calcium [Mass/Vol] 9.6 mg/dL Normal 8.6-10.3 [facility] Comment on above: Performed By: #### 7 600, 46308 #### [facility] [address], [address] [place] [address] Satellite Installer: Alejandro Washburn MD Chloride [Moles/Vol] 102 mmol/L Normal 98-110 [facility] Comment on above: Performed By: #### 7 600, 32828 #### [facility] [address], [address] [place] [address] Satellite Installer: Alejandro Washburn MD CO2 [Moles/Vol] 29 mmol/L Normal 20-32 [facility] Comment on above: Performed By: #### 7 600, 16920 #### [facility] [place] [address] Satellite Installer: Alejandro Washburn MD Creatinine [Mass/Vol] 1.26 mg/dL High 0.70-1.18 [facility] Comment on above: Result Comment: For patients >49 years of age, the reference limit for Creatinine is approximately 13% higher for people identified as -Swiss. Performed By: #### 7 600, 10881 #### [facility] [address], [address] [place] [address] Satellite Installer: Aeljandro Washburn MD eGFR NON-AFR. ARGENTINE 55 mL/min/1.73m2 Low > OR = 60 [facility] Comment on above: Performed By: #### 7 600, 05946 #### [facility] [address], [address] [place] [address] Satellite Installer: Alejandro Washburn MD GFR/1.73 sq M.predicted among blacks MDRD (S/P/Bld) [Vol rate/Area] 63 mL/min/{1.73_m2} Normal > OR = 60 [facility] Comment on above: Performed By: #### 7 600, 46240 #### [facility] [address] [address] Satellite Installer: Alejandro Washburn MD Globulin (S) [Mass/Vol] 2.8 g/dL Normal 1.9-3.7 [facility] Comment on above: Performed By: #### 7 600, 52021 #### [facility] [address] [address] Satellite Installer: Alejandro Washburn MD Glucose [Mass/Vol] 85 mg/dL Normal 65-99 [facility] Comment on above: Result Comment: Fasting reference interval Performed By: #### 7 600, 40950 #### [facility] [address] [address] Satellite Installer: Alejandro Washburn MD Potassium [Moles/Vol] 5.1 mmol/L Normal 3.5-5.3 [facility] Comment on above: Performed By: #### 7 600, 28038 #### [facility] [place] [address] Satellite Installer: Alejandro Washburn MD Protein [Mass/Vol] 7.0 g/dL Normal 6.1-8.1 [facility] Comment on above: Performed By: #### 7 600, 59648 #### [facility] [place] [address] Satellite Installer: Alejandro Washburn MD Sodium [Moles/Vol] 138 mmol/L Normal 135-146 [facility] Comment on above: Performed By: #### 7 600, 84329 #### [facility] [place] [address] Satellite Installer: Alejandro Washburn MD Urea nitrogen [Mass/Vol] 20 mg/dL Normal 7-25 [facility] Comment on above: Performed By: #### 7 600, 35290 #### [facility] [address], [address] [place] [address] Satellite Installer: Alejandro Washburn MD Urea nitrogen/Creatinine [Mass ratio] 16 mg/mg Normal 6-22 [facility] Comment on above: Performed By: #### 7 600, 34620 #### [facility] [address], [address] [place] [address] Satellite Installer: Alejandro Washburn MD LIPID PANEL, [facility] 11-0 Cholesterol [Mass/Vol] 155 mg/dL Normal <200 [facility] Comment on above: Order Comment: FASTI NG:YES FASTING: YES Performed By: #### 7 600, 47808 #### [facility] [address], [address] [place] [address] Satellite Installer: Alejandro Washburn MD Cholesterol in HDL [Mass/Vol] 46 mg/dL Normal > OR = 40 [facility] Comment on above: Order Comment: FASTI NG:YES FASTING: YES Performed By: #### 7 600, 48247 #### [facility] [address], [address] [place] [address] Satellite Installer: Alejandro Washburn MD Cholesterol in LDL [Mass/Vol] 90 mg/dL Normal [facility] Comment on above: Order Comment: FASTI NG:YES FASTING: YES Result Comment: Refe rence range: <100 Desirable range <100 mg/dL for primary prevention; <70 mg/dL for patients with CHD or diabetic patients with > or = 2 CHD risk factors. LDL-C is now calculated using the Yusef-Sravan calculation, which is a validated novel method providing better accuracy than the Friedewald equation in the estimation of LDL-C. Yusef SS et al. GEOVANNI. 2013;310(19): 8973-2388 (http://education.[employer]/faq/MCV331) Performed By: #### 7 600, 86661 #### [facility] [address], [address] [place] [address] Satellite Installer: Alejandro Washburn MD Cholesterol.total/C holesterol in HDL [Mass ratio] 3.4 {ratio} Normal <5.0 [facility] Comment on above: Order Comment: FASTI NG:YES FASTING: YES Performed By: #### 7 600, 47564 #### [facility] [address], [address] [place] [address] Satellite Installer: Alejandro Washburn MD NON HDL CHOLESTEROL 109 mg/dL (calc) Normal <130 [facility] Comment on above: Order Comment: FASTI NG:YES FASTING: YES Result Comment: For patients with diabetes plus 1 major ASCVD risk factor, treating to a non-HDL-C goal of <100 mg/dL (LDL-C of <70 mg/dL) is considered a therapeutic option. Performed By: #### 7 600, 08399 #### [facility] [address], [address] [place] [address] Satellite Installer: Alejandro Washburn MD Triglyceride [Mass/Vol] 92 mg/dL Normal <150 [facility] Comment on above: Order Comment: FASTI NG:YES FASTING: YES Performed By: #### 7 600, 45048 #### [facility] [address], [address] [place] [address] Satellite Installer: Alejandro Washburn MD Vital Signs Date Time Vital Sign Value Performing Clinician Facility 09-11-2024 10:46-0500 Diastolic blood pressure 75 mm[Hg] Bud VANG Work Phone: [facility] 09-11-2024 10:46-0500 Heart rate 99 /min Bud VANG Work Phone: [facility] 09-11-2024 10:46-0500 Respiratory rate 20 /min Bud VANG Work Phone: [facility] 09-11-2024 10:46-0500 Systolic blood pressure 106 mm[Hg] Bud VANG Work Phone: [facility] 09-04-2024 13:29-0500 Body height 180.3 cm Wilver Easton DO Work Phone: [facility] 09-04-2024 13:29-0500 Body mass index (BMI) [Ratio] 31.91 kg/m2 Wilver Easton DO Work Phone: [facility] [address] 09-04-2024 13:29-0500 Body temperature 97.81 [degF] Wilver Easton DO Work Phone: [facility] [address] 09-04-2024 13:29-0500 Body weight 103.78 kg Wilver Easton DO Work Phone: [facility] [address] 09-04-2024 13:29-0500 Diastolic blood pressure 68 mm[Hg] Wilver Easton DO Work Phone: [facility] [address] 09-04-2024 13:29-0500 Heart rate 81 /min Wilver Easton DO Work Phone: [facility] [address] 09-04-2024 13:29-0500 SaO2% (BldA) [Mass fraction] 98 % Wilver Easton DO Work Phone: [facility] [address] 09-04-2024 13:29-0500 Systolic blood pressure 100 mm[Hg] Wilver Easton DO Work Phone: [facility] [address] 08-02-2024 09:09-0500 Body height 180.3 cm [facility] 08-02-[facility]24 09:09-0500 Body mass index (BMI) [Ratio] 32.08 kg/m2 Bud VANG [facility] 08-02-2024 09:09-0500 Body weight 104.33 kg Bud VANG [facility] 08-02-2024 09:09-0500 Diastolic blood pressure 86 mm[Hg] Bud VANG [facility] 08-02-2024 09:09-0500 Heart rate 71 /min Bud VANG Work Phone: [facility] 08-02-2024 09:09-0500 Respiratory rate 16 /min Bud Valdivia PA Work Phone: [facility] 08-02-2024 09:09-0500 SaO2% (BldA) [Mass fraction] 92 % Bud Valdivia PA Work Phone: [facility] 08-02-2024 09:09-0500 Systolic blood pressure 115 mm[Hg] Bud Valdivia PA Work Phone: [facility] 06-20-2024 09:42-0500 Body height 180.3 cm Andrea Verhoff PA-C Work Phone: [facility] 06-20-2024 09:42-0500 Body mass index (BMI) [Ratio] 33.05 kg/m2 Andrea Verhoff PA-C Work Phone: [facility] 06-20-2024 09:42-0500 Body weight 107.5 kg Andrea Verhoff PA-C Work Phone: [facility] 06-20-2024 09:42-0500 Diastolic blood pressure 76 mm[Hg] Andrea Verhoff PA-C Work Phone: [facility] 06-20-2024 09:42-0500 Heart rate 93 /min Andrea Verhoff PA-C Work Phone: [facility] 06-20-2024 09:42-0500 Respiratory rate 18 /min Andrea Verhoff PA-C Work Phone: [facility] 06-20-2024 09:42-0500 SaO2% (BldA) [Mass fraction] 94 % Andrea Verhoff PA-C Work Phone: [facility] [facility] 06-20-2024 09:42-0500 Systolic blood pressure 125 mm[Hg] Andrea Verhoff PA-C Work Phone: [facility] 02-09-2024 09:27-0400 Body height 180.3 cm Wilver Maddens DO Work Phone: [facility] 02-09-2024 09:27-0400 Body mass index (BMI) [Ratio] 32.57 kg/m2 Wilver Méndezhas DO Work Phone: [facility] 02-09-2024 09:27-0400 Body temperature 97.39 [degF] Wilver Maddens DO Work Phone: [facility] 02-09-2024 09:27-0400 Body weight 105.92 kg Wilver Méndezhas DO Work Phone: [facility] 02-09-2024 09:27-0400 Diastolic blood pressure 62 mm[Hg] Wilver Maddens DO Work Phone: [facility] 02-09-2024 09:27-0400 Heart rate 90 /min Wilver Maddens DO Work Phone: [facility] 02-09-2024 09:27-0400 SaO2% (BldA) [Mass fraction] 94 % Wilver Méndezhas DO Work Phone: [facility] 02-09-2024 09:27-0400 Systolic blood pressure 90 mm[Hg] Wilver Maddens DO Work Phone: [facility] 01-10-2024 10:48-0400 Body height 180.3 cm Wilver Maddens DO Work Phone: [facility] 01-10-2024 10:48-0400 Body mass index (BMI) [Ratio] 33.15 kg/m2 Wilver Méndezhas DO Work Phone: [facility] 01-10-2024 10:48-0400 Body weight 107.82 kg Wilver Méndezhas DO Work Phone: [facility] 01-10-2024 10:48-0400 Diastolic blood pressure 72 mm[Hg] Wilver Méndezhas DO Work Phone: [facility] 01-10-2024 10:48-0400 Systolic blood pressure 120 mm[Hg] Wilver Easton DO Work Phone: [facility] 09-05-2023 14:50-0500 Body height 180.3 cm Latesha [employer] Work Phone: [facility] [address] 09-05-2023 14:50-0500 Body mass index (BMI) [Ratio] 32.52 kg/m2 Latesha [employer] [facility] 09-05-2023 14:50-0500 Body temperature 98.1 [degF] Latesha [employer] Work Phone: [facility] [address] 09-05-2023 14:50-0500 Body weight 105.78 kg Latesha [employer] Work Phone: [facility] [address] 09-05-2023 14:50-0500 Diastolic blood pressure 70 mm[Hg] Latesha [employer] [facility] 09-05-2023 14:50-0500 Heart rate 96 /min Latesha BARTH Work Phone: [facility] 09-05-2023 14:50-0500 SaO2% (BldA) [Mass fraction] 95 % Latesha [employer] Work Phone: [facility] [address] 09-05-2023 14:50-0500 Systolic blood pressure 112 mm[Hg] Latesha [employer] [facility] 06-15-2023 14:15-0500 Body height 180.34 cm Yessica Deepti Other [employer] Other 06-15-2023 14:15-0500 Body mass index (BMI) [Ratio] 32.91 kg/m2 Yessica Deepti Other [employer] Other 06-15-2023 14:15-0500 Body weight 107.05 kg Yessica Deepti Other [employer] Other 06-15-2023 14:15-0500 Diastolic blood pressure 89 mm[Hg] Yessica Deepti Other [employer] Other 06-15-2023 14:15-0500 SaO2% (BldA) [Mass fraction] 95 % Yessica Deepti Other [employer] Other 06-15-2023 14:15-0500 Systolic blood pressure 132 mm[Hg] Yessica Deepti Other [employer] Other 11-29-2022 11:36-0400 Diastolic blood pressure 93 mm[Hg] Constance SMALLWOOD [facility] 11-29-2022 11:36-0400 Mean blood pressure 107 mm[Hg] Constance SMALLWOOD [facility] 11-29-2022 11:36-0400 Systolic blood pressure 134 mm[Hg] Constance SMALLWOOD [facility] 11-29-2022 11:35-0400 Blood Pressure Location Constance SMALLWOOD [facility] 11-29-2022 11:35-0400 Diastolic blood pressure 113 mm[Hg] Constance SMALLWOOD [facility] 11-29-2022 11:35-0400 Heart rate 96 /min Constance SMALLWOOD [facility] 11-29-2022 11:35-0400 Systolic blood pressure 140 mm[Hg] Constance SMALLWOOD [facility] 11-01-2022 09:48-0400 Blood Pressure Location Constance SMALLWOOD [facility] 11-01-2022 09:48-0400 Diastolic blood pressure 75 mm[Hg] Constance SMALLWOOD [facility] 11-01-2022 09:48-0400 Heart rate 95 /min Constance SMALLWOOD [facility] 11-01-2022 09:48-0400 Respiratory rate 16 /min Constance SMALLWOOD [facility] 11-01-2022 09:48-0400 Systolic blood pressure 115 mm[Hg] Constance SMALLWOOD [facility] 10-19-2022 12:38-0400 Blood Pressure Location SHANELTAWANNA QUINTERO [facility] 10-19-2022 12:38-0400 Diastolic blood pressure 76 mm[Hg] SHANEL INGRID [facility] 10-19-2022 12:38-0400 Heart rate 72 /min SHANEL INGRID [facility] 10-19-2022 12:38-0400 Respiratory rate 16 /min SHANEL INGRID [facility] 10-19-2022 12:38-0400 Systolic blood pressure 132 mm[Hg] SHANEL INGRID [facility] 05-20-2022 11:12-0400 Blood Pressure Location SHANEL QUINTERO [facility] 05-20-2022 11:12-0400 Diastolic blood pressure 86 mm[Hg] SHANEL INGRID [facility] 05-20-2022 11:12-0400 Heart rate 71 /min SHANEL INGRID [facility] 05-20-2022 11:12-0400 Respiratory rate 16 /min SHANEL INGRID [facility] 05-20-2022 11:12-0400 Systolic blood pressure 127 mm[Hg] SHANEL INGRID [facility] 02-22-2022 08:23-0400 Blood Pressure Location Justin Piña Jr. [facility] 02-22-2022 08:23-0400 Diastolic blood pressure 75 mm[Hg] Justin Piña Jr. [facility] 02-22-2022 08:23-0400 Heart rate 68 /min Justin Piña Jr. [facility] 02-22-2022 08:23-0400 Systolic blood pressure 128 mm[Hg] Justin Piña Jr. [facility] 01-25-2022 14:52-0400 Blood Pressure Location Justin Piña Jr. [facility] 01-25-2022 14:52-0400 Diastolic blood pressure 95 mm[Hg] Justin Piña Jr. [facility] 01-25-2022 14:52-0400 Heart rate 100 /min Justin Piña Jr. [facility] 01-25-2022 14:52-0400 Systolic blood pressure 113 mm[Hg] Justin Piña Jr. [facility] 01-05-2022 08:26-0400 Blood Pressure Location Justin Piña Jr. [facility] 01-05-2022 08:26-0400 Diastolic blood pressure 85 mm[Hg] Justin Piña Jr. [facility] 01-05-2022 08:26-0400 Heart rate 87 /min Justin Piña Jr. [facility] 01-05-2022 08:26-0400 Systolic blood pressure 122 mm[Hg] Justin Piña Jr. [facility] 06-02-2021 10:00-0500 Body height 180.34 cm Surya Rodríguez Other [employer] Other 06-02-2021 10:00-0500 Body mass index (BMI) [Ratio] 32.77 kg/m2 Surya Rodríguez Other [employer] Other 06-02-2021 10:00-0500 Body weight 106.6 kg Surya Rodríguez Other [employer] Other 06-02-2021 10:00-0500 Diastolic blood pressure 75 mm[Hg] Surya Rodríguez Other [employer] Other 06-02-2021 10:00-0500 Systolic blood pressure 116 mm[Hg] Surya Rodríguez Other [employer] Other 05-19-2021 12:45-0400 Body height 180.34 cm Yumi Juju Other [employer] Other 05-19-2021 12:45-0400 Body mass index (BMI) [Ratio] 32.77 kg/m2 Yumi Juju Other [employer] Other 05-19-2021 12:45-0400 Body temperature 98.9 [degF] Yumi Juju Other [employer] Other 05-19-2021 12:45-0400 Body weight 106.6 kg Yumi Juju Other [employer] Other 05-19-2021 12:45-0400 Diastolic blood pressure 46 mm[Hg] Yumi Juju Other [employer] Other 05-19-2021 12:45-0400 SaO2% (BldA) [Mass fraction] 93 % Yumi Juju Other [employer] Other 05-19-2021 12:45-0400 Systolic blood pressure 98 mm[Hg] Yumi Juju Other [employer] Other 04-09-2021 17:00-0400 Body height 180.34 cm Surya Rodríguez Other [employer] Other 04-09-2021 17:00-0400 Body mass index (BMI) [Ratio] 32.49 kg/m2 Surya Rodríguez Other [employer] Other 04-09-2021 17:00-0400 Body weight 105.69 kg Surya Rodríguez Other [employer] Other 04-09-2021 17:00-0400 Diastolic blood pressure 75 mm[Hg] Surya Rodríguez Other [employer] Other 04-09-2021 17:00-0400 Systolic blood pressure 128 mm[Hg] Surya Rodríguez Other [employer] Other Encounters Encounter Date Encounter Type Care Provider Facility Start: 09-17-2024 [id number] Start: 09-11-2024 End: 09-11-2024 Office outpatient visit 15 minutes Bud VANG Work Phone: [facility] Comment on above: Lumbosacral spondylo sis without myelopathy (Primary Dx) Start: 09-11-2024 End: 09-11-2024 ambulatory BUD VALDIVIA [facility] Start: 09-10-2024 End: 09-10-2024 Lab Drop off Constance SMALLWOOD [facility] Start: 09-10-2024 End: 09-10-2024 ambulatory Constance SMALLWOOD Facility:[facility] Start: 09-10-2024 End: 09-10-2024 Patient encounter procedure Constance SMALLWOOD [facility] Start: 09-04-2024 End: 09-04-2024 Office outpatient visit 25 minutes Wilver Easton DO Work Phone: [facility] Comment on above: Paroxysmal atrial fi brillation (CMS-HCC) (Primary Dx); Papillary adenocarcinoma of bladder, stage 1 (CMS-HCC); Hyperlipidemia, unspecified hyperlipidemia type; Obstructive sleep apnea syndrome Start: 09-04-2024 End: 09-04-2024 [facility] Start: 08-24-2024 End: 08-24-2024 ambulatory AMAURI Alberts FRANKEL [facility] Start: 08-03-2024 End: 08-07-2024 Telephone encounter Rosy Simpson RN [facility] Comment on above: Rudy anan Start: 08-02-2024 End: 08-02-2024 Office outpatient visit 25 minutes Bud VANG Work Phone: [facility] Comment on above: Spinal stenosis of l umbar region with neurogenic claudication (Primary Dx) Start: 08-02-2024 End: 08-02-2024 ambulatory BUD Leena VALDIVIA [facility] Start: 07-12-2024 End: 07-12-[address] [facility] Start: 07-02-2024 End: 07-02-2024 Refill Wilver Easton DO Work Phone: [facility] Comment on above: Hyperlipidemia, unsp ecified Start: 06-20-2024 End: 06-20-2024 Office outpatient visit 25 minutes Andrea Paiz PA-C Work Phone: [facility] Comment on above: Lumbar radiculopathy , chronic (Primary Dx) Start: 06-20-2024 End: 06-20-[address] [facility] Start: 06-13-2024 End: 06-13-2024 Refill [facility]ver Easton DO [facility] Comment on above: Hyperlipidemia, unsp ecified Start: 04-30-2024 End: 04-30-2024 Refill Wilver Easton DO Work Phone: [facility] Comment on above: Paroxysmal atrial fi brillation ([facility]-H[facility]) Start: 03-26-2024 End: 03-26-2024 ambulatory Constance SMALLWOOD Facility::[id number] Start: 03-20-2024 End: 03-20-2024 ambulatory Constance SMALLWOOD Facility:[facility] Start: 03-20-2024 End: 03-20-2024 Lab Drop off Constance SMALLWOOD [facility] Start: 03-20-2024 End: 03-20-2024 ambulatory Constance SMALLWOOD Facility:[facility] Start: 03-20-2024 End: 03-20-2024 Patient encounter procedure Constance SMALLWOOD [facility] Start: 02-09-2024 End: 02-09-2024 Office outpatient visit 25 minutes Wilver Méndezmelvin DO Work Phone: [facility] Comment on above: Other fatigue (Prima ry Dx); Paroxysmal atrial fibrillation (CMS-HCC); Essential hypertension; Hyperlipidemia, unspecified hyperlipidemia type; Obstructive sleep apnea syndrome Start: 02-09-2024 End: 02-09-2024 ambulatory WILVER MÉNDEZLeena [facility] Start: 02-02-2024 End: 02-02-2024 Refill Wilver Easton DO Work Phone: [facility] Comment on above: Paroxysmal atrial fi brillation (CMS-HCC) Start: 01-13-2024 End: 01-13-2024 Refill Wilver Easton DO Work Phone: [facility] Comment on above: Hyperlipidemia, unsp ecified Start: 01-10-2024 End: 01-10-2024 Patient encounter procedure Wilver Easton DO Work Phone: [facility] Comment on above: Encounter for subseq uent annual wellness visit (AWV) in Medicare patient (Primary Dx); Papillary adenocarcinoma of bladder, stage 1 ([facility]); Paroxysmal atrial fibrillation ([facility]) Start: 01-10-2024 End: 01-10-2024 ambulatory [facility] Start: 12-25-2023 End: 12-25-2023 Refill Wilver Maddenleena DO Work Phone: [facility] Comment on above: Hyperlipidemia, unsp ecified Start: 10-29-2023 End: 10-30-2023 Refill Wilver Easton DO Work Phone: [facility] Comment on above: Paroxysmal atrial fi brillation ([facility]) Start: 09-26-2023 End: 09-26-2023 ambulatory Constance SMALLWOOD Facility:CD:[id number] Start: 09-19-2023 End: 09-19-2023 ambulatory Constance SMALLWOOD Facility:[facility] Start: 09-19-2023 End: 09-19-2023 Lab Drop off Constance SMALLWOOD [facility] Start: 09-19-2023 End: 09-19-2023 ambulatory Constance SMALLWOOD Facility:[facility] Start: 09-19-2023 End: 09-19-2023 Patient encounter procedure Constance SMALLWOOD [facility] Start: 09-05-2023 End: 09-05-2023 Office outpatient visit 15 minutes Latesha Guy Boaz [employer] Work Phone: [facility] Comment on above: Pilonidal cyst witho ut infection (Primary Dx) Start: 09-05-2023 Telephone encounter Latesha Sandra [employer] Work Phone: [facility] Start: 07-10-2023 Refill Wilver Easton D O Work Phone: [facility] Comment on above: Hyperlipidemia, unsp ecified Start: 06-15-2023 End: 06-15-2023 ambulatory Yessica Deepti Facility:[facility] Start: 06-15-2023 Office outpatient vi sit 10 minutes Yessica Deepti [facility] Start: 06-15-2023 End: 06-15-2023 ambulatory DO Wilver Easton Work Phone: [facility] Work Phone: Start: 06-15-2023 End: 06-15-2023 Patient encounter procedure DO Wilver Easton Work Phone: [facility] Work Phone: Start: 05-23-2023 End: 05-23-2023 Patient encounter procedure Constance SMALLWOOD [facility] Start: 02-14-2023 End: 02-14-2023 Lab Drop off Constance SMALLWOOD [facility] Start: 02-14-2023 End: 02-14-2023 Patient encounter procedure Constance SMALLWOOD [facility] Start: 11-29-2022 End: 11-29-2022 Patient encounter procedure Constance SMALLWOOD [facility] Start: 11-24-2022 End: 11-24-2022 Patient encounter procedure Constance SMALLWOOD [facility] Start: 11-22-2022 End: 11-22-2022 Patient encounter procedure SONJA EASTON [facility] Start: 11-18-2022 End: 11-18-[address] CONSTANCE SMALLWOOD . Facility:[facility] Start: 11-15-2022 Encounter for preprocedural cardiovascular examination DR CONSTANCE SMALLWOOD . [facility] Start: 11-15-2022 Encounter for preprocedural laboratory examination DR CONSTANCE SMALLWOOD . [facility] Start: 11-15-2022 Encounter for preprocedural respiratory examination DR CONSTANCE SMALLWOOD . [facility] Start: 11-11-2022 End: 11-12-[address] CONSTANCE SMALLWOOD . Facility:[facility] Start: 11-11-2022 End: 11-12-2022 Encounter for preprocedural laboratory examination DR CONSTANCE SMALLWOOD . Facility:[facility] Start: 11-09-2022 End: 11-09-2022 Patient encounter procedure Constance SMALLWOOD [facility] Start: 11-03-2022 End: 11-04-[address] CONSTANCE SMALLWOOD . Facility:[facility] Start: 11-01-2022 End: 11-01-2022 Patient encounter procedure Constance SMALLWOOD [facility] Start: 10-19-2022 End: 10-19-2022 Lab Drop off SHANEL QUINTERO [facility] Start: 10-19-2022 End: 10-19-2022 Patient encounter procedure SHANEL QUINTERO [facility] Start: 06-16-2022 End: 06-16-2022 ambulatory DO Wilver Easton Work Phone: [facility] Work Phone: Start: 06-16-2022 End: 06-16-2022 Patient encounter procedure DO Wilver Easton Work Phone: [facility] Start: 05-20-2022 End: 05-20-2022 Lab Drop off SHANEL QUINTERO [facility] Start: 05-20-2022 End: 05-20-2022 Patient encounter procedure SHANEL QUINTERO [facility] Start: 02-22-2022 End: 02-22-2022 Patient encounter procedure Justin Piña Jr. [facility] Start: 01-25-2022 End: 01-25-2022 Patient encounter procedure Justin Piña Jr. [facility] Start: 01-05-2022 End: 01-05-2022 Patient encounter procedure Justin Piña Jr. [facility] Start: 06-02-2021 End: 06-02-2021 ambulatory Surya Rodríguez Other [facility] [employer] Other Start: 06-02-2021 Office outpatient vi sit 15 minutes Surya Rodríguez [facility] Start: 05-19-2021 End: 05-19-2021 ambulatory Yumi Matute Other [facility] [employer] Other Start: 05-19-2021 Office outpatient vi sit 15 minutes Yumi Juju [facility] Start: 04-09-2021 Office outpatient ne w 30 minutes Surya Rodríguez [facility] Procedures Date Procedure Procedure Detail Performing Clinician Start: 09-04-2024 Adult depression scr eening assessment Wilver Easton DO Work Phone: Start: 02-09-2024 Adult depression scr eening assessment Wilver Easton DO Work Phone: Start: 01-10-2024 Adult depression scr eening assessment Wilver Easton DO Work Phone: Start: 09-05-2023 Adult depression scr eening assessment Latesha Sandra [employer] Work Phone: Start: 06-29-2023 Adult depression scr eening assessment Wilver Easton DO Work Phone: Start: 11-18-2022 Transurethral resect ion of bladder neoplasm Constance SMALLWOOD Start: 11-09-2022 Cystoscopy Constance AGUILAR Start: 01-25-2022 Cystoscopy Justin Bipin tavarez Jr. Start: 06-09-2015 Cystoscopy Justin tavarez Jr. Operative procedure on shoulder Justin Piña Jr. Procedure on back Justin Bipin tavarez Jr. Tonsillectomy Justin owusu Plan of Treatment Date Care Activity Detail Author Start: 01-05-2026 DTaP,Tdap and Td Vaccines (2 - Td or Tdap) DTaP,Tdap and Td Vaccines (2 - Td or Tdap) [facility] Start: 09-11-2025 Tobacco Screening Tobacco Screening [facility] Start: 09-04-2025 Depression Screening Depression Scre ening [facility] Start: 09-04-2025 Fall Risk Screening Fall Risk Screen ing [facility] Start: 09-04-2025 Tobacco Screening Tobacco Screening [facility] Start: 08-02-2025 Tobacco Screening Tobacco Screening [facility] Start: 06-20-2025 Tobacco Screening Tobacco Screening [facility] Start: 02-08-2025 Adult BMI Screening Adult BMI Screen ing [facility] Start: 02-08-2025 Depression Screening Depression Scre ening [facility] Start: 02-08-2025 Fall Risk Screening Fall Risk Screen ing [facility] Start: 02-08-2025 Tobacco Screening Tobacco Screening [facility] Start: 01-10-2025 End: 01-10-2025 Patient encounter procedure 01/10/2025 9:00 AM EDT Office Visit [facility] Internal Medicine - Family Medicine [address] [place] [address] [facility] Start: 01-09-2025 Adult BMI Screening Adult BMI Screen ing [facility] Start: 01-09-2025 Depression Screening Depression Scre ening [facility] Start: 01-09-2025 Fall Risk Screening Fall Risk Screen ing [facility] Start: 01-09-2025 Medicare Annual Well ness Visit Medicare Annual Wellness Visit [facility] Start: 11-29-2024 End: 11-29-2024 Patient encounter procedure 11/29/2024 9:15 AM EDT Office Visit [facility] [address] [place] [id number] Bud Valdivia, PA [address] [place] [address] [facility] Start: 09-11-2024 End: 09-11-2024 Patient encounter procedure 09/11/2024 11:15 AM EST Office Visit [facility] [address] [place] [phone] Bud Valdivia, PA [address] [place] [address] [facility] Start: 09-05-2024 Adult BMI Screening Adult BMI Screen ing [facility] Start: 09-05-2024 Depression Screening Depression Scre ening [facility] Start: 09-05-2024 Fall Risk Screening Fall Risk Screen ing [facility] Start: 09-05-2024 Tobacco Screening Tobacco Screening [facility] Start: 09-04-2024 End: 09-04-2024 Patient encounter procedure 09/04/2024 1:30 PM EST Office Visit [facility] [address] [place] [address] Wilver Easton, [address] [facility] [place] [address] [facility] Start: 08-24-2024 End: 08-24-2024 Admission to same day surgery center 08/24/2024 2:11 PM EST - 08/24/2024 2:18 PM EST Surgery [facility] [address] [place] [phone] Amauri Frankel MD [address], [place] [id number] INJECTION BLOCK EPIDURAL CAUDAL STEROID [28375 (CPT )] [facility] Comment on above: INJECTION BLOCK EPID URAL CAUDAL STEROID [13666 (CPT )] Start: 08-24-2024 End: 08-24-2024 Njx dx/ther sbst intrlmnr lmbr/sac w/img gdn INJECTION BLOCK EPIDURAL CAUDAL STEROID Spinal stenosis of lumbar region with neurogenic claudication 08/24/2024 2:11 PM EST [facility] Start: 08-24-2024 Subsequent hospital visit by physician 08/24/2024 2:11 PM EST Hospital Encounter [facility] [address] [place] [id number] Amauri Frankel MD [address] [place], [place] [address] [facility] Start: 08-02-2024 End: 08-02-2024 Patient encounter procedure 08/02/2024 9:45 AM EST Office Visit [facility] [address] [place] [id number] Bud Valdivia PA [address] [place] [address] [facility] Start: 07-12-2024 End: 07-12-2024 Patient encounter procedure 07/12/2024 8:15 AM EST Appointment [facility] - MRI Imaging [address] [place] [id number] Andrea Paiz, LORENZOC [address], [address] [place] [phone] [facility] Start: 06-29-2024 Adult BMI Screening Adult BMI Screen ing [facility] Start: 06-29-2024 Depression Screening Depression Scre ening [facility] Start: 06-29-2024 Fall Risk Screening Fall Risk Screen ing [facility] Start: 06-29-2024 Tobacco Screening Tobacco Screening [facility] Start: 06-20-2024 End: 06-20-2025 MR Lumbar spine WO contrast MR lumbar spine without contrast Imaging Routine Lumbar radiculopathy, chronic Expected: 06/20/2024, Expires: 06/20/2025 [employer] Work Phone: Comment on above: Expected: 06/20/2024 , Expires: 06/20/2025 Start: 03-18-2024 COVID-19 Vaccine () COVID-19 Vaccine () [facility] Start: 03-18-2024 COVID-19 Vaccine ( season) COVID-19 Vaccine ( season) [facility] Start: 03-18-2024 Influenza vaccination Influenza Vacc ine [facility] Start: 02-09-2024 End: 02-09-2024 Patient encounter procedure 02/09/2024 9:30 AM EDT Office Visit [facility] Internal [facility] - Family Medicine [address] [place] [address] Wilver Easton DO [address] [facility] [place] [address] [facility] Start: 01-10-2024 End: 01-10-2024 Patient encounter procedure 01/10/2024 10:50 AM EDT Office Visit [facility] - Family Medicine [address] [place] [address] [facility] Start: 12-29-2023 Medicare Annual Well ness Visit Medicare Annual Wellness Visit [facility] Start: 08-23-2023 Administration of varicella zoster vaccine Zoster (Shingles) Vaccine (2 of 2) [facility] Start: 03-18-2023 COVID-19 Vaccine ( season) COVID-19 Vaccine ( season) [facility] Start: 09-19-1963 Adult BMI Follow Up Plan Adult BMI F ollow Up Plan [facility] End: 02-08-2025 CBC W Auto Differential panel - Blood CBC auto differential Lab Routine Other fatigue 1 Occurrences starting 02/09/2024 until 02/08/2025 [employer] Work Phone: Comment on above: 1 Occurrences starti ng 02/09/2024 until 02/08/2025 CBC W Auto Different ial panel - Blood CBC auto differential Lab Routine Other fatigue 02/09/2024 6:55 PM [facility] End: 02-08-2025 Comprehensive metabolic 2000 panel - Serum or Plasma Comprehensive metabolic panel Lab Routine Hyperlipidemia, unspecified hyperlipidemia type 1 Occurrences starting 02/09/2024 until 02/08/2025 [facility] Comment on above: 1 Occurrences starti ng 02/09/2024 until 02/08/2025 Comprehensive metabo lic 2000 panel - Serum or Plasma Comprehensive metabolic panel Lab Routine Hyperlipidemia, unspecified hyperlipidemia type 02/09/2024 6:55 PM EDT [facility] End: 02-08-2025 Lipid 1996 panel - Serum or Plasma Lipid profile Lab Routine Hyperlipidemia, unspecified hyperlipidemia type 1 Occurrences starting 02/09/2024 until 02/08/2025 [facility] Comment on above: 1 Occurrences starti ng 02/09/2024 until 02/08/2025 Lipid 1996 panel - S jemima or Plasma Lipid profile Lab Routine Hyperlipidemia, unspecified hyperlipidemia type 02/09/2024 6:55 PM EDT [facility] Njx dx/ther sbst intrlmnr lmbr/sac w/img gdn INJECTION BLOCK EPIDURAL CAUDAL STEROID Spinal stenosis of lumbar region with neurogenic claudication [facility] End: 02-08-2025 TSH with Reflex TSH with Reflex Lab Routine Other fatigue 1 Occurrences starting 02/09/2024 until 02/08/2025 [facility] Comment on above: 1 Occurrences starti ng 02/09/2024 until 02/08/2025 TSH with Reflex TSH with Reflex Lab Routine Other fatigue 02/09/2024 6:55 PM EDT [facility] Immunizations Immunization Date Immunization Notes Care Provider Fa cili 06-20-2024 influenza, high dose seasonal, preservative-free Wilver Méndezmelvin DO Work Phone: [facility] 06-20-2024 Pneumococcal Conjuga te 20-valent Wilver Méndezmelvin DO Work Phone: [facility] 06-28-2023 zoster vaccine, unspecified formulation Wilver Jemma DO Work Phone: [facility] 04-09-2023 Influenza Vaccine, Quadrivalent, Adjuvanted Wilver Jemma DO Work Phone: [facility] 04-09-2023 influenza virus vacc ine, unspecified formulation Wilver Jemma DO Work Phone: [facility] 06-15-2022 influenza virus vacc ine, unspecified formulation SHANEL INGRID [facility] 06-15-2022 Influenza, High-dose , Quadrivalent Wilver Maddens DO Work Phone: [facility] 05-13-2021 influenza virus vacc ine, unspecified formulation SHANELGENARO QUINTERO [facility] 05-13-2021 influenza, injectabl e, quadrivalent, contains preservative Wilver Maddens DO Work Phone: [facility] 05-13-2021 SARS-CoV-2 (COVID-19 ) mRNA BNT-162b2 vax SHANEL QUINTERO [facility] 05-04-2021 influenza virus vacc ine, unspecified formulation SHANEL QUINTERO [facility] 05-04-2021 Influenza, High-dose , Quadrivalent Wilver Easton DO Work Phone: [facility] 05-04-2021 SARS-CoV-2 (COVID-19 ) mRNA BNT-162b2 vax SHANELGENARO QUINTERO [facility] 11-06-2020 SARS-CoV-2 (COVID-19 ) mRNA-1273 vaccine Justin Piña Jr. [facility] 10-09-2020 SARS-CoV-2 (COVID-19 ) mRNA-1273 vaccine Justin Piña Jr. [facility] 10-08-2020 SARS-CoV-2 (COVID-19 ) mRNA BNT-162b2 vax SHANELUbersense [facility] 09-19-2020 SARS-CoV-2 (COVID-19 ) mRNA BNT-492b2 vax SHANEL INGRID [facility] 05-18-2020 influenza virus vacc ine, unspecified formulation Justin Piña Jr. [facility] 05-17-2020 influenza virus vacc ine, unspecified formulation SHANEL INGRID [facility] 05-17-2020 influenza, high dose seasonal, preservative-free Wilver Yuhas DO Work Phone: [facility] 05-08-2019 influenza virus vacc ine, unspecified formulation SHANEL INGRID [facility] 05-08-2019 influenza, injectabl e, quadrivalent, contains preservative Wilver Yuhas DO Work Phone: [facility] 04-24-2018 influenza virus vacc ine, unspecified formulation SHANEL INGRID [facility] 04-24-2018 influenza, high dose seasonal, preservative-free Wilver Yuhas DO Work Phone: [facility] 06-01-2017 influenza virus vacc ine, unspecified formulation SHANEL INGRID [facility] 06-01-2017 influenza, injectabl e, quadrivalent, contains preservative Wilver Yuhas DO Work Phone: [facility] 07-18-2016 influenza virus vacc ine, unspecified formulation SHANEL INGRID [facility] 07-18-2016 influenza, injectabl e, quadrivalent, contains preservative Wilver Easton DO Work Phone: [facility] 01-06-2016 tetanus toxoid, redu romy diphtheria toxoid, and acellular pertussis vaccine, adsorbed Wilver Easton DO Work Phone: [facility] 07-03-2015 pneumococcal conjuga te vaccine, 13 valent Wilver Easton DO Work Phone: [facility] 05-08-2015 influenza, seasonal, injectable, preservative free Wilver Easton DO Work Phone: [facility] 04-20-2010 pneumococcal polysaccharide vaccine, 23 valent Wilver Easton DO Work Phone: [facility] Payers Date Payer Category Payer Self-pay [id number] 2016 [employer] [facility] ALEX [id number] 2016 Unknown ANTHEM TRADITION AL [id number] 2016-Present [phone] [address] [place] [address] [id number] 2008 Medicare [id number] 1959 Blue Cross Blue Shield [id number] [id number] 1959 Medicare [id number] 2.16.840.1.170492.19 1943 Unknown [id number] 2.16.840.1.396742.3.579. 2.593 1943 Unknown [id number] 2.16.840.1.462021.3.579. 2.593 1943 Unknown [id number] 2.16.840.1.980116.3.579. 2.593 1943 Unknown [id number] 2.16.840.1.372966.3.579. 2.727 1943 Unknown [id number] 2.16.840.1.944369.3.579. 2.727 1943 Unknown [id number] 2.16.840.1.226736.3.579. 2.727 1943 Unknown [id number] 2.16.840.1.747794.3.579. 2.727 1943 Unknown [id number] 2.16.840.1.480856.3.579. 2.727 1943 Unknown [id number] 2.16.840.1.896469.3.579. 2.727 1943 Unknown [id number] 2.16.840.1.708824.3.579. 2.1286 1943 Unknown [id number] 2.16.840.1.640428.3.579. 2.1286 1943 Unknown [id number] 2.16.840.1.791886.3.579. 2.1286 1943 Unknown [id number] 2.16.840.1.079196.3.579. 2.1286 1943 Unknown [id number] 2.16.840.1.318618.3.579. 2.1286 1943 Unknown [id number] 2.16.840.1.543850.3.579. 2.1286 1943 Unknown [id number] 2.16.840.1.949154.3.579. 2.1286 1943 Unknown [id number] 2.16.840.1.218446.3.579. 2.1286 1943 Unknown [id number] 2.16.840.1.957316.3.579. 2.1286 1943 Unknown [id number] 2.16.840.1.158935.3.579. 2.727 1943 Unknown [id number] 2.16.840.1.541961.3.579. 2.727 Unknown [id number] 2.16.840.1.733460.3.579. 2.531 Social History Date Type Detail Facility Start: 01-05-2022 End: 06-02-2022 Tobacco smoking status Ex-smoker (finding) [employer] Other Comment on above: Quit smoking in 1997 Tobacco smoking status Never [facility] Comment on above: Quit smoking in 1997 Start: 12-28-2022 End: 01-10-2024 Sex Assigned At Male [facility] [employer] Other Start: 1945 Sex Assigned At Male [facility] Start: 07-04-1968 End: 07-04-1998 History of tobacco use Current smoker [facility] Start: 07-04-1968 End: 07-04-1998 History of tobacco use Cigarette Smoker [facility] Start: 06-02-2022 End: 12-28-2022 Cigarettes smoked current (pack per day) - [facility] Start: 06-02-2022 Tobacco use and exposure Smokeless tobacco non-user [facility] Start: 08-02-2024 End: 09-11-2024 Alcoholic beverage intake Current drinker of alcohol (finding) [facility] [employer], [employer], [employer], or water company threatened to shut off services in your home in past 12Mo No [facility] How often to you hav e a drink containing alcohol? 2-3 time sa week [facility] How many standard drinks containing alcohol do you have on a typical day? 1 or [address] [facility] How often do you hav e 6 or more drinks on 1 occasion? Never [facility] Do you feel stress - tense, restless, nervous, or anxious, or unable to sleep at night because your mind is troubled all the time - these days [OSQ] Not at all [facility] Start: 1945 Sex assigned at Not on file P [facility] Start: 02-20-2015 Sex Male (finding) [facility] Are you now , , , , never or living with a partner? [facility] Functional Status Date Assessment Result Facility 11-29-2022 Functional Status N/A [facility] 11-01-2022 Functional Status N/A [facility] 10-19-2022 Functional Status N/A [facility] 05-20-2022 Functional Status N/A [facility] 02-22-2022 Functional Status N/A [facility] 01-25-2022 Functional Status N/A [facility] 01-05-2022 Functional Status N/A [facility] Clinical Notes 04-09-2021 to 09-11-2024 TAJ Landaverde - 09/11/2024 11:15 AM Fidelia Easton DO - 09/04/2024 1:30 PM ESTTelephone Encounter - Rosy Simpson RN - 08/03/2024 2:21 PM ESTPatient Instructions Note Date & Type Note Facility 09-11-2024 History of Presen t illness Narrative [facility] [address] [place] [address] Patient: Wilver Blue Sex: male : 1945 Age: 78 y.o. PCP: Wilver Easton Jr, DO 09/11/2024 Wilver Blue is here for a(n) post procedure follow up 08/24/2024 caudal CRISPIN with 80% improvement no pain today. States he's able to walk from car to department without stopping, able to complete ADLs easier now compared to prior to Caudal CRISPIN. Prior to procedure he could only walk 200 feet, now he can walk 1/2 mile. Date of onset of pain: 2020 , pain has lasted greater than 3 months. Pain scale before treatment: 02/24 Percentage and duration of relief after treatment: 80% cont relief Pain scale after treatment: 07/27 Chief Complaint Patient presents with Back Pain HPI: 07/03/2021 Left L 3, 4 NRI w/ 100% relief of leg pain which continues and 70% relief of Back pain and significant improvement in physical functioning and ADL's. 09/25/21 Left 3/4 NRI w/ 100% relief x4 days and 90% relief currently 07-23-2022 L 3,4 Nerve Root Iinjection with 100% relief x 20 months. Pain gradually returned recently. Pre-proc pain 9/10 with activity and post proc 0/10 08/24/2024 caudal CRISPIN with 80% improvement in pain and physical functioning pre proc pain 8/10 post proc pain 1-08/27 Back Pain This is a chronic problem. The current episode started more than 1 year ago (flared up December 2020). The problem occurs constantly (pain with standing/walking. fluctuates in intensity depending on activity. Pain mild annoyance with sitting). The problem has been gradually improving since onset. The pain is present in the lumbar spine. The pain does not radiate. The pain is at a severity of 0/10. The patient is experiencing no pain. The pain is Worse during the day (with standing). The symptoms are aggravated by standing, twisting and coughing (walking, ). Associated symptoms include numbness (lateral aspect of R thigh), tingling (bilateral feet/toes) and weakness (BLE especially with standing). Pertinent negatives include no bladder incontinence, bowel incontinence, chest pain, fever or leg pain. (Numbness/tingling/weakness with prolonged standing. Pt states he feels like his legs will give out) Risk factors include history of cancer. He has tried walking, home exercises, NSAIDs, ice, heat and analgesics (PT/HEP (2020), rest, heat/ice, meds: NSAIDS motrin, mary jane, topicals; blue emu helped temporarily) for the symptoms. The treatment provided no relief. The effect of pain on patient's ADLS: Moderate Impairment. Past Medical History: Diagnosis Date Bladder cancer ([facility]) 11/2023 BPH (benign prostatic hyperplasia) Chronic pain disorder Lower back pain ZANE (obstructive sleep apnea) Cpap Paroxysmal atrial fibrillation ([facility]) Past Surgical History: Procedure Laterality Date BACK SURGERY 1984 BIOPSY MASS 11/18/2022 bladder CARDIAC CATHETERIZATION 1983 COLONOSCOPY 2011 COLONOSCOPY N/A 09/14/2017 Performed by Wilver Easton DO at [facility] CYSTOSCOPY 2014 INJECTION BLOCK EPIDURAL CAUDAL STEROID N/A 08/24/2024 Performed by Amauri Frankel MD at [facility] INJECTION SPINE TRANSFORAMINAL: left L 3,4 nroot Left 07/23/2022 Performed by Amauri Frankel MD at [facility] INJECTION SPINE TRANSFORAMINAL: left L 3,4 nroot Left 09/25/2021 Performed by Amauri Frankel MD at [facility] INJECTION SPINE TRANSFORAMINAL: left L 3,4 nroot Left 07/03/2021 Performed by Amauri Frankel MD at [facility] SHOULDER ARTHROSCOPY W/ ROTATOR CUFF REPAIR 2011 No Known Allergies Family History Problem Relation Age of Onset Heart disease Mother Asthma Mother Heart disease Father Heart disease Brother Social History Socioeconomic History Marital status: Spouse name: Not on file Number of children: Not on file Years of education: Not on file Highest education level: Not on file Occupational History Not on file Tobacco Use Smoking status: Former Current packs/day: 0.00 Average packs/day: 1 pack/day for 30.0 years (30.0 ttl pk-yrs) Types: Cigarettes Start date: 07/04/1968 Quit date: 07/04/1998 Years since quittin.2 Smokeless tobacco: Never Vaping Use Vaping status: Never Used Substance and Sexual Activity Alcohol use: Yes Alcohol/week: 1.0 standard drink of alcohol Types: 1 Cans of beer per week Drug use: No Sexual activity: Not Currently Partners: Female Other Topics Concern Not on file Social History Narrative Not on file Social Drivers of Health Financial Resource Strain: Low Risk (12/28/2022) Overall Financial Resource Strain (CARDIA) Difficulty of Paying Living Expenses: Not hard at all Food Insecurity: No Food Insecurity (09/11/2024) Hunger Screening Food Insecurity - Worry: Never True Food Insecurity - Inability: Never True Transportation Needs: No Transportation Needs (12/28/2022) PRAPARE - Transportation Lack of Transportation (Medical): No Lack of Transportation (Non-Medical): No Physical Activity: Inactive (12/28/2022) Exercise Vital Sign Days of Exercise per Week: 0 days Minutes of Exercise per Session: 0 min Stress: No Stress Concern Present (12/28/2022) [employer] - Occupational Stress Questionnaire Feeling of Stress : Not at all Social Connections: Unknown (01/10/2024) Social Connection and Isolation Panel [NHANES] Frequency of Communication with Friends and Family: Three times a week Frequency of Social Gatherings with Friends and Family: Three times a week Attends Temple Services: Never Active Member of Clubs or Organizations: No Attends Club or Organization Meetings: Never Marital Status: Not on file Interpersonal Safety: Not At Risk (12/28/2022) Humiliation, Afraid, Rape, and Kick questionnaire Fear of Current or Ex-Partner: No Emotionally Abused: No Physically Abused: No Sexually Abused: No Housing Instability: Low Risk (12/28/2022) Housing Instability Housing Instability: No Review of Systems Constitutional: Negative. Negative for fever. HENT: Negative. Wears hearing aids Eyes: Negative. Respiratory: Positive for cough and shortness of breath. Cardiovascular: Negative. Negative for chest pain. Gastrointestinal: Negative. Negative for bowel incontinence. Endocrine: Negative. Genitourinary: Positive for frequency. Negative for bladder incontinence. Musculoskeletal: Positive for back pain. Skin: Negative. Allergic/Immunologic: Negative. Neurological: Positive for tingling (bilateral feet/toes), weakness (BLE especially with standing) and numbness (lateral aspect of R thigh). Hematological: Negative. Psychiatric/Behavioral: Negative. Vital Signs: BP 106/75 (BP Site: Right Arm, BP Postition: Sitting) Pulse 99 Resp 20 Physical Exam: GENERAL - Healthy patient that appears stated age. HEENT - Normocephalic / Atraumatic, Extraoccular movements intact, trachea midline, thyroid within normal limits. CV - pulse regular, Warm extremities with appropriate color of nailbeds. RESP - No obvious wheezing, No Shortness of Breath, No overexertion response to exam maneuvers. COORDINATION - remains intact. PSYCH - Alert and Oriented x4, Attentive and appropriate, constitutionally normal, displays normal mood and affect per situation, answered questions appropriately during examination, demonstrated appropriate attention during discussion, demonstrated appropriate cognitive reasoning and understanding of the medical condition by asking appropriate questions regarding the diagnosis and risks/benefits/alternatives of treatment modalities. No obvious deficits in memory, reasoning, or intellect. Lumbar: SKIN - No rashes or bruising in the area of the patient s pain. LYMPH NODES - demonstrate no obvious enlargement. EXTREMITIES - Lower extremities are warm, with minimal edema and palpable pulses. Tenderness to palpation noted in the lumbar spine and paraspinal musculature. Pain is elicited with flexion, extension, and lateral rotation of the lumbar spine. Range of motion is diminished with these motions due to pain. Facet palpation is noted to be somewhat tender and facet loading maneuvers are mildly positive, but not concordant with the patient s normal pain complaints. STRENGTH - noted to be 5 out of 5 all muscle groups bilateral lower extremities including muscles involving hip flexion and abduction, knee flexion and extension, as well as foot dorsiflexion and plantarflexion. No notable atrophy, fasciculations or spasm. SENSORY - No notable sensory deficits in the bilateral lower extremities to touch or pinprick in all dermatomal distributions. Straight Leg Raise is negative. Gait is normal. Assessment/Treatment Plan: Wilver was seen today for back pain. Diagnoses and all orders for this visit: Lumbosacral spondylosis without myelopathy Monitor Follow up 2 months The medications prescribed have been reviewed for medication interactions/contraindications and/or for upcoming procedures: continue current medication regimen without any changes. DISCUSSION: Treatment options discussed with patient and all questions answered to patient's satisfaction. Discussed the rules and regulations surrounding prescription of opioids and compliance at length. Failure to follow the rules and regulation will result in tapering and discontinuation of medications if applicable. Prescribed medication that requires intensive monitoring for toxicity We do not currently prescribe any controlled substance from this practice. It does appear that the patient benefited from the previous injection and the benefit has continued through this visit. At this time, we will monitor the patient s symptoms from an interventional standpoint and consider another injection in the future if the patient s symptoms return or intensify severely. The patient was made aware that they should call if symptoms worsen or if their pain begins to have a negative impact on their quality of life and activities of daily living again. The spine model was demonstrated and MRI was reviewed and used to explain the condition. OARRS: Reviewed. Scribe Statement: Tasha Blanco CNA, scribed for and in the presence of TAJ LANDAVERDE who performed the above service. Provider Statement: BUD Blanco PA, personally performed the services described in the documentation, as scribed by Tasha Louie CNA in my presence, and it is both accurate and complete. Tasha Louie CNA 09/11/24 1221 Tasha Louie CNA 09/11/24 1241 TAJ Landaverde 09/11/24 1531 documented in this encounter [facility] [address] 09-10-2024 Evaluation + Plan note Diagnostic Tests PendingUrine Cytology ([facility]) 09/10/24 [facility] 09-04-2024 History of Presen t illness Narrative IM PROGRESS NOTE Patient - Wilver Blue Age - 78 y.o. - 1945 ASSESSMENT & PLAN 1. Paroxysmal atrial fibrillation (CMS-HCC) (Primary) -asymptomatic -currently on Eliquis 5 mg b.i.d. for thromboembolism prophylaxis. No side effects reported -continues on metoprolol 50 mg daily for rate control -no changes today 2. Papillary adenocarcinoma of bladder, stage 1 (CMS-HCC) -currently seeing Urology every 6 months for cystoscopy -we discussed that there are multiple options for TURP, and offered a 2nd opinion from different urologist as to other options for relieving obstruction -in the meantime, continue dutasteride and tamsulosin 3. Hyperlipidemia, unspecified hyperlipidemia type -most recent LDL 74 mg/dL. Very close to target -continue atorvastatin 40 mg daily plus ezetimibe 10 mg daily 4. Obstructive sleep apnea syndrome -continue utilizing CPAP nightly for least 4 hours Subjective CARDIOVASCULAR FOLLOW-UP This is a follow up of a pre-existing problem. Blood pressures are being checked outside the office. Frequency: weekly Readings have been normal. BP readings outside the office range from 120 - 129 mmHg systolic and 60 - 69 mmHg diastolic. The ASCVD Risk score (Ty DK, et al., 2019) failed to calculate for the following reasons: The 2019 ASCVD risk score is only valid for ages 40 to 79 Patient reports following dosing instructions Physical activity: The patient does not participate in regular exercise at present. Dietary efforts show fairly healthy diet with limited sugars and fats. CV symptoms review was negative for rapid or irregular heart rate, palpitations, syncope A review of systems was negative except for the following: General: weight gain Psychiatric: Ongoing frustration, but not true depression over 's worsening mental status, now living in [facility] because she is full assist with all activity does not recognize him any longer. ENT: hearing change Respiratory: Is using his CPAP routinely. Unable to sleep without it. Does get benefits from its ongoing use. Genito-Urinary: urinary frequency/urgency and has to go to the bathroom 15-16 times a day and night. Currently being treated for bladder cancer, but has spoken to Urology who offered traditional TURP verses superseded steam TURP. Patient is unsure whether he should proceed. Exam BP 100/68 (BP Site: Left Arm, BP Postition: Sitting) Pulse 81 Temp 36.6 C (97.8 F) (Tympanic) Ht 180.3 cm (5' 11 ) Wt 103.8 kg (228 lb 12.8 oz) SpO2 98% BMI 31.91 kg/m Physical Exam Vitals reviewed. Constitutional: General: He is not in acute distress. Appearance: He is obese. He is not toxic-appearing. HENT: Head: Normocephalic. Right Ear: External ear normal. Left Ear: External ear normal. Ears: Comments: Decreased hearing bilaterally. Wearing hearing aids bilaterally. Nose: Nose normal. Mouth/Throat: Mouth: Mucous membranes are moist. Eyes: General: No scleral icterus. Neck: Vascular: No carotid bruit. Cardiovascular: Rate and Rhythm: Normal rate. Rhythm irregular. Pulses: Normal pulses. Heart sounds: No gallop. Pulmonary: Effort: Pulmonary effort is normal. Breath sounds: No wheezing or rales. Abdominal: Palpations: Abdomen is soft. Musculoskeletal: Right lower leg: No edema (Trace at the ankles). Left lower leg: No edema (Trace at the ankles). Lymphadenopathy: Cervical: No cervical adenopathy. Skin: General: Skin is warm and dry. Coloration: Skin is not jaundiced. Findings: No bruising. Neurological: General: No focal deficit present. Mental Status: He is alert and oriented to person, place, and time. Sensory: No sensory deficit. Motor: No weakness. Gait: Gait normal. Psychiatric: Mood and Affect: Mood normal. Behavior: Behavior normal. Meds Current Outpatient Medications: atorvastatin (LIPITOR) 40 mg tablet, Take 1 tablet (40 mg total) by mouth every morning., Disp: 90 tablet, Rfl: 1 cholecalciferol (VITAMIN D3) 1,000 units tablet, Take 1 tablet (1,000 Units total) by mouth in the morning., Disp: , Rfl: dutasteride (AVODART) 0.5 mg capsule, TAKE 1 CAPSULE BY MOUTH DAILY, Disp: , Rfl: ELIQUIS 5 mg tablet, take 1 tablet by mouth twice daily, Disp: 180 tablet, Rfl: 1 ezetimibe (ZETIA) 10 mg tablet, TAKE 1 TABLET BY MOUTH DAILY, Disp: 90 tablet, Rfl: 1 metoprolol succinate XL (TOPROL XL) 50 mg 24 hr tablet, TAKE 1/2 (ONE-HALF) OF A TABLET BY MOUTH EVERY MORNING, Disp: 90 tablet, Rfl: 1 tamsulosin (FLOMAX) 0.4 mg capsule, Take 1 capsule (0.4 mg total) by mouth in the morning and at bedtime., Disp: 180 capsule, Rfl: 0 Lab Results No visits with results within 1 Month(s) from this visit. Latest known visit with results is: Hospital Outpatient Visit on 02/09/2024 Component Date Value Ref Range Status TSH 02/09/2024 2.25 0.49 - 4.67 uIU/mL Final Cholesterol 02/09/2024 139 (L) 150 - 200 mg/dL Final Triglycerides 02/09/2024 108 27 - 150 mg/dL Final HDL Cholesterol 02/09/2024 43 >39 mg/dL Final VLDL 02/09/2024 22 0 - 30 mg/dL Final LDL (calc) 02/09/2024 74 <130 mg/dL Final Cholesterol:HDL Ratio 02/09/2024 3.2 1.0 - 5.0 Final Sodium 02/09/2024 139 134 - 146 mmol/L Final Potassium, Bld 02/09/2024 4.3 3.5 - 5.0 mmol/L Final Chloride 02/09/2024 105 98 - 109 mmol/L Final CO2 02/09/2024 26 22 - 32 mmol/L Final Anion gap 02/09/2024 8 5 - 15 mmol/L Final BUN 02/09/2024 22 5 - 27 mg/dL Final Creatinine 02/09/2024 1.30 0.60 - 1.30 mg/dL Final Glucose 02/09/2024 110 (H) 65 - 99 mg/dL Final Calcium 02/09/2024 9.5 8.5 - 10.5 mg/dL Final Total Protein 02/09/2024 7.2 6.0 - 8.0 g/dL Final Albumin 02/09/2024 4.3 3.2 - 5.3 g/dL Final Alkaline Phosphatase 02/09/2024 120 39 - 130 U/L Final AST 02/09/2024 19 0 - 41 U/L Final ALT 02/09/2024 20 0 - 40 U/L Final Total bilirubin 02/09/2024 1.4 (H) 0.3 - 1.2 mg/dL Final eGFR (CKD-EPI)non-race dependent 02/09/2024 56 (L) >59 ml/min/1.73sq.m Final White Blood Cells 02/09/2024 7.1 4.0 - 11.0 X10E9/L Final RBC count 02/09/2024 4.85 4.10 - 5.70 X10E12/L Final Hemoglobin 02/09/2024 14.5 13.0 - 17.0 g/dL Final Hematocrit 02/09/2024 43.3 39 - 49 % Final MCV 02/09/2024 89 80 - 100 fL Final MCH 02/09/2024 29.8 27 - 34 pg Final MCHC 02/09/2024 33.4 32 - 36 g/dL Final RDW 02/09/2024 14.3 11.5 - 15.0 % Final Platelets 02/09/2024 174 150 - 450 X10E9/L Final MPV 02/09/2024 9.0 7 - 12 fL Final % neutrophils 02/09/2024 67.3 % Final % lymphocytes 02/09/2024 20.5 % Final % monocytes 02/09/2024 8.9 % Final % eosinophils 02/09/2024 2.5 % Final % Basophils 02/09/2024 0.8 % Final Neutrophils Absolute (A) 02/09/2024 4.8 1.5 - 6.6 X10E9/L Final Lymphocytes Absolute 02/09/2024 1.5 1.0 - 3.5 X10E9/L Final Monocytes Absolute 02/09/2024 0.6 0 - 0.9 X10E9/L Final Eosinophils Absolute 02/09/2024 0.2 0.0 - 0.4 X10E9/L Final Basophils Absolute 02/09/2024 0.1 0.0 - 0.2 X10E9/L Final Other Testing No results found. Wilver Easton DO., [facility] Office: [phone] documented in this encounter [facility] 08-03-2024 Miscellaneous Notes Approval received for patient to hold Eliquis x 2 days prior to ordered caudal CRISPIN . Chart to [facility] for scheduling. No auth required dated 08/02/2024. Wilver is scheduled for 08/24. His last dose of Eliquis prior to procedure will be 08/21 documented in this encounter [facility] 08-03-2024 Telephone encounter Note Approval received for patient to hold Eliquis x 2 days prior to ordered caudal CRISPIN . Chart to [facility] for scheduling. No auth required dated 08/02/2024. [facility] 08-03-2024 Telephone encounter Note Wilver is scheduled for 08/24. His last dose of Eliquis prior to procedure will be 2/4 [facility] 08-02-2024 History of Presen t illness Narrative [facility] [address] [place] [address] Patient: Wilver Blue Sex: male : 1945 Age: 78 y.o. PCP: Wilver Easton Jr, 08/02/2024 Wilver Blue is here to review recent Lumbar MRI results. Patient reports he can only ambulate about 200 feet due to leg pain. Chief Complaint Patient presents with Back Pain HPI: 07/03/2021 Left L 3, 4 NRI w/ 100% relief of leg pain which continues and 70% relief of Back pain and significant improvement in physical functioning and ADL's. 09/25/21 Left 3/4 NRI w/ 100% relief x4 days and 90% relief currently 07-23-2022 L 3,4 Nerve Root Iinjection with 100% relief x 20 months. Pain gradually returned recently. Pre-proc pain 9/10 with activity and post proc 0/10 Back Pain This is a chronic problem. The current episode started more than 1 year ago (flared up December 2020). The problem occurs constantly (pain with standing/walking. fluctuates in intensity depending on activity. Pain mild annoyance with sitting). The problem has been gradually worsening since onset. The pain is present in the lumbar spine. The quality of the pain is described as aching. The pain is at a severity of 2/10 (up to 8/10 with standing or ambulation for more than a few minutes). The pain is severe. The pain is Worse during the day (with standing). The symptoms are aggravated by standing, twisting and coughing (walking, ). Associated symptoms include numbness (lateral aspect of R thigh), tingling (bilateral feet/toes) and weakness (BLE especially with standing). Pertinent negatives include no bladder incontinence, bowel incontinence, chest pain, fever or leg pain. (Numbness/tingling/weakness with prolonged standing. Pt states he feels like his legs will give out) Risk factors include history of cancer. He has tried walking, home exercises, NSAIDs, ice, heat and analgesics (PT/HEP (2020), rest, heat/ice, meds: NSAIDS motrin, mary jane, topicals; blue emu helped temporarily) for the symptoms. The treatment provided no relief. The effect of pain on patient's ADLS: Severe Impairment. Past Medical History: Diagnosis Date BPH (benign prostatic hyperplasia) Chronic pain disorder Lower back pain ZANE (obstructive sleep apnea) Cpap Paroxysmal atrial fibrillation ([facility]-H[facility]) Past Surgical History: Procedure Laterality Date BACK SURGERY 1984 BIOPSY MASS 11/18/2022 bladder CARDIAC CATHETERIZATION 1983 COLONOSCOPY 2011 COLONOSCOPY N/A 09/14/2017 Performed by Wilver Easton DO at [facility] CYSTOSCOPY 2015 INJECTION SPINE TRANSFORAMINAL: left L 3,4 nroot Left 07/23/2022 Performed by Amauri Frankel MD at [facility] INJECTION SPINE TRANSFORAMINAL: left L 3,4 nroot Left 09/25/2021 Performed by Amauri Frankel MD at [facility] INJECTION SPINE TRANSFORAMINAL: left L 3,4 nroot Left 07/03/2021 Performed by Amauri Frankel MD at [facility] SHOULDER ARTHROSCOPY W/ ROTATOR CUFF REPAIR 2011 No Known Allergies Family History Problem Relation Age of Onset Heart disease Mother Asthma Mother Heart disease Father Heart disease Brother Social History Socioeconomic History Marital status: Spouse name: Not on file Number of children: Not on file Years of education: Not on file Highest education level: Not on file Occupational History Not on file Tobacco Use Smoking status: Former Current packs/day: 0.00 Average packs/day: 1 pack/day for 30.0 years (30.0 ttl pk-yrs) Types: Cigarettes Start date: 07/04/1968 Quit date: 07/04/1998 Years since quittin.0 Smokeless tobacco: Never Vaping Use Vaping status: Never Used Substance and Sexual Activity Alcohol use: Yes Alcohol/week: 1.0 standard drink of alcohol Types: 1 Cans of beer per week Drug use: No Sexual activity: Not Currently Partners: Female Other Topics Concern Not on file Social History Narrative Not on file Social Drivers of Health Financial Resource Strain: Low Risk (12/28/2022) Overall Financial Resource Strain (CARDIA) Difficulty of Paying Living Expenses: Not hard at all Food Insecurity: No Food Insecurity (06/20/2024) Hunger Screening Food Insecurity - Worry: Never True Food Insecurity - Inability: Never True Transportation Needs: No Transportation Needs (12/28/2022) PRAPARE - Transportation Lack of Transportation (Medical): No Lack of Transportation (Non-Medical): No Physical Activity: Inactive (12/28/2022) Exercise Vital Sign Days of Exercise per Week: 0 days Minutes of Exercise per Session: 0 min Stress: No Stress Concern Present (12/28/2022) [employer] - Occupational Stress Questionnaire Feeling of Stress : Not at all Social Connections: Unknown (01/10/2024) Social Connection and Isolation Panel [NHANES] Frequency of Communication with Friends and Family: Three times a week Frequency of Social Gatherings with Friends and Family: Three times a week Attends Temple Services: Never Active Member of Clubs or Organizations: No Attends Club or Organization Meetings: Never Marital Status: Not on file Interpersonal Safety: Not At Risk (12/28/2022) Humiliation, Afraid, Rape, and Kick questionnaire Fear of Current or Ex-Partner: No Emotionally Abused: No Physically Abused: No Sexually Abused: No Housing Instability: Low Risk (12/28/2022) Housing Instability Housing Instability: No Review of Systems Constitutional: Negative for fever. HENT: Wears hearing aids Respiratory: Positive for cough and shortness of breath. Cardiovascular: Negative for chest pain. Gastrointestinal: Negative for bowel incontinence. Genitourinary: Positive for frequency. Negative for bladder incontinence. Musculoskeletal: Positive for back pain. Skin: Negative. Neurological: Positive for tingling (bilateral feet/toes), weakness (BLE especially with standing) and numbness (lateral aspect of R thigh). Psychiatric/Behavioral: Negative. Vital Signs: BP 115/86 Pulse 71 Resp 16 Ht 180.3 cm (5' 11 ) Wt 104.3 kg (230 lb) SpO2 92% BMI 32.08 kg/m Physical Exam: GENERAL - Healthy patient that appears stated age. HEENT - Normocephalic / Atraumatic, Extraoccular movements intact, trachea midline, thyroid within normal limits. CV - pulse regular, Warm extremities with appropriate color of nailbeds. RESP - No obvious wheezing, No Shortness of Breath, No overexertion response to exam maneuvers. COORDINATION - remains intact. PSYCH - Alert and Oriented x4, Attentive and appropriate, constitutionally normal, displays normal mood and affect per situation, answered questions appropriately during examination, demonstrated appropriate attention during discussion, demonstrated appropriate cognitive reasoning and understanding of the medical condition by asking appropriate questions regarding the diagnosis and risks/benefits/alternatives of treatment modalities. No obvious deficits in memory, reasoning, or intellect. Lumbar: SKIN - No rashes or bruising in the area of the patient s pain. LYMPH NODES - demonstrate no obvious enlargement. EXTREMITIES - Lower extremities are warm, with minimal edema and palpable pulses. Tenderness to palpation noted in the lumbar spine and paraspinal musculature. Pain is elicited with flexion, extension, and lateral rotation of the lumbar spine. Range of motion is diminished with these motions due to pain. Facet palpation is noted to be somewhat tender and facet loading maneuvers are mildly positive, but not concordant with the patient s normal pain complaints. STRENGTH - noted to be 5 out of 5 all muscle groups bilateral lower extremities including muscles involving hip flexion and abduction, knee flexion and extension, as well as foot dorsiflexion and plantarflexion. No notable atrophy, fasciculations or spasm. SENSORY - No notable sensory deficits in the bilateral lower extremities to touch or pinprick in all dermatomal distributions. Straight Leg Raise is negative. Gait is normal. Assessment/Treatment Plan: Wilver was seen today for back pain. Diagnoses and all orders for this visit: Spinal stenosis of lumbar region with neurogenic claudication - Case request operating room: INJECTION BLOCK EPIDURAL CAUDAL STEROID Caudal Epidural Steroid Injection - under fluoroscopy with the use of contrast dye (unless contraindicated) It is hopeful that the described procedure will provide symptomatic pain relief. It is felt to be medically necessary noting that the patient has tried and failed more conservative modalities of therapy and this is the next most appropriate step. The procedure was described in detail to the patient as well as the potential benefits of pain reduction alongside risks of the procedure and alternatives. Risks were described as including, but not limited to bleeding, infection, nerve damage, spinal cord injury, paralysis, stroke, dural puncture headache, and medication reaction. The patient expressed understanding regarding the risks and benefits and wishes to proceed. It was explained that Caudal injections often require a series of 2-3 before significant relief is noted, but we will determine after each injection if another one is indicated. Depending on the amount and duration of relief obtained from the injection, additional modalities of therapy including medications and physical therapy may need to be utilized alongside or following the injections. Follow up 2 weeks after procedure The medications I have prescribed have been reviewed for medication interactions/contraindications and/or for upcoming procedures: continue current medication regimen without any changes. DISCUSSION: Treatment options discussed with patient and all questions answered to patient's satisfaction. Prescribed medication that requires intensive monitoring for toxicity We do not currently prescribe any controlled substance from this practice. Treatment plans discussed but not opted for at this time: Lumbar nerve root injection. Patient would like to proceed with the current outlined treatment plan before moving forward with any other options. The spine model was demonstrated and MRI was reviewed and used to explain the condition. Chronic conditions not treated during this visit that affected my overall medical decision making: Comorbidity- Anticoagulation therapy The patient is currently being treated with an anticoagulant. For this reason, we will need to confer with the patients other physicians to determine if it is safe to discontinue this therapy for any planned procedure. If it is determined that discontinuation would be a significant risk, we will have to weigh the potential benefits to the procedure. It may be necessary to delay or defer the procedure altogether. However, if the patient feels the potential benefit outweighs the risk and is willing to assume the responsibility, we may elect to proceed while anticoagulated despite the increased risks of bleeding, hematoma formation, and possible paralysis. Comorbidity- Obesity The patient does have a comorbid condition of obesity. This will be taken into account in that obesity will contribute to certain pain conditions. It can contribute to pain from degenerative disc disease as well as osteoarthritis of the joints. Many neuropathic symptoms are also amplified due to axial spine loading. Special benefits will also need to be given to procedures. Many procedures are technically more difficult in the light of severe obesity. I will also consider the possibility of undiagnosed obstructive sleep apnea (which often accompanies obesity) when prescribing any narcotic medications. I will weigh the risks and benefits and fully discuss them with the patient for these reasons. Comorbidity- Atrial fibrillation OARRS: Reviewed. Scribe Statement: Tasha Blanco CNA, scribed for and in the presence of TAJ LANDAVERDE who performed the above service. Provider Statement: IBUD PA, personally performed the services described in the documentation, as scribed by Tasha Louie CNA in my presence, and it is both accurate and complete. Tasha Louie CNA 08/02/24 [id number] TAJ Landaverde 08/02/24 [id number] documented in this encounter [facility] 08-02-2024 Instructions Tasha Louie CNA - 08/02/2024 9:45 AM EST Epidural Steroid Injection (CRISPIN) / Nerve Root Injection / Nerve Block These procedure(s) involve the injection of a steroid and anesthetic into the epidural space or the nerve sheath that is both diagnostic and potentially therapeutic for alleviating discomfort of the legs and arms secondary to compression of the respective nerves due to bulging discs, bone spurs and other potential causes. Steroids are potent anti-inflammatory drugs that act to decrease the swollen and inflamed nerves thus relieving your clinical symptoms. How Long Will This Procedure Last? The extent and duration of pain relief may depend on the amount of inflammation and how many areas are involved. Other coexisting factors may be responsible for your pain. You and your physician will discuss expected results of procedure(s). After Your Injection You may experience soreness and tenderness at the area of treatment. This pain may not occur until later today after the numbing medicine wears off. The steroid can take 3-5 days to work and provide noticeable improvement. Activity You may feel temporary numbness, weakness or tingling: In the neck, arm, or fingertips (if your procedure was done in your neck) In the legs (if your procedure was done in your lower back) These symptoms are normal, and should subside within 3-4 hours. In that time, be careful to avoid falls. As a safety precaution, you must have a driver lifter of sanitation truck after a lumbar nerve root injection, even if you do not receive sedation. Resume activity as tolerated when function has returned. Medications Resume your routine medications after your procedure. You may resume blood thinners per your regular schedule after the procedure. If you received sedation: If you received sedation for your procedure, you may feel sleepy or not yourself for several hours today. For the next 24 hours avoid activities that requires alertness or coordination. This includes: Driving or operating heavy machinery Using power tools Consuming alcohol Do not make important or complex decisions or sign legal documents in the next 24 hours. Other Instructions: If you feel severe pain at the injection site with swelling and redness, increased leg weakness, a fever of 101 or higher, headache (or worsening headache), changes in vision or urinary retention: Please call the office at , or have someone take you to the nearest emergency room. Tell the emergency room staff that you recently had a spine injection. A doctor must evaluate you for bleeding and injection complications. If you lose control over bowel, bladder, or legs: Go to the nearest emergency room. If you are diabetic, the steroids used in this procedure can increase your blood sugar. If your blood sugar is 250mg/dL or higher, contact your primary care physician, or the doctor who manages your diabetes, to discuss how to get it back to normal. documented in this encounter [facility] 06-20-2024 History of Presen t illness Narrative [facility] [address] [place] [address] Patient: Wilver Blue Sex: male : 1945 Age: 78 y.o. PCP: Wilver Easton Jr, DO 06/20/2024 Wilver Blue is here for a(n) post procedure follow up 07-23-2022 L 3,4 Nerve Root Iinjection with 100% relief x 20 months. Pain gradually returned recently. . Patient last seen in clinic 06-24-2022. Date of onset of pain: 2020 , pain has lasted greater than 3 months. Pain scale before treatment: 9/10 Percentage of relief after and duration: 100% relief x 20 months Pain scale after treatment: 0/10 Chief Complaint Patient presents with Back Pain HPI: 07/03/2021 Left L 3, 4 NRI w/ 100% relief of leg pain which continues and 70% relief of Back pain and significant improvement in physical functioning and ADL's. 09/25/21 Left 3/4 NRI w/ 100% relief x4 days and 90% relief currently 07-23-2022 L 3,4 Nerve Root Iinjection with 100% relief x 20 months. Pain gradually returned recently. Pre-proc pain 9/10 with activity and post proc 0/10 Back Pain This is a recurrent problem. The current episode started more than 1 year ago (flared up December 2020). The problem occurs constantly (pain with standing/walking. fluctuates in intensity depending on activity. Pain mild annoyance with sitting). The problem has been gradually worsening since onset. The pain is present in the lumbar spine, gluteal and sacro-iliac (left hip worse then right hip). The quality of the pain is described as aching. The pain radiates to the left knee, right foot, right thigh, right knee, left thigh and left foot (BLE; LLE worse then RLE). The pain is at a severity of 8/10 (Pain can reach 9-10/10 when standing or walking ). The pain is severe. The pain is Worse during the day (with standing ). The symptoms are aggravated by standing, twisting and coughing (walking, ). Associated symptoms include leg pain (BLE; LLE worse then RLE), numbness (bilateral feet/toes), tingling (bilateral feet/toes) and weakness (LLE especially with standing or walking ). Pertinent negatives include no bladder incontinence, bowel incontinence, chest pain or fever. (Numbness/tingling/weakness with prolonged standing. Pt states he feels like his legs will give out) He has tried walking, home exercises, NSAIDs, ice, heat and analgesics (PT/HEP (2020), rest, heat/ice, meds: NSAIDS motrin, mary jane, topicals; blue emu helped temporarily) for the symptoms. The treatment provided no relief. The effect of pain on patient's ADLS: Moderate Impairment. Past Medical History: Diagnosis Date BPH (benign prostatic hyperplasia) Chronic pain disorder Lower back pain ZANE (obstructive sleep apnea) Cpap Paroxysmal atrial fibrillation (CMS-HCC) Past Surgical History: Procedure Laterality Date BACK SURGERY 1984 BIOPSY MASS 11/18/2022 bladder CARDIAC CATHETERIZATION 1983 COLONOSCOPY 2011 COLONOSCOPY N/A 09/14/2017 Performed by Wilver Easton DO at [facility] CYSTOSCOPY 2014 INJECTION SPINE TRANSFORAMINAL: left L 3,4 nroot Left 07/23/2022 Performed by Amauri Frankel MD at [facility] INJECTION SPINE TRANSFORAMINAL: left L 3,4 nroot Left 09/25/2021 Performed by Amauri Frankel MD at [facility] INJECTION SPINE TRANSFORAMINAL: left L 3,4 nroot Left 07/03/2021 Performed by Amauri Frankel MD at [facility] SHOULDER ARTHROSCOPY W/ ROTATOR CUFF REPAIR 2011 No Known Allergies Family History Problem Relation Age of Onset Heart disease Mother Asthma Mother Heart disease Father Heart disease Brother Social History Socioeconomic History Marital status: Spouse name: Not on file Number of children: Not on file Years of education: Not on file Highest education level: Not on file Occupational History Not on file Tobacco Use Smoking status: Former Current packs/day: 0.00 Average packs/day: 1 pack/day for 30.0 years (30.0 ttl pk-yrs) Types: Cigarettes Start date: 07/04/1968 Quit date: 07/04/1998 Years since quittin.9 Smokeless tobacco: Never Vaping Use Vaping status: Never Used Substance and Sexual Activity Alcohol use: Yes Alcohol/week: 1.0 standard drink of alcohol Types: 1 Cans of beer per week Drug use: No Sexual activity: Not Currently Partners: Female Other Topics Concern Not on file Social History Narrative Not on file Social Drivers of Health Financial Resource Strain: Low Risk (12/28/2022) Overall Financial Resource Strain (CARDIA) Difficulty of Paying Living Expenses: Not hard at all Food Insecurity: No Food Insecurity (06/20/2024) Hunger Screening Food Insecurity - Worry: Never True Food Insecurity - Inability: Never True Transportation Needs: No Transportation Needs (12/28/2022) PRAPARE - Transportation Lack of Transportation (Medical): No Lack of Transportation (Non-Medical): No Physical Activity: Inactive (12/28/2022) Exercise Vital Sign Days of Exercise per Week: 0 days Minutes of Exercise per Session: 0 min Stress: No Stress Concern Present (12/28/2022) [employer] [place] [employer] - Occupational Stress Questionnaire Feeling of Stress : Not at all Social Connections: Unknown (01/10/2024) Social Connection and Isolation Panel [NHANES] Frequency of Communication with Friends and Family: Three times a week Frequency of Social Gatherings with Friends and Family: Three times a week Attends Temple Services: Never Active Member of Clubs or Organizations: No Attends Club or Organization Meetings: Never Marital Status: Not on file Interpersonal Safety: Not At Risk (12/28/2022) Humiliation, Afraid, Rape, and Kick questionnaire Fear of Current or Ex-Partner: No Emotionally Abused: No Physically Abused: No Sexually Abused: No Housing Instability: Low Risk (12/28/2022) Housing Instability Housing Instability: No Review of Systems Constitutional: Negative for fever. HENT: Negative. Eyes: Negative. Respiratory: Negative. Cardiovascular: Negative for chest pain. Gastrointestinal: Negative. Negative for bowel incontinence. Genitourinary: Negative. Negative for bladder incontinence. Musculoskeletal: Positive for back pain. Skin: Negative. Neurological: Positive for tingling (bilateral feet/toes), weakness (LLE especially with standing or walking ) and numbness (bilateral feet/toes). Vital Signs: BP 125/76 (BP Site: Right Arm, BP Postition: Sitting) Pulse 93 Resp 18 Ht 180.3 cm (5' 11 ) Wt 107.5 kg (237 lb) SpO2 94% BMI 33.05 kg/m Physical Exam: GENERAL - Healthy patient that appears stated age. HEENT - Normocephalic / Atraumatic, Extraoccular movements intact, trachea midline, thyroid within normal limits. CV - pulse regular, Warm extremities with appropriate color of nailbeds. RESP - No obvious wheezing, No Shortness of Breath, No overexertion response to exam maneuvers. COORDINATION - remains intact. PSYCH - Alert and Oriented x4, Attentive and appropriate, constitutionally normal, displays normal mood and affect per situation, answered questions appropriately during examination, demonstrated appropriate attention during discussion, demonstrated appropriate cognitive reasoning and understanding of the medical condition by asking appropriate questions regarding the diagnosis and risks/benefits/alternatives of treatment modalities. No obvious deficits in memory, reasoning, or intellect. Lumbar: SKIN - No rashes or bruising in the area of the patient s pain. LYMPH NODES - demonstrate no obvious enlargement. EXTREMITIES - Lower extremities are warm, with minimal edema and palpable pulses. Tenderness to palpation noted in the lumbar spine and paraspinal musculature. Pain is elicited with flexion, extension, and lateral rotation of the lumbar spine. Range of motion is diminished with these motions due to pain. Facet palpation is noted to be somewhat tender and facet loading maneuvers are mildly positive, but not concordant with the patient s normal pain complaints. STRENGTH - noted to be 5 out of 5 all muscle groups bilateral lower extremities including muscles involving hip flexion and abduction, knee flexion and extension, as well as foot dorsiflexion and plantarflexion. No notable atrophy, fasciculations or spasm. SENSORY - No notable sensory deficits in the bilateral lower extremities to touch or pinprick in all dermatomal distributions with exception to pain and weakness sensation in the Bilateral legs with walking. Straight Leg Raise is negative. Gait is normal. Assessment/Treatment Plan: Wilver was seen today for back pain. Diagnoses and all orders for this visit: Lumbar radiculopathy, chronic - MR lumbar spine without contrast; Future Lumbar spine MRI - It is felt that additional diagnostic testing is necessary to further evaluate the patients current pain pathology. For this reason, we will order additional imaging noted above. It is hopeful that this study will identify a significant pain generator that will be amenable to therapy. It is felt that this modality is necessary due to the severity and chronicity of symptoms and physical exam findings combined with the lack of recent imaging of the area. An MRI is specifically felt to be necessary due to the physical exam findings noted above and the patient s description of refractory pain in a neuropathic distribution that is not relieved by change in body position and interferes with the patient s activities of daily living Follow up after MRI The medications prescribed have been reviewed for medication interactions/contraindications and/or for upcoming procedures: continue current medication regimen without any changes. DISCUSSION: Treatment options discussed with patient and all questions answered to patient's satisfaction. Prescribed medication that requires intensive monitoring for toxicity We do not currently prescribe any controlled substance from this practice. Treatment plans discussed but not opted for at this time: Repeat Lumbar nerve root injection or Caudal epidural steroid injection. Patient would like to proceed with the current outlined treatment plan before moving forward with any other options. The spine model was demonstrated and MRI was reviewed and used to explain the condition. Chronic conditions not treated during this visit that affected my overall medical decision making: Comorbidity- Obesity The patient does have a comorbid condition of obesity. This will be taken into account in that obesity will contribute to certain pain conditions. It can contribute to pain from degenerative disc disease as well as osteoarthritis of the joints. Many neuropathic symptoms are also amplified due to axial spine loading. Special benefits will also need to be given to procedures. Many procedures are technically more difficult in the light of severe obesity. I will also consider the possibility of undiagnosed obstructive sleep apnea (which often accompanies obesity) when prescribing any narcotic medications. I will weigh the risks and benefits and fully discuss them with the patient for these reasons. Comorbidity- Anticoagulation therapy The patient is currently being treated with an anticoagulant. For this reason, we will need to confer with the patients other physicians to determine if it is safe to discontinue this therapy for any planned procedure. If it is determined that discontinuation would be a significant risk, we will have to weigh the potential benefits to the procedure. It may be necessary to delay or defer the procedure altogether. However, if the patient feels the potential benefit outweighs the risk and is willing to assume the responsibility, we may elect to proceed while anticoagulated despite the increased risks of bleeding, hematoma formation, and possible paralysis. OARRS: Reviewed. Scribe Statement: Scribed for and in the presence of ANDREA PAIZ PA-C by Tasha Louie CNA. Provider Statement: I, ANDREA PAIZ PA-C, personally performed the services described in the documentation, as scribed by Tasha Louie CNA in my presence, and it is both accurate and complete. Tasha Louie CNA 06/20/24 1050 Tasha Louie CNA 06/20/24 1358 Andrea Paiz PA-C 06/20/24 1431 documented in this encounter [facility] [address] 06-20-2024 Instructions Tasha Louie CNA - 06/20/2024 9:45 AM EST documented in this encounter [facility] 03-20-2024 Evaluation + Plan note Diagnostic Tests PendingUroVysion Fish and Urine Cyto ([facility]) 03/20/24 [facility] 02-09-2024 History of Presen t illness Narrative IM PROGRESS NOTE Patient - Wilver Blue Age - 78 y.o. - 1945 ASSESSMENT & PLAN 1. Other fatigue -new problem, which is probably multifactorial, but needs to be evaluated for underlying metabolic abnormalities -check for anemia, thyroid dysfunction, electrolyte abnormalities, medication side effect, etc. -he did see sleep clinic several months ago, and adjustments had been made to his CPAP equipment -may actually represent some mild underlying depression -further recommendations following testing - CBC auto differential; Future - TSH with Reflex; Future 2. Paroxysmal atrial fibrillation (CMS-HCC) -on Eliquis 5 mg b.i.d. for thromboembolism prophylaxis -continues on metoprolol XL 25 mg daily 3. Essential hypertension -blood pressure is low normal to borderline -needs metoprolol for heart rate control. Can not really drop the dose much lower. -may be having side effects from the tamsulosin. -goals of treatment were reviewed with the patient, and he was asked to monitor at home and report readings below goal 4. Hyperlipidemia, unspecified hyperlipidemia type -currently on atorvastatin 40 mg daily -repeat lipid panel to assess efficacy and side effects from medication - Comprehensive metabolic panel; Future - Lipid profile; Future 5. Obstructive sleep apnea syndrome -currently on CPAP and stable -keep follow-up with sleep clinic Subjective 78-year-old male presents for recheck visit on his hypertension, atrial fibrillation and arthritis. He describes no issues with any of these. However, his main complaint today is of fatigue. He describes becoming winded after walking 150 ft, when several years ago he could walk twice this without stopping. Is sleeping more throughout the day, with frequent naps. Also, just does not have the ambition that he did in the past. -he has been taking his medications routinely without problems. -he has known ZANE, but is wearing his CPAP mask nightly for least 4-5 hours. 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 He actually helps feed her and takes her around the facility. -no lightheadedness or dizzy sensations. -his appetite has been good. He is drinking enough fluids every day. A review of systems was negative except for the following: General: fatigue and sleep disturbance Psychiatric: Denies suicidal thoughts or depression, but does feel frustrated over his current daily routine. I never thought I would be doing this ENT: hearing change Genito-Urinary: urinary frequency/urgency and prostate surgery has been discussed in the past. He is due for a recheck on bladder cancer with Urology in the next 1-2 months. Musculoskeletal: joint stiffness and generally improves with more activity. He has had no falls or joint swelling. Respiratory: Using CPAP nightly for 4-5 hours. Was seen by sleep clinic in [place] within the last 2 months, and settings were updated, and concerns were found. Exam BP 90/62 (BP Site: Left Arm, BP Postition: Sitting) Pulse 90 Temp 36.3 C (97.4 F) (Oral) Ht 180.3 cm (5' 11 ) Wt 105.9 kg (233 lb 8 oz) SpO2 94% BMI 32.57 kg/m Physical Exam Vitals reviewed. Constitutional: General: He is not in acute distress. Appearance: He is obese. He is not toxic-appearing. HENT: Head: Normocephalic. Right Ear: External ear normal. Left Ear: External ear normal. Ears: Comments: Decreased hearing bilaterally. Wearing hearing aids bilaterally. Nose: Nose normal. Mouth/Throat: Mouth: Mucous membranes are moist. Eyes: General: No scleral icterus. Neck: Vascular: No carotid bruit. Cardiovascular: Rate and Rhythm: Normal rate. Rhythm irregular. Pulses: Normal pulses. Heart sounds: No gallop. Pulmonary: Effort: Pulmonary effort is normal. Breath sounds: No wheezing or rales. Abdominal: Palpations: Abdomen is soft. Musculoskeletal: Right lower leg: No edema (Trace at the ankles). Left lower leg: No edema (Trace at the ankles). Lymphadenopathy: Cervical: No cervical adenopathy. Skin: General: Skin is warm and dry. Coloration: Skin is not jaundiced. Findings: No bruising. Neurological: General: No focal deficit present. Mental Status: He is alert and oriented to person, place, and time. Sensory: No sensory deficit. Motor: No weakness. Gait: Gait normal. Psychiatric: Mood and Affect: Mood normal. Behavior: Behavior normal. Meds Current Outpatient Medications: atorvastatin (LIPITOR) 40 mg tablet, take 1 tablet by mouth once daily, Disp: 90 tablet, Rfl: 1 cholecalciferol (VITAMIN D3) 1,000 units tablet, Take 1 tablet (1,000 Units total) by mouth in the morning., Disp: , Rfl: dutasteride (AVODART) 0.5 mg capsule, TAKE 1 CAPSULE BY MOUTH DAILY, Disp: , Rfl: ELIQUIS 5 mg tablet, take 1 tablet by mouth twice daily, Disp: 180 tablet, Rfl: 1 ezetimibe (ZETIA) 10 mg tablet, take 1 tablet by mouth daily, Disp: 90 tablet, Rfl: 1 metoprolol succinate XL (TOPROL XL) 50 mg 24 hr tablet, TAKE 1/2 (ONE-HALF) OF A TABLET BY MOUTH EVERY MORNING, Disp: 90 tablet, Rfl: 1 min oil-w.umq-naojqfrceu-mykm ointment, Apply to affected area as directed, Disp: 28 g, Rfl: 0 tamsulosin (FLOMAX) 0.4 mg capsule, Take 1 capsule (0.4 mg total) by mouth in the morning and at bedtime., Disp: 180 capsule, Rfl: 0 Lab Results No visits with results within 1 Month(s) from this visit. Latest known visit with results is: Hospital Outpatient Visit on 06/29/2023 Component Date Value Ref Range Status Cholesterol 06/29/2023 148 (L) 150 - 200 mg/dL Final Triglycerides 06/29/2023 109 27 - 150 mg/dL Final HDL Cholesterol 06/29/2023 46 >39 mg/dL Final VLDL 06/29/2023 22 0 - 30 mg/dL Final LDL (calc) 06/29/2023 80 <130 mg/dL Final Cholesterol:HDL Ratio 06/29/2023 3.2 1.0 - 5.0 Final Sodium 06/29/2023 139 134 - 146 mmol/L Final Potassium, Bld 06/29/2023 4.5 3.5 - 5.0 mmol/L Final Chloride 06/29/2023 105 98 - 109 mmol/L Final CO2 06/29/2023 27 22 - 32 mmol/L Final Anion gap 06/29/2023 7 5 - 15 mmol/L Final BUN 06/29/2023 22 5 - 27 mg/dL Final Creatinine 06/29/2023 1.22 0.60 - 1.30 mg/dL Final Glucose 06/29/2023 86 65 - 99 mg/dL Final Calcium 06/29/2023 10.0 8.5 - 10.5 mg/dL Final Total Protein 06/29/2023 7.4 6.0 - 8.0 g/dL Final Albumin 06/29/2023 4.4 3.2 - 5.3 g/dL Final Alkaline Phosphatase 06/29/2023 116 39 - 130 U/L Final AST 06/29/2023 22 0 - 41 U/L Final ALT 06/29/2023 26 0 - 40 U/L Final Total bilirubin 06/29/2023 1.2 0.3 - 1.2 mg/dL Final eGFR (CKD-EPI)non-race dependent 06/29/2023 60 >59 ml/min/1.73sq.m Final Other Testing No results found. Wilver Easton DO., [facility] Office: [phone] documented in this encounter [facility] 01-10-2024 History of Presen t illness Narrative Subjective SUBJECTIVE: Patient ID: Wilver Blue is a 78 y.o. male who presents for a Medicare Annual Wellness exam. HPI The following portions of the patient's history were reviewed and updated as appropriate: allergies, current medications, past family history, past medical history, past social history, past surgical history and problem list. AWV FLOWSHEET : Lifestyle Assessment Do you smoke or use smokeless tobacco?: No If you smoke or use smokeless tobacco, are you ready to quit?: NA Are you exposed to secondhand smoke?: No On average, how many drinks of alcohol do you consume in a week?: 1 or less Do you exercise for 30 or more minutes on average at least 3 days a week?: Sometimes Do you have any tooth, denture, or oral problems?: No Do you snore or has anyone told you that you snore?: No Do you try to eat a balanced diet?: Yes Do you experience leakage of urine, also known as urinary incontinence?: Never Do you have difficulty performing any of these activities? (check all that apply): None Do you have difficulty performing any of these activities? (check all that apply): None Fall Risk Fall Risk Assessment Completed?: Yes Have you fallen in the past year?: No Are you worried about falling?: No Do you feel unsteady when standing or walking?: (!) Yes Risk Stratification: Moderate Risk Depression Screening Little interest or pleasure in doing things: Not at all Feeling down, depressed, or hopeless: Not at all Trouble falling or staying asleep, or sleeping too much: Not at all Feeling tired or having little energy: Not at all Poor appetite or overeating: Not at all Feeling bad about yourself - or that you are a failure or have let yourself or your family down: Not at all Trouble concentrating on things, such as reading the newspaper or watching television: Not at all Moving or speaking so slowly that other people could have noticed. Or the opposite - being so fidgety or restless that you have been moving around a lot more than usual: Not at all Thoughts that you would be better off , or of hurting yourself in some way: Not at all PEG Scale Safety Assessment Do you have throw rugs on the floor?: No Do you feel safe at your home?: Yes Do you feel unsteady when walking?: (!) Yes Are you having difficulty with driving?: No Do you have trouble seeing?: No What assistive device do you use? (check all that apply): None Hearing Assessment Do you strain or struggle to hear/understand conversations?: No Do you have trouble hearing the television or radio when others do not?: No Does your family ever voice concerns about your hearing?: No Do you wear hearing aid/s?: (!) Yes Personal Health During the past 4 weeks, how would you rate your overall health?: Good Do you understand how to take all of your medications?: Yes How confident are you that you can control and manage most of your health problems?: Very confident In the past 12 months, how many times have you been hospitalized?: None End of Life Planning Do you have a living will?: Yes Do you have a durable power of sports attorney?: Yes Cognitive Screening Do you have trouble remembering or recalling facts or events?: No Do family members or caregivers report that you have difficulty remembering things?: No 6-ClT: Normal 11/12 REVIEW OF SYSTEMS: Review of Systems Objective PHYSICAL EXAMINATION: Vitals: 01/10/24 1048 BP: 120/72 Weight: 107.8 kg (237 lb 11.2 oz) Height: 180.3 cm (5' 11 ) Physical Exam Assessment/Plan ASSESSMENT/PLAN Wilver was seen today for maw. Diagnoses and all orders for this visit: Encounter for subsequent annual wellness visit (AWV) in Medicare patient Papillary adenocarcinoma of bladder, stage 1 ([facility]-HCC) Paroxysmal atrial fibrillation (CMS-HCC) Return in about 1 year (around 01/09/2025). documented in this encounter [facility] 09-19-2023 Evaluation + Plan note Diagnostic Tests PendingUroVysion Fish and Urine Cyto ([facility]) 09/19/23 [facility] 09-05-2023 Miscellaneous Notes Pharmacy called to share they are unable to fill the following: min oil-w.ngi-pkojkhjyko-hgfr ointment 28 g They were unaware of any substitutions. Please advise. It is an otc drawing salvlexus, I was hoping they could point the patient in the right direction documented in this encounter [facility] 09-05-2023 Telephone encounter Note Pharmacy called to share they are unable to fill the following: min oil-w.anm-srzfwasdsx-rcro ointment 28 g They were unaware of any substitutions. Please advise. [facility] 09-05-2023 Telephone encounter Note It is an otc drawing moriah, I was hoping they could point the patient in the right direction [facility] 09-05-2023 History of Presen t illness Narrative [...] cyst without infection Other orders - min oil-w.nno-nojxzebtqu-lyac ointment; Apply to affected area as directed [...] recommended at this time LARY Argueta 09/05/23 180 documented in this encounter [facility] 06-15-2023 Evaluation note Encounter Date Diagnosis Assessment Notes May, Obstructive sleep apnea (ICD-10 - G47.33) [facility] Other 05-15-2023 Hospital Discharge instructions Patient Education [...] cells. Follow these instructions at home: Take rwie-ftl-nbomktm and prescription medicines only as told by [...] is important. Where to find more information [employer] (ACS): cancer.org [employer] [place] (NCI): cancer.gov Contact a health care provider [...] provider. Document Revised: 06/14/2022 Document Reviewed: 06/14/2022 [employer] Patient Education 2022 [employer]. Follow Up Care 11/09/2022 09:22:18 With:SANTY LYLES, Constance Villanueva, URL Address: [facility] [address] [place] [address]- [phone] When: Unknown [facility] 04-27-2023 NoteEXAMINATION: XR CHEST 2 V [...] Electronically authenticated by: JUDITH BARONE Date: 2022-11-11 11:30[facility]04-25-2023 Evaluation + Plan noteExtracted from: Title:Urology Progress Note Author:Taj SMALLWOOD MD Date:11/09/22 Impression and Plan Impression: [...] Appointments Appointment Date:11/24/2022 08:00:00 AM Scheduled Provider: Location:[facility] Appointment Type:URO Nurse Visit Appointment Date:11/29/2022 09:30:00 AM Scheduled Provider:Constance SMALLWOOD MD Location:[facility] Appointment Type:URO Office Visit Appointment Date:04/29/2023 08:00:00 AM Scheduled Provider:Constance SMALLWOOD MD Location:[facility] Appointment Type:URO Office Visit [facility]04-25-2023 Hospital Discharge instructions Patient Education 11/09/2022 08:57:31 [...] With:Constance SMALLWOOD Address: [facility] [address], [place] [address]- Business (1) When: Unknown Comments:Office will call to schedule follow up [facility] [facility] Discharge instructions Patient Education 11/01/2022 08:17:55 [...] urethra. Follow these instructions at home: Take ijhy-vyz-jysiqnm and prescription medicines only as told by [...] 07/04/2006 Document Revised: 05/29/2019 Document Reviewed: 08/08/2017 [employer] Patient Education 2020 [employer]. Follow Up Care 10/22/2022 12:18:44 With:SANTY LYLES, Constance Villanueva, URL Address: [facility] [address] , [place] [address]- When: Unknown [facility] 04-04-2023 Hospital Discharge instructions Patient Education [...] urethra. Follow these instructions at home: Take qihd-xuc-tbhgdrd and prescription medicines only as told by [...] 07/04/2006 Document Revised: 05/29/2019 Document Reviewed: 08/08/2017 [employer] Patient Education 2020 [employer]. Follow Up Care 05/17/2022 11:04:11 With:INGRID GONZALEZ, SHANEL Alberts, URL Address: [address] [place] [address] When: Unknown [facility] 04-04-2023 Evaluation + Plan note Diagnostic Tests Pending * Urine Culture 10/19/22 [facility] Hospital Discharge instructions Patient Education 05/20/2022 11:50:20 [...] Follow these instructions at home: Medicines Take phks-wqb-gyeceua and prescription medicines only as told by [...] or the blood stops without treatment. Take jlrk-oqw-lneiiyo and prescription medicines only as told by your health care provider. Drink enough fluid to keep your urine clear or pale yellow. This information is not intended to replace advice given to you by your health care provider. Make sure you discuss any questions you have with your health care provider. Document Released: 07/04/2006 Document Revised: 11/28/2019 Document Reviewed: 08/06/2017 [employer] Patient Education 2019 [employer]. Follow Up Care 05/20/2022 08:09:37 With:INGRID GONZALEZ, SHANEL Alberts, URL Address: [address] [place] [address] When: Unknown [facility] [place] 08-08-2022 Hospital Discharge instructions Patient Education [...] urethra. Follow these instructions at home: Take beom-vio-bwthhhi and prescription medicines only as told by [...] 07/04/2006 Document Revised: 05/29/2019 Document Reviewed: 08/08/2017 [employer] Patient Education 2020 [employer] Follow Up Care 01/25/2022 15:19:30 With:Wang Barney MD, Justin Elizondo URO Address: [facility] [address], [place] [address]- When:Within 3 Month(s) Comments:w/ JOVANNA [facility] [place] 07-11-2022 Hospital Discharge instructions Patient Education 01/25/2022 [...] 07/04/2006 Document Revised: 03/23/2019 Document Reviewed: 06/03/2017 [employer] Patient Education 2020 [employer]. 01/25/2022 15:02:39 Benign Prostatic Hyperplasia Benign Prostatic [...] urethra. Follow these instructions at home: Take ejfn-zcw-gazunan and prescription medicines only as told by [...] 07/04/2006 Document Revised: 05/29/2019 Document Reviewed: 08/08/2017 [employer] Patient Education 2020 [employer] Follow Up Care 01/06/2022 13:38:25 With:Wang Barney MD, Justin Elizondo, URO Address: [phone] When:Within 3 Week(s) Comments:w/JOVANNA [facility] [place] 06-21-2022 Hospital Discharge instructions Patient Education [...] urethra. Follow these instructions at home: Take jvxy-pxd-ftbydwv and prescription medicines only as told by [...] 07/04/2006 Document Revised: 05/29/2019 Document Reviewed: 08/08/2017 [employer] Patient Education 2019 [employer]. Follow Up Care 01/01/2021 08:41:05 With:Wang Barney MD, CHARLOTTE Barclay Address: [facility] [address], [place] [address] [phone] When: Unknown [facility] 11-16-2021 Evaluation note* Encounter Date Diagnosis [...] obvious signs of neurogenic claudication at present [facility] Other 11-02-2021 Evaluation note* Encounter Date Diagnosis [...] benefit. A prescription was sent to the [facility] for new supplies throughout the year. He [...] in a timely fashion. 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) [facility] Other evaluation + Plan note No data available for this section [facility] evaluation + Plan note Future Appointments Appointment Date:02/22/2022 08:00:00 AM Scheduled Provider:Justin Piña Jr., MD Location:[facility] Appointment Type:URO Office Visit [facility] Evaluation + Plan note Future Appointments Appointment Date:06/07/2022 08:45:00 AM Scheduled Provider:Justin Piña Jr., MD Location:[facility] Appointment Type:URO Office Visit [facility] Evaluation + Plan note Future Appointments Appointment Date:08/24/2022 08:30:00 AM Scheduled Provider:SHANEL QUINTERO PA-C [facility] App[facility] Type:URO Office Visit [facility] Evaluation + Plan note Future Appointments Appointment Date:08/24/2022 08:30:00 AM Scheduled Provider:SHANEL QUINTERO PA-C Location:[facility] Appointment Type:URO Office Visit Diagnostic Tests Pending * [facility] Future App[facility]ments Appointment Date:04/29/2023 08:00:00 AM Scheduled Provider:Constance SMALLWOOD MD Location:[facility] Appointment Type:URO Office Visit [facility] evaluation + Plan note Future Appointments Appointment Date:11/24/2022 08:00:00 AM Scheduled Provider: [facility] Appoint[facility] Type:URO Nurse Visit Appointment Date:11/29/2022 09:30:00 AM Scheduled Provider:Constance SMALLWOOD MD [facility] Appoint[facility] Type:URO Office Visit Appointment Date:04/29/2023 08:00:00 AM Scheduled Provider:Constance SMALLWOOD MD [facility] Appointment Type:URO Office Visit [facility] Evaluation + Plan note Future Appointments Appointment Date:11/29/2022 09:30:00 AM Scheduled Provider:Constance SMALLWOOD MD [facility] Appointment Type:URO Office Visit Appointment Date:04/29/2023 08:00:00 AM Scheduled Provider:Constance SMALLWOOD MD [facility] Appointment Type:URO Office Visit [facility] evaluation + Plan note Future Appointments Appointment Date:04/29/2023 08:00:00 AM Scheduled Provider:Constance SMALLWOOD MD [facility] Appointment Type:URO Office Visit Diagnostic Tests Pending * [facility] Urine [facility] ([facility]) 02/14/23 [facility] information [facility] Work Phone: Evaluation note* Diagnosis Spinal stenosis of lumbar region with neurogenic claudication- Primary [facility] Diagnosis Hyperlipidemia, unspecified [facility] Diagnosis Hyperlipidemia, unspecified [facility]* Diagnosis Encounter for subsequent annual wellness visit (AWV) in Medicare patient- Primary Papillary adenocarcinoma of bladder, stage 1 (CMS-HCC) Paroxysmal atrial fibrillation (CMS-HCC) Atrial fibrillation [facility] in this [facility]* Diagnosis Pilonidal cyst without infection- Primary [facility]* Diagnosis Hyperlipidemia, unspecified [facility]* Diagnosis Paroxysmal atrial fibrillation (CMS-HCC) Atrial fibrillation [facility] Diagnosis Other fatigue- Primary Paroxysmal atrial fibrillation (CMS-HCC) Atrial fibrillation Essential hypertension Unspecified essential hypertension Hyperlipidemia, unspecified hyperlipidemia type Obstructive sleep apnea syndrome Obstructive sleep apnea (adult) (pediatric) documented in this encounter [facility]* Diagnosis Paroxysmal atrial fibrillation (CMS-HCC) Atrial fibrillation [facility]* Diagnosis Lumbar radiculopathy, chronic- Primary [facility] in this encounter [facility]* Diagnosis Hyperlipidemia, unspecified [facility]* Diagnosis Paroxysmal atrial fibrillation (CMS-HCC)- Primary Atrial fibrillation Papillary adenocarcinoma of bladder, stage 1 (CMS-HCC) Hyperlipidemia, unspecified hyperlipidemia type Obstructive sleep apnea syndrome Obstructive sleep apnea (adult) (pediatric) documented in this encounter [facility]* Diagnosis Lumbosacral spondylosis without myelopathy- Primary documented in this encounter [facility] Narrative - Reported* Type Description Date Medical History ZANE (obstructive sleep apnea) Medical History Afib Medical History Hyperlipemia Medical History BPH (benign prostatic hyperplasi a) Surgical History shoulder surgery Surgical History back surgery Hospitalization History See Above [facility] Other Hospital Discharge instructions No data available for this section [facility] filed[facility] in this [facility] [...] available for this section [facility] [place] Summary Purpose Family History No Family History [...] Family History Records FoundNo Family History Records FoundNo Family History Records Found Advance Directives No Advanced Directives Records Found Advance Directive Response Recorded Date/ Time Advance Directives No February 06 7:06am Reason for Referral Reason Evaluate and Tr eat Diagnosis 1 Radiculopathy, lumba r region (M54.16) Referral Organization [facility] urosurgery Referring Provider First Name Surya Referring Provider Last Name Marcos Referring Provider Specialty Neurologica l Surgery Referred Organization [facility] Referred Provider Jr. Frankel William Referred Address [address],[place], [place],[address] Referred Provider Specialty Pain Medicin e Referral [...] CREATED AUTHOR AUTHOR'S ORGANIZ ATION 11/26/2022 [facility] DATE CREATED AUTHOR AUTHOR'S ORGANIZ ATION 06/18/2023 [facility] DATE CREATED AUTHOR AUTHOR'S ORGANIZ ATION 08/15/2024 Lee Lipscomb [facility] DATE CREATED AUTHOR AUTHOR'S ORGANIZ ATION 09/06/2024 [facility] DATE CREATED AUTHOR AUTHOR'S ORGANIZ ATION 09/13/2024 [facility] DATE CREATED AUTHOR AUTHOR'S ORGANIZ ATION 09/15/2024 Lee Lipscomb [facility] DATE CREATED AUTHOR AUTHOR'S ORGANIZ ATION 09/16/2024 [facility] Care Team (unrecognized sect ion and content) Team Status: Active Member Role Status Dates Wilver Easton DO Primary Care Provider Active Team Status: Inactive Member Role Status Dates Wilver Easton DO Primary Care Provider Active Yessica Tatum APRN ACNP- Attending Provider Active Bioanalyst Relationship Specialty Start Date End Date Wilver Easton DO [address] [place] [address] PCP - General Internal Medicine 09/14/17 Shae Resendiz [facility] Nurse - [employer] 04/06/24 Bioanalyst Relationship Specialty Start Date End Date Wilver Easton DO [address] [place] [address] PCP - General Internal Medicine 09/14/17 Shae Resendiz [facility] Bioanalyst Relationship Specialty Start Date End Date Wilver Easton DO [address] [place] [address] PCP - General Internal Medicine 09/14/17 Bioanalyst Relationship Specialty Start Date End Date Wilver Easton DO [address] [place] [address] PCP - General Internal Medicine 09/14/17 Hallie Fofana [facility] Nurse - [employer] 12/22/23 Bioanalyst Relationship Specialty Start Date End Date Wilver Easton DO [address] [place] [address] PCP - General Internal Medicine 09/14/17 Hallie Fofana [facility] Nurse - [employer] 12/22/23 Bioanalyst Relationship Specialty Start Date End Date Wilver Easton DO [address] [place] [address] PCP - General Internal Medicine 09/14/17 Bioanalyst Relationship Specialty Start Date End Date Wilver Easton DO [address] [place] [address] PCP - General Internal Medicine 09/14/17 Hallie Fofana [facility] Nurse - [employer] 12/22/23 Bioanalyst Relationship Specialty Start Date End Date Wilver Easton DO [address] [place] [address] PCP - General Internal Medicine 09/14/17 Hallie Fofana [facility] Nurse - [employer] 12/22/23 Bioanalyst Relationship Specialty Start Date End Date Wilver Easton DO [address] [place] [address] PCP - General Internal Medicine 09/14/17 Bioanalyst Relationship Specialty Start Date End Date Wilver Easton DO [address] [facility] [address] PCP - General Internal Medicine 09/14/17 Shae Resendiz [facility] Nurse - [employer] 04/06/24 Bioanalyst Relationship Specialty Start Date End Date Wilver Easton DO [address] [place] [address] PCP - General Internal Medicine 09/14/17 Shae Resendiz [facility] Nurse - [employer] 04/06/24 Bioanalyst Relationship Specialty Start Date End Date Wilver Easton DO [address] [place] [address] PCP - General Internal Medicine 09/14/17 Shae Resendiz [facility] Nurse - [employer] 04/06/24 Bioanalyst Relationship Specialty Start Date End Date Wilver Easton DO [address] [place] [address] PCP - General Internal Medicine 09/14/17 Marilyn Steven [facility] Nurse - [employer] 08/13/24 Bioanalyst Relationship Specialty Start Date End Date Wilver Easton DO [address] [place] [address] PCP - General Internal Medicine 09/14/17 Marilyn Steven [facility] Nurse - [employer] 08/13/24 REASON FOR VISIT (unrecogniz ed section and content) Reason Comments Back Pain Reason Onset Date Comments Eliquis hold 08/03/2024 Reason Comments Med Refill Reason Comments MAW Reason Comments Cyst Possibly a cyst on t ailbone Reason Comments Hypertension Reason Comments Hyperlipidemia Hypertension Reason Comments Back Pain Goals (unrecognized section and content) Goals may [...] BE BASED ON THE PRIMARY CLINICAL RECORDS. [employer] provides no warranty or guarantee of the accuracy or completeness of information in this document.
[2024-09-17 07:46] VITALS: BP 120/77; PULSE 96; TEMP 36.1; O2SAT 97
[2024-09-17] MEDS: LIDOCAINE 2% JELLY 10 ML UR (08:25)
[2024-09-17 08:29] VITALS: BP 116/75; PULSE 96; O2SAT 94
[2024-09-17 08:35] VITALS: BP 134/86; PULSE 109; O2SAT 94
--- NOTE | 2024-09-17 08:35 | PM.URSON ---
Urology Surgery Operative Note Operative Note Procedure Date: 09/17/24 Time Out Performed: yes Pre-op Diagnosis: History of TCC of the bladder Post-op Diagnosis: same as pre-op Procedures performed: 1. Cystoscopy. Anesthesia: local Primary Surgeon: Ariel Smallwood Complications: None Estimated blood loss (mL): 5 Findings: 1. Friable prostate. 2. High-grade bladder damage. 3. No evidence of bladder tumors. 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 He now presents for a 6-month surveillance cystoscopy. He has signed an informed consent after risks were explained. Detailed description of Procedure: The patient was kept on the rlittleton bed and brought in the endoscopy suite. Timeout was done by all parties in the room. He was in the supine position. Genitalia were sterilely prepped and draped in the usual fashion. 2% lidocaine gel was passed per urethra. I then passed a flexible cystoscope per urethra and into the bladder. The anterior urethra was normal. Prostatic urethra revealed long obstructing lateral lobes which were friable and bled. Part of the median lobe protruded into the bladder. Careful panendoscopy revealed high-grade trabeculation with some open diverticuli. No evidence of tumors were noted. The scope was retroflexed and no new findings were noted. The scope was then removed. We will do another surveillance cystoscopy in 1 year. He was then discharged to home.
== END 2024-09-17 08:48 | disposition home or self-care (01) ==
LOC: SURGOUT 07:31
PROVIDERS: PCP Internal Medicine; Visit Provider Urology
PROC: (CPT 52000; principal; 2024-09-17 08:15)
DX: Z85.51 Personal history of malignant neoplasm of bladder (principal); R31.9 Hematuria, unspecified; N20.1 Calculus of ureter; I10 Essential (primary) hypertension; E78.5 Hyperlipidemia, unspecified; I48.91 Unspecified atrial fibrillation; N32.89 Other specified disorders of bladder
CPT/HCPCS: 52000